=== PATIENT | female | born 1960 | race African-American/Black ===

== ENCOUNTER 2016-10-24 07:57 | Emergency (ER) | payer MEDICARE, MEDICAID ==
--- NOTE | 2016-10-24 10:12 | ER Document Report ---
ED General - General Chief Complaint: Leg Swelling Stated Complaint: LEG PAIN Notes: Patient is complaining of swelling in both feet and both lower legs that began about 1 week ago. She says it has gradually increased and is becoming painful. She's had this previously when she was diagnosed with CHF in June,. On that occasion, she had shortness of breath and difficulty breathing, which she does not have now. She denies any chest pains. No recent illness or fevers. Patient has HCTZ that she takes for fluid, and has been taking it as prescribed and has not missed any dosages. History of appendectomy and and ovary removal. History of hypertension, IDDM, hepatitis C. Smokes TRAVEL OUTSIDE OF THE [place] IN LAST 30 DAYS: No - Related Data Allergies/Adverse Reactions: No Known Allergies Allergy (Verified 10/24/16 08:11) Past Medical History - Social History Smoking Status: Current Every Day Smoker Chew tobacco use (# tins/day): Yes Family History: Reviewed & Not Pertinent, DM Patient has suicidal ideation: No Patient has homicidal ideation: No - Past Medical History Cardiac Medical History: Reports: Hx Congestive Heart Failure, Hx Coronary Artery Disease, Hx Hypercholesterolemia, Hx Hypertension Endocrine Medical History: Reports: Hx Diabetes Mellitus Type 1, Hx Diabetes Mellitus Type 2 GI Medical History: Reports: Hx Hepatitis - Hepatitis C Past Surgical History: Reports: Hx Appendectomy, Hx Section, Hx Gynecologic Surgery, Hx Tubal Ligation, Other - salpingo-oophorectomy. Denies: Hx Hysterectomy - Immunizations Hx Diphtheria, Pertussis, Tetanus Vaccination: Yes Review of Systems - Review of Systems Notes: REVIEW OF SYSTEMS: CONSTITUTIONAL : Denies fever. EENT: Denies eye, ear, nose or mouth or throat pain or other symptoms. CARDIOVASCULAR: Denies chest pain. RESPIRATORY: Denies cough, chest congestion, or shortness of breath. GASTROINTESTINAL: Denies abdominal pain or nausea, vomiting, or diarrhea. GENITOURINARY: Denies difficulty or painful urinating, urinary frequency, blood in urine. MUSCULOSKELETAL: Denies back or neck pain. Denies joint pain or swelling. SKIN: Denies rash or skin lesions. NEUROLOGICAL: Denies LOC or altered mental status. Denies headache. Denies sensory loss or motor deficits. ALL OTHER SYSTEMS REVIEWED AND NEGATIVE. Physical Exam - Vital signs Vitals: Temp Pulse Resp BP Pulse Ox 97.9 F 94 18 149/72 H 99 10/24/16 08:13 10/24/16 08:13 10/24/16 08:13 10/24/16 08:13 10/24/16 08:13 Interpretation: Normal - Notes Notes: PHYSICAL EXAMINATION: GENERAL: Well-appearing, in no acute distress. Vital signs are all essentially normal. HEAD: Atraumatic, normocephalic. EYES: Pupils equal round and reactive to light, extraocular movements intact. ENT: oropharynx clear without exudates. Moist mucous membranes. NECK: Normal range of motion, supple. LUNGS: Breath sounds clear and equal bilaterally. HEART: Regular rate and rhythm without murmurs. Heart rate regular, about 100 by me at bedside. ABDOMEN: Soft, nontender. No guarding or rebound. BACK: No tenderness throughout entire back. EXTREMITIES: Normal range of motion without pain. Bilateral pitting edema, +2 to +3 of both pretibial areas and feet. Good dorsalis pedis pulses bilaterally. No asymmetric swelling. No tenderness like a venous thrombosis of either leg. Negative Isabelle's bilateral. NEUROLOGICAL: Normal speech, normal gait. Normal sensory, motor, and reflex exams. Awake, alert, and oriented x3. Cranial nerves normal. PSYCH: Normal mood, normal affect. SKIN: Warm, dry, no rashes. Course - Re-evaluation Re-evalutation: 10/24/16 12:20 Workup does not show any serious acute problems. I spoke with Dr. Hendrickson, patient's primary care provider, and he recommends stopping the amlodipine and giving the patient a dose of Lasix by mouth and he will see her in the office tomorrow morning to regulate her medications. - Vital Signs Vital signs: Temp Pulse Resp BP Pulse Ox 97.9 F 94 18 149/72 H 99 10/24/16 08:13 10/24/16 08:13 10/24/16 08:13 10/24/16 08:13 10/24/16 08:13 - Laboratory Result Diagrams: 10/24/16 11:10 10/24/16 11:10 Laboratory results interpreted by me: 10/24/16 10/24/16 10/24/16 11:10 11:10 11:10 RBC 3.30 L Hgb 10.9 L Hct 31.3 L Potassium 5.5 H BUN 29 H Est GFR (Non-Af Amer) 59 L Glucose 272 H AST 39 H NT-Pro-B Natriuret Pep 1310 H Discharge - Discharge Clinical Impression: Mild peripheral edema, Dependent edema Condition: Stable Disposition: HOME, SELF-CARE Additional Instructions: Edema, Peripheral You have swelling in your legs. This is called peripheral edema. It can be caused by "leaky capillaries," inflammation, disease of the leg veins, or excess salt and water in your body. Edema may be a sign of heart, kidney, or liver disease. A medical evaluation can determine if there is a serious underlying cause for your edema. Avoid prolonged standing. If you must sit for a long time, occasionally get up and walk around or elevate your legs. Support stockings can be helpful in limiting swelling. Often diuretic or water pills are used to remove excess salt and water from your body. Call the doctor or return if you develop increased swelling, pain, or redness, shortness of breath, chest pain, or any other significant change. This condition may be related to one of the medicines you're taking (amlodipine) . I spoke with Dr. Darnell and he recommended that you stop taking the amlodipine and see him in the office tomorrow morning for him to adjust her medications. Referrals: NOMAN HENDRICKSON MD [Primary Care Provider] - Follow up tomorrow
[2016-10-24 11:29] LABS: ABSOLUTE BASOPHILS # (AUTO) 0.1 10^3/uL (0.0-0.2); ABSOLUTE EOSINOPHILS # (AUTO) 0.3 10^3/uL (0.0-0.6); ABSOLUTE LYMPHOCYTES (AUTO) 2.7 10^3/uL (0.5-4.7); ABSOLUTE MONOCYTES (AUTO) 0.5 10^3/uL (0.1-1.4); ABSOLUTE NEUT (AUTO) 5.6 10^3/uL (1.7-8.2); BASOPHILS % (AUTO) 1.2 % (0-2); HEMATOCRIT 31.3 % (36.0-47.0); HEMOGLOBIN 10.9 g/dL (12.0-15.5); HGB HCT DIFFERENCE 1.4; LYMPHOCYTES % (AUTO) 29.5 % (13-45); MEAN CORPUSCULAR HEMOGLOBIN 33.1 pg (27.0-33.4); MEAN CORPUSCULAR HGB CONC 34.9 g/dL (32.0-36.0); MEAN CORPUSCULAR VOLUME 95 fl (80-97); MONOCYTES % (AUTO) 5.5 % (3-13); RED CELL DISTRIBUTION WIDTH 12.5 % (11.5-14.0); SEGMENTED NEUTROPHILS % (AUTO) 60.8 % (42-78); WHITE BLOOD COUNT 9.1 10^3/uL (4.0-10.5)
[2016-10-24 11:50] LABS: ALANINE AMINOTRANSFERASE 41 U/L (9-52); ALBUMIN 3.7 g/dL (3.5-5.0); ALKALINE PHOSPHATASE 59 U/L (38-126); ANION GAP 11 (5-19); ASPARTATE AMINO TRANSFERASE 39 U/L (14-36); BILIRUBIN,DIRECT 0.3 mg/dL (0.0-0.4); BILIRUBIN,TOTAL 0.6 mg/dL (0.2-1.3); BLOOD UREA NITROGEN 29 mg/dL (7-20); CALCIUM 9.8 mg/dL (8.4-10.2); CARBON DIOXIDE 25 mmol/L (22-30); CHLORIDE 106 mmol/L (98-107); CREATININE RESULT 0.98 mg/dL (0.52-1.25); GLUCOSE 272 mg/dL (75-110); POTASSIUM 5.5 mmol/L (3.6-5.0); TOTAL PROTEIN 7.5 g/dL (6.3-8.2)
[2016-10-24 12:02] LABS: CREATINE KINASE MB 1.01 ng/mL (<4.55)
[2016-10-24 12:03] LABS: TROPONIN I < 0.012 ng/mL
[2016-10-24] MEDS ORDERED: FUROSEMIDE 40 MG TABLET PO ONE (12:37)
[2016-10-24 12:55] VITALS: BP 145/70
--- NOTE | 2016-10-24 16:06 | EKG REPORT ---
SEVERITY:- ABNORMAL ECG - SINUS RHYTHM NONSPECIFIC T ABNORMALITIES, INFERIOR LEADS : Confirmed by: Kt Pride 24-Oct-2016 16:05:35
== END 2016-10-24 12:55 | disposition home or self-care (01) ==
LOC: ER 07:57
DX: I11.0 Hypertensive heart disease with heart failure (principal); I50.9 Heart failure, unspecified; I25.10 Atherosclerotic heart disease of native coronary artery without angina pectoris; R60.0 Localized edema; E11.9 Type 2 diabetes mellitus without complications; F17.200 Nicotine dependence, unspecified, uncomplicated; Z79.899 Other long term (current) drug therapy
CPT/HCPCS: 93005; 99284; 36415; 82553; 85025; 80053; 84484; 83880; 71020; 93010; A9270

== ENCOUNTER 2016-12-01 21:32 | Emergency (ER) | payer MEDICARE, MEDICAID ==
[2016-12-01] MEDS ORDERED: IPRATROPIUM/ALBUTEROL 0.5-2.5 MG/3 ML AMPUL NEB ONE (21:43)
[2016-12-01] MEDS ORDERED: PREDNISONE 20 MG TABLET PO ONE (21:43)
[2016-12-01] MEDS ORDERED: ALBUTEROL SULFATE 0.083% NEB 2.5 MG/3 ML AMPUL NEB SCH (21:59)
[2016-12-01] MEDS ORDERED: ALBUTEROL SULFATE 0.083% NEB 2.5 MG/3 ML AMPUL NEB ONE (22:01)
--- NOTE | 2016-12-01 22:04 | ER Document Report ---
ED Respiratory Problem - General Mode of Arrival: Ambulatory Information source: Patient TRAVEL OUTSIDE OF THE [place] IN LAST 30 DAYS: No - HPI Onset: Other - see HPI note Associated symptoms: Cough, Short of breath, Wheezing Similar symptoms previously: Yes Recently seen / treated by doctor: No <VIVIEN NUNO - Last Filed: 12/01/16 23:03> <MADHAVILINDSAYKENYON - Last Filed: 12/02/16 01:27> - General Chief Complaint: Breathing Difficulty Stated Complaint: DIFFICULTY BREATHING Notes: Patient is a 56 year old female presenting to the emergency department for dyspnea. Patient has had a productive cough and wheezing for the past 2 days. Patient states that her breathing is the worst it has ever been. Patient denies any chest pain. Patient is a smoker of 40+ years and states that she has inhalers at home. Patient also has a history of diabetes mellitus, hypertension , GERD, CHF, CAD and hypercholesterolemia. Patient denies any fever or previous history of intubation. Patient has no known allergies. (VIVIEN NUNO) - Related Data Allergies/Adverse Reactions: No Known Allergies Allergy (Verified 10/24/16 08:11) Past Medical History - General Information source: Patient - Social History Smoking Status: Current Every Day Smoker Chew tobacco use (# tins/day): No Frequency of alcohol use: None Drug Abuse: None Family History: DM - Past Medical History Cardiac Medical History: Reports: Hx Congestive Heart Failure, Hx Coronary Artery Disease, Hx Hypercholesterolemia, Hx Hypertension Endocrine Medical History: Reports: Hx Diabetes Mellitus Type 2 GI Medical History: Reports: Hx Hepatitis - Hepatitis C Infectious Medical History: Reports: Hx Hepatitis - Hepatitis C Past Surgical History: Reports: Hx Appendectomy, Hx Section, Hx Gynecologic Surgery, Hx Tubal Ligation, Other - salpingo-oophorectomy - Immunizations Hx Diphtheria, Pertussis, Tetanus Vaccination: Yes <VIVIEN NUNO - Last Filed: 12/01/16 23:03> Review of Systems - Review of Systems Constitutional: No symptoms reported EENT: No symptoms reported Cardiovascular: No symptoms reported. denies: Chest pain Respiratory: See HPI, Cough, Short of breath, Sputum, Wheezing Gastrointestinal: No symptoms reported Genitourinary: No symptoms reported Female Genitourinary: No symptoms reported Musculoskeletal: No symptoms reported Skin: No symptoms reported Hematologic/Lymphatic: No symptoms reported Neurological/Psychological: No symptoms reported -: Yes All other systems reviewed and negative <IVVIEN NUNO - Last Filed: 12/01/16 23:03> Physical Exam <VIVIEN NUNO - Last Filed: 12/01/16 23:03> <KENYON GALLEGOS - Last Filed: 12/02/16 01:27> - Vital signs Vitals: Temp Pulse Resp BP Pulse Ox 98.4 F 112 H 22 H 117/90 H 99 12/01/16 21:48 12/01/16 21:48 12/01/16 21:48 12/01/16 21:48 12/01/16 21:48 - Notes Notes: GENERAL: Alert, interacts well. No acute distress. HEAD: Normocephalic, atraumatic. EYES: Pupils equal, round, and reactive to light. Extraocular movements intact. ENT: Oral mucosa moist, tongue midline. NECK: Full range of motion. Supple. Trachea midline. LUNGS: Expiratory wheeze, coarse rhonchi to the left lower lobe, prolonged expiration, productive cough, tachypnea. HEART: Regular rate and rhythm. No murmurs, gallops, or rubs. ABDOMEN: Soft, non-tender. Non-distended. Bowel sounds present in all 4 quadrants. EXTREMITIES: Moves all 4 extremities spontaneously. Trace pitting edema to the lower extremities bilaterally, radial and dorsalis pedis pulses 2/4 bilaterally. No cyanosis. NEUROLOGICAL: Alert and oriented x3. Normal speech. PSYCH: Normal affect, normal mood. SKIN: Warm, dry, normal turgor. No rashes or lesions noted. (VIVIEN NUNO) Course - Laboratory Result Diagrams: 12/01/16 22:12 12/01/16 22:12 <VIVIEN NUNO - Last Filed: 12/01/16 23:03> - Laboratory Result Diagrams: 12/01/16 22:12 12/02/16 00:21 <KENYON GALLEGOS - Last Filed: 12/02/16 01:27> - Re-evaluation Re-evalutation: 12/02/16 01:23 Patient came in quite short of breath and breathing rather rapidly, after breathing treatments and steroids her lung sounds cleared and she was feeling much better. Patient did have an episode of hypoxia while sleeping prior to receiving the breathing treatments, after receiving the breathing treatments while sleeping she was at 91% oxygen saturation, when awake she came up to 96% oxygen saturation. CBC shows slight leukocytosis of 11.5 and minimal anemia with hemoglobin 11.7. Chemistries show hyperkalemia at 5.6 no QRS widening on the EKG, T waves are not peaked, she does have low CO2 at 19, acute renal failure with BUN of 45 and creatinine 1.61 consistent with dehydration, glucose elevated 270 consistent with diabetes, troponin is negative, proBNP does not indicate congestive heart failure, chest x-ray unremarkable, urinalysis shows small leukocyte esterase but is contaminated with 12 squamous epithelial cells. At this time it appears to be an acute exacerbation of COPD, no evidence for bacterial infection, patient will be treated with steroids and inhalers and discharged home. She will follow up with her primary care physician as an outpatient for recheck of her renal function within the next week. (KENYON GALLEGOS ) - Vital Signs Vital signs: Temp Pulse Resp BP Pulse Ox 98.4 F 112 H 20 152/86 H 100 12/01/16 21:48 12/01/16 21:48 12/01/16 23:31 12/01/16 23:31 12/01/16 23:31 - Laboratory Laboratory results interpreted by me: 12/01/16 12/01/16 12/02/16 22:12 23:28 00:21 WBC 11.5 H RBC 3.53 L Hgb 11.7 L Hct 33.0 L Potassium 5.6 H Carbon Dioxide 19 L BUN 45 H Creatinine 1.61 H Est GFR ( Amer) 40 L Est GFR (Non-Af Amer) 33 L Glucose 270 H Direct Bilirubin 0.5 H AST 41 H Creatine Kinase 140 H Urine Protein 100 H Urine Urobilinogen 2.0 H Ur Leukocyte Esterase SMALL H - EKG Interpretation by Me Additional EKG results interpreted by me: 12/02/16 01:24 EKG shows sinus rhythm at a rate of 92, left axis deviation, normal intervals, no ST segment elevations or depressions, there are T wave inversions noted in lead 3, aVF, V5 and V6, none of these are new compared to prior EKG on 2016. (KENYON GALLEGOS) Discharge <VIVIEN NUNO - Last Filed: 12/01/16 23:03> <KENYON GALLEGOS - Last Filed: 12/02/16 01:27> - Discharge Clinical Impression: Acute exacerbation of chronic obstructive pulmonary disease, Dehydration Acute renal failure Qualifiers: Acute renal failure type: unspecified Qualified Code(s): N17.9 - Acute kidney failure, unspecified High blood pressure Qualifiers: Hypertension type: essential hypertension Qualified Code(s): I10 - Essential ( primary) hypertension Condition: Stable Disposition: HOME, SELF-CARE Additional Instructions: Please drink plenty of water. Please take prednisone as directed until it is gone. Please use your albuterol inhaler 2 puffs every 4 hours as needed for shortness of breath. Please return to the emergency department should she need to use it more than every 4 hours. Today you had some damage to your kidney from dehydration, please drink plenty of water and follow up with Dr. Hendrickson to have your kidney function rechecked within the next week. Prescriptions: Prednisone [Deltasone 20 mg Tablet] 3 tab PO DAILY 5 Days Referrals: VIRIDIANA COLEMAN PA [Primary Care Provider] - Follow up in 1 week NOMAN HENDRICKSON MD [ACTIVE STAFF] - Follow up in 1 week Scribe Attestation: 12/02/16 01:26 I personally performed the services described in the documentation, reviewed and edited the documentation which was dictated to the scribe in my presence, and it accurately records my words and actions. (KENYON GALLEGOS) Scribe Documentation - Scribe Written by Scribe:: Vivien Nuno 12/01/16 22:14 acting as scribe for :: Tommy <VIVIEN NUNO - Last Filed: 12/01/16 23:03>
[2016-12-01 22:58] LABS: ABSOLUTE BASOPHILS # (AUTO) 0.1 10^3/uL (0.0-0.2); ABSOLUTE EOSINOPHILS # (AUTO) 0.3 10^3/uL (0.0-0.6); ABSOLUTE LYMPHOCYTES (AUTO) 4.3 10^3/uL (0.5-4.7); ABSOLUTE MONOCYTES (AUTO) 0.6 10^3/uL (0.1-1.4); ABSOLUTE NEUT (AUTO) 6.2 10^3/uL (1.7-8.2); BASOPHILS % (AUTO) 0.7 % (0-2); EOSINOPHILS % (AUTO) 2.9 % (0-6); HEMOGLOBIN 11.7 g/dL (12.0-15.5); HGB HCT DIFFERENCE 2.1; LYMPHOCYTES % (AUTO) 37.2 % (13-45); MEAN CORPUSCULAR HEMOGLOBIN 33.2 pg (27.0-33.4); MEAN CORPUSCULAR HGB CONC 35.6 g/dL (32.0-36.0); MEAN CORPUSCULAR VOLUME 93 fl (80-97); MONOCYTES % (AUTO) 5.6 % (3-13); RED BLOOD COUNT 3.53 10^6/uL (3.72-5.28); SEGMENTED NEUTROPHILS % (AUTO) 53.6 % (42-78); WHITE BLOOD COUNT 11.5 10^3/uL (4.0-10.5)
[2016-12-01 23:43] LABS: APPEARANCE,URINE CLOUDY; BILIRUBIN,URINE NEGATIVE (NEGATIVE); GLUCOSE, URINE NEGATIVE (NEGATIVE); KETONES,URINE NEGATIVE (NEGATIVE); LEUKOCYTE ESTERASE,URINE SMALL (NEGATIVE); NITRITE,URINE NEGATIVE (NEGATIVE); PROTEIN,URINE 100 mg/dL (NEGATIVE); URINE SPECIFIC GRAVITY 1.017
[2016-12-02 00:48] LABS: ALANINE AMINOTRANSFERASE 39 U/L (9-52); ALBUMIN 3.6 g/dL (3.5-5.0); ALKALINE PHOSPHATASE 69 U/L (38-126); ANION GAP 14 (5-19); ASPARTATE AMINO TRANSFERASE 41 U/L (14-36); BILIRUBIN,DIRECT 0.5 mg/dL (0.0-0.4); BILIRUBIN,TOTAL 0.6 mg/dL (0.2-1.3); BLOOD UREA NITROGEN 45 mg/dL (7-20); CALCIUM 8.8 mg/dL (8.4-10.2); CARBON DIOXIDE 19 mmol/L (22-30); CHLORIDE 106 mmol/L (98-107); CREATINE KINASE 140 U/L (30-135); CREATININE RESULT 1.61 mg/dL (0.52-1.25); GLUCOSE 270 mg/dL (75-110); POTASSIUM 5.6 mmol/L (3.6-5.0); SODIUM 138.8 mmol/L (137-145); TOTAL PROTEIN 7.5 g/dL (6.3-8.2)
[2016-12-02 01:00] LABS: CREATINE KINASE MB 1.65 ng/mL (<4.55); TROPONIN I 0.022 ng/mL
[2016-12-02] MEDS ORDERED: ALBUTEROL SULFATE HFA (90 MCG/PUFF) 8 GM MDI (1 MDI/ER DISP) IH ONE (01:24)
[2016-12-02 01:39] VITALS: BP 127/68
--- NOTE | 2016-12-02 08:21 | EKG REPORT ---
SEVERITY:- DEFECTIVE ECG - SINUS OR ECTOPIC ATRIAL RHYTHM PROBABLE LEFT ATRIAL ABNORMALITY ABNORMAL T, CONSIDER ISCHEMIA, INFERIOR LEADS : Confirmed by: Bob Garcia MD 02-Dec-2016 08:20:40
== END 2016-12-02 01:41 | disposition home or self-care (01) ==
LOC: ER 21:32
DX: J44.1 Chronic obstructive pulmonary disease with (acute) exacerbation (principal); E86.0 Dehydration; N17.9 Acute kidney failure, unspecified; F17.210 Nicotine dependence, cigarettes, uncomplicated; I11.0 Hypertensive heart disease with heart failure; E11.9 Type 2 diabetes mellitus without complications; I50.9 Heart failure, unspecified; I25.10 Atherosclerotic heart disease of native coronary artery without angina pectoris; E78.00 Pure hypercholesterolemia, unspecified; Z86.19 Personal history of other infectious and parasitic diseases; Z98.51 Tubal ligation status
CPT/HCPCS: 93005; 94640 ×2; 99285; 36415; 82553; 82550; 85025; 80053; 81001; 84484; 83880; 71010; 93010; A9270 ×2; J3490; J7512

== ENCOUNTER → 2017-03-01 | Outpatient (CLI) | payer MEDICARE, MEDICAID ==
--- NOTE | 2017-03-02 10:59 | XCELERA REPORT ---
[address] [address] Lower Extremity Arterial Evaluation Name: MAGNO QUEEN Age: 56 yrs Gender: Female : 1960 Patient Status: Outpatient Patient Location: Study Date: 03/01/2017 09:40 AM Procedure: A color flow and duplex scan of the lower extremity arteries was performed bilaterally with velocity and waveform anaylsis. Ankle brachial indicies performed. 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 0 % stenosis noted. Ankle Brachial index is 1.05. PPG's are normal. Left Side Arterial Evaluation Normal velocity and triphasic waveforms noted from the Common Femoral artery to the Anterior Tibial artey . Biphsic inthe Posterior tibialartey. 0-19 % stenosis noted. In the Posterior Tibial artery. Ankle Brachial index is 1.2. PPG's are normal. Interpretation Summary No hemodynamically significant lesions in the right lower extremity only, on duplex imaging, at rest. Mild hemodynamically significant lesions in the left lower extremity only, on duplex imaging, at rest. : FRANCISCO LA > Moose Queen
== END ==
LOC: SP 09:21
PROVIDERS: ATTEND Preventive Medicine Undersea and Hyperbaric Medicine
DX: I70.25 Atherosclerosis of native arteries of other extremities with ulceration (principal)
CPT/HCPCS: 93925

== ENCOUNTER 2017-04-23 14:09 | Emergency (ER) | payer MEDICARE, MEDICAID ==
--- NOTE | 2017-04-23 14:30 | ER Document Report ---
ED General - General Chief Complaint: Constipation Stated Complaint: DIFFICULTY BREATHING Time Seen by Provider: 04/23/17 14:09 Mode of Arrival: Ambulatory Information source: Patient TRAVEL OUTSIDE OF THE [place] IN LAST 30 DAYS: No - HPI Patient complains to provider of: Chest and abdomen pain. Notes: Patient is a 57-year-old female history of noncompliance, CHF,Reflux, pancreatitis , hypertension, cocaine abuse and renal insufficiency presents emergency department with report of chronic constipation where she has not had a bowel movement for 1-2 weeks. Patient states she can go up to a week without a bowel movement. The patient reports she was straining hard to have a bowel movement and after the straining episode she developed some chest pain. She denies any difficulty breathing or fever. She reports abdominal pain is crampy and diffuse left greater than right sided. Patient denies any fever chills or nausea or vomiting. Patient has chronic back pain and is out of her usual BID Percocet that she usually takes twice a day. Medications clonidine, benazepril, omeprazole, Lantus, NovoLog, Percocet. - Related Data Allergies/Adverse Reactions: No Known Allergies Allergy (Verified 10/24/16 08:11) Past Medical History - General Information source: Patient - Social History Smoking Status: Current Every Day Smoker Frequency of alcohol use: Occasional Family History: Reviewed & Not Pertinent, DM - Past Medical History Cardiac Medical History: Reports: Hx Congestive Heart Failure, Hx Coronary Artery Disease, Hx Hypercholesterolemia, Hx Hypertension Endocrine Medical History: Reports: Hx Diabetes Mellitus Type 1, Hx Diabetes Mellitus Type 2 Renal/ Medical History: Denies: Hx Peritoneal Dialysis GI Medical History: Reports: Hx Hepatitis - Hepatitis C Infectious Medical History: Reports: Hx Hepatitis - Hepatitis C Past Surgical History: Reports: Hx Appendectomy, Hx Section, Hx Gynecologic Surgery, Hx Tubal Ligation, Other - salpingo-oophorectomy. Denies: Hx Hysterectomy - Immunizations Hx Diphtheria, Pertussis, Tetanus Vaccination: Yes Review of Systems - Review of Systems Notes: REVIEW OF SYSTEMS: CONSTITUTIONAL : Denies fever, chills, or sweats. Denies recent illness. EENT: Denies eye, ear, throat, or mouth pain or symptoms. Denies nasal or sinus congestion or discharge. Denies throat, tongue, or mouth swelling or difficulty swallowing. CARDIOVASCULAR: Denies palpitations or racing or irregular heart beat. Denies any change in her chronic ankle edema. RESPIRATORY: Denies cough, cold, or chest congestion. Denies shortness of breath, difficulty breathing, or wheezing. GASTROINTESTINAL: Denies nausea, vomiting, or diarrhea. Denies blood in vomitus, stools, or per rectum. Denies black, tarry stools. is GENITOURINARY: Denies difficulty urinating, painful urination, burning, frequency, blood in urine, or discharge. FEMALE GENITOURINARY: Denies vaginal bleeding, heavy or abnormal periods, irregular periods. Denies vaginal discharge or odor. MUSCULOSKELETAL: Denies back or neck pain or stiffness. Denies joint pain or swelling. SKIN: Denies rash, lesions or sores. HEMATOLOGIC : Denies easy bruising or bleeding. LYMPHATIC: Denies swollen, enlarged glands. NEUROLOGICAL: Denies confusion or altered mental status. Denies passing out or loss of consciousness. Denies dizziness or lightheadedness. Denies headache. Denies weakness or paralysis or loss of use of either side. Denies problems with gait or speech. Denies sensory loss, numbness, or tingling. Denies seizures. PSYCHIATRIC: Denies anxiety or stress. Denies depression, suicidal ideation, or homicidal ideation. ALL OTHER SYSTEMS REVIEWED AND NEGATIVE. Dictation was performed using [employer] voice recognition software is Physical Exam - Vital signs Vitals: Temp Pulse Resp BP Pulse Ox 98.4 F 98 18 170/86 H 98 04/23/17 14:29 04/23/17 14:29 04/23/17 14:29 04/23/17 14:29 04/23/17 14:29 - Notes Notes: PHYSICAL EXAMINATION: GENERAL: Well-appearing, well-nourished and in no acute distress. HEAD: Atraumatic, normocephalic. EYES: Pupils equal round and reactive to light, extraocular movements intact, conjunctiva are normal. ENT: Nares patent, oropharynx clear without exudates. Moist mucous membranes. NECK: Normal range of motion, supple without lymphadenopathy LUNGS: Breath sounds clear to auscultation bilaterally and equal. No wheezes rales or rhonchi. HEART: Regular rate and rhythm without murmurs. ABDOMEN: Soft, nondistended abdomen. No guarding, no rebound. No masses appreciated. Diffusely tender through the lower greater than upper abdomen left greater than right. Female : deferred Rectal exam: Copious hard stool in the vault which was manually disimpacted and without any obvious evidence for bleeding. Patient tolerated this with mild degree of discomfort. Musculoskeletal: Normal range of motion. No cyanosis. 1+ bilateral lower extremity edema, patient states this is chronic. NEUROLOGICAL: Cranial nerves grossly intact. Normal speech, normal gait. Normal sensory, motor exams PSYCH: Normal mood, normal affect. SKIN: Warm, Dry, normal turgor, no rashes or lesions noted. Course - Re-evaluation Re-evalutation: 04/23/17 15:33 After manual disimpaction, the patient reports having a large bowel movement and and she states her pain in her chest and abdomen completely resolved. Repeat exam of the abdomen showed no tenderness. Patient had not yet taken her dose of Benazepril and hydrochlorothiazide and clonidine today, so these were provided. Patient was also given milk of magnesia by mouth. 04/23/17 16:02 Patient's BNP elevated at 2800, as compared to 4700 in the past. Patient again was encouraged to take her blood pressure medications including benazepril and hydrochlorothiazide regularly. Patient was sleeping with a respiratory rate of 16 and O2 sats of 96-97 percent on room air. There is no clinical suggestion for CHF and no gross CHF noted on chest x-ray. Creatinine improved to 1.2 from previous value of 1.6. No evidence for obvious dehydration. No evidence for small bowel obstruction. Given the pain resolution, no evidence for diverticulitis or abdominal aortic aneurysm. We will start the patient on MiraLAX. 04/23/17 20:35 Repeat abdominal exam patient's nontender. 04/23/17 20:37 - Vital Signs Vital signs: Temp Pulse Resp BP Pulse Ox 98.4 F 98 13 155/92 H 94 04/23/17 14:29 04/23/17 14:29 04/23/17 18:01 04/23/17 18:01 04/23/17 18:01 - Laboratory Result Diagrams: 04/23/17 15:00 04/23/17 15:00 Laboratory results interpreted by me: 04/23/17 04/23/17 04/23/17 15:00 15:00 15:00 RDW 14.2 H BUN 22 H Est GFR (Non-Af Amer) 51 L Glucose 300 H Direct Bilirubin 0.6 H AST 42 H NT-Pro-B Natriuret Pep 2810 H Total Protein 9.2 H Urine Protein Urine Glucose (UA) Urine Blood 04/23/17 16:00 RDW BUN Est GFR (Non-Af Amer) Glucose Direct Bilirubin AST NT-Pro-B Natriuret Pep Total Protein Urine Protein >=500 H Urine Glucose (UA) >=500 H Urine Blood SMALL H - EKG Interpretation by Me EKG shows normal: Sinus rhythm Additional EKG results interpreted by me: 04/23/17 14:54 EKG as interpreted by me showed normal sinus rhythm heart rate of 99 [address] LVH and nonspecific ST segment abnormalities. There was no significant change from previous EKG reviewed from 12/01/16. No obvious evidence for acute NC or ischemia noted. Discharge - Discharge Clinical Impression: Cocaine abuse, Hyperglycemia, Medically noncompliant Constipation Qualifiers: Constipation type: unspecified constipation type Qualified Code(s): K59.00 - Constipation, unspecified Abdominal pain Qualifiers: Abdominal location: generalized Qualified Code(s): R10.84 - Generalized abdominal pain Chest pain Qualifiers: Chest pain type: unspecified Qualified Code(s): R07.9 - Chest pain, unspecified Condition: Stable Disposition: HOME, SELF-CARE Instructions: Constipation ([facility]), Cocaine Abuse ([facility]), Chest Pain of Unclear Cause ([facility]) Additional Instructions: Take your medications for high blood pressure regularly. Return to the emergency department in case of fever, severe abdominal pain or recurrence of chest pain. We will start you on MiraLAX daily to control constipation. Prescriptions: Polyethylene Glycol 3350 [Miralax] 1 cap PO DAILY #527 powder Referrals: NOMAN HENDRICKSON MD [Primary Care Provider] - Follow up as needed
[2017-04-23 15:25] LABS: ABSOLUTE BASOPHILS # (AUTO) 0.1 10^3/uL (0.0-0.2); ABSOLUTE EOSINOPHILS # (AUTO) 0.2 10^3/uL (0.0-0.6); ABSOLUTE LYMPHOCYTES (AUTO) 1.6 10^3/uL (0.5-4.7); ABSOLUTE MONOCYTES (AUTO) 0.5 10^3/uL (0.1-1.4); ABSOLUTE NEUT (AUTO) 6.6 10^3/uL (1.7-8.2); BASOPHILS % (AUTO) 1.3 % (0-2); EOSINOPHILS % (AUTO) 2.2 % (0-6); HEMOGLOBIN 14.3 g/dL (12.0-15.5); HGB HCT DIFFERENCE 0.9; LYMPHOCYTES % (AUTO) 17.7 % (13-45); MEAN CORPUSCULAR HEMOGLOBIN 31.9 pg (27.0-33.4); MEAN CORPUSCULAR HGB CONC 34.1 g/dL (32.0-36.0); MEAN CORPUSCULAR VOLUME 94 fl (80-97); MONOCYTES % (AUTO) 5.2 % (3-13); RED BLOOD COUNT 4.49 10^6/uL (3.72-5.28); RED CELL DISTRIBUTION WIDTH 14.2 % (11.5-14.0); SEGMENTED NEUTROPHILS % (AUTO) 73.6 % (42-78)
[2017-04-23] MEDS ORDERED: BENAZEPRIL HCL 20 MG TABLET PO ONE (15:32)
[2017-04-23] MEDS ORDERED: HYDROCHLOROTHIAZIDE 25 MG TABLET PO ONE (15:32)
[2017-04-23] MEDS ORDERED: MAGNESIUM HYDROXIDE SUSP 30 ML UDCUP PO ONE (15:32)
[2017-04-23] MEDS ORDERED: CLONIDINE HCL 0.1 MG TABLET PO ONE (15:33)
[2017-04-23 15:43] LABS: ALANINE AMINOTRANSFERASE 32 U/L (9-52); ALBUMIN 4.1 g/dL (3.5-5.0); ALKALINE PHOSPHATASE 102 U/L (38-126); ANION GAP 13 (5-19); ASPARTATE AMINO TRANSFERASE 42 U/L (14-36); BILIRUBIN,DIRECT 0.6 mg/dL (0.0-0.4); BILIRUBIN,TOTAL 0.8 mg/dL (0.2-1.3); BLOOD UREA NITROGEN 22 mg/dL (7-20); CALCIUM 10.1 mg/dL (8.4-10.2); CARBON DIOXIDE 27 mmol/L (22-30); CHLORIDE 100 mmol/L (98-107); CREATININE RESULT 1.12 mg/dL (0.52-1.25); GLUCOSE 300 mg/dL (75-110); LIPASE 76.5 U/L (23-300); POTASSIUM 4.4 mmol/L (3.6-5.0); SODIUM 140.2 mmol/L (137-145); TOTAL PROTEIN 9.2 g/dL (6.3-8.2)
--- NOTE | 2017-04-23 15:43 | RADIOLOGY REPORT (SQ) ---
EXAM DESCRIPTION: ACUTE ABDOMEN SERIES COMPLETED DATE/TIME: 04/23/2017 3:19 pm REASON FOR STUDY: abd and chest pain, constipation COMPARISON: None. NUMBER OF VIEWS: Three views. TECHNIQUE: Frontal chest, supine abdomen and upright/decubitus abdomen radiographic images acquired. LIMITATIONS: None. FINDINGS: CHEST: Lungs clear of infiltrates. Cardiac silhouette is enlarged. FREE AIR: None. No abnormal gas collections. BOWEL GAS PATTERN: Nonobstructive pattern. No dilated loops or air fluid levels. CALCIFICATIONS: No suspicious calcifications. HARDWARE: None in the abdomen. SOFT TISSUES: No gross mass or suggestion of organomegaly. BONES: No acute fracture. No worrisome bone lesions. OTHER: No other significant finding. IMPRESSION: NO RADIOGRAPHIC EVIDENCE FOR ACUTE ABDOMINAL DISEASE. TECHNICAL DOCUMENTATION: JOB ID: [id number] [email or web address]- All Rights Reserved
[2017-04-23 15:47] LABS: ALCOHOL < 10 mg/dL (NONE DETECTED)
--- NOTE | 2017-04-23 16:26 | EKG REPORT ---
SEVERITY:- BORDERLINE ECG - SINUS RHYTHM BORDERLINE T ABNORMALITIES, LATERAL LEADS : Confirmed by: Bob Garcia MD 23-Apr-2017 16:26:09
[2017-04-23 16:56] LABS: APPEARANCE,URINE CLEAR; BILIRUBIN,URINE NEGATIVE (NEGATIVE); GLUCOSE, URINE >=500 mg/dL (NEGATIVE); KETONES,URINE NEGATIVE (NEGATIVE); LEUKOCYTE ESTERASE,URINE NEGATIVE (NEGATIVE); NITRITE,URINE NEGATIVE (NEGATIVE); PROTEIN,URINE >=500 mg/dL (NEGATIVE); URINE SPECIFIC GRAVITY 1.002; UROBILINOGEN,URINE NEGATIVE mg/dL (<2.0)
[2017-04-23 17:18] LABS: URINE BARBITURATES SCREEN NEGATIVE; URINE METHADONE SCREEN NEGATIVE; URINE OPIATES LOW UNCONFIRMED POSITIVE; URINE PHENCYCLIDINE SCREEN NEGATIVE
[2017-04-23 22:05] VITALS: BP 154/80
== END 2017-04-23 21:01 | disposition home or self-care (01) ==
LOC: ER 14:09
DX: K59.00 Constipation, unspecified (principal); R73.9 Hyperglycemia, unspecified; R07.9 Chest pain, unspecified; R10.84 Generalized abdominal pain; Z91.14 Patient's other noncompliance with medication regimen; I50.9 Heart failure, unspecified; F14.10 Cocaine abuse, uncomplicated; E78.00 Pure hypercholesterolemia, unspecified; I25.10 Atherosclerotic heart disease of native coronary artery without angina pectoris; I11.0 Hypertensive heart disease with heart failure; Z98.51 Tubal ligation status
CPT/HCPCS: 93005; 99284; 36415; 80307 ×2; 83690; 85025; 80053; 81001; 84484; 83605; 83880; 74022; 93010; A9270 ×2; J3490

== ENCOUNTER 2017-05-08 21:11 | Emergency (ER) | payer MEDICARE, MEDICAID ==
--- NOTE | 2017-05-08 22:01 | ER Document Report ---
ED General - General Chief Complaint: Overdose Stated Complaint: POSSIBLE OVERDOSE Time Seen by Provider: 05/08/17 21:22 Mode of Arrival: Ambulatory Information source: Patient Notes: This is a 57-year-old female with a history of depression and substance abuse that presents to the emergency room after an overdose with heroin, clonidine and Ambien. Patient states she took a few clonidine and for Ambien. She states she was trying to get high. She denies any suicidal ideations. TRAVEL OUTSIDE OF THE [place] IN LAST 30 DAYS: No - HPI Onset: Just prior to arrival Onset/Duration: Gradual Quality of pain: No pain Severity: None Pain Level: Denies Associated symptoms: denies: Chest pain, Fever, Shortness of breath Exacerbated by: Denies Relieved by: Denies Similar symptoms previously: No Recently seen / treated by doctor: No - Related Data Allergies/Adverse Reactions: No Known Allergies Allergy (Verified 10/24/16 08:11) Past Medical History - General Information source: Patient - Social History Smoking Status: Current Every Day Smoker Cigarette use (# per day): Yes - 1 pack per day Chew tobacco use (# tins/day): No Frequency of alcohol use: Social Drug Abuse: Heroin, Marijuana, Prescription drugs Lives with: Family Family History: Reviewed & Not Pertinent, DM Patient has suicidal ideation: No Patient has homicidal ideation: No - Past Medical History Cardiac Medical History: Reports: Hx Congestive Heart Failure, Hx Coronary Artery Disease, Hx Hypercholesterolemia, Hx Hypertension Endocrine Medical History: Reports: Hx Diabetes Mellitus Type 1, Hx Diabetes Mellitus Type 2 Renal/ Medical History: Denies: Hx Peritoneal Dialysis GI Medical History: Reports: Hx Hepatitis - Hepatitis C Infectious Medical History: Reports: Hx Hepatitis - Hepatitis C Past Surgical History: Reports: Hx Appendectomy, Hx Section, Hx Gynecologic Surgery, Hx Tubal Ligation, Other - salpingo-oophorectomy. Denies: Hx Hysterectomy - Immunizations Hx Diphtheria, Pertussis, Tetanus Vaccination: Yes Review of Systems - Review of Systems Constitutional: denies: Chills, Fever EENT: No symptoms reported Cardiovascular: No symptoms reported Respiratory: No symptoms reported Gastrointestinal: No symptoms reported Genitourinary: No symptoms reported Female Genitourinary: No symptoms reported Musculoskeletal: No symptoms reported Skin: No symptoms reported Hematologic/Lymphatic: No symptoms reported Neurological/Psychological: See HPI Physical Exam - Vital signs Vitals: Pulse Ox 94 05/08/17 21:31 Notes: Physical exam: GENERAL: 57-year-old female that is lethargic but easily arousable. No acute distress. HEAD: Atraumatic, normocephalic. EYES: Pupils equal round and reactive to light, extraocular movements intact, sclera anicteric, conjunctiva are normal. ENT: TMs normal, nares patent, oropharynx clear without exudates. Moist mucous membranes. NECK: Normal range of motion, supple without obvious mass or JVD. LUNGS: Breath sounds clear to auscultation bilaterally and equal. No wheezes rales or rhonchi. HEART: Regular rate and rhythm without murmurs, rubs or gallops. ABDOMEN: Soft, normoactive bowel sounds. No tenderness to palpation. No guarding, no rebound. No masses appreciated. EXTREMITIES: Normal range of motion, no pitting or edema. No clubbing or cyanosis. NEUROLOGICAL: Cranial nerves II through XII grossly intact. Normal speech, moving all extremities. PSYCH: Lethargic. Denies suicidal ideation SKIN: Warm, Dry, normal turgor, no rashes or lesions noted. This is a 57-year- old female that is lethargic but easily arousable Course - Vital Signs Vital signs: Temp Pulse Resp BP Pulse Ox 97.9 F 19 141/91 H 94 05/08/17 21:33 05/09/17 01:01 05/09/17 01:01 05/09/17 01:01 - Laboratory Result Diagrams: 05/08/17 21:20 05/08/17 21:20 Laboratory results interpreted by me: 05/08/17 21:20 BUN 29 H Creatinine 1.48 H Est GFR ( Amer) 44 L Est GFR (Non-Af Amer) 37 L Glucose 349 H Direct Bilirubin 0.5 H Albumin 3.3 L Salicylates < 1.0 L Acetaminophen < 10 L - Diagnostic Test Radiology reviewed: Image reviewed, Reports reviewed - Note: The chest x-ray shows cardiomegaly. There is a reading of vascular congestion, but the patient actually appears dehydrated. The x-ray is an AP and I think it is underpenetrated. Clinically I do not think she has fluid overload. - EKG Interpretation by Me Rate: Normal Rhythm: NSR - EKG shows normal sinus rhythm with a ventricular rate of 93, nonspecific T changes. LVH with repolarization changes. Discharge - Discharge Clinical Impression: Dehydration Overdose Qualifiers: Encounter type: initial encounter Injury intent: undetermined intent Qualified Code(s): T50.904A - Poisoning by unspecified drugs, medicaments and biological substances, undetermined, initial encounter Condition: Stable Disposition: PSYCH HOSP/UNIT
[2017-05-08 22:09] LABS: ABSOLUTE BASOPHILS # (AUTO) 0.1 10^3/uL (0.0-0.2); ABSOLUTE EOSINOPHILS # (AUTO) 0.2 10^3/uL (0.0-0.6); ABSOLUTE LYMPHOCYTES (AUTO) 2.3 10^3/uL (0.5-4.7); ABSOLUTE MONOCYTES (AUTO) 0.6 10^3/uL (0.1-1.4); ABSOLUTE NEUT (AUTO) 5.3 10^3/uL (1.7-8.2); EOSINOPHILS % (AUTO) 1.9 % (0-6); HEMATOCRIT 38.2 % (36.0-47.0); HGB HCT DIFFERENCE 0.8; LYMPHOCYTES % (AUTO) 27.3 % (13-45); MEAN CORPUSCULAR HEMOGLOBIN 31.9 pg (27.0-33.4); MEAN CORPUSCULAR HGB CONC 34.1 g/dL (32.0-36.0); MEAN CORPUSCULAR VOLUME 94 fl (80-97); MONOCYTES % (AUTO) 6.6 % (3-13); RED BLOOD COUNT 4.08 10^6/uL (3.72-5.28); RED CELL DISTRIBUTION WIDTH 13.6 % (11.5-14.0); SEGMENTED NEUTROPHILS % (AUTO) 63.2 % (42-78); WHITE BLOOD COUNT 8.4 10^3/uL (4.0-10.5)
--- NOTE | 2017-05-08 22:18 | RADIOLOGY REPORT (SQ) ---
EXAM DESCRIPTION: CHEST SINGLE VIEW COMPLETED DATE/TIME: 05/08/2017 10:10 pm REASON FOR STUDY: overdose COMPARISON: 12/01/2016 NUMBER OF VIEWS: One view. TECHNIQUE: Single frontal radiographic view of the chest acquired. LIMITATIONS: None. FINDINGS: LUNGS AND PLEURA: No opacities, masses or pneumothorax. No pleural effusion. MEDIASTINUM AND HILAR STRUCTURES: No masses or contour abnormality. HEART AND VASCULATURE: Cardiac enlargement. Vascular congestion. BONES: No acute findings. HARDWARE: None in the chest. OTHER: No other significant finding. IMPRESSION: CARDIAC ENLARGEMENT. VASCULAR CONGESTION. TECHNICAL DOCUMENTATION: JOB ID: [id number] [employer]- All Rights Reserved
[2017-05-08 22:30] LABS: ALANINE AMINOTRANSFERASE 26 U/L (9-52); ALBUMIN 3.3 g/dL (3.5-5.0); ALKALINE PHOSPHATASE 67 U/L (38-126); ANION GAP 7 (5-19); ASPARTATE AMINO TRANSFERASE 34 U/L (14-36); BILIRUBIN,DIRECT 0.5 mg/dL (0.0-0.4); BILIRUBIN,TOTAL 0.5 mg/dL (0.2-1.3); BLOOD UREA NITROGEN 29 mg/dL (7-20); CARBON DIOXIDE 30 mmol/L (22-30); CHLORIDE 102 mmol/L (98-107); CREATINE KINASE 97 U/L (30-135); CREATININE RESULT 1.48 mg/dL (0.52-1.25); GLUCOSE 349 mg/dL (75-110); POTASSIUM 4.2 mmol/L (3.6-5.0); SODIUM 139.3 mmol/L (137-145); TOTAL PROTEIN 7.4 g/dL (6.3-8.2)
[2017-05-08 22:36] LABS: ALCOHOL < 10 mg/dL (NONE DETECTED)
[2017-05-08 22:41] LABS: CREATINE KINASE MB 2.06 ng/mL (<4.55)
[2017-05-08 22:52] LABS: TROPONIN I 0.062 ng/mL
[2017-05-09 06:35] LABS: APPEARANCE,URINE SLIGHTLY-CLOUDY; BILIRUBIN,URINE NEGATIVE (NEGATIVE); GLUCOSE, URINE >=500 mg/dL (NEGATIVE); KETONES,URINE NEGATIVE (NEGATIVE); LEUKOCYTE ESTERASE,URINE SMALL (NEGATIVE); NITRITE,URINE NEGATIVE (NEGATIVE); PROTEIN,URINE >=500 mg/dL (NEGATIVE); URINE SPECIFIC GRAVITY 1.025; UROBILINOGEN,URINE NEGATIVE mg/dL (<2.0)
[2017-05-09 06:45] LABS: URINE BARBITURATES SCREEN NEGATIVE; URINE METHADONE SCREEN NEGATIVE; URINE OPIATES LOW UNCONFIRMED POSITIVE; URINE PHENCYCLIDINE SCREEN NEGATIVE
--- NOTE | 2017-05-09 08:15 | EKG REPORT ---
SEVERITY:- ABNORMAL ECG - SINUS RHYTHM LVH WITH SECONDARY REPOLARIZATION ABNORMALITY : Confirmed by: Bob Garcia MD 09-May-2017 08:15:03
--- NOTE | 2017-05-09 09:49 | ER Document Report ---
Doctor's Note Notes: 05/09/17 09:49 Patient has been seen and evaluated resting comfortably no acute distress. Laboratory values previous provider note and vital signs have been evaluated. Patient otherwise looks to be stable for disposition/transfer.
[2017-05-09 11:49] VITALS: BP 136/80
== END 2017-05-09 11:49 | disposition home or self-care (01) ==
LOC: ER 21:11
DX: T42.6X4A Poisoning by other antiepileptic and sedative-hypnotic drugs, undetermined, initial encounter (principal); T46.5X4A Poisoning by other antihypertensive drugs, undetermined, initial encounter; T40.1X4A Poisoning by heroin, undetermined, initial encounter; F14.10 Cocaine abuse, uncomplicated; E86.0 Dehydration; F17.210 Nicotine dependence, cigarettes, uncomplicated; E11.9 Type 2 diabetes mellitus without complications; I25.10 Atherosclerotic heart disease of native coronary artery without angina pectoris; I10 Essential (primary) hypertension; I51.7 Cardiomegaly
CPT/HCPCS: 36415; 71010; 80053; 80307; 81001; 82550; 82553; 84484; 85025; 93005; 93010; 99284

== ENCOUNTER 2017-06-09 09:48 | Inpatient (IN) | payer MEDICARE, MEDICAID ==
[2017-06-09] MEDS ORDERED: NORMAL SALINE 1000 ML 1,000 ML IV PRN (10:08)
--- NOTE | 2017-06-09 10:09 | ER Document Report ---
ED General - General Stated Complaint: VOMITING Time Seen by Provider: 06/09/17 09:57 Notes: This is a 57-year-old female brought in for evaluation of altered mental status , diarrhea, abdominal pain. Patient unable to communicate with me during exam other than moaning. Patient appears ill. Covered in feces. Moaning when I touch her abdomen. Most of the history is obtained from medical records. Patient appears to have a chronic pancreatitis, substance abuse, renal insufficiency, hypertension, diabetes. TRAVEL OUTSIDE OF THE [place] IN LAST 30 DAYS: No - HPI Onset: Other - Unknown Quality of pain: Other - Unable to describe - Related Data Allergies/Adverse Reactions: No Known Allergies Allergy (Verified 10/24/16 08:11) Home Medications: Current Home Medications Aspirin [Ecotrin 81 mg EC Tablet] 81 mg PO DAILY 06/09/17 [History] Carvedilol [Coreg 12.5 mg Tablet] 12.5 mg PO Q12 06/09/17 [History] Clonidine HCl [Catapres 0.1 mg Tablet] 0.1 mg PO Q12 06/09/17 [History] Gabapentin [Neurontin] 600 mg PO Q12 06/09/17 [History] Insulin Glargine,Hum.rec.anlog [Lantus Solostar] 55 unit SQ BID 06/09/17 [ History] Omeprazole 40 mg PO QHS 06/09/17 [History] Oxycodone HCl/Acetaminophen [Percocet 5-325 mg Tablet] 1 tab PO Q12HP PRN [History] Past Medical History - General Information source: [facility] Records Cannot obtain history due to: Uncooperative, Altered mental status - Social History Smoking Status: Unknown if Ever Smoked Frequency of alcohol use: Unknown Drug Abuse: Other - According to records cocaine Lives with: Other - unKnown Family History: Reviewed & Not Pertinent, DM - Past Medical History Cardiac Medical History: Reports: Hx Congestive Heart Failure, Hx Coronary Artery Disease, Hx Hypercholesterolemia, Hx Hypertension Endocrine Medical History: Reports: Hx Diabetes Mellitus Type 1, Hx Diabetes Mellitus Type 2 Renal/ Medical History: Denies: Hx Peritoneal Dialysis GI Medical History: Reports: Hx Hepatitis - Hepatitis C Infectious Medical History: Reports: Hx Hepatitis - Hepatitis C Past Surgical History: Reports: Hx Appendectomy, Hx Section, Hx Gynecologic Surgery, Hx Tubal Ligation, Other - salpingo-oophorectomy. Denies: Hx Hysterectomy - Immunizations Hx Diphtheria, Pertussis, Tetanus Vaccination: Yes Review of Systems - Review of Systems -: Yes ROS unobtainable due to patient's medical condition Physical Exam - Vital signs Vitals: BP 194/111 H 06/09/17 10:05 Interpretation: Normal - General General appearance: Appears well, Alert - HEENT Head: Normocephalic, Atraumatic Eyes: Normal Pupils: PERRL Mucous membranes: Dry - Extreme dryness of the mucous membranes - Respiratory Respiratory status: No respiratory distress Chest status: Nontender Breath sounds: Normal Chest palpation: Normal - Cardiovascular Rhythm: Tachycardia Heart sounds: Normal auscultation Murmur: No - Abdominal Inspection: Normal Distension: No distension Bowel sounds: Normal Tenderness: Tender, Other - Diffuse tenderness worse in the epigastric region Organomegaly: No organomegaly - Back Back: Normal, Nontender - Extremities General upper extremity: Normal inspection, Nontender, Normal color, Normal ROM , Normal temperature General lower extremity: Normal inspection, Nontender, Normal color, Normal ROM , Normal temperature, Normal weight bearing. No: Isabelle's sign - Neurological Neuro grossly intact: Yes Cognition: Normal Orientation: AAOx4 Kadeem Coma Scale Eye Opening: Spontaneous Kadeem Coma Scale Verbal: Oriented Kadeem Coma Scale Motor: Obeys Commands Kadeem Coma Scale Total: 15 Speech: Normal Motor strength normal: LUE, RUE, LLE, RLE Sensory: Normal - Psychological Associated symptoms: Normal affect, Normal mood - Skin Skin Temperature: Warm Skin Moisture: Dry Skin Color: Normal Notes: Possible small little lesions on shoulders and skin Course - Re-evaluation Re-evalutation: 06/09/17 15:19 With dehydration, altered mental status, polysubstance abuse. Elevated glucose. Will give IV fluids, get CT of the abdomen and pelvis and head CT. Likely need to be admitted. Laboratory 06/09/17 06/09/17 06/09/17 10:36 10:36 11:02 WBC RBC Hgb Hct MCV MCH MCHC RDW Plt Count Seg Neutrophils % Lymphocytes % Monocytes % Eosinophils % Basophils % Absolute Neutrophils Absolute Lymphocytes Absolute Monocytes Absolute Eosinophils Absolute Basophils Sodium Potassium Chloride Carbon Dioxide Anion Gap BUN Creatinine Est GFR ( Amer) Est GFR (Non-Af Amer) Glucose POC Glucose 391 H Calcium Total Bilirubin Direct Bilirubin Indirect Bilirubin Neonat Total Bilirubin AST ALT Alkaline Phosphatase Total Protein Albumin Lipase Urine Color YELLOW Urine Appearance SLIGHTLY-CLOUDY Urine pH 5.0 Ur Specific [place] 1.030 Urine Protein >=500 H Urine Glucose (UA) >=500 H Urine Ketones TRACE H Urine Blood SMALL H Urine Nitrite NEGATIVE Urine Bilirubin NEGATIVE Urine Urobilinogen NEGATIVE Ur Leukocyte Esterase NEGATIVE Urine WBC (Auto) 2 Urine RBC (Auto) 6 U Hyaline Cast (Auto) 4 Urine Bacteria (Auto) TRACE Squamous Epi Cells Auto <1 Amorphous Sediment Auto TRACE Urine Mucus (Auto) RARE Urine Ascorbic Acid NEGATIVE Urine Opiates Screen UNCONFIRMED POSITIVE Urine Methadone Screen NEGATIVE Acetaminophen Ur Barbiturates Screen NEGATIVE Ur Phencyclidine Scrn NEGATIVE Ur Amphetamines Screen NEGATIVE U Benzodiazepines Scrn NEGATIVE Urine Cocaine Screen UNCONFIRMED POSITIVE U Marijuana (THC) Screen NEGATIVE Serum Alcohol 06/09/17 06/09/17 11:20 11:20 WBC 19.5 H RBC 5.14 Hgb 16.4 H Hct 47.5 H MCV 93 MCH 31.9 MCHC 34.5 RDW 14.0 Plt Count 397 Seg Neutrophils % 84.0 H Lymphocytes % 9.6 L Monocytes % 5.4 Eosinophils % 0.0 Basophils % 1.0 Absolute Neutrophils 16.4 H Absolute Lymphocytes 1.9 Absolute Monocytes 1.0 Absolute Eosinophils 0.0 Absolute Basophils 0.2 Sodium 144.7 Potassium 3.3 L Chloride 101 Carbon Dioxide 30 Anion Gap 14 BUN 38 H Creatinine 1.28 H Est GFR ( Amer) 52 L Est GFR (Non-Af Amer) 43 L Glucose 427 H* POC Glucose Calcium 8.6 Total Bilirubin 0.6 Direct Bilirubin 0.5 H Indirect Bilirubin Not Reportable Neonat Total Bilirubin Not Reportable AST 24 ALT 22 Alkaline Phosphatase 89 Total Protein 7.8 Albumin 3.3 L Lipase 108.6 Urine Color Urine Appearance Urine pH Ur Specific [place] Urine Protein Urine Glucose (UA) Urine Ketones Urine Blood Urine Nitrite Urine Bilirubin Urine Urobilinogen Ur Leukocyte Esterase Urine WBC (Auto) Urine RBC (Auto) U Hyaline Cast (Auto) Urine Bacteria (Auto) Squamous Epi Cells Auto Amorphous Sediment Auto Urine Mucus (Auto) Urine Ascorbic Acid Urine Opiates Screen Urine Methadone Screen Acetaminophen < 10 L Ur Barbiturates Screen Ur Phencyclidine Scrn Ur Amphetamines Screen U Benzodiazepines Scrn Urine Cocaine Screen U Marijuana (THC) Screen Serum Alcohol < 10 Abdomen/Pelvis CT 06/09/17 10:10 IMPRESSION: 1. Nonspecific left adrenal nodule. 2. Atherosclerosis as described. 3. Lumbar degenerative disc changes. 4. There is no findings that explain the patient's pain. 06/09/17 18:30 Patient with hypertension, altered mental status. Consulted hospitalist agreed to admit. Pending admit at this time. - Vital Signs Vital signs: Temp Pulse Resp BP Pulse Ox 98.3 F 126 H 21 H 195/111 H 93 06/09/17 16:30 06/09/17 10:08 06/09/17 13:02 06/09/17 16:01 06/09/17 16:01 - Laboratory Result Diagrams: 06/09/17 11:20 06/09/17 11:20 Laboratory results interpreted by me: 06/09/17 06/09/17 06/09/17 10:36 11:02 11:20 WBC 19.5 H Hgb 16.4 H Hct 47.5 H Seg Neutrophils % 84.0 H Lymphocytes % 9.6 L Absolute Neutrophils 16.4 H Potassium BUN Creatinine Est GFR ( Amer) Est GFR (Non-Af Amer) Glucose POC Glucose 391 H Direct Bilirubin Albumin Urine Protein >=500 H Urine Glucose (UA) >=500 H Urine Ketones TRACE H Urine Blood SMALL H Acetaminophen 06/09/17 06/09/17 06/09/17 11:20 15:07 16:33 WBC Hgb Hct Seg Neutrophils % Lymphocytes % Absolute Neutrophils Potassium 3.3 L BUN 38 H Creatinine 1.28 H Est GFR ( Amer) 52 L Est GFR (Non-Af Amer) 43 L Glucose 427 H* POC Glucose 167 H 184 H Direct Bilirubin 0.5 H Albumin 3.3 L Urine Protein Urine Glucose (UA) Urine Ketones Urine Blood Acetaminophen < 10 L Discharge - Discharge Clinical Impression: Dehydration Hyperglycemia due to type 2 diabetes mellitus Qualifiers: Diabetes mellitus fdc insulin use: unspecified fdc insulin use status Qualified Code(s): E11.65 - Type 2 diabetes mellitus with hyperglycemia Altered mental status, unspecified Qualifiers: Altered mental status type: delirium Qualified Code(s): R41.0 - Disorientation , unspecified Hypertension Qualifiers: Hypertension type: unspecified Qualified Code(s): I10 - Essential (primary) hypertension Disposition: ADMITTED INPATIENT Admitting Provider: [facility] Admitted: Telemetry
[2017-06-09 10:53] LABS: AMORPHOUS SEDIMENT,URINE TRACE /HPF; APPEARANCE,URINE SLIGHTLY-CLOUDY; BILIRUBIN,URINE NEGATIVE (NEGATIVE); COLOR,URINE YELLOW; GLUCOSE, URINE >=500 mg/dL (NEGATIVE); KETONES,URINE TRACE mg/dL (NEGATIVE); LEUKOCYTE ESTERASE,URINE NEGATIVE (NEGATIVE); NITRITE,URINE NEGATIVE (NEGATIVE); PROTEIN,URINE >=500 mg/dL (NEGATIVE); UROBILINOGEN,URINE NEGATIVE mg/dL (<2.0)
[2017-06-09 11:10] LABS: URINE AMPHETAMINES SCREEN NEGATIVE; URINE BARBITURATES SCREEN NEGATIVE; URINE BENZODIAZEPINES SCREEN NEGATIVE; URINE COCAINE SCREEN UNCONFIRMED POSITIVE; URINE MARIJUANA (THC) SCREEN NEGATIVE; URINE METHADONE SCREEN NEGATIVE; URINE PHENCYCLIDINE SCREEN NEGATIVE
--- NOTE | 2017-06-09 11:23 | RADIOLOGY REPORT (SQ) ---
EXAM DESCRIPTION: CT ABD/PELVIS NO ORAL OR IV COMPLETED DATE/TIME: 06/09/2017 10:49 am REASON FOR STUDY: abd pain COMPARISON: Radiographs 04/23/2017 TECHNIQUE: CT scan of the abdomen and pelvis performed without intravenous or oral contrast. Images reviewed with lung, soft tissue, and bone windows. Reconstructed coronal and sagittal MPR images revi ewed. All images stored on PACS. All CT scanners at this facility use dose modulation, iterative reconstruction, and/or weight based d osing when appropriate to reduce radiation dose to as low as reasonably achievable (ALARA). [facility]: Dose Right [facility]: CareDose [facility]: Dose Right [facility]: Teradose 4D [facility]: Smart [employer] RADIATION DOSE: Up-to-date CT equipment and radiation dose reduction techniques were employed. CTDIv ol: 8.7 mGy. DLP: 436 mGy-cm.mGy. LIMITATIONS: None. FINDINGS: LOWER CHEST: No significant findings. No nodules or infiltrates. NON-CONTRASTED LIVER, SPLEEN, ADRENALS: The liver and spleen are unremarkable. There is a 19 mm left adrenal nodule. Seen best on image 22 series 3. PANCREAS: No masses. No peripancreatic inflammatory changes. GALLBLADDER: No identified stones by CT criteria. No inflammatory changes to suggest cholecystitis. RIGHT KIDNEY AND URETER: No suspicious masses. Assessment limited by lack of IV contrast. No signif icant calcifications. No hydronephrosis or hydroureter. LEFT KIDNEY AND URETER: No suspicious masses. Assessment limited by lack of IV contrast. No signifi cant calcifications. No hydronephrosis or hydroureter. AORTA AND RETROPERITONEUM: No aneurysm. Moderate atherosclerosis. Atherosclerosis in the splenic ar jose carlos and superior mesenteric artery. Atherosclerosis at the origins of the renal arteries. BOWEL AND PERITONEAL CAVITY: No obvious masses or inflammatory changes. No free fluid. APPENDIX: Surgically absent. PELVIS, BLADDER, AND ABDOMINAL WALL:Urinary bladder is normal. Uterus is unremarkable. There is no adnexal mass or fluid collection. BONES: L5-S1 degenerative disc changes. No osseous lesions. OTHER: No other significant finding. IMPRESSION: 1. Nonspecific left adrenal nodule. 2. Atherosclerosis as described. 3. Lumbar degenerative disc changes. 4. There is no findings that explain the patient's pain. COMMENT: Quality ID # [id number]: Final reports with documentation of one or more dose reduction techniques (e.g., Automated exposure control, adjustment of the mA and/or kV according to patient size, use of iterative reconstruction technique) TECHNICAL DOCUMENTATION: JOB ID: [id number] [employer]- All Rights Reserved
[2017-06-09 11:38] LABS: ABSOLUTE BASOPHILS # (AUTO) 0.2 10^3/uL (0.0-0.2); ABSOLUTE LYMPHOCYTES (AUTO) 1.9 10^3/uL (0.5-4.7); ABSOLUTE NEUT (AUTO) 16.4 10^3/uL (1.7-8.2); HEMATOCRIT 47.5 % (36.0-47.0); HEMOGLOBIN 16.4 g/dL (12.0-15.5); LYMPHOCYTES % (AUTO) 9.6 % (13-45); MEAN CORPUSCULAR HEMOGLOBIN 31.9 pg (27.0-33.4); MEAN CORPUSCULAR HGB CONC 34.5 g/dL (32.0-36.0); MEAN CORPUSCULAR VOLUME 93 fl (80-97); MONOCYTES % (AUTO) 5.4 % (3-13); PLATELET COUNT 397 10^3/uL (150-450); RED BLOOD COUNT 5.14 10^6/uL (3.72-5.28); TOTAL CELLS COUNTED % (AUTO) 100 %; WHITE BLOOD COUNT 19.5 10^3/uL (4.0-10.5)
[2017-06-09 12:07] LABS: ALANINE AMINOTRANSFERASE 22 U/L (9-52); ALBUMIN 3.3 g/dL (3.5-5.0); ALKALINE PHOSPHATASE 89 U/L (38-126); ANION GAP 14 (5-19); ASPARTATE AMINO TRANSFERASE 24 U/L (14-36); BILIRUBIN,DIRECT 0.5 mg/dL (0.0-0.4); BILIRUBIN,TOTAL 0.6 mg/dL (0.2-1.3); BLOOD UREA NITROGEN 38 mg/dL (7-20); CALCIUM 8.6 mg/dL (8.4-10.2); CARBON DIOXIDE 30 mmol/L (22-30); CHLORIDE 101 mmol/L (98-107); LIPASE 108.6 U/L (23-300); POTASSIUM 3.3 mmol/L (3.6-5.0); SODIUM 144.7 mmol/L (137-145); TOTAL PROTEIN 7.8 g/dL (6.3-8.2)
[2017-06-09 12:14] LABS: ACETAMINOPHEN < 10 ug/mL (10-30); ALCOHOL < 10 mg/dL (NONE DETECTED)
[2017-06-09 12:17] LABS: GLUCOSE 427 mg/dL (75-110)
[2017-06-09] MEDS ORDERED: INSULIN REG, HUMAN 100 UNIT/ML 3 ML VIAL (PYX) SUBCUT ONE (13:05)
[2017-06-09] MEDS ORDERED: NORMAL SALINE 1000 ML 1,000 ML IV ONE (15:09)
--- NOTE | 2017-06-09 15:56 | RADIOLOGY REPORT (SQ) ---
EXAM DESCRIPTION: CT HEAD WITHOUT COMPLETED DATE/TIME: 06/09/2017 3:41 pm REASON FOR STUDY: Altered mental status, hypertension COMPARISON: None. TECHNIQUE: Axial images acquired through the brain without intravenous contrast. Images reviewed wi th bone, brain and subdural windows. Images stored on PACS. All CT scanners at this facility use dose modulation, iterative reconstruction, and/or weight based d osing when appropriate to reduce radiation dose to as low as reasonably achievable (ALARA). [facility]: Dose Right [facility]: CareDose [facility]: Dose Right [facility]: Teradose 4D [facility]: Smart [employer] RADIATION DOSE: Up-to-date CT equipment and radiation dose reduction techniques were employed. CTDIv ol: 67.0 mGy. DLP: 1182 mGy-cm. mGy. LIMITATIONS: None. FINDINGS: VENTRICLES: Normal size and contour. CEREBRUM: No masses. No hemorrhage. No midline shift. No evidence for acute infarction. Normal gra y/white matter differentiation. No areas of low density in the white matter. CEREBELLUM: No masses. No hemorrhage. No alteration of density. No evidence for acute infarction. EXTRAAXIAL SPACES: No fluid collections. No masses. ORBITS AND GLOBE: No intra- or extraconal masses. Normal contour of globe without masses. CALVARIUM: No fracture. PARANASAL SINUSES: No fluid or mucosal thickening. SOFT TISSUES: No mass or hematoma. OTHER: No other significant finding. IMPRESSION: NORMAL BRAIN CT WITHOUT CONTRAST. EVIDENCE OF ACUTE STROKE: NO. COMMENT: Quality ID # [id number]: Final reports with documentation of one or more dose reduction techniques (e.g., Automated exposure control, adjustment of the mA and/or kV according to patient size, use of iterative reconstruction technique) TECHNICAL DOCUMENTATION: JOB ID: [id number] [employer]- All Rights Reserved
[2017-06-09] MEDS ORDERED: ACETAMINOPHEN 325 MG TABLET PO PRN (16:05)
[2017-06-09] MEDS ORDERED: ONDANSETRON HCL INJ/PF 4 MG/2 ML SDV IV PRN (16:05)
[2017-06-09] MEDS ORDERED: LEVALBUTEROL HCL NEB 1.25 MG/3 ML AMPUL NEB PRN (16:11)
[2017-06-09] MEDS ORDERED: DEXTROSE 40% GEL 15 GM TUBE PO PRN ×2 (16:13)
[2017-06-09] MEDS ORDERED: GLUCAGON,HUMAN RECOMB 1 MG INJ IM PRN (16:13)
[2017-06-09] MEDS ORDERED: DEXTROSE 50%-WATER 25 GM/50 ML DISP.SYRIN IV PRN ×2 (16:13)
--- NOTE | 2017-06-09 16:28 | PDOC H&P ---
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 At the time of admission the patient is moaning. She cannot answer any questions. According to the patient's niece who is present in the room she was found on the floor. They do believe she has been using drugs. They do not think that she has been drinking alcohol. They really do not know much about what she is doing. A review of systems could not be obtained. History and this H&P was obtained from prior hospitalization records. Past Medical History Cardiac Medical History: Reports: Congestive Heart Failure, Coronary Artery Disease, Hyperlipidema, Hypertension Pulmonary Medical History: Reports: None EENT Medical History: Reports: None Endocrine Medical History: Reports: Diabetes Mellitus Type 1, Diabetes Mellitus Type 2 Renal/ Medical History: Reports: None Malignancy Medical History: Reports: None GI Medical History: Reports: Hepatitis - Hepatitis C Musculoskeltal Medical History: Reports: None Skin Medical History: Reports: None Psychiatric Medical History: Reports: Alcohol Dependency, Substance Abuse Traumatic Medical History: Reports: None Hematology: Reports: Anemia Infectious Medical History: Reports: None Past Surgical History Past Surgical History: Reports: Appendectomy, Section, Tubal Ligation, Other - salpingo-oophorectomy Denies: Hysterectomy Social History Information Source: Relative Lives with: Family - According to the patient's niece she lives with her sister. Smoking Status: Unknown if Ever Smoked Frequency of Alcohol Use: None Hx Recreational Drug Use: Yes Drugs: Cocaine, Marijuana Hx Prescription Drug Abuse: No Family History Family History: Reviewed & Not Pertinent, DM Parental Family History Reviewed: Yes Children Family History Reviewed: Unknown Sibling(s) Family History Reviewed.: Unknown Medication/Allergy Home Medications: Aspirin [Ecotrin 81 mg EC Tablet] 81 mg PO DAILY #30 tabec 07/20/16 Omeprazole Magnesium [Prilosec Otc] 20 mg PO DAILY 07/24/16 Amlodipine Besylate [Norvasc 10 mg Tablet] 10 mg PO DAILY #30 tablet 07/27/16 Benazepril/Hydrochlorothiazide [Benazepril-Hctz 20-25 mg Tab] 1 tab PO DAILY # 30 tablet 07/27/16 Clonidine [Catapres-Tts 1 (0.1 mg/24 Hr) Transderm Patch] 1 each TD Tu@10 #4 patch.tdwk 07/27/16 Insulin Aspart [Novolog Flexpen] 0 unit SUBCUT .SLD SCALE #1 pen 07/27/16 Insulin Glargine,Hum.rec.anlog [Lantus] 40 units SQ BID #1 unit 07/27/16 Levalbuterol HCl [Xopenex Neb 1.25 mg/3 ml Ampul] 1.25 mg NEB [id number] PRN #60 vial.neb 07/27/16 Magnesium Oxide [Mag-Ox 400 mg Tablet] 400 mg PO BID #60 tablet 07/27/16 Simvastatin [Zocor 40 mg Tablet] 40 mg PO QHS #30 tablet 07/27/16 Gabapentin [Gabapentin] 600 mg PO BID 05/09/17 Allergies/Adverse Reactions: No Known Allergies Allergy (Verified 10/24/16 08:11) Review of Systems ROS unobtainable: Due to mental status Physical Exam Vital Signs: Temp Pulse Resp BP Pulse Ox 97.5 F 126 H 20 173/111 H 96 06/09/17 10:08 06/09/17 10:08 06/09/17 11:02 06/09/17 11:01 06/09/17 10:30 Intake & Output 06/08/17 06/09/17 06/10/17 06:59 06:59 06:59 Weight 77.111 kg General appearance: PRESENT: disheveled, other - Patient is unresponsive. She is moaning but will not answer questions. Head exam: PRESENT: atraumatic, normocephalic Eye exam: PRESENT: conjunctiva pink. ABSENT: scleral icterus Ear exam: PRESENT: normal external ear exam Mouth exam: PRESENT: dry mucosa Respiratory exam: PRESENT: clear to auscultation apolinar, other - Poor effort. She will not really cooperate for an exam. ABSENT: rales, rhonchi, wheezes Cardiovascular exam: PRESENT: RRR. ABSENT: diastolic murmur, rubs, systolic murmur Pulses: PRESENT: normal dorsalis pedis pul GI/Abdominal exam: PRESENT: normal bowel sounds, soft, tenderness - She moans when palpating her abdomen.. ABSENT: distended, guarding, mass, organolmegaly, rebound Rectal exam: PRESENT: deferred Extremities exam: ABSENT: calf tenderness, clubbing, pedal edema Neurological exam: PRESENT: altered. ABSENT: alert, oriented to person, oriented to place, oriented to time, oriented to situation Skin exam: PRESENT: dry, intact, warm, other - Excoriations noted on the patient 's back.. ABSENT: cyanosis, rash Results Laboratory Results: 06/09/17 11:20 06/09/17 11:20 06/09/17 06/09/17 06/09/17 10:36 11:20 11:20 WBC 19.5 H RBC 5.14 Hgb 16.4 H Hct 47.5 H MCV 93 MCH 31.9 MCHC 34.5 RDW 14.0 Plt Count 397 Seg Neutrophils % 84.0 H Lymphocytes % 9.6 L Monocytes % 5.4 Eosinophils % 0.0 Basophils % 1.0 Absolute Neutrophils 16.4 H Absolute Lymphocytes 1.9 Absolute Monocytes 1.0 Absolute Eosinophils 0.0 Absolute Basophils 0.2 Sodium 144.7 Potassium 3.3 L Chloride 101 Carbon Dioxide 30 Anion Gap 14 BUN 38 H Creatinine 1.28 H Est GFR ( Amer) 52 L Est GFR (Non-Af Amer) 43 L Glucose 427 H* Calcium 8.6 Total Bilirubin 0.6 AST 24 ALT 22 Alkaline Phosphatase 89 Total Protein 7.8 Albumin 3.3 L Lipase 108.6 Urine Color YELLOW Urine Appearance SLIGHTLY-CLOUDY Urine pH 5.0 Ur Specific [place] 1.030 Urine Protein >=500 H Urine Glucose (UA) >=500 H Urine Ketones TRACE H Urine Blood SMALL H Urine Nitrite NEGATIVE Ur Leukocyte Esterase NEGATIVE Urine WBC (Auto) 2 Urine RBC (Auto) 6 Impressions: Abdomen/Pelvis CT 06/09/17 10:10 IMPRESSION: 1. Nonspecific left adrenal nodule. 2. Atherosclerosis as described. 3. Lumbar degenerative disc changes. 4. There is no findings that explain the patient's pain. Head CT 06/09/17 15:18 IMPRESSION: NORMAL BRAIN CT WITHOUT CONTRAST. EVIDENCE OF ACUTE STROKE: NO. Assessment & Plan - Diagnosis (1) Encephalopathy acute Plan: Likely due to polysubstance abuse. CT scan of the patient's brain is pending. I cannot rule out there is not an underlying infection but so far her urine looks negative. Chest x-ray is pending. (2) SIRS (systemic inflammatory response syndrome) Plan: The patient has leukocytosis, tachycardia and tachypnea. At this point there is no evidence of infection. Her lungs sound fairly clear although this was not a good exam. A chest x-ray is pending. Urine is concentrated but does not look acutely infected. Blood cultures are pending. (3) Acute kidney injury Plan: Secondary to dehydration. According to records her baseline creatinine is 0.9. She will continue normal saline with 20 of K at 125 cc an hour. She is received several fluid boluses in the emergency room. We will recheck a chemistry panel in the morning. (4) Dehydration Plan: Apparently the patient has not been eating or drinking. Continue hydration as above. (5) Uncontrolled hypertension Plan: I am unsure what she has been taking at home. I am going to place her back on clonidine as well as amlodipine that was prescribed at the time she was last discharged from the hospital. She will continue to have IV hydralazine available as needed. (6) Uncontrolled diabetes mellitus Qualifiers: Diabetes mellitus type: type 1 Plan: The patient is insulin-dependent per her previous hospital records. She was discharged from the hospital on Lantus 40 units twice daily. For now I am going to start her on Lantus 30 units twice daily and try to obtain records from her pharmacy. She will have low-dose sliding scale available as well. We will add a hemoglobin A1c onto tomorrow's blood work. (7) Hypokalemia Plan: This will be repleted today. She will continue with IV potassium in her IV fluids. She will have a chemistry panel drawn in the morning. (8) History of alcohol abuse Plan: According to the patient's family she has not been drinking. She does have a history of pancreatitis in the past. CT imaging does not reveal any evidence of pancreatitis. She has a normal lipase. I will have IV Ativan available as needed in the event that she starts having issues with withdrawal. (9) Polysubstance abuse Plan: The patient tested positive for opiates as well as cocaine. - Time Time Spent: 50 to 70 Minutes - Inpatient Certification Medical Necessity: Need For IV Fluids - The patient will be admitted to the hospital as an inpatient. The patient has multiple issues requiring parenteral therapies. I suspect she has an underlying infection that will likely require parenteral antibiotics. I expect her to spend greater than 2 midnights in the hospital.
[2017-06-09] MEDS: MAGNESIUM OXIDE 400 MG TABLET PO SCH (16:46)
[2017-06-09] MEDS: POTASSI CL 20 MEQ/NS 1L 1,000 ML IV PRN ×2 (16:47→20:04)
[2017-06-09] MEDS ORDERED: AMLODIPINE BESYLATE 10 MG TABLET PO ONE (17:00)
--- NOTE | 2017-06-09 17:03 | RADIOLOGY REPORT (SQ) ---
EXAM DESCRIPTION: CHEST SINGLE VIEW COMPLETED DATE/TIME: 06/09/2017 4:44 pm REASON FOR STUDY: suspect aspiration COMPARISON: 05/08/2017 EXAM PARAMETERS: NUMBER OF VIEWS: One view. TECHNIQUE: Single frontal radiographic view of the chest acquired. RADIATION DOSE: NA LIMITATIONS: None. FINDINGS: LUNGS AND PLEURA: No significant vascular congestion. No infiltrate or effusion MEDIASTINUM AND HILAR STRUCTURES: No masses. Contour normal. HEART AND VASCULAR STRUCTURES: Decreased cardiac enlargement. BONES: No acute findings. HARDWARE: None in the chest. OTHER: No other significant finding. IMPRESSION: NO ACUTE RADIOGRAPHIC FINDING IN THE CHEST. TECHNICAL DOCUMENTATION: JOB ID: [id number] [employer]- All Rights Reserved
[2017-06-09] MEDS: HYDRALAZINE HCL INJ/PF 20 MG/1 ML SDV IV PRN (18:40)
[2017-06-09] MEDS: INSULIN REG, HUMAN 100 UNIT/ML 3 ML VIAL (PYX) SUBCUT PRN (22:07)
[2017-06-09] MEDS: INSULIN GLARGINE,HUM.REC.ANLOG 300 UNIT/3 ML INSULN.PEN SUBCUT SCH (22:07)
[2017-06-10] MEDS ORDERED: INFLUENZA ADLT QUAD (36MOS+) 2017-18 VAC 0.5 ML SYR IM PRN (02:18)
[2017-06-10 06:16] LABS: ABSOLUTE BASOPHILS # (AUTO) 0.2 10^3/uL (0.0-0.2); ABSOLUTE LYMPHOCYTES (AUTO) 2.7 10^3/uL (0.5-4.7); ABSOLUTE NEUT (AUTO) 14.4 10^3/uL (1.7-8.2); BASOPHILS % (AUTO) 1.2 % (0-2); EOSINOPHILS % (AUTO) 0.2 % (0-6); HEMATOCRIT 45.5 % (36.0-47.0); HEMOGLOBIN 15.4 g/dL (12.0-15.5); LYMPHOCYTES % (AUTO) 14.5 % (13-45); MEAN CORPUSCULAR HEMOGLOBIN 31.5 pg (27.0-33.4); MEAN CORPUSCULAR HGB CONC 33.9 g/dL (32.0-36.0); MEAN CORPUSCULAR VOLUME 93 fl (80-97); MONOCYTES % (AUTO) 5.5 % (3-13); PLATELET COUNT 348 10^3/uL (150-450); RED CELL DISTRIBUTION WIDTH 13.8 % (11.5-14.0); SEGMENTED NEUTROPHILS % (AUTO) 78.6 % (42-78); TOTAL CELLS COUNTED % (AUTO) 100 %; WHITE BLOOD COUNT 18.3 10^3/uL (4.0-10.5)
[2017-06-10 06:31] LABS: ALANINE AMINOTRANSFERASE 28 U/L (9-52); ALBUMIN 3.2 g/dL (3.5-5.0); ALKALINE PHOSPHATASE 77 U/L (38-126); ANION GAP 8 (5-19); ASPARTATE AMINO TRANSFERASE 27 U/L (14-36); BILIRUBIN,DIRECT 0.5 mg/dL (0.0-0.4); BILIRUBIN,TOTAL 0.6 mg/dL (0.2-1.3); BLOOD UREA NITROGEN 30 mg/dL (7-20); CALCIUM 8.3 mg/dL (8.4-10.2); CARBON DIOXIDE 29 mmol/L (22-30); CHLORIDE 110 mmol/L (98-107); GLUCOSE 175 mg/dL (75-110); LIPASE 134.6 U/L (23-300); MAGNESIUM 1.3 mg/dL (1.6-2.3); PHOSPHORUS 2.9 mg/dL (2.5-4.5); POTASSIUM 3.2 mmol/L (3.6-5.0); SODIUM 147.4 mmol/L (137-145); TOTAL PROTEIN 7.2 g/dL (6.3-8.2)
[2017-06-10] MEDS: POTASSI CL 20 MEQ/NS 1L 1,000 ML IV PRN ×3 (06:34→23:16)
[2017-06-10] MEDS: INSULIN REG, HUMAN 100 UNIT/ML 3 ML VIAL (PYX) SUBCUT PRN (06:34)
[2017-06-10] MEDS: LANSOPRAZOLE 30 MG TAB.RAP.DR PO SCH (06:35)
[2017-06-10] MEDS: HYDRALAZINE HCL INJ/PF 20 MG/1 ML SDV IV PRN (06:57)
[2017-06-10] MEDS ORDERED: POTASSIUM CHLORIDE 10 MEQ TABLET.SA PO ONE (07:43)
[2017-06-10] MEDS: ONDANSETRON HCL INJ/PF 4 MG/2 ML SDV IV PRN ×2 (07:59→22:09)
[2017-06-10] MEDS ORDERED: HYDRALAZINE HCL INJ/PF 20 MG/1 ML SDV IV PRN (10:11)
--- NOTE | 2017-06-10 10:16 | PDOC PROGRESS REPORT ---
Subjective Progress Note for:: 06/10/17 Subjective:: The nursing staff called me this morning and stated that the patient was having intractable nausea and vomiting. She was given IV Zofran with resolution. She has not required any Ativan as of yet. Today when I saw her she is sleeping. She will arouse briefly but goes right back to sleep. She will not answer questions. There are no family members at the bedside. A review of systems could not be obtained. Physical Exam Vital Signs: Temp Pulse Resp BP Pulse Ox 97.6 F 111 H 20 169/78 H 100 06/10/17 07:57 06/10/17 07:57 06/10/17 07:57 06/10/17 07:57 06/10/17 07:57 Intake & Output 06/09/17 06/10/17 06/11/17 06:59 06:59 06:59 Intake Total 940 Balance 940 Weight 77.3 kg General appearance: PRESENT: disheveled, well-developed. ABSENT: cooperative Head exam: PRESENT: atraumatic, normocephalic Eye exam: PRESENT: other - Could not examine Mouth exam: PRESENT: other - Could not examine Respiratory exam: PRESENT: clear to auscultation apolinar, other - Somewhat limited as the patient is lying on her stomach and will not cooperate for an exam.. ABSENT: rales, rhonchi, wheezes Cardiovascular exam: PRESENT: RRR - Somewhat limited again as the patient is lying on her stomach and will not rollover, other GI/Abdominal exam: PRESENT: normal bowel sounds, soft, other - Appears to be quite limited as she is laying on her stomach. She does not seem to be as tender as she was yesterday.. ABSENT: distended, guarding, mass, organolmegaly , rebound, tenderness Rectal exam: PRESENT: deferred Extremities exam: PRESENT: full ROM. ABSENT: calf tenderness, clubbing, pedal edema Neurological exam: PRESENT: other - She will arouse briefly then go right back to sleep.. ABSENT: alert, altered, awake Psychiatric exam: PRESENT: other - Unable to assess Skin exam: PRESENT: dry, intact, warm. ABSENT: cyanosis, rash Results Laboratory Results: 06/10/17 05:29 06/10/17 05:29 11/11/17 11/11/17 11/11/17 05:29 05:29 05:38 WBC 18.3 H RBC 4.90 Hgb 15.4 Hct 45.5 MCV 93 MCH 31.5 MCHC 33.9 RDW 13.8 Plt Count 348 Seg Neutrophils % 78.6 H Lymphocytes % 14.5 Monocytes % 5.5 Eosinophils % 0.2 Basophils % 1.2 Absolute Neutrophils 14.4 H Absolute Lymphocytes 2.7 Absolute Monocytes 1.0 Absolute Eosinophils 0.0 Absolute Basophils 0.2 Sodium 147.4 H Potassium 3.2 L Chloride 110 H Carbon Dioxide 29 Anion Gap 8 BUN 30 H Creatinine 1.01 Est GFR ( Amer) > 60 Est GFR (Non-Af Amer) 57 L Glucose 175 H Calcium 8.3 L Phosphorus 2.9 Magnesium 1.3 L Total Bilirubin 0.6 AST 27 ALT 28 Alkaline Phosphatase 77 Ammonia < 8.7 L Total Protein 7.2 Albumin 3.2 L Lipase 134.6 Impressions: Chest X-Ray 06/09/17 00:00 IMPRESSION: NO ACUTE RADIOGRAPHIC FINDING IN THE CHEST. Abdomen/Pelvis CT 06/09/17 10:10 IMPRESSION: 1. Nonspecific left adrenal nodule. 2. Atherosclerosis as described. 3. Lumbar degenerative disc changes. 4. There is no findings that explain the patient's pain. Head CT 06/09/17 15:18 IMPRESSION: NORMAL BRAIN CT WITHOUT CONTRAST. EVIDENCE OF ACUTE STROKE: NO. Assessment & Plan - Diagnosis (1) Encephalopathy acute Plan: Likely due to polysubstance abuse. CT scan of the patient's brain is unremarkable. At this point chest x-ray is negative. There is no sign of underlying infection. We will just simply continue to monitor for now. (2) SIRS (systemic inflammatory response syndrome) Plan: The patient has persistent tachycardia and leukocytosis. She is no longer tachypneic. Urine culture and blood cultures are negative to date. Chest x- ray was unremarkable. I am not seeing any signs of infection at this point. This all may be due to her polysubstance abuse. (3) Acute kidney injury Plan: Secondary to dehydration. According to records her baseline creatinine is 0.9. Her creatinine is improved this morning down to 1.02. She will continue normal saline with 20 of K at 125 cc an hour. She did receive several fluid boluses in the emergency room. We will recheck a chemistry panel in the morning. (4) Dehydration Plan: Apparently the patient has not been eating or drinking. Continue hydration as above. (5) Uncontrolled hypertension Plan: I am unsure what she has been taking at home. I am going to place her back on clonidine as well as amlodipine that was prescribed at the time she was last discharged from the hospital. She will continue to have IV hydralazine available as needed. Blood pressures remain quite elevated. Continue current plan. We can make further adjustments when she wakes up. (6) Uncontrolled diabetes mellitus Qualifiers: Diabetes mellitus type: type 1 Plan: The patient is insulin-dependent per her previous hospital records. She was discharged from the hospital during her last admission on Lantus 40 units twice daily. For now I am going to continue Lantus 30 units twice daily and try to obtain records from her pharmacy. She will have low-dose sliding scale available as well. Hemoglobin A1c is 6.9. Blood sugars are stable on current regimen. (7) Hypokalemia Plan: Continue IV fluids with potassium. I will also give her some potassium chloride today as well. She will have a chemistry panel checked in the morning. (8) History of alcohol abuse Plan: According to the patient's family she has not been drinking. She does have a history of pancreatitis in the past. CT imaging does not reveal any evidence of pancreatitis. She has a normal lipase. I will have IV Ativan available as needed in the event that she starts having issues with withdrawal. (9) Polysubstance abuse Plan: The patient tested positive for opiates as well as cocaine. She could be at risk for opiate withdrawal going forward. - Time Time Spent with patient: 15-24 minutes - Inpatient Certification Medical Necessity: Need For IV Fluids - At this point the patient is not eating or drinking. She is still dehydrated requiring parenteral fluids. At this point she has not woken up. I am concerned she may go through withdrawal, either alcohol or opiate withdrawal. She needs close monitoring in the hospital. Ultimately it would be nice if she could be set up with some sort of rehabilitation at discharge., Other
[2017-06-10] MEDS: ENOXAPARIN SODIUM INJ 40 MG/0.4 ML DISP.SYRIN SUBCUT SCH (11:08)
[2017-06-10] MEDS: INSULIN GLARGINE,HUM.REC.ANLOG 300 UNIT/3 ML INSULN.PEN SUBCUT SCH ×2 (11:09→22:24)
[2017-06-10] MEDS: AMLODIPINE BESYLATE 10 MG TABLET PO SCH (11:09)
[2017-06-10] MEDS: MAGNESIUM OXIDE 400 MG TABLET PO SCH ×2 (11:09→18:05)
[2017-06-11] MEDS: ONDANSETRON HCL INJ/PF 4 MG/2 ML SDV IV PRN ×2 (03:16→09:12)
[2017-06-11] MEDS: LANSOPRAZOLE 30 MG TAB.RAP.DR PO SCH (05:04)
[2017-06-11 05:56] LABS: ABSOLUTE BASOPHILS # (AUTO) 0.1 10^3/uL (0.0-0.2); ABSOLUTE EOSINOPHILS # (AUTO) 0.1 10^3/uL (0.0-0.6); ABSOLUTE LYMPHOCYTES (AUTO) 3.3 10^3/uL (0.5-4.7); ABSOLUTE MONOCYTES (AUTO) 0.9 10^3/uL (0.1-1.4); ABSOLUTE NEUT (AUTO) 10.5 10^3/uL (1.7-8.2); BASOPHILS % (AUTO) 0.9 % (0-2); EOSINOPHILS % (AUTO) 0.7 % (0-6); HEMATOCRIT 39.7 % (36.0-47.0); MEAN CORPUSCULAR HEMOGLOBIN 31.2 pg (27.0-33.4); MEAN CORPUSCULAR HGB CONC 33.5 g/dL (32.0-36.0); MEAN CORPUSCULAR VOLUME 93 fl (80-97); MONOCYTES % (AUTO) 5.7 % (3-13); PLATELET COUNT 279 10^3/uL (150-450); RED BLOOD COUNT 4.26 10^6/uL (3.72-5.28); RED CELL DISTRIBUTION WIDTH 13.3 % (11.5-14.0); SEGMENTED NEUTROPHILS % (AUTO) 70.7 % (42-78); TOTAL CELLS COUNTED % (AUTO) 100 %; WHITE BLOOD COUNT 14.8 10^3/uL (4.0-10.5)
[2017-06-11 05:57] LABS: HEMOGLOBIN 13.3 g/dL (12.0-15.5)
[2017-06-11 06:22] LABS: ANION GAP 9 (5-19); BLOOD UREA NITROGEN 17 mg/dL (7-20); CALCIUM 8.1 mg/dL (8.4-10.2); CARBON DIOXIDE 23 mmol/L (22-30); CHLORIDE 107 mmol/L (98-107); GLUCOSE 61 mg/dL (75-110); PHOSPHORUS 2.7 mg/dL (2.5-4.5); POTASSIUM 3.7 mmol/L (3.6-5.0); SODIUM 138.7 mmol/L (137-145)
[2017-06-11 06:45] LABS: MAGNESIUM 1.2 mg/dL (1.6-2.3)
[2017-06-11] MEDS: POTASSI CL 20 MEQ/NS 1L 1,000 ML IV PRN (07:48)
[2017-06-11] MEDS: MAGNESIUM SULFATE/D5W 1 GM/100 ML RTUPB IV SCH ×3 (09:54→13:10)
[2017-06-11] MEDS: INSULIN GLARGINE,HUM.REC.ANLOG 300 UNIT/3 ML INSULN.PEN SUBCUT SCH ×2 (09:54→23:09)
[2017-06-11] MEDS: ENOXAPARIN SODIUM INJ 40 MG/0.4 ML DISP.SYRIN SUBCUT SCH (09:54)
[2017-06-11] MEDS: AMLODIPINE BESYLATE 10 MG TABLET PO SCH (09:55)
[2017-06-11] MEDS: MAGNESIUM OXIDE 400 MG TABLET PO SCH ×2 (09:55→17:37)
[2017-06-11] MEDS: LORAZEPAM INJ 2 MG/1 ML VIAL IV PRN ×3 (10:09→19:13)
[2017-06-11] MEDS ORDERED: PROMETHAZINE HCL 25 MG SUPP.RECT PR PRN (12:45)
--- NOTE | 2017-06-11 12:45 | PDOC PROGRESS REPORT ---
Subjective Progress Note for:: 06/11/17 Subjective:: MAGNO WILSON is a 57 year old female who was brought to the emergency room after being found unresponsive on the floor at home covered in feces. She has a history of polysubstance abuse. She has insulin-dependent diabetes mellitus and hypertension reported in her outpatient records. At the time of admission the patient was obtunded. She would rouse briefly but could not answer any questions. Yesterday the patient would not arouse as well. Today when I saw the patient she actually is awake and alert. She knows that she is in the hospital. She knows what year it is and who the button inspector is. She admits to using oral heroin. She adamantly denies IV drug use. She states she also has been using cocaine. This morning she states that she has been having chest pain. She states that it is substernal chest pain that really is not radiating. She has had nausea and vomiting this morning. She states she gets diaphoretic at times. She states she has had some heart palpitations and feels as if she is going through opiate withdrawal which she has been through in the past. She really is not having any abdominal pain. She denies dysuria, frequency or hematuria. We did discuss her drug abuse. She has been through several short-term rehab programs in the past and none have helped. She currently is not receiving any sort of rehab. We did discuss the [facility] program in [facility]. This is a 2 year program which is totally free to the patient. It is quite intense. She is aware of this program and she is going to think about whether she would like to go there. She is going to try to talk to her family today. Physical Exam Vital Signs: Temp Pulse Resp BP Pulse Ox 97.8 F 102 H 20 147/79 H 97 06/11/17 07:26 06/11/17 07:26 06/11/17 07:26 06/11/17 07:26 06/11/17 07:26 Intake & Output 06/10/17 06/11/17 06/12/17 06:59 06:59 06:59 Intake Total 940 4582 Output Total 802 Balance 940 3780 Weight 77.3 kg 69.4 kg General appearance: PRESENT: disheveled, mild distress, well-developed, well- nourished Head exam: PRESENT: atraumatic, normocephalic Ear exam: PRESENT: normal external ear exam Mouth exam: PRESENT: moist, tongue midline Respiratory exam: PRESENT: clear to auscultation apolinar. ABSENT: rales, rhonchi, wheezes Cardiovascular exam: PRESENT: tachycardia. ABSENT: diastolic murmur, gallop, rubs, systolic murmur Pulses: PRESENT: normal dorsalis pedis pul GI/Abdominal exam: PRESENT: normal bowel sounds, soft. ABSENT: distended, guarding, mass, organolmegaly, rebound, tenderness Rectal exam: PRESENT: deferred Extremities exam: PRESENT: full ROM. ABSENT: calf tenderness, clubbing, pedal edema Neurological exam: PRESENT: alert, awake, oriented to person, oriented to place , oriented to time, oriented to situation, CN II-XII grossly intact. ABSENT: motor sensory deficit Psychiatric exam: PRESENT: depressed, flat affect Skin exam: PRESENT: dry, intact, warm. ABSENT: cyanosis, rash Results Laboratory Results: 06/11/17 05:03 06/11/17 05:03 06/11/17 06/11/17 05:03 05:03 WBC 14.8 H RBC 4.26 Hgb 13.3 D Hct 39.7 MCV 93 MCH 31.2 MCHC 33.5 RDW 13.3 Plt Count 279 Seg Neutrophils % 70.7 Lymphocytes % 22.0 Monocytes % 5.7 Eosinophils % 0.7 Basophils % 0.9 Absolute Neutrophils 10.5 H Absolute Lymphocytes 3.3 Absolute Monocytes 0.9 Absolute Eosinophils 0.1 Absolute Basophils 0.1 Sodium 138.7 Potassium 3.7 Chloride 107 Carbon Dioxide 23 Anion Gap 9 BUN 17 Creatinine 0.86 Est GFR ( Amer) > 60 Est GFR (Non-Af Amer) > 60 Glucose 61 L Calcium 8.1 L Phosphorus 2.7 Magnesium 1.2 L* Impressions: Chest X-Ray 06/09/17 00:00 IMPRESSION: NO ACUTE RADIOGRAPHIC FINDING IN THE CHEST. Abdomen/Pelvis CT 06/09/17 10:10 IMPRESSION: 1. Nonspecific left adrenal nodule. 2. Atherosclerosis as described. 3. Lumbar degenerative disc changes. 4. There is no findings that explain the patient's pain. Head CT 06/09/17 15:18 IMPRESSION: NORMAL BRAIN CT WITHOUT CONTRAST. EVIDENCE OF ACUTE STROKE: NO. Assessment & Plan - Diagnosis (1) Encephalopathy acute Is this a current diagnosis for this admission?: Yes Plan: Likely due to polysubstance abuse. CT scan of the patient's brain is unremarkable. At this point chest x-ray is negative. There is no sign of underlying infection. We will just simply continue to monitor for now. Her encephalopathy is improving. (2) SIRS (systemic inflammatory response syndrome) Is this a current diagnosis for this admission?: Yes Plan: The patient has persistent tachycardia and leukocytosis which is trending downwards. She is no longer tachypneic. Urine culture and blood cultures are negative to date. Chest x-ray was unremarkable. I am not seeing any signs of infection at this point. This all may be due to her polysubstance abuse. (3) Acute kidney injury Is this a current diagnosis for this admission?: Yes Plan: Secondary to dehydration. According to records her baseline creatinine is 0.9. Her creatinine this morning is 0.86. Her acute kidney injury has resolved. I am going to cut back her IV fluids as she is now awake to 75 cc an hour. (4) Chest pain Is this a current diagnosis for this admission?: Yes Plan: The patient is having chest pain this morning. I suspect this is all due to her overall picture and opiate withdrawal. I am going to obtain an EKG. Since the patient does admit to heavy cocaine use I will get a 2D echocardiogram. (5) Dehydration Plan: Apparently the patient has not been eating or drinking at home. I am going to decrease her IV fluids today and we will encourage good p.o. intake. (6) Uncontrolled hypertension Plan: I am unsure what she has been taking at home. She has been placed back on clonidine as well as amlodipine that was prescribed at the time she was last discharged from the hospital. She will continue to have IV hydralazine available as needed. Blood pressures are improving. Certainly we may need to titrate this as we go along. (7) Uncontrolled diabetes mellitus Qualifiers: Diabetes mellitus type: type 1 Plan: The patient is insulin-dependent per her previous hospital records. She was discharged from the hospital during her last admission on Lantus 40 units twice daily. She was initially started on Lantus 30 units twice daily. Her blood sugars have improved. She really has not been eating. They have actually been on the low side. We are going to start her back on a diet today. I am going to cut her Lantus back to 25 units twice daily. (8) Opiate withdrawal Plan: The patient has IV Ativan available. We will continue with IV Zofran. She will have p.o. or per rectal Phenergan available as well. The patient states that she has been detoxed in the past and is well aware of the symptoms. (9) Hypokalemia Plan: Continue IV fluids with potassium. I am going to cut back the right. Her hypokalemia has resolved. (10) History of alcohol abuse Plan: The patient admits to using oral heroin and cocaine. She states she has not drank in quite some time due to her history of pancreatitis. There are no evidence of DTs. (11) Polysubstance abuse Plan: The patient tested positive for opiates as well as cocaine. Currently going through opiate withdrawal. We have discussed rehabilitation programs. The patient is going to think about whether she would be interested in the [facility] program in [facility]. This is a rather intense program that lasts for 2 years. She states that short-term rehabilitation stays have not been of any benefit to her. (12) Opiate dependence Plan: The patient clearly has opiate dependence due to her oral heroin use. She states she has been using every day for quite some time. We will continue to support her as she goes through withdrawal. Clearly no further opiates. - Time Time Spent with patient: 25-34 minutes - Inpatient Certification Medical Necessity: Need For IV Fluids, Other - Inpatient hospitalization remains necessary. The patient requiring parenteral fluids. She is currently going through opiate withdrawal. This is the first day that she has woken up. We need to successfully advance her diet and get physical therapy to see the patient. Ultimately she would benefit from rehabilitation. Discussions need to be ongoing.
[2017-06-11] MEDS ORDERED: PROMETHAZINE HCL 25 MG TABLET PO PRN (12:46)
[2017-06-12] MEDS: POTASSI CL 20 MEQ/NS 1L 1,000 ML IV PRN ×2 (00:49→13:58)
[2017-06-12] MEDS: LORAZEPAM INJ 2 MG/1 ML VIAL IV PRN ×2 (02:50→08:58)
[2017-06-12] MEDS: LANSOPRAZOLE 30 MG TAB.RAP.DR PO SCH (06:27)
[2017-06-12 08:52] LABS: HEMATOCRIT 38.6 % (36.0-47.0); HEMOGLOBIN 13.2 g/dL (12.0-15.5); MEAN CORPUSCULAR HEMOGLOBIN 31.8 pg (27.0-33.4); MEAN CORPUSCULAR HGB CONC 34.3 g/dL (32.0-36.0); MEAN CORPUSCULAR VOLUME 93 fl (80-97); PLATELET COUNT 273 10^3/uL (150-450); RED BLOOD COUNT 4.16 10^6/uL (3.72-5.28); RED CELL DISTRIBUTION WIDTH 13.3 % (11.5-14.0); WHITE BLOOD COUNT 10.3 10^3/uL (4.0-10.5)
[2017-06-12] MEDS: INSULIN GLARGINE,HUM.REC.ANLOG 300 UNIT/3 ML INSULN.PEN SUBCUT SCH (08:58)
[2017-06-12] MEDS: AMLODIPINE BESYLATE 10 MG TABLET PO SCH (08:59)
[2017-06-12] MEDS: MAGNESIUM OXIDE 400 MG TABLET PO SCH ×2 (09:00→16:53)
[2017-06-12] MEDS: ENOXAPARIN SODIUM INJ 40 MG/0.4 ML DISP.SYRIN SUBCUT SCH (09:00)
[2017-06-12 09:13] LABS: ANION GAP 7 (5-19); BLOOD UREA NITROGEN 10 mg/dL (7-20); CALCIUM 7.8 mg/dL (8.4-10.2); CARBON DIOXIDE 25 mmol/L (22-30); CHLORIDE 105 mmol/L (98-107); GLUCOSE 98 mg/dL (75-110); MAGNESIUM 1.9 mg/dL (1.6-2.3); SODIUM 137.1 mmol/L (137-145)
[2017-06-12] MEDS ORDERED: HYDRALAZINE HCL INJ/PF 20 MG/1 ML SDV IV PRN (13:00)
[2017-06-12] MEDS ORDERED: LEVALBUTEROL HCL NEB 1.25 MG/3 ML AMPUL NEB PRN (13:30)
[2017-06-12] MEDS ORDERED: ONDANSETRON HCL INJ/PF 4 MG/2 ML SDV IV PRN (13:30)
[2017-06-12] MEDS ORDERED: LORAZEPAM INJ 2 MG/1 ML VIAL IV PRN (16:57)
[2017-06-12 17:19] VITALS: BP 138/77
--- NOTE | 2017-06-12 17:19 | PDOC PROGRESS REPORT ---
Subjective Progress Note for:: 06/12/17 Subjective:: Patient is seen resting in bed comfortably on morning rounds. She rouses slightly to name and gentle shake but does not wake fully. When asked if anything is bothering her today, she does shake her head "no." She does not answer respond to any other questions. Per nursing she had recently received as needed IV Ativan for withdrawal symptoms. They report that she wakes long enough to ask for the Ativan and then promptly returns to sleep and otherwise is not interactive with staff members. She appears to be resting comfortably and is not in any acute distress. Physical Exam Vital Signs: Temp Pulse Resp BP Pulse Ox 97.7 F 102 H 19 151/94 H 94 06/12/17 11:23 06/12/17 14:00 06/12/17 11:23 06/12/17 11:23 06/12/17 11:23 Intake & Output 06/11/17 06/12/17 06/13/17 06:59 06:59 06:59 Intake Total 4582 3640 Output Total 802 1300 Balance 3780 2340 Weight 69.4 kg 69.4 kg General appearance: PRESENT: no acute distress, disheveled, well-developed, well -nourished Head exam: PRESENT: atraumatic, normocephalic Eye exam: PRESENT: conjunctiva pink, EOMI, PERRLA. ABSENT: scleral icterus Ear exam: PRESENT: normal external ear exam Mouth exam: PRESENT: moist, tongue midline Neck exam: ABSENT: carotid bruit, JVD, lymphadenopathy, thyromegaly Respiratory exam: PRESENT: clear to auscultation apolinar, decreased breath sounds - poor participation, symmetrical, unlabored. ABSENT: rales, rhonchi, wheezes Cardiovascular exam: PRESENT: RRR, +S1, +S2. ABSENT: diastolic murmur, rubs, systolic murmur, tachycardia Pulses: PRESENT: normal dorsalis pedis pul Vascular exam: PRESENT: normal capillary refill GI/Abdominal exam: PRESENT: normal bowel sounds, soft. ABSENT: distended, guarding, mass, organolmegaly, rebound, tenderness Rectal exam: PRESENT: deferred Extremities exam: PRESENT: full ROM. ABSENT: calf tenderness, clubbing, pedal edema Neurological exam: PRESENT: other - Sleeping soundly; does not participate in exam. ABSENT: motor sensory deficit Psychiatric exam: ABSENT: homicidal ideation, suicidal ideation Skin exam: PRESENT: dry, intact, warm. ABSENT: cyanosis, rash Results Laboratory Results: 06/12/17 08:15 06/12/17 08:15 06/12/17 06/12/17 08:15 08:15 WBC 10.3 RBC 4.16 Hgb 13.2 Hct 38.6 MCV 93 MCH 31.8 MCHC 34.3 RDW 13.3 Plt Count 273 Sodium 137.1 Potassium 4.0 Chloride 105 Carbon Dioxide 25 Anion Gap 7 BUN 10 Creatinine 0.88 Est GFR ( Amer) > 60 Est GFR (Non-Af Amer) > 60 Glucose 98 Calcium 7.8 L Magnesium 1.9 Impressions: Chest X-Ray 06/09/17 00:00 IMPRESSION: NO ACUTE RADIOGRAPHIC FINDING IN THE CHEST. Abdomen/Pelvis CT 06/09/17 10:10 IMPRESSION: 1. Nonspecific left adrenal nodule. 2. Atherosclerosis as described. 3. Lumbar degenerative disc changes. 4. There is no findings that explain the patient's pain. Head CT 06/09/17 15:18 IMPRESSION: NORMAL BRAIN CT WITHOUT CONTRAST. EVIDENCE OF ACUTE STROKE: NO. Assessment & Plan - Diagnosis (1) Encephalopathy acute Is this a current diagnosis for this admission?: Yes Plan: Likely 2/[address] scan of the patient's brain is unremarkable. Chest x-ray is negative. Liver enzymes are acceptable. There are no indications of an underlying infection. She does have slight improvement in her encephalopathy as compared to admission. We will plan to reduce Ativan dosing today and monitor closely for worsening signs of withdrawal ; anticipate that mental alertness will improve with decreased benzodiazepines on board. Continue to monitor. (2) Acute kidney injury Is this a current diagnosis for this admission?: Yes Plan: Resolved. Secondary to dehydration; baseline creatinine is 0.9. Creatinine is now stable at 0.88. She will be continued on IVF at 75 ml/hr as pt is not fully awake and alert and so will not likely maintain with p.o. intake alone. (3) Dehydration Is this a current diagnosis for this admission?: Yes Plan: Reportedly, the patient was not eating or drinking at home. She remains somnolent and nursing documentation shows minimal p.o. intake today; will reduce ativan dose in anticipation that her mental alertness will improve w/ decreased benzodiazepines onboard. 1- Continue IVF at 75 ml/hr 2- Encourage p.o. inta (4) Chest pain Is this a current diagnosis for this admission?: Yes Plan: Likely r/t overall withdrawal; however, pt does have multiple risk factors including uncontrolled DM, HTN, obesity, and cocaine abuse. 1- Continuous cardiac tele monitoring 2- Echocardiogram pending (5) Opiate withdrawal Is this a current diagnosis for this admission?: Yes Plan: 1- IV Ativan as needed 2- IV Zofran as needed 3- promethazine p.o. or per rectal as needed 4- Clonidine transdermal patch 5- Seizure, fall, and aspiration precautions (6) SIRS (systemic inflammatory response syndrome) Is this a current diagnosis for this admission?: Yes Plan: Patient with persistent tachycardia, though improved from previously, and she is no longer to get. Leukocytosis has resolved. Blood and urine cultures with no growth to date. Chest x-ray is unremarkable. Therefore there are no indications of an active infection at this point. Seizures is likely related to her polysubstance abuse and concurrent withdrawal process. (7) Uncontrolled diabetes mellitus Qualifiers: Diabetes mellitus type: type 1 Is this a current diagnosis for this admission?: Yes Plan: Patient continues to have poor p.o. intake. We will further reduce her Lantus to 20 units twice daily. Accu-Cheks every 6 hours with Humalog for sliding scale coverage. (8) Uncontrolled hypertension Is this a current diagnosis for this admission?: Yes Plan: Pressures continue to improve. 1- continue amlodipine 10 mg p.o. daily 2- continue Coreg 12.5 mg p.o. every 12 hours 3- clonidine transdermal patch 4- As needed IV hydralazine. (9) Hypokalemia Is this a current diagnosis for this admission?: Yes Plan: Resolved. Will monitor. 1- Continue IVF with potassium (10) History of alcohol abuse Is this a current diagnosis for this admission?: Yes Plan: Patient reported that she has not had alcohol intake in quite some time related to a history of pancreatitis. No evidence of DTs at this time. We will continue to monitor. (11) Opiate dependence Is this a current diagnosis for this admission?: Yes Plan: Pt with opiate dependance with daily heroin use. Supportive therapy as she goes through withdrawals. Avoid all opiates. (12) Polysubstance abuse Is this a current diagnosis for this admission?: Yes Plan: The patient tested positive for opiates as well as cocaine. She is currently going through opiate withdrawal. She did previously discuss rehabilitation programs but stated that short-term rehab is not beneficial to her. - Time Time Spent with patient: 35 or more minutes Medications reviewed and adjusted accordingly: Yes - Inpatient Certification Medical Necessity: Significant Comorbidiites Make Outpatient Treatment Too Risky , Need Close Monitoring Due to Risk of Patient Decompensation, Need For Continuous Telemetry Monitoring
--- NOTE | 2017-06-12 21:28 | XCELERA REPORT ---
[address] [address] Transthoracic Echocardiogram Report Name: MAGNO WILSON Age: 57 yrs Gender: Female : 1960 Patient Status: Inpatient Patient Location: [address] [place] [address] Study Date: 06/12/2017 02:48 PM Height: 64 in Weight: 153 lb BSA: 1.7 m2 Procedure: A complete two-dimensional transthoracic echocardiogram was performed (2D, M-mode, spectral and color flow Doppler). The study was technically adequate with some images being suboptimal in quality. Reason For Study: chest pain, coccain use Ordering Physician: GAYATRI LI, MARCO-C Performed By: Fern Lee Interpretation Summary Left ventricular systolic function is severely reduced. The Ejection Fraction estimate is 30-35% There is borderline concentric left ventricular hypertrophy. The left ventricle is mildly dilated. Doppler measurements suggest pseudonormalized left ventricular relaxation, which is associated with grade II/IV or mild to moderate diastolic dysfunction There is inferior wall hypokinesis The right ventricular systolic function is normal. The right ventricle is mildly dilated. The right atrium is normal in size There is a moderate amount of mitral regurgitation There is no mitral valve stenosis. No aortic regurgitation is present. There is no aortic valve stenosis There is a mild amount of tricuspid regurgitation Right ventricular systolic pressure is estimated to be elevated at 30- 40mmHg. There is mild pulmonary hypertension by echo The aortic root is not well visualized but is probably normal size. The inferior vena cava appeared small and collapsed with respiration (RAP 0-5 mmHg) There is no pericardial effusion. MMode/2D Measurements & Calculations RVDd: 2.6 cm LVIDd: 5.1 cm FS: 8.4 % Ao root diam: IVSd: 0.97 cm LVIDs: 4.7 cm EDV(Teich): 2.9 cm LVPWd: 0.71 cm 126.2 ml Ao root area: ESV(Teich): 102.8 ml 6.4 cm2 EF(Teich): LA dimension: 18.5 % 4.3 cm LVLd ap4: 6.4 cm SV(MOD-sp4): 31.0 ml LA A2Cs: LA A4Cs: 24.7 cm2 EDV(MOD-sp4): 27.0 cm2 78.0 ml LVLs ap4: 5.7 cm ESV(MOD-sp4): 47.0 ml EF(MOD-sp4): 39.7 % LA length: LA Vol Index (BP): LA Volume: 5.9 cm 55.1 ml/m2 96.2 ml Doppler Measurements & Calculations MV E max iglesia: MV P1/2t max iglesia: Ao V2 max: LV V1 max P.5 cm/sec 112.0 cm/sec 87.8 cm/sec 2.9 mmHg MV A max iglesia: MV P1/2t: 35.5 msec Ao max PG: LV V1 max: 51.8 cm/sec 3.1 mmHg 84.9 cm/sec MV E/A: 2.2 MVA(P1/2t): 6.2 cm2 MV dec slope: 923.6 cm/sec2 MV dec time: 0.11 sec PA V2 max: PI end-d iglesia: TR max iglesia: 73.5 cm/sec 217.2 cm/sec 282.3 cm/sec PA max P.2 mmHg TR max P.9 mmHg Left Ventricle The left ventricle is mildly dilated. There is borderline concentric left ventricular hypertrophy. Left ventricular systolic function is severely reduced. The Ejection Fraction estimate is 30-35%. Doppler measurements suggest pseudonormalized left ventricular relaxation, which is associated with grade II/IV or mild to moderate diastolic dysfunction. There is inferior wall hypokinesis. Right Ventricle The right ventricle is mildly dilated. There is normal right ventricular wall thickness. The right ventricular systolic function is normal. Atria The right atrium is normal in size. The left atrium is mildly dilated. Interarterial septum not well visualized and not well dopplered. Cannot comment on ASD/PFO presence. Mitral Valve The mitral valve leaflets are sclerotic and show some degree of functional abnormality. There is no mitral valve stenosis. There is a moderate amount of mitral regurgitation. Aortic Valve The aortic valve is grossly normal. There is no aortic valve stenosis. No aortic regurgitation is present. Tricuspid Valve The tricuspid valve is not well visualized secondary to technical limitations. There is no tricuspid stenosis. There is a mild amount of tricuspid regurgitation. There is mild pulmonary hypertension by echo. Right ventricular systolic pressure is estimated to be elevated at 30- 40mmHg. Pulmonic Valve The pulmonic valve is not well visualized. Great Vessels The aortic root is not well visualized but is probably normal size. The inferior vena cava appeared small and collapsed with respiration (RAP 0-5 mmHg). Effusions There is no pericardial effusion. : LOVELY MCCLAIN > [employer]
[2017-06-12] MEDS ORDERED: CARVEDILOL 12.5 MG TABLET PO SCH (22:00)
[2017-06-12] MEDS ORDERED: INSULIN GLARGINE,HUM.REC.ANLOG 300 UNIT/3 ML INSULN.PEN SUBCUT SCH (22:00)
[2017-06-13] MEDS ORDERED: LANSOPRAZOLE 30 MG TAB.RAP.DR PO SCH (06:00)
[2017-06-13] MEDS ORDERED: CLONIDINE 0.1 MG/24 HR PATCH.TDWK TD SCH (10:00)
[2017-06-13] MEDS ORDERED: ASPIRIN 81 MG TABLET, ENT COATED PO SCH (10:00)
--- NOTE | 2017-08-03 16:57 | PDOC DISCHARGE SUMMARY ---
General - Admit/Disc Date/PCP Admission Date/Primary Care Provider: 06/09/17 16:50 Discharge Date: 06/12/17 - Discharge Diagnosis (1) Encephalopathy acute Is this a current diagnosis for this admission?: Yes (2) Acute kidney injury Is this a current diagnosis for this admission?: Yes (3) Dehydration Is this a current diagnosis for this admission?: Yes (4) Chest pain Is this a current diagnosis for this admission?: Yes (5) Opiate withdrawal Is this a current diagnosis for this admission?: Yes (6) SIRS (systemic inflammatory response syndrome) Is this a current diagnosis for this admission?: Yes (7) Uncontrolled diabetes mellitus Is this a current diagnosis for this admission?: Yes (8) Uncontrolled hypertension Is this a current diagnosis for this admission?: Yes (9) Hypokalemia Is this a current diagnosis for this admission?: Yes (10) History of alcohol abuse Is this a current diagnosis for this admission?: Yes (11) Opiate dependence Is this a current diagnosis for this admission?: Yes (12) Polysubstance abuse Is this a current diagnosis for this admission?: Yes - Additional Information Home Medications: Aspirin [Ecotrin 81 mg EC Tablet] 81 mg PO DAILY 06/09/17 Carvedilol [Coreg 12.5 mg Tablet] 12.5 mg PO Q12 06/09/17 Clonidine HCl [Catapres 0.1 mg Tablet] 0.1 mg PO Q12 06/09/17 Gabapentin [Neurontin] 600 mg PO Q12 06/09/17 Insulin Glargine,Hum.rec.anlog [Lantus Solostar] 55 unit SQ BID 06/09/17 Omeprazole 40 mg PO QHS 06/09/17 Oxycodone HCl/Acetaminophen [Percocet 5-325 mg Tablet] 1 tab PO Q12HP PRN Clonidine [Catapres-Tts 1 (0.1 mg/24 Hr) Transderm Patch] 1 each TD ONCE PRN #1 patch.tdwk 06/12/17 Loperamide HCl [Imodium A-D] 2 mg PO Q6H PRN #10 tablet 06/12/17 Ondansetron [Zofran Odt 4 mg Tablet] 1 - 2 tab PO Q4H PRN #15 tab.rapdis History of Present Illness History of Present Illness: Per H&P by JACQUELINE Clemens: MAGNO WILSON is a 57 year old female who was brought to the emergency room after being found unresponsive on the floor at home covered in feces. At the time of the admission the patient is moaning. She cannot answer any questions. According to the patient's niece who is present in the room she was found on the floor. They do believe she has been using drugs. They do not think that she has been drinking alcohol. They really do not know much about what she is doing. Review of systems cannot be obtained. History and this H&P were obtained from prior hospital records. Hospital Course Hospital Course: The patient was admitted with acute encephalopathy likely due to polysubstance abuse and SIRS. A CT of the patient's brain was normal and without evidence of CVA. A CT of the abdomen and pelvis was also obtained and demonstrated a nonspecific left adrenal nodule, atherosclerosis, and lumbar degenerative disc inches. Laboratory workup revealed an leukocytosis, acute kidney injury, dehydration, and hypokalemia. The patient was placed on IV fluids and provided antiemetics. The patient's mental status improved and she became alert and oriented 4. She did admit to continuous oral heroin and cocaine use. She then developed some chest pain, which patient stated was typical for her withdrawal processes. Despite this, we did obtain EKG and an transthoracic echocardiogram; ejection fraction was estimated to be 30-35%. She was found to have moderate diastolic dysfunction left ventricular hypertrophy, moderate mitral valve regurgitation. No vegetations were seen. The patient continued to be somnolent between as needed benzodiazepines for withdrawal symptoms. Otherwise, did not interact with healthcare providers or nursing staff. There was no overt evidence of opiate or alcohol withdrawal. Therefore, we began weaning her benzodiazepines and later that same day the patient left Against Medical Advice. Physical Exam Vital Signs: Temp Pulse Resp BP Pulse Ox 98.1 F 95 16 138/77 H 98 06/12/17 15:45 06/12/17 15:45 06/12/17 15:45 06/12/17 15:45 06/12/17 15:45 Results Laboratory Results: 06/12/17 08:15 06/12/17 08:15 Impressions: Chest X-Ray 06/09/17 00:00 IMPRESSION: NO ACUTE RADIOGRAPHIC FINDING IN THE CHEST. Abdomen/Pelvis CT 06/09/17 10:10 IMPRESSION: 1. Nonspecific left adrenal nodule. 2. Atherosclerosis as described. 3. Lumbar degenerative disc changes. 4. There is no findings that explain the patient's pain. Head CT 06/09/17 15:18 IMPRESSION: NORMAL BRAIN CT WITHOUT CONTRAST. EVIDENCE OF ACUTE STROKE: NO. Qualifiers PATEINT BEING DISCHARGED WITH ANY OF THE FOLLOWING DIAGNOSIS?: No
== END 2017-06-12 17:15 | disposition left against medical advice (07) | DRG 92 ==
LOC: ER 09:48 → EH 16:50 → 4S 18:47
PROVIDERS: ADMIT Internal Medicine; ATTEND Internal Medicine
PROC: 3E0F73Z Introduction of Anti-inflammatory into Respiratory Tract, Via Natural or Artificial Opening (ICD-10-PCS; principal; 2017-06-10)
DX: G92 Toxic encephalopathy (principal); F11.23 Opioid dependence with withdrawal; N17.9 Acute kidney failure, unspecified; R65.10 Systemic inflammatory response syndrome (SIRS) of non-infectious origin without acute organ dysfunction; I25.10 Atherosclerotic heart disease of native coronary artery without angina pectoris; E78.5 Hyperlipidemia, unspecified; F10.20 Alcohol dependence, uncomplicated; Y90.0 Blood alcohol level of less than 20 mg/100 ml; E86.0 Dehydration; I10 Essential (primary) hypertension; E10.65 Type 1 diabetes mellitus with hyperglycemia; E87.6 Hypokalemia; F14.10 Cocaine abuse, uncomplicated; T40.2X5A Adverse effect of other opioids, initial encounter; E66.9 Obesity, unspecified; Z68.26 Body mass index [BMI] 26.0-26.9, adult; Z90.722 Acquired absence of ovaries, bilateral; Z90.79 Acquired absence of other genital organ(s); Z79.82 Long term (current) use of aspirin; Z79.4 Long term (current) use of insulin; Z79.899 Other long term (current) drug therapy; Z83.3 Family history of diabetes mellitus
CPT/HCPCS: 36415; 51701; 70450; 71010; 74176; 80048; 80053; 80076; 80307; 81001; 82140; 82962; 83036; 83690; 83735; 84100; 85025; 85027; 87040; 87086; 93306; 96360; 96361; 99285; G8978-GP; G8979-GP; J0360; J1650; J1815; J2060; J2405; J3475; J3480; J3490; J7030

== ENCOUNTER 2017-06-12 19:31 | Emergency (ER) | payer MEDICARE, MEDICAID ==
[2017-06-12 20:12] VITALS: BP 137/95
--- NOTE | 2017-06-12 20:51 | ER Document Report ---
ED Substance Abuse / Acc. OD - General Chief Complaint: Drug Abuse Stated Complaint: BLOOD SUGAR ISSUE Time Seen by Provider: 06/12/17 20:35 Notes: The patient is a 57-year-old female, past medical history chronic heroin abuse, cocaine abuse, presents with her sister requesting heroin detox. She left AMA earlier today after she was experiencing cocaine and opioid withdrawal. She left and went to go find heroin and used it. She is requesting methadone or Suboxone tonight. Patient denies any recent alcohol use and denies chronic benzo abuse. She was in rehab in [place], [place] for 7 days, but she left because her medications were cut down and she was having worsening withdrawal symptoms. She denies hallucinations, suicidal or homicidal ideation, chest pain , shortness of breath, current nausea or vomiting or diarrhea. TRAVEL OUTSIDE OF THE [place] IN LAST 30 DAYS: No - Related Data Allergies/Adverse Reactions: No Known Allergies Allergy (Verified 10/24/16 08:11) Past Medical History - General Information source: Patient - Social History Smoking Status: Unknown if Ever Smoked Drug Abuse: Cocaine, Heroin, Prescription drugs Family History: Reviewed & Not Pertinent, DM Patient has suicidal ideation: No Patient has homicidal ideation: No - Past Medical History Cardiac Medical History: Reports: Hx Congestive Heart Failure, Hx Coronary Artery Disease, Hx Hypercholesterolemia, Hx Hypertension Endocrine Medical History: Reports: Hx Diabetes Mellitus Type 1, Hx Diabetes Mellitus Type 2 Renal/ Medical History: Denies: Hx Peritoneal Dialysis GI Medical History: Reports: Hx Hepatitis - Hepatitis C Psychiatric Medical History: Denies: Hx Depression Infectious Medical History: Reports: Hx Hepatitis - Hepatitis C Past Surgical History: Reports: Hx Appendectomy, Hx Section, Hx Gynecologic Surgery, Hx Tubal Ligation, Other - salpingo-oophorectomy. Denies: Hx Hysterectomy - Immunizations Hx Diphtheria, Pertussis, Tetanus Vaccination: Yes Review of Systems - Review of Systems Notes: REVIEW OF SYSTEMS: CONSTITUTIONAL: -fevers, -chills EENT: -eye pain, -difficulty swallowing, -nasal congestion CARDIOVASCULAR:-chest pain, -syncope. RESPIRATORY: -cough, -SOB GASTROINTESTINAL: -abdominal pain, - nausea, -vomiting, -diarrhea GENITOURINARY: -dysuria, -hematuria MUSCULOSKELETAL: -back pain, -neck pain SKIN: -rash or skin lesions. HEMATOLOGIC: -easy bruising or bleeding. LYMPHATIC: -swollen, enlarged glands. NEUROLOGICAL: -altered mental status or loss of consciousness, -headache, - neurologic symptoms PSYCHIATRIC: -anxiety, -depression. ALL OTHER SYSTEMS REVIEWED AND NEGATIVE. Physical Exam - Vital signs Vitals: Temp Pulse Resp BP Pulse Ox 97.9 F 103 H 20 137/95 H 97 06/12/17 20:07 06/12/17 20:07 06/12/17 20:07 06/12/17 20:07 06/12/17 20:07 - Notes Notes: PHYSICAL EXAMINATION: GENERAL: Well-appearing, well-nourished and in no acute distress. HEAD: Atraumatic, normocephalic. EYES: Pupils equal round and reactive to light, extraocular movements intact, sclera anicteric, conjunctiva are normal. ENT: nares patent, oropharynx clear without exudates. Moist mucous membranes. NECK: Normal range of motion, supple without lymphadenopathy LUNGS: Breath sounds clear to auscultation bilaterally and equal. No wheezes rales or rhonchi. HEART: Regular rate and rhythm without murmurs ABDOMEN: Soft, nontender, normoactive bowel sounds. No guarding, no rebound. No masses appreciated. EXTREMITIES: Normal range of motion, no pitting or edema. No cyanosis. NEUROLOGICAL: Cranial nerves grossly intact. Normal speech, normal gait. Normal sensory and motor exams. PSYCH: Normal mood, normal affect. SKIN: Warm, Dry, normal turgor, no rashes or lesions noted. Course - Re-evaluation Re-evalutation: Patient appears in no acute distress. She does not appear to be in benzo or alcohol withdrawal. She recently used heroin and is concerned that she can go through withdrawal. Opiate withdrawal is not life-threatening and explained this to the patient. Reviewed labs from earlier in the day and there are no concerning abnormalities. Provided patient with symptomatic treatment with clonidine, Zofran, Imodium and referral to [facility]. Patient is upset that she is not being admitted and said that she is going to go to use heroin again. I explained to the patient that it sounds like she does not want to actually go through detox at this time and that when she is ready, she has the resources. Once again, explained that opioid withdrawal is not pleasant, but it is not life-threatening. - Vital Signs Vital signs: Temp Pulse Resp BP Pulse Ox 97.9 F 103 H 20 137/95 H 97 06/12/17 20:07 06/12/17 20:07 06/12/17 20:07 06/12/17 20:07 06/12/17 20:07 Discharge - Discharge Clinical Impression: Opioid abuse, Opioid withdrawal Condition: Stable Disposition: HOME, SELF-CARE Additional Instructions: There is no inpatient detox facilities at [facility]. You must call [facility] tomorrow. COCAINE ABUSE: Cocaine causes many dangerous medical problems. Problems can occur even with "usual" amounts. Cocaine affects judgement, creating a sense of invulnerability. Cocaine users often make bad decisions that seem "great" at the time. Most cocaine users eventually will be hurt by bad job performance, damaged personal relations, crime, and unsafe sexual practices. Toxic effects of cocaine can include seizures, hallucinations, delusions, high blood pressure, heart damage, or sudden . There's always the risk of a "bad batch." But heart attacks, brain hemorrhages, or cardiac arrest can occur unpredictably even with "normal" use. Injection of cocaine is risky for abscesses, endocarditis (heart infection) , pneumonia, and AIDS. Withdrawal from cocaine often causes anxiety and drug cravings. Some users become paranoid and psychotic. Many treatment programs are available, but you must make the decision to quit. Medication can be prescribed to control the symptoms of cocaine toxicity (beta blockers or benzodiazepines). Withdrawal symptoms may require tranquilizers. NARCOTIC / OPIOD ABUSE: Narcotics and opiods are pain-relieving drugs that are often abused. They are addicting. Narcotics cause euphoria, but it often takes increasing amounts to "feel good" and avoid withdrawal symptoms. Overdose of narcotics causes small pupils, coma, and decreased breathing. It's a common cause of . Purity of street narcotics is unpredictable. Injection of narcotics is risky for abscesses, endocarditis (heart infection), pneumonia, and AIDS. Withdrawal from narcotics causes goose bumps, watery mouth, sweating, nasal congestion, muscle aches, abdominal cramps, vomiting, and diarrhea. There 's often restlessness and confusion. Treatment programs are available, but you must make the decision to quit. Medication (such as clonidine) can be prescribed to control the symptoms of withdrawal. FOLLOW-UP CARE: If you have been referred to a physician for follow-up care, call the physician s office for an appointment as you were instructed or within the next two days. If you experience worsening or a significant change in your symptoms, notify the physician immediately or return to the Emergency Department at any time for re-evaluation. Prescriptions: Clonidine [Catapres-Tts 1 (0.1 mg/24 Hr) Transderm Patch] 1 each TD ONCE PRN #1 patch.tdwk PRN Reason: Loperamide HCl [Imodium A-D] 2 mg PO Q6H PRN #10 tablet PRN Reason: Ondansetron [Zofran Odt 4 mg Tablet] 1 - 2 tab PO Q4H PRN #15 tab.rapdis PRN Reason: For Nausea/Vomiting Referrals: [facility] [Outside] - Follow up as needed
== END 2017-06-12 21:05 | disposition home or self-care (01) ==
LOC: ER 19:31
DX: F11.23 Opioid dependence with withdrawal (principal); F14.10 Cocaine abuse, uncomplicated; I25.10 Atherosclerotic heart disease of native coronary artery without angina pectoris; I10 Essential (primary) hypertension; E11.9 Type 2 diabetes mellitus without complications
CPT/HCPCS: 82962; 99283

== ENCOUNTER 2017-10-24 11:11 | Emergency (ER) | payer MEDICARE, MEDICAID ==
--- NOTE | 2017-10-24 12:00 | ER Document Report ---
ED Resuscitation - General Mode of Arrival: Medic Information source: Patient, Emergency Med Personnel TRAVEL OUTSIDE OF THE [place] IN LAST 30 DAYS: No <LEXI HERNANDEZ - Last Filed: 10/24/17 12:49> <GUSTAVO FREEDMAN - Last Filed: 10/24/17 14:46> <MELONY DURAN - Last Filed: 10/26/17 09:31> - General Stated Complaint: POSSIBLE OVERDOSE Time Seen by Provider: 10/24/17 11:59 Notes: Patient is a 57-year-old female who presents to the emergency department today according to the patient for "I guess I done OD'd". Patient states that she snorted heroin prior to arrival which she does very frequently. Patient states her sister heard her fall and called 911. EMS reports the fire department was first on scene and found the patient to have 3 respirations per minute; pattient was bagged and given intranasal Narcan. Patient responded to Narcan and is at baseline now. Patient states she has been wanting to "get some help". Patient states this was not a suicide attempt. (LEXI HERNANDEZ) - Related Data Allergies/Adverse Reactions: No Known Allergies Allergy (Verified 10/24/16 08:11) Past Medical History - General Information source: Patient, [facility] Records - Social History Smoking Status: Unknown if Ever Smoked Frequency of alcohol use: None Drug Abuse: None Lives with: Family Family History: Reviewed & Not Pertinent, DM - Past Medical History Cardiac Medical History: Reports: Hx Congestive Heart Failure, Hx Coronary Artery Disease, Hx Hypercholesterolemia, Hx Hypertension Endocrine Medical History: Reports: Hx Diabetes Mellitus Type 1, Hx Diabetes Mellitus Type 2 GI Medical History: Reports: Hx Hepatitis - Hepatitis C Infectious Medical History: Reports: Hx Hepatitis - Hepatitis C Past Surgical History: Reports: Hx Appendectomy, Hx Section, Hx Gynecologic Surgery, Hx Tubal Ligation, Other - salpingo-oophorectomy - Immunizations Hx Diphtheria, Pertussis, Tetanus Vaccination: Yes <LEXI HERNANDEZ - Last Filed: 10/24/17 12:49> Review of Systems - Review of Systems Constitutional: See HPI, Other - "guess i done OD'd" EENT: See HPI, Other - pain over left eye Cardiovascular: No symptoms reported Respiratory: No symptoms reported Gastrointestinal: No symptoms reported Genitourinary: No symptoms reported Female Genitourinary: No symptoms reported Musculoskeletal: No symptoms reported Skin: No symptoms reported Hematologic/Lymphatic: No symptoms reported Neurological/Psychological: No symptoms reported -: Yes All other systems reviewed and negative <LEXI HERNANDEZ - Last Filed: 10/24/17 12:49> Physical Exam <LEXI HERNANDEZ - Last Filed: 10/24/17 12:49> <GUSTAVO FREEDMAN - Last Filed: 10/24/17 14:46> <MELONY DURAN - Last Filed: 10/26/17 09:31> - Vital signs Vitals: Resp BP Pulse Ox 17 178/166 H 99 10/24/17 11:57 10/24/17 11:57 10/24/17 11:57 - Notes Notes: Physical Exam: General: Alert, appears at baseline according to records. HEENT: Normocephalic. Hematoma over left eye, no crepitus, superficial abrasion over lateral aspect of eyebrow. PERRL. Extraocular movements intact. Oropharynx clear. Neck: Supple. Non-tender. Respiratory: No respiratory distress. Clear and equal breath sounds bilaterally. Cardiovascular: Regular rate and rhythm. Abdominal: Normal Inspection. Non-tender. No distension. Normal Bowel Sounds. Back: Non-tender. No deformity or step off. Extremities: Moves all four extremities. Upper extremities: Normal inspection. Normal ROM. Lower extremities: Trace pitting edema bilaterally. Normal ROM. Neurological: Normal cognition. AAOx4. Normal speech. Psychological: Normal affect. Normal Mood. Skin: Warm. Dry. Normal color. (LEXI HERNANDEZ) Course - Laboratory Result Diagrams: 10/24/17 12:09 10/24/17 12:09 <MARYLEXI - Last Filed: 10/24/17 12:49> - Laboratory Result Diagrams: 10/24/17 12:09 10/24/17 12:09 <GUSTAVO FREEDMAN - Last Filed: 10/24/17 14:46> - Laboratory Result Diagrams: 10/24/17 12:09 10/24/17 12:09 <MELONY DURAN - Last Filed: 10/26/17 09:31> - Re-evaluation Re-evalutation: 10/24/17 14:43 Patient well-appearing labs within normal limits are no acute abnormalities other than mildly elevated glucose. Discussed with patient that her glucose control. Also consulted poison control center who stated to our observation was sufficient. During observation patient did not become obtunded it is same region is well-appearing. Psychiatry was referred to patient and patient was provided literature for outpatient treatment and help of her substance abuse. 10/24/17 15:48 Patient remained alert and oriented times decompensated in the emergency department. Will be discharged. Psychiatric group consulted and provided outpatient follow-up for substance abuse. Patient understands and agrees with plan. (MELONY DURAN) - Vital Signs Vital signs: Temp Pulse Resp BP Pulse Ox 14 124/65 98 10/24/17 16:03 10/24/17 16:03 10/24/17 15:01 - Laboratory Laboratory results interpreted by me: 10/24/17 10/24/17 10/24/17 12:09 12:09 12:52 RBC 3.32 L Hgb 10.6 L Hct 31.5 L BUN 24 H Creatinine 1.35 H Est GFR ( Amer) 49 L Est GFR (Non-Af Amer) 41 L Glucose 272 H Albumin 3.3 L Urine Protein >=500 H Urine Glucose (UA) >=500 H Salicylates < 1.0 L Acetaminophen < 10 L Discharge <LEXI HERNANDEZ - Last Filed: 10/24/17 12:49> <GUSTAVO FREEDMAN - Last Filed: 10/24/17 14:46> <MELONY DURAN - Last Filed: 10/26/17 09:31> - Discharge Clinical Impression: 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 Most people at some time in their lives experience personal problems with which they need help. Pride and feeling that one can't be helped keep a lot of people from the benefits of counseling. Follow up care: Recommendation for patient to follow up with [facility] for linkage to substance use treatment. [facility] mobile crisis management number is available 20/02, please contact them to arrange a time to meet for an assessment. Additional substance use resources were provided, consisting of alternative providers to choose from. Referrals: [facility] [Outside] - Follow up as needed [facility] [Outside] - 10/24/17 Scribe Attestation: 10/26/17 09:31 I personally performed the services described in the documentation, reviewed and edited the documentation which was dictated to the scribe in my presence, and it accurately records my words and actions. (MELONY DURAN) Scribe Documentation - Scribe Written by Scribe:: Dhaval Jacobs, 10/24/2017 1255 acting as scribe for :: Stanley <LEXI HERNANDEZ - Last Filed: 10/24/17 12:49>
[2017-10-24 12:33] LABS: ABSOLUTE BASOPHILS # (AUTO) 0.1 10^3/uL (0.0-0.2); ABSOLUTE EOSINOPHILS # (AUTO) 0.2 10^3/uL (0.0-0.6); ABSOLUTE LYMPHOCYTES (AUTO) 1.1 10^3/uL (0.5-4.7); ABSOLUTE MONOCYTES (AUTO) 0.4 10^3/uL (0.1-1.4); BASOPHILS % (AUTO) 0.8 % (0-2); EOSINOPHILS % (AUTO) 2.3 % (0-6); HEMATOCRIT 31.5 % (36.0-47.0); HEMOGLOBIN 10.6 g/dL (12.0-15.5); LYMPHOCYTES % (AUTO) 13.9 % (13-45); MEAN CORPUSCULAR HGB CONC 33.6 g/dL (32.0-36.0); MEAN CORPUSCULAR VOLUME 95 fl (80-97); PLATELET COUNT 261 10^3/uL (150-450); RED BLOOD COUNT 3.32 10^6/uL (3.72-5.28); TOTAL CELLS COUNTED % (AUTO) 100 %; WHITE BLOOD COUNT 7.7 10^3/uL (4.0-10.5)
[2017-10-24 12:45] LABS: ALANINE AMINOTRANSFERASE 32 U/L (9-52); ALBUMIN 3.3 g/dL (3.5-5.0); ALKALINE PHOSPHATASE 91 U/L (38-126); ANION GAP 7 (5-19); ASPARTATE AMINO TRANSFERASE 27 U/L (14-36); BILIRUBIN,DIRECT 0.3 mg/dL (0.0-0.4); BILIRUBIN,TOTAL 0.3 mg/dL (0.2-1.3); BLOOD UREA NITROGEN 24 mg/dL (7-20); CALCIUM 9.2 mg/dL (8.4-10.2); CARBON DIOXIDE 29 mmol/L (22-30); CHLORIDE 101 mmol/L (98-107); GLUCOSE 272 mg/dL (75-110); SODIUM 137.3 mmol/L (137-145); TOTAL PROTEIN 7.1 g/dL (6.3-8.2)
[2017-10-24 12:50] LABS: ACETAMINOPHEN < 10 ug/mL (10-30); ALCOHOL < 10 mg/dL (NONE DETECTED); SALICYLATE < 1.0 mg/dL (2.0-20.0)
[2017-10-24 13:08] LABS: APPEARANCE,URINE CLOUDY; BILIRUBIN,URINE NEGATIVE (NEGATIVE); COLOR,URINE YELLOW; GLUCOSE, URINE >=500 mg/dL (NEGATIVE); KETONES,URINE NEGATIVE (NEGATIVE); LEUKOCYTE ESTERASE,URINE NEGATIVE (NEGATIVE); NITRITE,URINE NEGATIVE (NEGATIVE); PROTEIN,URINE >=500 mg/dL (NEGATIVE); URINE SPECIFIC GRAVITY 1.024; UROBILINOGEN,URINE NEGATIVE mg/dL (<2.0)
[2017-10-24 13:19] LABS: URINE AMPHETAMINES SCREEN NEGATIVE; URINE BARBITURATES SCREEN NEGATIVE; URINE BENZODIAZEPINES SCREEN NEGATIVE; URINE COCAINE SCREEN UNCONFIRMED POSITIVE; URINE MARIJUANA (THC) SCREEN NEGATIVE; URINE METHADONE SCREEN NEGATIVE; URINE PHENCYCLIDINE SCREEN NEGATIVE
[2017-10-24] MEDS ORDERED: NORMAL SALINE 1000 ML 1,000 ML IV ONE (13:24)
--- NOTE | 2017-10-24 13:28 | EKG REPORT ---
SEVERITY:- ABNORMAL ECG - SINUS RHYTHM NONSPECIFIC T ABNORMALITIES, LATERAL LEADS : Confirmed by: Bob Garcia MD 24-Oct-2017 13:27:12
--- NOTE | 2017-10-24 14:46 | PSYCHOLOGICAL NOTE ---
Psych Note - Psych Note Psych Note: Reason for consult: Alleged heroin overdose (accidental) Eval: 2:00 Final Dispo 2:30 Patient is a 57-year-old female. Patient reports she "accidentally overdosed". Patient reports that she was "just getting high". Patient reports She has been using heroin for 20 years. Patient reports that she was not expecting to overdose. Patient reports she is just feeling sleepy. Patient reports that she has never been to a psychiatric hospital. Patient reports that she has received treatment in the past both inpatient and outpatient for substance use. Patient reports that she was diagnosed with depression and anxiety. Patient reports that she lives in the home with her sister, who has kids that also lives there. Patient reports that her sister also has anxiety and depression. Patient reports she is afraid of withdrawing from heroin and wants to get treatment. Patient reports she is interested in receiving resources for substance abuse treatment. Patient reports that she has never had any suicidal attempts in the past. Patient reports that behavioral health has consent to speak with Al who is present in the room. Patient reports that she used to go to [facility]. Patient reports in the past she was prescribed Celexa 20 mg daily. Patient reports that her parents do not have any mental health issues. Clinician made a department of social work therapist report due to patient disclosing heroin use in the home, where children live, clinician unable to get additional information regarding the whereabouts/ages of the children in the home due to patient falling asleep during assessment. Clinician observed patient is currently still intoxicated as evidenced by slurred speech, responding to internal stimuli, dilated pupils, and incoherence. Diagnosis: 292.89 ( F11.222) opioid intoxication with perceptual disturbances,with use disorder; severe Impression/plan: Patient is psychiatrically cleared for discharge. Recommendation for patient to follow up with [facility] for leakage to substance use treatment. Resources provided to patient behavioral health team notified [facility] that patient will be contacting them for an assessment to get substance use treatment. Patient agreed and gave consent to behavioral health to speak with my office for continuity of care. Consulted with Dr. Hernandez regarding the management and care of patient.
[2017-10-24 16:05] VITALS: BP 124/65
== END 2017-10-24 16:25 | disposition home or self-care (01) ==
LOC: ER 11:11
DX: F11.122 Opioid abuse with intoxication with perceptual disturbance (principal); S00.12XA Contusion of left eyelid and periocular area, initial encounter; W19.XXXA Unspecified fall, initial encounter; Y93.89 Activity, other specified; R60.0 Localized edema; E11.9 Type 2 diabetes mellitus without complications; I25.10 Atherosclerotic heart disease of native coronary artery without angina pectoris; I10 Essential (primary) hypertension
CPT/HCPCS: 36415; 80053; 80307; 81001; 85025; 93005; 93010; 99285

== ENCOUNTER 2017-11-14 01:09 | Inpatient (IN) | payer MEDICARE, MEDICAID ==
[2017-11-14] MEDS ORDERED: ALBUTEROL SULFATE 0.083% NEB 2.5 MG/3 ML AMPUL NEB ONE ×2 (01:22→05:14)
[2017-11-14] MEDS ORDERED: METHYLPREDNISOLONE INJ 125 MG/2 ML SDV IV ONE (01:22)
[2017-11-14] MEDS ORDERED: BENAZEPRIL HCL 20 MG TABLET PO ONE (01:22)
[2017-11-14] MEDS ORDERED: FUROSEMIDE INJ/PF 20 MG/2 ML SDV IV ONE (01:23)
[2017-11-14] MEDS ORDERED: HYDROCHLOROTHIAZIDE 25 MG TABLET PO ONE (01:23)
--- NOTE | 2017-11-14 01:33 | ER Document Report ---
ED General <MEMO COPELAND - Last Filed: 11/14/17 07:16> - General TRAVEL OUTSIDE OF THE [place] IN LAST 30 DAYS: No <HALLE PEDRAZA - Last Filed: 11/14/17 07:28> - General Stated Complaint: DIFFICULTY BREATHING Time Seen by Provider: 11/14/17 01:12 Notes: Patient is a 57-year-old female presents with complaint of difficulty breathing. Patient says she has a history of COPD. She also has history of CHF. She is to be on Lasix but says she seems having stopped and was told that she may need to go back on it but never followed back up with her doctor. She also has a history of a leaky heart valve. She admits to some mild intermittent chest pain. She says she has been coughing a lot. No fevers. She does admit to drug use. She says she does her when and snorts it. Last heroin use was Monday. She does admit to increased edema in her lower extremities. She denies history of PE or DVT. She has no other complaints at this time. Primary care doctor is Dr. Farooq. (HALLE PEDRAZA) - Related Data Allergies/Adverse Reactions: No Known Allergies Allergy (Verified 10/24/16 08:11) Past Medical History - Social History Smoking Status: Current Some Day Smoker Frequency of alcohol use: None Drug Abuse: Cocaine, Heroin Family History: Reviewed & Not Pertinent, DM - Past Medical History Cardiac Medical History: Reports: Hx Congestive Heart Failure, Hx Coronary Artery Disease, Hx Hypercholesterolemia, Hx Hypertension Endocrine Medical History: Reports: Hx Diabetes Mellitus Type 1, Hx Diabetes Mellitus Type 2 Renal/ Medical History: Denies: Hx Peritoneal Dialysis GI Medical History: Reports: Hx Hepatitis - Hepatitis C Psychiatric Medical History: Denies: Hx Depression Infectious Medical History: Reports: Hx Hepatitis - Hepatitis C Past Surgical History: Reports: Hx Appendectomy, Hx Section, Hx Gynecologic Surgery, Hx Tubal Ligation, Other - salpingo-oophorectomy. Denies: Hx Hysterectomy - Immunizations Hx Diphtheria, Pertussis, Tetanus Vaccination: Yes <HALLE PEDRAZA - Last Filed: 11/14/17 07:28> Review of Systems <MEMO COPELAND - Last Filed: 11/14/17 07:16> <HALLE PEDRAZA - Last Filed: 11/14/17 07:28> - Review of Systems Notes: ROS: General: No fevers ENT. No nasal congestion Cardio: mild intermittent chest pain Pulmonary: diffictuly breathing with wheezing Abd: no abdominal pain. No vomiting. No diarrhea Urinary: No dysuria or difficulty making urine MS: No extremity pain Lymphatic: lower extremity edema Neuro: no headache, No focal weakness or numbness, No syncope skin: No new rash (HALLE PEDRAZA) Physical Exam <MEMO COPELAND - Last Filed: 11/14/17 07:16> <HALLE PEDRAZA - Last Filed: 11/14/17 07:28> - Vital signs Vitals: Pulse Ox 100 11/14/17 01:13 - Notes Notes: General Appearance: Patient is awake, alert, and cooperative. Moderate respiratory distress. No obvious discomfort. Vitals: reviewed, See vital signs table. Head: no swelling or tenderness to the head Eyes: PERRL, EOMI, Conjuctiva clear Mouth: No decreasd moisture Throat: No tonsillar inflammation, No airway obstruction, No lymphadenopathy Neck: Supple, no neck tenderness chest wall: Lungs: diffuse wheezing, No rales, No rhonci, mild accessory muscle use, fair air exchange bilaterally. Heart: Tachycardic rate, Regular rythm, No murmur, no rub Abdomen: Normal BS, soft, No rigidity, No abdominal tenderness, No guarding, no rebound, no abdominal masses, no organomegaly. No bruising to abdomen. Extremities: strength 5/5 in all extremities, good pulses in all extremities, 3 + bilateral lower extremity edema. Skin: warm, dry, appropriate color, no rash Neuro: speech is little garbled due to alcohol intoxication. Patient is able to stand and walk but is staggering due to alcohol intoxication. Cranial nerves II through XII are intact. She does move all extremities on her own. I do not appreciate any focal neurologic deficits. (HALLE PEDRAZA) Course - Laboratory Result Diagrams: 11/14/17 01:40 11/14/17 01:40 <MEMO COPELAND - Last Filed: 11/14/17 07:16> - Laboratory Result Diagrams: 11/14/17 01:40 11/14/17 01:40 <HALLE PEDRAZA - Last Filed: 11/14/17 07:28> - Re-evaluation Re-evalutation: 11/14/17 07:13 Dr Farooq paged he will admit to [facility] (MEMO COPELAND) 11/14/17 04:11 Patient's oxygen is 86% with oxygen removed so I placed her back on 2L nasal cannula. She is 93% on nasal cannula. 11/14/17 05:15 D-dimer was positive and therefore CT was obtained. Whenever the patient is taken off supplemental oxygen her saturations dropped into the 80s. I therefore feel that she does require admission. She still has some recurrent wheezing therefore I will give her more breathing treatments. I have asked operated page Dr. Farooq and am awaiting for him to call back. (HALLE PEDRAZA) - Vital Signs Vital signs: Temp Pulse Resp BP Pulse Ox 98.5 F 13 142/75 H 97 11/14/17 07:00 11/14/17 07:00 11/14/17 07:00 11/14/17 07:00 - Laboratory Laboratory results interpreted by me: 11/14/17 11/14/17 11/14/17 01:40 01:40 01:50 RBC 3.50 L Hgb 10.8 L Hct 32.9 L RDW 14.3 H D-Dimer 1.34 H BUN 21 H Est GFR (Non-Af Amer) 54 L Glucose 196 H Direct Bilirubin 0.6 H NT-Pro-B Natriuret Pep Albumin 3.0 L 11/14/17 01:50 RBC Hgb Hct RDW D-Dimer BUN Est GFR (Non-Af Amer) Glucose Direct Bilirubin NT-Pro-B Natriuret Pep 8380 H Albumin - EKG Interpretation by Me Additional EKG results interpreted by me: 11/14/17 01:32 EKG is reviewed and interpreted by me. EKG shows sinus tachycardia with a rate of [address] segment elevation or depression. No ischemic T-wave inversions. GA interval, QRS duration, QTc intervals are within normal range. Old EKG for comparison is from October 24, 2017. (HALLE PEDRAZA) Discharge - Discharge Admitting Provider: [facility] Admitted: [facility] <MEMO COPELAND - Last Filed: 11/14/17 07:16> - Discharge Admitting Provider: [facility] Admitted: [facility] <HALLE PEDRAZA - Last Filed: 11/14/17 07:28> - Discharge Clinical Impression: Hypoxemia CHF exacerbation Qualifiers: Heart failure type: systolic Qualified Code(s): I50.23 - Acute on chronic systolic (congestive) heart failure COPD (chronic obstructive pulmonary disease) Qualifiers: COPD type: unspecified COPD Qualified Code(s): J44.9 - Chronic obstructive pulmonary disease, unspecified Condition: Stable Disposition: ADMITTED INPATIENT
[2017-11-14] MEDS: MAGNESIUM SULFATE/D5W 1 GM/100 ML RTUPB IV SCH ×2 (01:54→02:43)
[2017-11-14] MEDS ORDERED: LISINOPRIL 10 MG TABLET PO ONE (01:55)
[2017-11-14 01:56] LABS: ABSOLUTE BASOPHILS # (AUTO) 0.1 10^3/uL (0.0-0.2); ABSOLUTE EOSINOPHILS # (AUTO) 0.5 10^3/uL (0.0-0.6); ABSOLUTE LYMPHOCYTES (AUTO) 2.5 10^3/uL (0.5-4.7); ABSOLUTE MONOCYTES (AUTO) 0.4 10^3/uL (0.1-1.4); ABSOLUTE NEUT (AUTO) 5.4 10^3/uL (1.7-8.2); BASOPHILS % (AUTO) 0.9 % (0-2); EOSINOPHILS % (AUTO) 5.3 % (0-6); HEMATOCRIT 32.9 % (36.0-47.0); HEMOGLOBIN 10.8 g/dL (12.0-15.5); LYMPHOCYTES % (AUTO) 28.3 % (13-45); MEAN CORPUSCULAR HGB CONC 32.9 g/dL (32.0-36.0); MEAN CORPUSCULAR VOLUME 94 fl (80-97); MONOCYTES % (AUTO) 4.9 % (3-13); PLATELET COUNT 258 10^3/uL (150-450); RED CELL DISTRIBUTION WIDTH 14.3 % (11.5-14.0); SEGMENTED NEUTROPHILS % (AUTO) 60.6 % (42-78); TOTAL CELLS COUNTED % (AUTO) 100 %; WHITE BLOOD COUNT 8.9 10^3/uL (4.0-10.5)
[2017-11-14 02:03] LABS: VENOUS BLOOD BASE EXCESS 3.9 mmol/L; VENOUS BLOOD HCO3 30.8 mmol/L (20-32); VENOUS BLOOD PCO2 57.5 mmHg (35-63); VENOUS BLOOD PH 7.35 (7.30-7.42)
--- NOTE | 2017-11-14 02:23 | RADIOLOGY REPORT (SQ) ---
EXAM DESCRIPTION: CHEST SINGLE VIEW CLINICAL HISTORY: dyspnea COMPARISON: 06/09/2017 FINDINGS: Single frontal view of the chest. Atherosclerotic calcification of the aortic arch. Cardiomegaly. Pulmonary vascular congestion with possible interstitial edema and small bilateral pleural effusions. No pneumothorax. No acute osseous abnormality identified. Upper abdominal soft tissues are unremarkable. IMPRESSION: 1. Cardiomegaly with possible interstitial edema and small bilateral pleural effusions.
[2017-11-14 02:27] LABS: ALANINE AMINOTRANSFERASE 22 U/L (9-52); ALKALINE PHOSPHATASE 95 U/L (38-126); ANION GAP 8 (5-19); ASPARTATE AMINO TRANSFERASE 28 U/L (14-36); BILIRUBIN,DIRECT 0.6 mg/dL (0.0-0.4); BILIRUBIN,TOTAL 0.6 mg/dL (0.2-1.3); BLOOD UREA NITROGEN 21 mg/dL (7-20); CALCIUM 9.1 mg/dL (8.4-10.2); CARBON DIOXIDE 28 mmol/L (22-30); CHLORIDE 106 mmol/L (98-107); GLUCOSE 196 mg/dL (75-110); POTASSIUM 4.2 mmol/L (3.6-5.0); TOTAL PROTEIN 7.5 g/dL (6.3-8.2)
[2017-11-14] MEDS ORDERED: NITROGLYCERIN 2% OINTMENT 1 GM PACKET TP ONE (03:21)
[2017-11-14 04:46] LABS: URINE AMPHETAMINES SCREEN NEGATIVE; URINE BARBITURATES SCREEN NEGATIVE; URINE BENZODIAZEPINES SCREEN NEGATIVE; URINE COCAINE SCREEN UNCONFIRMED POSITIVE; URINE MARIJUANA (THC) SCREEN NEGATIVE; URINE METHADONE SCREEN NEGATIVE; URINE PHENCYCLIDINE SCREEN NEGATIVE
--- NOTE | 2017-11-14 05:09 | RADIOLOGY REPORT (SQ) ---
EXAM DESCRIPTION: CTA of the chest per PE protocol with contrast. CLINICAL HISTORY: dyspnea, elevated d dimer COMPARISON: None Available. TECHNIQUE: CTA of the chest obtained following the uncomplicated intravenous administration of 98.1 mL [id number]. 3-D/MIP reformatted images of the chest available for evaluation. DLP: 500.46 mGycm FINDINGS: Chest: Pulmonary arteries: Contrast bolus is adequate.No filling defects identified in the pulmonary arteries to suggest pulmonary embolus. Thyroid:No abnormalities of the visualized thyroid. Great Vessels:Great vessels have normal anatomic configuration. Thoracic Aorta: Atherosclerotic calcification of the thoracic aorta. Heart: Cardiomegaly. Coronary artery atherosclerosis. Lymph Nodes:No enlarged mediastinal lymph nodes identified. Esophagus:No abnormalities of the esophagus identified. Other:No additional findings. Lungs: Mild bibasilar interstitial and groundglass opacities. Minimal bibasilar atelectasis. Pleura: Small bilateral pleural effusions. Trachea/Airways:No abnormalities of the visualized trachea or airways. Bones:No destructive osseous lesions. Upper Abdomen:Limited images of the upper abdomen demonstrate no definite abnormalities of visualized portions of the liver and spleen. IMPRESSION: 1. No pulmonary embolus. 2. Cardiomegaly with small bilateral pleural effusions and likely mild interstitial edema. This exam was performed according to our departmental dose-optimization program, which includes automated exposure control, adjustment of the mA and/or kV according to patient size and/or use of iterative reconstruction technique.
[2017-11-14] MEDS ORDERED: ACETAMINOPHEN 325 MG TABLET PO PRN (08:59)
[2017-11-14] MEDS ORDERED: IPRATROPIUM/ALBUTEROL 0.5-2.5 MG/3 ML AMPUL NEB PRN (08:59)
[2017-11-14] MEDS ORDERED: OXYCODONE-ACETAMINOPHEN 5-325 MG TABLET PO PRN (09:11)
[2017-11-14] MEDS ORDERED: DOCUSATE SODIUM 100 MG CAPSULE PO PRN (09:18)
--- NOTE | 2017-11-14 09:25 | EKG REPORT ---
SEVERITY:- BORDERLINE ECG - SINUS TACHYCARDIA PROBABLE LEFT ATRIAL ABNORMALITY BORDERLINE T WAVE ABNORMALITIES : Confirmed by: Kt Pride 14-Nov-2017 09:24:47
[2017-11-14] MEDS ORDERED: ASPIRIN 81 MG TABLET, ENT COATED PO SCH (10:00)
[2017-11-14 11:00] LABS: CREATINE KINASE MB 1.14 ng/mL (<4.55); TROPONIN I 0.042 ng/mL
[2017-11-14] MEDS: GABAPENTIN 300 MG CAPSULE PO SCH ×2 (11:10→21:52)
[2017-11-14] MEDS: INSULIN GLARGINE,HUM.REC.ANLOG 300 UNIT/3 ML INSULN.PEN SUBCUT SCH ×2 (11:11→21:52)
[2017-11-14] MEDS: ENOXAPARIN SODIUM INJ 40 MG/0.4 ML DISP.SYRIN SUBCUT SCH (11:11)
[2017-11-14] MEDS: CLONIDINE HCL 0.1 MG TABLET PO SCH ×2 (11:12→21:52)
[2017-11-14] MEDS: BENAZEPRIL HCL 20 MG TABLET PO SCH (11:13)
[2017-11-14] MEDS: CARVEDILOL 12.5 MG TABLET PO SCH ×2 (11:13→21:52)
[2017-11-14] MEDS: FUROSEMIDE INJ/PF 20 MG/2 ML SDV IV SCH (11:13)
[2017-11-14] MEDS: HYDROCHLOROTHIAZIDE 25 MG TABLET PO SCH (11:13)
--- NOTE | 2017-11-14 11:41 | PDOC CONSULTATION ---
Consultation Consult Date: 11/14/17 Attending physician:: NOMAN HENDRICKSON Consult reason:: Shortness of breath and pedal edema History of Present Illness Admission Date/PCP: 11/14/17 08:04 Patient complains of: Shortness of breath and pedal edema History of Present Illness: MAGNO WILSON is a 57 year old female presents with complaint of difficulty breathing. Patient says she has a history of COPD. She also has history of CHF. She is to be on Lasix but says she seems having stopped and was told that she may need to go back on it but never followed back up with her doctor. She also has a history of a leaky heart valve. She admits to some mild intermittent chest pain. She says she has been coughing a lot. No fevers. She does admit to drug use. She says she does her when and snorts it. Last heroin use was Monday. She does admit to increased edema in her lower extremities. She denies history of PE or DVT. She has no other complaints at this time. Primary care doctor is Dr. Hendrickson. This history obtained by the ER physician was reviewed. Patient describes history of coronary artery disease having had 3 stents placed in the past. This was done at the hospital in [place], the name of which she could not remember. Patient has moved down to [place] in the last 2 years and has been followed by Dr. Hendrickson. Patient denying any chest pain. Patient did not want to identify a surrogate decision maker. Past Medical History Cardiac Medical History: Reports: Congestive Heart Failure, Coronary Artery Disease, Hyperlipidema, Hypertension Endocrine Medical History: Reports: Diabetes Mellitus Type 2 GI Medical History: Reports: Hepatitis - Hepatitis C Psychiatric Medical History: Denies: Depression Hematology: Reports: Anemia Past Surgical History Past Surgical History: Reports: Appendectomy, Section, Coronary Stent, Tubal Ligation, Other - salpingo-oophorectomy Denies: Hysterectomy Social History Information Source: Patient Smoking Status: Current Some Day Smoker Frequency of Alcohol Use: None Hx Recreational Drug Use: Yes Drugs: Cocaine, Heroin, Marijuana, Other Hx Prescription Drug Abuse: Yes - Advance Directive Resuscitation Status: Full Code Surrogate healthcare decision maker:: Did not want to identify is surrogate decision-maker Family History Family History: DM, Hypertension Parental Family History Reviewed: Yes Children Family History Reviewed: Yes Sibling(s) Family History Reviewed.: Yes Medication/Allergy Home Medications: Aspirin [Ecotrin 81 mg EC Tablet] 81 mg PO DAILY 06/09/17 Carvedilol [Coreg 12.5 mg Tablet] 12.5 mg PO Q12 06/09/17 Clonidine HCl [Catapres 0.1 mg Tablet] 0.1 mg PO Q12 06/09/17 Gabapentin [Neurontin] 600 mg PO Q12 06/09/17 Insulin Glargine,Hum.rec.anlog [Lantus Solostar] 55 unit SQ BID 06/09/17 Omeprazole 40 mg PO QHS 06/09/17 Oxycodone HCl/Acetaminophen [Percocet 5-325 mg Tablet] 1 tab PO Q12HP PRN Clonidine [Catapres-Tts 1 (0.1 mg/24 Hr) Transderm Patch] 1 each TD ONCE PRN #1 patch.tdwk 06/12/17 Loperamide HCl [Imodium A-D] 2 mg PO Q6H PRN #10 tablet 06/12/17 Ondansetron [Zofran Odt 4 mg Tablet] 1 - 2 tab PO Q4H PRN #15 tab.rapdis Allergies/Adverse Reactions: No Known Allergies Allergy (Verified 10/24/16 08:11) Review of Systems Review of Systems: Please see history of present illness and past medical history as wall. Constitutional: No fever or chills reported. Head : No recent chronic headaches, recent head injury. Eyes: No recent eye pain, diplopia, redness, discharge, acute visual changes. Ears: No recent chronic ear pain, acute hearing loss, ear discharge. Oral cavity: No recent ulcerations, bleeding, oral cavity discomfort. Neck: No recent acute neck pain reported. Hematologic: No recent easy bruising or bleeding or hematologic malignancy reported. Lymphatic: No recent lymphatic malignancy, chronic lymphadenopathy reported yet Cardiovascular system review: See history of present illness. Respiratory system review: No recent chronic cough, hemoptysis, blood clots in the lungs reported. Shortness of breath on exertion. Patient has noted increasing pedal edema Gastrointestinal system review: Negative for any recent acute or chronic abdominal pain, hematemesis, melena, recent change in bowel habits. Genitourinary system review: No recent acute or chronic hematuria, flank pain, UTI etc. reported. Skin system review: Negative for any recent abnormal bruising, no rash, no pruritus reported. Neurologic: No prior history of strokes, mini strokes, seizure disorder. Psychologic: No history of major psychosis or major depression reported. Musculoskeletal: Minor aches and pains reported. No acute joint swelling reported. Endocrine: No recent polyuria, polydipsia, recent heat or cold intolerance. Physical Exam Vital Signs: Temp Pulse Resp BP Pulse Ox 97.6 F 113 H 20 164/83 H 96 11/14/17 09:08 11/14/17 09:08 11/14/17 09:08 11/14/17 09:08 11/14/17 09:08 Intake & Output 11/13/17 11/14/17 11/15/17 06:59 06:59 06:59 Weight 79.6 kg Exam: GENERAL: well-nourished and in no acute distress. Alert and oriented x3 HEAD: Atraumatic, normocephalic. EYES: Pupils equal round and reactive to light, extraocular movements intact, sclera anicteric, conjunctiva are normal. ENT: TMs normal, nares patent, oropharynx clear without exudates. Moist mucous membranes. No oral ulcerations or bleeding gums noted NECK: supple without lymphadenopathy. Trachea is central. No cervical or axillary lymphadenopathy noted. Carotids are 2+, JVD 12 cm LUNGS: Respiration seems nonlabored, no significant accessory muscle action noted. Bibasilar fine crackles noted at bases. No wheezes rales or rhonchi noted. No significant dullness noted on percussion. CHEST: Palpation of the chest wall shows no significant chest wall tenderness. No other significant abnormalities noted. HEART: [place] [employer] TECH, No PSH, 1/6 ISH aortic area, 1/6 vilchis systolic murmur mitral area, no rubs, no gallops. ABDOMEN: Soft, no significant tenderness appreciated, normoactive bowel sounds. No guarding, no rebound. No rigidity noted . No masses appreciated. EXTREMITIES: Pedal pulses are 1-2+, no calf tenderness noted. No clubbing or cyanosis. 1-2+ pedal edema noted NEUROLOGICAL: Focused neurological exam showed no significant neurologic deficit. Normal speech, no focal weakness appreciated. PSYCH: Normal mood, normal affect. Judgment and insight within normal limits. SKIN: No significant ecchymosis, skin is noted to be warm. MUSCULOSKELETAL EXAM: No significant acute joint swelling noted. Results Laboratory Results: 11/14/17 11/14/17 09:54 09:54 Creatine Kinase 46 CK-MB (CK-2) 1.14 Troponin I 0.042 EKG Comments: Twelve-lead EKG shows sinus tachycardia, left atrial enlargement and minor nonspecific T-wave changes Impressions: Chest X-Ray 11/14/17 01:18 IMPRESSION: 1. Cardiomegaly with possible interstitial edema and small bilateral pleural effusions. Chest/Abdomen CTA 11/14/17 03:21 IMPRESSION: 1. No pulmonary embolus. 2. Cardiomegaly with small bilateral pleural effusions and likely mild interstitial edema. This exam was performed according to our departmental dose-optimization program, which includes automated exposure control, adjustment of the mA and/or kV according to patient size and/or use of iterative reconstruction technique. 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 transplanted heart: [place] heart Associated angina: angina presence unspecified Qualified Code(s): I25.10 - Atherosclerotic heart disease of [place] coronary artery without angina pectoris Is this a current diagnosis for this admission?: Yes (6) COPD (chronic obstructive pulmonary disease) Qualifiers: COPD type: unspecified COPD Qualified Code(s): J44.9 - Chronic obstructive pulmonary disease, unspecified Is this a current diagnosis for this admission?: Yes (7) Cocaine abuse Is this a current diagnosis for this admission?: Yes (8) Tobacco abuse Is this a current diagnosis for this admission?: Yes - Notes Notes: Congestive heart failure: Most likely acute on chronic precipitated by severe hypertension and possibly noncompliance as well as substance abuse. Exact etiology of heart failure not clear but agree with obtaining a 2D echo which will be reviewed. At this point recommend IV diuretics. Further adjustment will be made based on echo results. Patient will benefit from salt and fluid restriction, avoidance of substance abuse. Coronary artery disease: Patient gives history of coronary stent. Currently without chest pain. It may be worthwhile to consider a nuclear stress test prior to discharge. In the meantime recommend dual antiplatelet therapy, statin , beta-linh, MIKAELA inhibitor/ARB/entresto therapy. Dyslipidemia: Recommend high potency statin therapy. LDL goal less than 70. Hypertension: Presented with severe hypertension but now reasonably well controlled. Blood pressure goal in this patient is 135/85 or less. This was discussed with the patient. Currently blood pressure under reasonable control. Better medication for this patient are MIKAELA inhibitor/ARB/beta linh etc. discussed side effects of uncontrolled hypertension and also severe hypotension. COPD: Patient has been advised to quit smoking. 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 Cocaine abuse: Patient has been advised to avoid cocaine abuse. Tobacco abuse: Patient has been advised to avoid tobacco abuse. - Time Time Spent: 50 to 70 Minutes - CODE STATUS was discussed, patient remains full code. Multiple medical problems were addressed. More than 50% of the time spent coordinating care, discussing management plans with involved caregivers. Management plans discussed with involved personnels. Medical decision making was of moderate to high complexity, patient's has multiple comorbidities. Medications reviewed and adjusted accordingly: Yes
--- NOTE | 2017-11-14 13:23 | PDOC H&P ---
History of Present Illness Admission Date/PCP: 11/14/17 08:04 Patient complains of: Dyspnea, cough, armand. leg sweling- worsening for the past couple of days. History of Present Illness: MAGNO WILSON is a 57 year old female wiht hx of DM2/HTN/Hyperlipidemia/CAD s.p stentsx3/CHF- possibly diastolic dysfunction/COPD/GERD/Constipation/Vitamin D def/CKD stage 3/Anemia of chronic disease/Hepatitis C/Back pain/Obesity/ Chronic smoker and Cocaine abuse.She has been non- compliant with her diuretics , then she started having worsening dyspnea, leg swelling and cough productive of whitish sputum. Denied fever, chest pain, palpitations, nausea/vomiting. She was brought to ER this morning by EMS. Her BNP was 8380; Cocaine positive in urine; chest xray showed cardiomegaly, pul. vascular congestion. She is being admitted to IM for CHF decompensation/COPD exacerbation and Cocaine abuse. Past Medical History Cardiac Medical History: Reports: Congestive Heart Failure, Coronary Artery Disease, Hyperlipidema, Hypertension Endocrine Medical History: Reports: Diabetes Mellitus Type 1, Diabetes Mellitus Type 2 GI Medical History: Reports: Hepatitis - Hepatitis C Psychiatric Medical History: Denies: Depression Hematology: Reports: Anemia Past Surgical History Past Surgical History: Reports: Appendectomy, Section, Coronary Stent, Tubal Ligation, Other - salpingo-oophorectomy Denies: Hysterectomy Social History Smoking Status: Current Some Day Smoker Frequency of Alcohol Use: None Hx Recreational Drug Use: Yes Drugs: Cocaine, Heroin, Marijuana, Other Hx Prescription Drug Abuse: Yes - Advance Directive Resuscitation Status: Full Code Family History Family History: DM, Hypertension Parental Family History Reviewed: Yes Children Family History Reviewed: Yes Sibling(s) Family History Reviewed.: Yes Medication/Allergy Home Medications: Aspirin [Ecotrin 81 mg EC Tablet] 81 mg PO DAILY 06/09/17 Carvedilol [Coreg 12.5 mg Tablet] 12.5 mg PO Q12 06/09/17 Clonidine HCl [Catapres 0.1 mg Tablet] 0.1 mg PO Q12 06/09/17 Gabapentin [Neurontin] 600 mg PO Q12 06/09/17 Insulin Glargine,Hum.rec.anlog [Lantus Solostar] 55 unit SQ BID 06/09/17 Omeprazole 40 mg PO QHS 06/09/17 Oxycodone HCl/Acetaminophen [Percocet 5-325 mg Tablet] 1 tab PO Q12HP PRN Clonidine [Catapres-Tts 1 (0.1 mg/24 Hr) Transderm Patch] 1 each TD ONCE PRN #1 patch.tdwk 06/12/17 Loperamide HCl [Imodium A-D] 2 mg PO Q6H PRN #10 tablet 06/12/17 Ondansetron [Zofran Odt 4 mg Tablet] 1 - 2 tab PO Q4H PRN #15 tab.rapdis Allergies/Adverse Reactions: No Known Allergies Allergy (Verified 10/24/16 08:11) Review of Systems All systems: as per PMH Constitutional: PRESENT: fatigue, weight gain Eyes: PRESENT: as per HPI Ears: PRESENT: as per HPI Nose, Mouth, and Throat: PRESENT: as per HPI Breasts: PRESENT: as per HPI Cardiovascular: PRESENT: dyspnea on exertion, edema, orthropnea Respiratory: PRESENT: cough, dyspnea, sputum Gastrointestinal: PRESENT: as per HPI Genitourinary: PRESENT: as per HPI Musculoskeletal: PRESENT: back pain Integumentary: PRESENT: as per HPI Neurological: PRESENT: as per HPI Psychiatric: PRESENT: as per HPI Endocrine: PRESENT: as per HPI Hematologic/Lymphatic: PRESENT: as per HPI Physical Exam Vital Signs: Temp Pulse Resp BP Pulse Ox 97.6 F 113 H 20 164/83 H 96 11/14/17 09:08 11/14/17 09:08 11/14/17 09:08 11/14/17 09:08 11/14/17 09:08 Intake & Output 11/13/17 11/14/17 11/15/17 06:59 06:59 06:59 Weight 79.6 kg General appearance: PRESENT: cooperative, mild distress, obese, well-developed, well-nourished Head exam: PRESENT: atraumatic, normocephalic Eye exam: PRESENT: EOMI, PERRLA Ear exam: PRESENT: normal external ear exam, TM's normal bilaterally Mouth exam: PRESENT: neck supple, tongue midline Neck exam: PRESENT: full ROM Respiratory exam: PRESENT: crackles, decreased breath sounds, symmetrical Cardiovascular exam: PRESENT: +S1, +S2 Pulses: PRESENT: +1 pedal pulses bilateral GI/Abdominal exam: PRESENT: normal bowel sounds, soft Rectal exam: PRESENT: deferred Extremities exam: PRESENT: full ROM Additional comments: Armand. +2 pitting leg edema. Musculoskeletal exam: PRESENT: full ROM Neurological exam: PRESENT: alert, awake, oriented to person, oriented to place , oriented to time Psychiatric exam: PRESENT: normal mood Results Laboratory Results: 11/14/17 11/14/17 09:54 09:54 Creatine Kinase 46 CK-MB (CK-2) 1.14 Troponin I 0.042 Impressions: Chest X-Ray 11/14/17 01:18 IMPRESSION: 1. Cardiomegaly with possible interstitial edema and small bilateral pleural effusions. Chest/Abdomen CTA 11/14/17 03:21 IMPRESSION: 1. No pulmonary embolus. 2. Cardiomegaly with small bilateral pleural effusions and likely mild interstitial edema. This exam was performed according to our departmental dose-optimization program, which includes automated exposure control, adjustment of the mA and/or kV according to patient size and/or use of iterative reconstruction technique. 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 (2) COPD (chronic obstructive pulmonary disease) Qualifiers: COPD type: unspecified COPD Qualified Code(s): J44.9 - Chronic obstructive pulmonary disease, unspecified Is this a current diagnosis for this admission?: Yes Plan: Ct with Duonebs q4h pr; Xopenex nebs 1.25 mg q6h; Levaquin 500 mg qd IV; Solumedrol 60 mg q8h IV; Oxygen by N/C 2 L/Min to keep oygen saturation >92%. (3) Diabetes mellitus type 2 in obese Is this a current diagnosis for this admission?: Yes Plan: Ct with Lantus insulin 55iu BID subcut; Humalog insulin 10 iu qac subcut; slidding scale with humalog insulin as per [facility] protocol. 1800 calorie ADA diet. (4) Hypertension Qualifiers: Hypertension type: essential hypertension Qualified Code(s): I10 - Essential (primary) hypertension Is this a current diagnosis for this admission?: Yes Plan: Ct with Benazepril 20 mg qd po; Coreg 12.5 mg BID po; Clonidine 0.1 mg BID PO; 2 g sodium diet. (5) Dyslipidemia Is this a current diagnosis for this admission?: Yes Plan: Ct with Simvastatin 40 mg qhs PO; 200 mg cholesterol diet. (6) Coronary artery disease Qualifiers: Coronary Disease-Associated Artery/Lesion type: [place] artery [place] vs. transplanted heart: [place] heart Associated angina: angina presence unspecified Qualified Code(s): I25.10 - Atherosclerotic heart disease of [place] coronary artery without angina pectoris Is this a current diagnosis for this admission?: Yes Plan: Ct with Aspirin 81 mg qd po; Plavix 75 mg qd po; 2 g sodium, low cholesterol diet. (7) Diabetic neuropathy Qualifiers: Diabetes mellitus type: type 2 Diabetes mellitus complication detail: diabetic polyneuropathy Qualified Code(s): E11.42 - Type 2 diabetes mellitus with diabetic polyneuropathy Is this a current diagnosis for this admission?: Yes Plan: CT with Gabapentin 600 mg BID po. (8) Reflux esophagitis Is this a current diagnosis for this admission?: Yes Plan: Ct with Prevacid 30 mg qd po since we do not have Omeprazole in our formulary. (9) Constipation Qualifiers: Constipation type: unspecified constipation type Qualified Code(s): K59.00 - Constipation, unspecified Is this a current diagnosis for this admission?: Yes Plan: Ct with Colace 100 mg BID prn PO. (10) Lumbago Is this a current diagnosis for this admission?: Yes Plan: Ct with Percocet 5/325 1 BID BID prn po. (11) Cocaine abuse Is this a current diagnosis for this admission?: Yes Plan: Counseling on use of illicit drugs. (12) Tobacco abuse Is this a current diagnosis for this admission?: Yes Plan: Ct with Nicotine patch 21 mg qd. Smoking cessation counseling. (13) DVT prophylaxis Is this a current diagnosis for this admission?: Yes Plan: Ct with Lovenox 40 mg qd subcut; SCD. - Time Time Spent: 30 to 50 Minutes Smoking Cessation Education: 3 to 10 minutes Medications reviewed and adjusted accordingly: Yes Anticipated discharge: Home Within: within 72 hours - Inpatient Certification Medical Necessity: Failure to Improve With Outpatient Therapy, Significant Comorbidiites Make Outpatient Treatment Too Risky, Need Close Monitoring Due to Risk of Patient Decompensation, Need For Continuous Telemetry Monitoring, Need for Nebulizer Therapy and Monitoring of Response, Need for IV Antibiotics, Risk of Complication if Not Cared For in Hospital, Risk of Diagnosis Which Will Require Inpatient Eval/Care/Monitoring
[2017-11-14] MEDS ORDERED: DEXTROSE 40% GEL 15 GM TUBE X 2 PO PRN (13:38)
[2017-11-14] MEDS ORDERED: DEXTROSE 40% GEL 15 GM TUBE PO PRN (13:38)
[2017-11-14] MEDS ORDERED: GLUCAGON,HUMAN RECOMB 1 MG INJ IM PRN (13:38)
[2017-11-14] MEDS ORDERED: DEXTROSE 50%-WATER SYRINGE 12.5 GM/25 ML DOSE IV PRN (13:38)
[2017-11-14] MEDS ORDERED: DEXTROSE 50%-WATER SYRINGE 25 GM/50 ML DOSE IV PRN (13:38)
[2017-11-14] MEDS: LEVALBUTEROL HCL NEB 1.25 MG/3 ML AMPUL NEB SCH ×2 (13:39→20:30)
[2017-11-14] MEDS: CLOPIDOGREL BISULFATE 75 MG TABLET PO SCH (13:54)
[2017-11-14] MEDS ORDERED: NICOTINE 21 MG/24 HR PATCH.TD24 TD ONE (14:00)
[2017-11-14] MEDS ORDERED: INSULIN LISPRO 100 UNIT/ML 3 ML VIAL SUBCUT SCH (16:00)
[2017-11-14] MEDS: LEVOFLOXACIN 500 MG/D5W RTU 500 MG/100 ML RTUPB IV SCH (16:19)
[2017-11-14 17:06] LABS: CREATINE KINASE MB 1.8 ng/mL (<4.55); TROPONIN I 0.042 ng/mL
[2017-11-14] MEDS: INSULIN LISPRO 100 UNIT/ML 3 ML VIAL SUBCUT SCH (17:48)
--- NOTE | 2017-11-14 21:44 | EKG REPORT ---
SEVERITY:- BORDERLINE ECG - SINUS RHYTHM BORDERLINE T WAVE ABNORMALITIES : Confirmed by: Kt Pride 14-Nov-2017 21:44:02
--- NOTE | 2017-11-14 21:46 | EKG REPORT ---
SEVERITY:- ABNORMAL ECG - SINUS RHYTHM NONSPECIFIC T ABNORMALITIES, DIFFUSE LEADS : Confirmed by: Kt Pride 14-Nov-2017 21:44:15
[2017-11-14] MEDS: SIMVASTATIN 40 MG TABLET PO SCH (21:52)
[2017-11-14] MEDS: METHYLPREDNISOLONE INJ 40 MG/1 ML SDV IV SCH (21:52)
[2017-11-14] MEDS ORDERED: ZOLPIDEM TARTRATE 5 MG TABLET PO PRN (22:00)
[2017-11-15] MEDS: LEVALBUTEROL HCL NEB 1.25 MG/3 ML AMPUL NEB SCH ×3 (01:35→14:01)
[2017-11-15] MEDS: LANSOPRAZOLE 30 MG TAB.RAP.DR PO SCH (05:21)
[2017-11-15] MEDS: METHYLPREDNISOLONE INJ 40 MG/1 ML SDV IV SCH ×3 (05:21→21:27)
[2017-11-15 05:44] LABS: ABSOLUTE LYMPHOCYTES (AUTO) 0.8 10^3/uL (0.5-4.7); ABSOLUTE MONOCYTES (AUTO) 0.2 10^3/uL (0.1-1.4); ABSOLUTE NEUT (AUTO) 6.5 10^3/uL (1.7-8.2); BASOPHILS % (AUTO) 0.3 % (0-2); HEMATOCRIT 31.7 % (36.0-47.0); HEMOGLOBIN 10.2 g/dL (12.0-15.5); LYMPHOCYTES % (AUTO) 10.9 % (13-45); MEAN CORPUSCULAR HEMOGLOBIN 30.4 pg (27.0-33.4); MEAN CORPUSCULAR HGB CONC 32.4 g/dL (32.0-36.0); MEAN CORPUSCULAR VOLUME 94 fl (80-97); MONOCYTES % (AUTO) 2.4 % (3-13); PLATELET COUNT 216 10^3/uL (150-450); RED BLOOD COUNT 3.37 10^6/uL (3.72-5.28); RED CELL DISTRIBUTION WIDTH 13.9 % (11.5-14.0); SEGMENTED NEUTROPHILS % (AUTO) 86.4 % (42-78); TOTAL CELLS COUNTED % (AUTO) 100 %; WHITE BLOOD COUNT 7.5 10^3/uL (4.0-10.5)
[2017-11-15 06:03] LABS: ALANINE AMINOTRANSFERASE 17 U/L (9-52); ALBUMIN 2.9 g/dL (3.5-5.0); ALKALINE PHOSPHATASE 73 U/L (38-126); ANION GAP 9 (5-19); ASPARTATE AMINO TRANSFERASE 19 U/L (14-36); BILIRUBIN,DIRECT 0.3 mg/dL (0.0-0.4); BILIRUBIN,TOTAL 0.3 mg/dL (0.2-1.3); BLOOD UREA NITROGEN 33 mg/dL (7-20); CARBON DIOXIDE 29 mmol/L (22-30); CHLORIDE 103 mmol/L (98-107); CHOLESTEROL 216.43 mg/dL (0-200); GLUCOSE 82 mg/dL (75-110); POTASSIUM 5.3 mmol/L (3.6-5.0); SODIUM 141.2 mmol/L (137-145); TOTAL PROTEIN 6.6 g/dL (6.3-8.2); TRIGLYCERIDES 117 mg/dL (<150)
[2017-11-15 06:15] LABS: DIRECT LDL 108 mg/dL (<100)
[2017-11-15] MEDS: INSULIN LISPRO 100 UNIT/ML 3 ML VIAL SUBCUT SCH ×3 (08:08→18:29)
--- NOTE | 2017-11-15 09:46 | EKG REPORT ---
SEVERITY:- BORDERLINE ECG - SINUS RHYTHM BORDERLINE T ABNORMALITIES, DIFFUSE LEADS : Confirmed by: Kt Pride 15-Nov-2017 09:45:08
[2017-11-15] MEDS: GABAPENTIN 300 MG CAPSULE PO SCH ×2 (09:48→21:27)
[2017-11-15] MEDS: CARVEDILOL 12.5 MG TABLET PO SCH ×2 (09:48→21:27)
[2017-11-15] MEDS: LEVOFLOXACIN 500 MG/D5W RTU 500 MG/100 ML RTUPB IV SCH (09:49)
[2017-11-15] MEDS: HYDROCHLOROTHIAZIDE 25 MG TABLET PO SCH (09:49)
[2017-11-15] MEDS: CLONIDINE HCL 0.1 MG TABLET PO SCH ×2 (09:49→21:27)
[2017-11-15] MEDS: ENOXAPARIN SODIUM INJ 40 MG/0.4 ML DISP.SYRIN SUBCUT SCH (09:49)
[2017-11-15] MEDS: FUROSEMIDE INJ/PF 20 MG/2 ML SDV IV SCH (09:49)
[2017-11-15] MEDS: BENAZEPRIL HCL 20 MG TABLET PO SCH (09:49)
[2017-11-15] MEDS: NICOTINE 21 MG/24 HR PATCH.TD24 TD SCH (09:50)
[2017-11-15] MEDS: INSULIN GLARGINE,HUM.REC.ANLOG 300 UNIT/3 ML INSULN.PEN SUBCUT SCH ×2 (10:01→22:18)
[2017-11-15] MEDS: CLOPIDOGREL BISULFATE 75 MG TABLET PO SCH (12:50)
--- NOTE | 2017-11-15 13:28 | PDOC PROGRESS REPORT ---
Subjective Progress Note for:: 11/15/17 Subjective:: Patient has noted some chest pain. This was transient. Cardiac enzymes has been relatively unremarkable. The evidence technician told me that echo has been performed and it did show depressed LVEF. Patient wishes to pursue a nuclear stress test. This is not unreasonable in view of complaining of chest pain. Reason For Visit: ACUTE ON CHRONIC CHF DECOMPENSATION-DIASTOLIC Physical Exam Vital Signs: Temp Pulse Resp BP Pulse Ox 97.8 F 72 18 124/84 100 11/15/17 12:03 11/15/17 12:03 11/15/17 12:03 11/15/17 12:03 11/15/17 12:03 Intake & Output 11/14/17 11/15/17 11/16/17 06:59 06:59 06:59 Intake Total 922 355 Output Total 1000 200 Balance -78 155 Weight 81.9 kg Exam: GENERAL: well-nourished and in no acute distress. Alert and oriented x3 HEAD: Atraumatic, normocephalic. EYES: Pupils equal round and reactive to light, extraocular movements intact, sclera anicteric, conjunctiva are normal. ENT: TMs normal, nares patent, oropharynx clear without exudates. Moist mucous membranes. No oral ulcerations or bleeding gums noted NECK: supple without lymphadenopathy. Trachea is central. No cervical or axillary lymphadenopathy noted. Carotids are 2+, JVD WNL LUNGS: Respiration seems nonlabored, no significant accessory muscle action noted. Breath sounds clear to auscultation bilaterally and equal noted. No wheezes rales or rhonchi noted. No significant dullness noted on percussion. CHEST: Palpation of the chest wall shows no significant chest wall tenderness. No other significant abnormalities noted. 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 ABDOMEN: Soft, no significant tenderness appreciated, normoactive bowel sounds. No guarding, no rebound. No rigidity noted . No masses appreciated. EXTREMITIES: Pedal pulses are 1-2+, no calf tenderness noted. No clubbing or cyanosis. negative pedal edema noted NEUROLOGICAL: Focused neurological exam showed no significant neurologic deficit. Normal speech, no focal weakness appreciated. PSYCH: Normal mood, normal affect. Judgment and insight within normal limits. SKIN: No significant ecchymosis, skin is noted to be warm. MUSCULOSKELETAL EXAM: No significant acute joint swelling noted. Results Laboratory Results: 11/15/17 05:08 11/15/17 05:08 11/15/17 11/15/17 11/15/17 05:08 05:08 05:08 WBC 7.5 RBC 3.37 L Hgb 10.2 L Hct 31.7 L MCV 94 MCH 30.4 MCHC 32.4 RDW 13.9 Plt Count 216 Seg Neutrophils % 86.4 H Lymphocytes % 10.9 L Monocytes % 2.4 L Eosinophils % 0.0 Basophils % 0.3 Absolute Neutrophils 6.5 Absolute Lymphocytes 0.8 Absolute Monocytes 0.2 Absolute Eosinophils 0.0 Absolute Basophils 0.0 Sodium 141.2 Potassium 5.3 H Chloride 103 Carbon Dioxide 29 Anion Gap 9 BUN 33 H Creatinine 1.70 H Est GFR ( Amer) 38 L Est GFR (Non-Af Amer) 31 L Glucose 82 Calcium 9.0 Total Bilirubin 0.3 AST 19 ALT 17 Alkaline Phosphatase 73 Total Protein 6.6 Albumin 2.9 L Triglycerides 117 Cholesterol 216.43 H LDL Cholesterol Direct 108 H VLDL Cholesterol 23.0 HDL Cholesterol 66 TSH 0.95 11/14/17 11/14/17 11/14/17 09:54 09:54 16:20 Creatine Kinase 46 47 CK-MB (CK-2) 1.14 Troponin I 0.042 11/14/17 16:20 Creatine Kinase CK-MB (CK-2) 1.80 Troponin I 0.042 EKG Comments: Shows sinus rhythm with minor nonspecific T-wave changes Impressions: Chest X-Ray 11/14/17 01:18 IMPRESSION: 1. Cardiomegaly with possible interstitial edema and small bilateral pleural effusions. Chest/Abdomen CTA 11/14/17 03:21 IMPRESSION: 1. No pulmonary embolus. 2. Cardiomegaly with small bilateral pleural effusions and likely mild interstitial edema. This exam was performed according to our departmental dose-optimization program, which includes automated exposure control, adjustment of the mA and/or kV according to patient size and/or use of iterative reconstruction technique. 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 transplanted heart: [place] heart Associated angina: angina presence unspecified Qualified Code(s): I25.10 - Atherosclerotic heart disease of [place] coronary artery without angina pectoris Is this a current diagnosis for this admission?: Yes (6) COPD (chronic obstructive pulmonary disease) Qualifiers: COPD type: unspecified COPD Qualified Code(s): J44.9 - Chronic obstructive pulmonary disease, unspecified Is this a current diagnosis for this admission?: Yes (7) Cocaine abuse Is this a current diagnosis for this admission?: Yes (8) Tobacco abuse Is this a current diagnosis for this admission?: Yes - Notes Notes: Will schedule patient for a nuclear stress test. 2D echo results were reviewed. Chest pain: Patient complained of chest pain. Somewhat atypical but in view of known CAD will schedule patient for a nuclear stress test. Risk benefits were discussed. Congestive heart failure: Most likely acute on chronic precipitated by severe hypertension and possibly noncompliance as well as substance abuse. [place] to be acute on chronic combined systolic and diastolic dysfunction. At this point recommend IV diuretics. Patient will benefit from salt and fluid restriction, avoidance of substance abuse. Will review patient medical regimen and optimize this. Coronary artery disease: Patient gives history of coronary stent. Currently without chest pain. But had chest pain earlier. It may be worthwhile to consider a nuclear stress test prior to discharge. In the meantime recommend dual antiplatelet therapy, statin, beta-linh, MIKAELA inhibitor/ARB/entresto therapy. Dyslipidemia: Recommend high potency statin therapy. LDL goal less than 70. Hypertension: Presented with severe hypertension but now reasonably well controlled. Blood pressure goal in this patient is 135/85 or less. This was discussed with the patient. Currently blood pressure under reasonable control. Better medication for this patient are MIKAELA inhibitor/ARB/beta linh etc. discussed side effects of uncontrolled hypertension and also severe hypotension. COPD: Patient has been advised to quit smoking. Diabetes: Currently well managed by manganese heater. Cocaine abuse: Patient has been advised to avoid cocaine abuse. Tobacco abuse: Patient has been advised to avoid tobacco abuse. - Time Time with patient: Greater than 35 minutes - CODE STATUS was discussed, patient remains full code. Multiple medical problems were addressed. More than 50% of the time spent coordinating care, discussing management plans with involved caregivers. Management plans discussed with involved personnels. Medical decision making was of moderate to high complexity, patient's has multiple comorbidities. Medications reviewed and adjusted accordingly: Yes
--- NOTE | 2017-11-15 13:34 | PDOC PROGRESS REPORT ---
Subjective Progress Note for:: 11/15/17 Subjective:: Pt is less dyspneic today and was able to get up and move around the room, though she has been sleeping more. She has had an ECHO today and the ECHO of 2016 showed EF of 30-35%. Her BUN/Cr increased to 33/1.7 , though pt has a history of CKD stage 3.She is making adequate urine. Her potassium was 5.3, but pt is on Lasix, but not on potassium replacement. We will monitor her chemistries and urine out put closely.We will decrease Solumedrol to 40 mg q8h IV. Reason For Visit: ACUTE ON CHRONIC CHF DECOMPENSATION-DIASTOLIC Physical Exam Vital Signs: Temp Pulse Resp BP Pulse Ox 97.8 F 72 18 124/84 100 11/15/17 12:03 11/15/17 12:03 11/15/17 12:03 11/15/17 12:03 11/15/17 12:03 Intake & Output 11/14/17 11/15/17 11/16/17 06:59 06:59 06:59 Intake Total 922 355 Output Total 1000 200 Balance -78 155 Weight 81.9 kg General appearance: PRESENT: no acute distress, cooperative, obese, well- developed, well-nourished Head exam: PRESENT: atraumatic, normocephalic Eye exam: PRESENT: EOMI, PERRLA Ear exam: PRESENT: normal external ear exam, TM's normal bilaterally Mouth exam: PRESENT: neck supple, tongue midline Respiratory exam: PRESENT: decreased breath sounds, symmetrical Cardiovascular exam: PRESENT: +S1, +S2 Pulses: PRESENT: +1 pedal pulses bilateral GI/Abdominal exam: PRESENT: normal bowel sounds, soft Rectal exam: PRESENT: deferred Musculoskeletal exam: PRESENT: full ROM Neurological exam: PRESENT: alert, awake, oriented to person, oriented to place , oriented to time Psychiatric exam: PRESENT: normal mood Results Laboratory Results: 11/15/17 05:08 11/15/17 05:08 11/15/17 11/15/17 11/15/17 05:08 05:08 05:08 WBC 7.5 RBC 3.37 L Hgb 10.2 L Hct 31.7 L MCV 94 MCH 30.4 MCHC 32.4 RDW 13.9 Plt Count 216 Seg Neutrophils % 86.4 H Lymphocytes % 10.9 L Monocytes % 2.4 L Eosinophils % 0.0 Basophils % 0.3 Absolute Neutrophils 6.5 Absolute Lymphocytes 0.8 Absolute Monocytes 0.2 Absolute Eosinophils 0.0 Absolute Basophils 0.0 Sodium 141.2 Potassium 5.3 H Chloride 103 Carbon Dioxide 29 Anion Gap 9 BUN 33 H Creatinine 1.70 H Est GFR ( Amer) 38 L Est GFR (Non-Af Amer) 31 L Glucose 82 Calcium 9.0 Total Bilirubin 0.3 AST 19 ALT 17 Alkaline Phosphatase 73 Total Protein 6.6 Albumin 2.9 L Triglycerides 117 Cholesterol 216.43 H LDL Cholesterol Direct 108 H VLDL Cholesterol 23.0 HDL Cholesterol 66 TSH 0.95 11/14/17 11/14/17 11/14/17 09:54 09:54 16:20 Creatine Kinase 46 47 CK-MB (CK-2) 1.14 Troponin I 0.042 11/14/17 16:20 Creatine Kinase CK-MB (CK-2) 1.80 Troponin I 0.042 Impressions: Chest X-Ray 11/14/17 01:18 IMPRESSION: 1. Cardiomegaly with possible interstitial edema and small bilateral pleural effusions. Chest/Abdomen CTA 11/14/17 03:21 IMPRESSION: 1. No pulmonary embolus. 2. Cardiomegaly with small bilateral pleural effusions and likely mild interstitial edema. This exam was performed according to our departmental dose-optimization program, which includes automated exposure control, adjustment of the mA and/or kV according to patient size and/or use of iterative reconstruction technique. 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 (2) COPD (chronic obstructive pulmonary disease) Qualifiers: COPD type: unspecified COPD Qualified Code(s): J44.9 - Chronic obstructive pulmonary disease, unspecified Is this a current diagnosis for this admission?: Yes Plan: Ct with Duonebs q4h pr; Xopenex nebs 1.25 mg q6h; Levaquin 500 mg qd IV; Solumedrol 40 mg q8h IV; Oxygen by N/C 2 L/Min to keep oxygen saturation >92%. (3) Acute on chronic kidney failure Qualifiers: Acute renal failure type: unspecified Chronic kidney disease stage: stage 3 (moderate) Qualified Code(s): N17.9 - Acute kidney failure, unspecified; N18.3 - Chronic kidney disease, stage 3 (moderate); N18.3 - Chronic kidney disease, stage 3 (moderate) Is this a current diagnosis for this admission?: Yes Plan: Avoid nephrotoxics; strict input/output chart; Monitor chemistries daily. (4) Diabetes mellitus type 2 in obese Is this a current diagnosis for this admission?: Yes Plan: Ct with Lantus insulin 55iu BID subcut; Humalog insulin 10 iu qac subcut; slidding scale with humalog insulin as per [facility] protocol. 1800 calorie ADA diet. (5) Hypertension Qualifiers: Hypertension type: essential hypertension Qualified Code(s): I10 - Essential (primary) hypertension Is this a current diagnosis for this admission?: Yes Plan: Ct with Benazepril 20 mg qd po; Coreg 12.5 mg BID po; Clonidine 0.1 mg BID PO; 2 g sodium diet. (6) Dyslipidemia Is this a current diagnosis for this admission?: Yes Plan: Ct with Simvastatin 40 mg qhs PO; 200 mg cholesterol diet. (7) Coronary artery disease Qualifiers: Coronary Disease-Associated Artery/Lesion type: [place] artery [place] vs. transplanted heart: [place] heart Associated angina: angina presence unspecified Qualified Code(s): I25.10 - Atherosclerotic heart disease of [place] coronary artery without angina pectoris Is this a current diagnosis for this admission?: Yes Plan: Ct with Aspirin 81 mg qd po; Plavix 75 mg qd po; 2 g sodium, low cholesterol diet. (8) Diabetic neuropathy Qualifiers: Diabetes mellitus type: type 2 Diabetes mellitus complication detail: diabetic polyneuropathy Qualified Code(s): E11.42 - Type 2 diabetes mellitus with diabetic polyneuropathy Is this a current diagnosis for this admission?: Yes Plan: CT with Gabapentin 600 mg BID po. (9) Reflux esophagitis Is this a current diagnosis for this admission?: Yes Plan: Ct with Prevacid 30 mg qd po since we do not have Omeprazole in our formulary. (10) Constipation Qualifiers: Constipation type: unspecified constipation type Qualified Code(s): K59.00 - Constipation, unspecified Is this a current diagnosis for this admission?: Yes Plan: Ct with Colace 100 mg BID prn PO. (11) Lumbago Is this a current diagnosis for this admission?: Yes Plan: Ct with Percocet 5/325 1 BID BID prn po. (12) Cocaine abuse Is this a current diagnosis for this admission?: Yes Plan: Counseling on use of illicit drugs. (13) Tobacco abuse Is this a current diagnosis for this admission?: Yes Plan: Ct with Nicotine patch 21 mg qd. Smoking cessation counseling. (14) DVT prophylaxis Is this a current diagnosis for this admission?: Yes Plan: Ct with Lovenox 40 mg qd subcut; SCD. - Time Time Spent with patient: 25-34 minutes Smoking Cessation Education: 3 to 10 minutes Medications reviewed and adjusted accordingly: Yes Within: within 72 hours
[2017-11-15] MEDS: INSULIN LISPRO 100 UNIT/ML 3 ML VIAL SUBCUT PRN ×2 (18:31→22:18)
[2017-11-15] MEDS ORDERED: LEVALBUTEROL HCL NEB 1.25 MG/3 ML AMPUL NEB PRN (19:00)
--- NOTE | 2017-11-15 19:37 | XCELERA REPORT ---
[address] [address] Transthoracic Echocardiogram Report Name: MAGNO WILSON Age: 57 yrs Gender: Female : 1960 Patient Status: Inpatient Patient Location: [address] [place], [place] [address] Study Date: 11/15/2017 10:06 AM Height: 62 in Weight: 175 lb BSA: 1.8 m2 Procedure: A complete two-dimensional transthoracic echocardiogram was performed (2D, M-mode, spectral and color flow Doppler). The study was technically adequate with some images being suboptimal in quality. Reason For Study: CHF decompensation Ordering Physician: NOMAN HENDRICKSON Performed By: Fern Lee Interpretation Summary LV EF is 35% Left ventricular systolic function is moderately reduced. There is mild concentric left ventricular hypertrophy. The left ventricle is borderline dilated. Doppler measurements suggest pseudonormalized left ventricular relaxation, which is associated with grade II/IV or mild to moderate diastolic dysfunction There is moderate global hypokinesis of the left ventricle. The right ventricle is mildly dilated. There is normal right ventricular wall thickness. The right ventricular systolic function is mildly reduced. The left atrium is mildly dilated. The right atrium is mildly dilated. There is a mild amount of mitral regurgitation There is no mitral valve stenosis. There is a trace amount of aortic regurgitation There is no aortic valve stenosis There is a trace to mild amount of tricuspid regurgitation There is mild to moderate pulmonary hypertension by echo Right ventricular systolic pressure is estimated to be elevated at 40- 50mmHg. The aortic root is not well visualized but is probably normal size. The inferior vena cava appeared normal and decreased < 50% with respiration (RAP 10-15 mmHg) Minimal pericardial effusion. MMode/2D Measurements & Calculations RVDd: 3.6 cm LVIDd: 5.2 cm FS: 11.6 % EPSS: 1.3 cm IVSd: 1.0 cm LVIDs: 4.6 cm EDV(Teich): 128.8 ml MV Diam: 2.9 cm LVPWd: 0.69 cm ESV(Teich): 96.5 ml EF(Teich): 25.0 % Ao root diam: LVLd ap4: 7.7 cm SV(MOD-sp4): 51.0 ml LA A2Cs: 2.7 cm EDV(MOD-sp4): 28.6 cm2 Ao root area: 118.0 ml 5.6 cm2 LVLs ap4: 6.3 cm LA dimension: ESV(MOD-sp4): 3.9 cm 67.0 ml EF(MOD-sp4): 43.2 % LA A4Cs: 26.4 cm2 LA length: 5.2 cm LA Vol Index (BP): LA Volume: 68.3 ml/m2 123.4 ml Doppler Measurements & Calculations MV E max iglesia: MV V2 max: MV P1/2t max iglesia: Ao V2 max: 112.6 cm/sec 132.0 cm/sec 113.0 cm/sec 108.6 cm/sec MV A max iglesia: MV max PG: MV P1/2t: 43.6 msec Ao max P.3 cm/sec 7.0 mmHg 4.7 mmHg MV E/A: 2.0 MV V2 mean: MVA(P1/2t): 5.0 cm2 83.9 cm/sec MV dec slope: MV mean P.3 cm/sec2 3.2 mmHg MV V2 VTI: 31.0 cm MV area (1 diam): 6.4 cm2 MV Flow area (1diam): 6.4 cm2 LV V1 max PG: MR max iglesia: MR(RF 1 diam): SV(MV 1 diam): 4.8 mmHg 511.3 cm/sec 18.3 % 199.6 ml LV V1 max: MR max PG: SI(MV 1 diam): 110.0 cm/sec 104.6 mmHg 110.5 ml/m2 PA V2 max: PI end-d iglesia: TR max iglesia: 111.6 cm/sec 160.2 cm/sec 271.5 cm/sec PA max PG: TR max P.5 mmHg 5.1 mmHg Left Ventricle The left ventricle is borderline dilated. There is mild concentric left ventricular hypertrophy. Left ventricular systolic function is moderately reduced. LV EF is 35%. Doppler measurements suggest pseudonormalized left ventricular relaxation, which is associated with grade II/IV or mild to moderate diastolic dysfunction. There is moderate global hypokinesis of the left ventricle. Right Ventricle The right ventricle is mildly dilated. There is normal right ventricular wall thickness. The right ventricular systolic function is mildly reduced. Atria The right atrium is mildly dilated. The left atrium is mildly dilated. Interarterial septum not well visualized and not well dopplered. Cannot comment on ASD/PFO presence. Mitral Valve There is mild mitral leaflet calcification. There is mild mitral annular calcification. There is no mitral valve stenosis. There is a mild amount of mitral regurgitation. Aortic Valve The aortic valve is grossly normal. There is no aortic valve stenosis. There is a trace amount of aortic regurgitation. Tricuspid Valve The tricuspid valve is not well visualized, but is grossly normal. There is no tricuspid stenosis. There is a trace to mild amount of tricuspid regurgitation. There is mild to moderate pulmonary hypertension by echo. Right ventricular systolic pressure is estimated to be elevated at 40- 50mmHg. Pulmonic Valve The pulmonic valve is not well visualized. Great Vessels The aortic root is not well visualized but is probably normal size. The inferior vena cava appeared normal and decreased < 50% with respiration (RAP 10-15 mmHg). Effusions Minimal pericardial effusion. : NOMAN HENDRICKSON > Kt Pride
[2017-11-15] MEDS: SIMVASTATIN 40 MG TABLET PO SCH (21:27)
--- NOTE | 2017-11-16 03:10 | Physician Advisory Note ---
Physician Advisor ProgressNote .: [facility] medical record for this patient. Physician Advisor Statement: Please consider documenting, if you agree: 1. "Acute Hypoxemic Respiratory failure, evidenced by resp distress, accessory muscle use, & O2 sats in the 80s in the ED" (per ED dr) 2. "COPD Exacerbation" 3. "Acute bronchitis" - or what dx is being tx'd with abx, since COPD exac.s don't always need abx unless there is possible associated infxn. Thanks! CK
[2017-11-16 05:08] LABS: ABSOLUTE LYMPHOCYTES (AUTO) 0.6 10^3/uL (0.5-4.7); ABSOLUTE MONOCYTES (AUTO) 0.3 10^3/uL (0.1-1.4); ABSOLUTE NEUT (AUTO) 6.8 10^3/uL (1.7-8.2); BASOPHILS % (AUTO) 0.4 % (0-2); HEMATOCRIT 31.1 % (36.0-47.0); HEMOGLOBIN 10.3 g/dL (12.0-15.5); LYMPHOCYTES % (AUTO) 7.6 % (13-45); MEAN CORPUSCULAR HGB CONC 33.1 g/dL (32.0-36.0); MEAN CORPUSCULAR VOLUME 94 fl (80-97); MONOCYTES % (AUTO) 3.4 % (3-13); PLATELET COUNT 234 10^3/uL (150-450); RED BLOOD COUNT 3.32 10^6/uL (3.72-5.28); RED CELL DISTRIBUTION WIDTH 14.1 % (11.5-14.0); SEGMENTED NEUTROPHILS % (AUTO) 88.6 % (42-78); TOTAL CELLS COUNTED % (AUTO) 100 %; WHITE BLOOD COUNT 7.6 10^3/uL (4.0-10.5)
[2017-11-16] MEDS: LANSOPRAZOLE 30 MG TAB.RAP.DR PO SCH (05:12)
[2017-11-16] MEDS: METHYLPREDNISOLONE INJ 40 MG/1 ML SDV IV SCH ×2 (05:15→21:08)
[2017-11-16 05:33] LABS: ALANINE AMINOTRANSFERASE 21 U/L (9-52); ALBUMIN 2.9 g/dL (3.5-5.0); ALKALINE PHOSPHATASE 82 U/L (38-126); ANION GAP 10 (5-19); ASPARTATE AMINO TRANSFERASE 16 U/L (14-36); BILIRUBIN,DIRECT 0.3 mg/dL (0.0-0.4); BILIRUBIN,TOTAL 0.3 mg/dL (0.2-1.3); BLOOD UREA NITROGEN 49 mg/dL (7-20); CALCIUM 8.6 mg/dL (8.4-10.2); CARBON DIOXIDE 26 mmol/L (22-30); CHLORIDE 101 mmol/L (98-107); GLUCOSE 324 mg/dL (75-110); POTASSIUM 5.3 mmol/L (3.6-5.0); SODIUM 137.4 mmol/L (137-145); TOTAL PROTEIN 6.6 g/dL (6.3-8.2)
[2017-11-16] MEDS: INSULIN LISPRO 100 UNIT/ML 3 ML VIAL SUBCUT PRN ×4 (08:33→21:07)
[2017-11-16] MEDS: INSULIN LISPRO 100 UNIT/ML 3 ML VIAL SUBCUT SCH ×3 (08:33→18:17)
[2017-11-16] MEDS: NICOTINE 21 MG/24 HR PATCH.TD24 TD SCH (09:54)
[2017-11-16] MEDS ORDERED: METHYLPREDNISOLONE INJ 40 MG/1 ML SDV IV SCH (10:00)
[2017-11-16] MEDS: BENAZEPRIL HCL 20 MG TABLET PO SCH (10:25)
[2017-11-16] MEDS: ENOXAPARIN SODIUM INJ 40 MG/0.4 ML DISP.SYRIN SUBCUT SCH (10:25)
[2017-11-16] MEDS: GABAPENTIN 300 MG CAPSULE PO SCH ×2 (10:25→21:08)
[2017-11-16] MEDS: HYDROCHLOROTHIAZIDE 25 MG TABLET PO SCH (10:25)
[2017-11-16] MEDS: INSULIN GLARGINE,HUM.REC.ANLOG 300 UNIT/3 ML INSULN.PEN SUBCUT SCH ×2 (10:25→21:08)
[2017-11-16] MEDS: CARVEDILOL 12.5 MG TABLET PO SCH ×2 (10:25→21:08)
[2017-11-16] MEDS: LEVOFLOXACIN 500 MG/D5W RTU 500 MG/100 ML RTUPB IV SCH (10:26)
[2017-11-16] MEDS: CLONIDINE HCL 0.1 MG TABLET PO SCH ×2 (10:26→21:08)
[2017-11-16] MEDS: FUROSEMIDE INJ/PF 20 MG/2 ML SDV IV SCH (10:26)
[2017-11-16] MEDS: CLOPIDOGREL BISULFATE 75 MG TABLET PO SCH (12:34)
--- NOTE | 2017-11-16 12:35 | PDOC PROGRESS REPORT ---
Subjective Progress Note for:: 11/16/17 Subjective:: She is feeling better and walking around. She had cardiolyte stress test today. Her BUN/Cr increased to 49/1.9, but she is making adequate urine. We decreased Lasix to 20 mg qd IV and Solumedrol to 20 mg q12h IV. She is for possible discharge home tomorrow. Reason For Visit: ACUTE ON CHRONIC CHF DECOMPENSATION-DIASTOLIC Physical Exam Vital Signs: Temp Pulse Resp BP Pulse Ox 98.0 F 87 16 144/91 H 97 11/16/17 07:24 11/16/17 08:26 11/16/17 08:26 11/16/17 07:24 11/16/17 08:26 Intake & Output 11/15/17 11/16/17 11/17/17 06:59 06:59 06:59 Intake Total 922 1236 Output Total 1000 900 Balance -78 336 Weight 81.9 kg 80 kg General appearance: PRESENT: no acute distress, cooperative, obese, well- developed, well-nourished Head exam: PRESENT: atraumatic, normocephalic Eye exam: PRESENT: EOMI, PERRLA Mouth exam: PRESENT: moist, neck supple Neck exam: PRESENT: full ROM Respiratory exam: PRESENT: decreased breath sounds, symmetrical Cardiovascular exam: PRESENT: +S1, +S2 Pulses: PRESENT: +2 pedal pulses bilateral GI/Abdominal exam: PRESENT: normal bowel sounds, soft Rectal exam: PRESENT: deferred Extremities exam: PRESENT: full ROM Musculoskeletal exam: PRESENT: ambulatory Neurological exam: PRESENT: alert, awake, oriented to person, oriented to place , oriented to time Psychiatric exam: PRESENT: normal mood Results Laboratory Results: 11/16/17 04:30 11/16/17 04:30 11/16/17 11/16/17 04:30 04:30 WBC 7.6 RBC 3.32 L Hgb 10.3 L Hct 31.1 L MCV 94 MCH 31.0 MCHC 33.1 RDW 14.1 H Plt Count 234 Seg Neutrophils % 88.6 H Lymphocytes % 7.6 L Monocytes % 3.4 Eosinophils % 0.0 Basophils % 0.4 Absolute Neutrophils 6.8 Absolute Lymphocytes 0.6 Absolute Monocytes 0.3 Absolute Eosinophils 0.0 Absolute Basophils 0.0 Sodium 137.4 Potassium 5.3 H Chloride 101 Carbon Dioxide 26 Anion Gap 10 BUN 49 H Creatinine 1.96 H Est GFR ( Amer) 32 L Est GFR (Non-Af Amer) 26 L Glucose 324 H Calcium 8.6 Total Bilirubin 0.3 AST 16 ALT 21 Alkaline Phosphatase 82 Total Protein 6.6 Albumin 2.9 L 11/14/17 11/14/17 11/14/17 09:54 09:54 16:20 Creatine Kinase 46 47 CK-MB (CK-2) 1.14 Troponin I 0.042 11/14/17 16:20 Creatine Kinase CK-MB (CK-2) 1.80 Troponin I 0.042 Impressions: Chest X-Ray 11/14/17 01:18 IMPRESSION: 1. Cardiomegaly with possible interstitial edema and small bilateral pleural effusions. Chest/Abdomen CTA 11/14/17 03:21 IMPRESSION: 1. No pulmonary embolus. 2. Cardiomegaly with small bilateral pleural effusions and likely mild interstitial edema. This exam was performed according to our departmental dose-optimization program, which includes automated exposure control, adjustment of the mA and/or kV according to patient size and/or use of iterative reconstruction technique. Assessment & Plan - Diagnosis (1) Acute hypoxemic respiratory failure Is this a current diagnosis for this admission?: Yes Plan: Ct with Oxygen by N/C 2 L/Min to keep saturation>92%; Xopenex nebs 1.25 mg q6h prn; Duonebs q4h prn; Decrease Solumedrol to 20 mg q12H IV; Levaquin 500 mg qd IV. (2) Acute on chronic combined systolic and diastolic CHF (congestive heart failure) Is this a current diagnosis for this admission?: Yes Plan: Ct with Lasix 20 mg qd IV; Benazepril 20 mg qd po; Coreg 12.5 mg BID PO; Low salt diet; F/u recent ECHO report; F/u Cardiolyte stress test report; F/u erp implementation consultant, Dr Pride. (3) COPD (chronic obstructive pulmonary disease) Qualifiers: COPD type: unspecified COPD Qualified Code(s): J44.9 - Chronic obstructive pulmonary disease, unspecified Is this a current diagnosis for this admission?: Yes Plan: Due to Acute bronchitis. Ct with Duonebs q4h pr; Xopenex nebs 1.25 mg q6h prn; Levaquin 500 mg qd IV; Solumedrol 20 mg q12h IV; Oxygen by N/C 2 L/Min to keep oxygen saturation >92%. (4) Acute bronchitis Qualifiers: Bronchitis organism: unspecified organism Qualified Code(s): J20.9 - Acute bronchitis, unspecified Is this a current diagnosis for this admission?: Yes Plan: Ct with Levaquin 500 mg qd IV. (5) Acute on chronic kidney failure Qualifiers: Acute renal failure type: unspecified Chronic kidney disease stage: stage 3 (moderate) Qualified Code(s): N17.9 - Acute kidney failure, unspecified; N18.3 - Chronic kidney disease, stage 3 (moderate); N18.3 - Chronic kidney disease, stage 3 (moderate) Is this a current diagnosis for this admission?: Yes Plan: Avoid nephrotoxics; strict input/output chart; Monitor chemistries daily. (6) Diabetes mellitus type 2 in obese Is this a current diagnosis for this admission?: Yes Plan: Ct with Lantus insulin 55iu BID subcut; Humalog insulin 10 iu qac subcut; slidding scale with humalog insulin as per [facility] protocol. 1800 calorie ADA diet. (7) Hypertension Qualifiers: Hypertension type: essential hypertension Qualified Code(s): I10 - Essential (primary) hypertension Is this a current diagnosis for this admission?: Yes Plan: Ct with Benazepril 20 mg qd po; Coreg 12.5 mg BID po; Clonidine 0.1 mg BID PO; 2 g sodium diet. (8) Dyslipidemia Is this a current diagnosis for this admission?: Yes Plan: Ct with Simvastatin 40 mg qhs PO; 200 mg cholesterol diet. (9) Coronary artery disease Qualifiers: Coronary Disease-Associated Artery/Lesion type: [place] artery [place] vs. transplanted heart: [place] heart Associated angina: angina presence unspecified Qualified Code(s): I25.10 - Atherosclerotic heart disease of [place] coronary artery without angina pectoris Is this a current diagnosis for this admission?: Yes Plan: Ct with Aspirin 81 mg qd po; Plavix 75 mg qd po; 2 g sodium, low cholesterol diet. F/u Cardiolyte stress test report. (10) Diabetic neuropathy Qualifiers: Diabetes mellitus type: type 2 Diabetes mellitus complication detail: diabetic polyneuropathy Qualified Code(s): E11.42 - Type 2 diabetes mellitus with diabetic polyneuropathy Is this a current diagnosis for this admission?: Yes Plan: CT with Gabapentin 600 mg BID po. (11) Reflux esophagitis Is this a current diagnosis for this admission?: Yes Plan: Ct with Prevacid 30 mg qd po since we do not have Omeprazole in our formulary. (12) Constipation Qualifiers: Constipation type: unspecified constipation type Qualified Code(s): K59.00 - Constipation, unspecified Is this a current diagnosis for this admission?: Yes Plan: Ct with Colace 100 mg BID prn PO. (13) Lumbago Is this a current diagnosis for this admission?: Yes Plan: Ct with Percocet 5/325 1 BID BID prn po. (14) Cocaine abuse Is this a current diagnosis for this admission?: Yes Plan: Counseling on use of illicit drugs. (15) Tobacco abuse Is this a current diagnosis for this admission?: Yes Plan: Ct with Nicotine patch 21 mg qd. Smoking cessation counseling. (16) DVT prophylaxis Is this a current diagnosis for this admission?: Yes Plan: Ct with Lovenox 40 mg qd subcut; SCD.
--- NOTE | 2017-11-16 12:43 | DRAGON STRESS TEST REPORT ---
INTRAVENOUS LEXISCAN CARDIOLITE STRESS TEST USING SINGLE PHOTON EMMISION COMPUTERIZED TOMOGRAPHIC. DATE OF PROCEDURE: November 16, 2017, INDICATION : Chest pain CARDIAC RISK FACTORS: Diabetes, hypertension, dyslipidemia, tobacco abuse, cocaine abuse, known CAD with CABG RESTING EKG: Sinus rhythm, nonspecific ST-T wave changes noted. STRESS EKG: No significant ST segment changes noted with LexiScan bolus REASON FOR TERMINATION: Protocol. PROCEDURE REPORT: Baseline heart rate 87 beats per minute with blood pressure of 144/78. Patient had no significant complaints. Patient was bolused with Lexiscan 0.4 mg intravenously followed by saline bolus. Heart rate at 2 minutes post bolus 90 with a blood pressure of 144/76. 3 minutes post bolus heart rate 89 with blood pressure of 144/78. No significant EKG changes were noted. Patient had no significant complaints during the procedure or postprocedure. Patient injected with Aminophyllin 75 mg at 3 minutes or later after Lexiscan bolus. CONCLUSIONS: Normal EKG and hemodynamic response to IV LexiScan. NUCLEAR DATA: At rest the patient was given 12.72 millicuries of technetium 99 sestamibi injected intravenously. As per protocol rest gated SPECT images were obtained. On day of stress test, the patient was given intravenous LexiScan at a dose of 0.4 mg in 5 mL intravenously, followed by flush with normal saline. Subsequently the stress dose of 37.7 millicuries of technetium 99 sestamibi was injected intravenously. As per protocol stress gated images were obtained. NUCLEAR INTERPRETATION: Both raw and processed data were used for interpretation. Visual, qualitative, computer-generated quantitative data was used. There was good myocardial uptake of technetium compound. Motion artifact and soft tissue attenuations were noted. Increased visceral uptake was noted. No definitive areas of transient perfusion defect noted, fixed defect noted involving the basal and mid inferolateral wall of the left ventricle. EKG gated imaging showed LV EF at 26 %, rest and stress gated EF similar visually, diffuse hypokinesia with basal and mid inferolateral akinesia noted. T. I D. ratio was 1.25. Lung heart ratio noted to be within normal limits 0.50. No significant extracardiac and abnormal radiotracer activities were noted. RV free wall uptake was noted to be increased. LV wall thickness seems increased. IMPRESSION: Also refer to comments under nuclear interpretation. Also test results needs to be interpreted in the context of pretest probability. 1. No definitive areas of transient perfusion defect noted. 2. Severe fixed defect noted involving the basal and mid inferolateral wall of the left ventricle indicative of prior myocardial infarction. 3. EKG gated imaging shows left ventricular ejection fraction of approx. 26 % with diffuse hypokinesia and basal and mid inferolateral akinesia. 4. Lung heart ratio noted to be increased possibly related to chronic smoking and possible CHF. RV free wall uptake noted to be increased indicative of her RV hypertrophy. LV free wall thickness noted to be increased, consistent with LVH. Clinical correlation requested as occasionally single vessel disease or balanced ischemia could be missed. In approximately 10% of the cases Lexiscan may not cause adequate vasodilatory stress. RECOMMENDATIONS: Aggressive risk factor modification and medical management. Further evaluation may be needed if continued symptoms or other high risk indicators are noted on clinical evaluation. Low threshold for heart catheterization. Close cardiology follow-up is also recommended. Clinical correlation with echocardiogram derived ejection fraction. Inability to exercise by itself can lead to increased cardiovascular event risks. Consider cardiology consultation and or follow-up if clinically indicated. I am available for cardiology evaluation and consultation if requested by the pot pusher, unless patient already has a review scheduling coordinator. FABIAN
[2017-11-16] MEDS ORDERED: AMINOPHYLLINE INJ/PF 250 MG/10 ML SDV IV ONE (13:04)
[2017-11-16] MEDS ORDERED: REGADENOSON INJ 0.4 MG/5 ML DISP.SYRIN IV ONE (13:04)
--- NOTE | 2017-11-16 20:35 | Progress Note ---
Provider Note Provider Note: Patient had nuclear stress test performed today. It showed severe fixed defect involving the inferolateral wall. LVEF was noted to be low. Patient has been advised aggressive risk factor modification and medical management. Patient has been advised to avoid cocaine and tobacco abuse. With the patient is compliant is not known. Patient towards benefit from optimization of cardiomyopathy therapy. Patient has been advised to report any syncope or near syncope.
[2017-11-16] MEDS: SIMVASTATIN 40 MG TABLET PO SCH (21:08)
[2017-11-17 05:17] LABS: ABSOLUTE LYMPHOCYTES (AUTO) 1.1 10^3/uL (0.5-4.7); ABSOLUTE MONOCYTES (AUTO) 0.6 10^3/uL (0.1-1.4); ABSOLUTE NEUT (AUTO) 9.2 10^3/uL (1.7-8.2); BASOPHILS % (AUTO) 0.4 % (0-2); HEMATOCRIT 32.2 % (36.0-47.0); HEMOGLOBIN 10.8 g/dL (12.0-15.5); LYMPHOCYTES % (AUTO) 9.9 % (13-45); MEAN CORPUSCULAR HEMOGLOBIN 31.1 pg (27.0-33.4); MEAN CORPUSCULAR HGB CONC 33.4 g/dL (32.0-36.0); MEAN CORPUSCULAR VOLUME 93 fl (80-97); MONOCYTES % (AUTO) 5.1 % (3-13); PLATELET COUNT 251 10^3/uL (150-450); RED BLOOD COUNT 3.46 10^6/uL (3.72-5.28); RED CELL DISTRIBUTION WIDTH 13.7 % (11.5-14.0); SEGMENTED NEUTROPHILS % (AUTO) 84.6 % (42-78); TOTAL CELLS COUNTED % (AUTO) 100 %; WHITE BLOOD COUNT 10.8 10^3/uL (4.0-10.5)
[2017-11-17 05:37] LABS: ALANINE AMINOTRANSFERASE 21 U/L (9-52); ALBUMIN 2.8 g/dL (3.5-5.0); ALKALINE PHOSPHATASE 63 U/L (38-126); ANION GAP 10 (5-19); ASPARTATE AMINO TRANSFERASE 14 U/L (14-36); BILIRUBIN,DIRECT 0.3 mg/dL (0.0-0.4); BILIRUBIN,TOTAL 0.3 mg/dL (0.2-1.3); BLOOD UREA NITROGEN 61 mg/dL (7-20); CALCIUM 8.9 mg/dL (8.4-10.2); CARBON DIOXIDE 26 mmol/L (22-30); CHLORIDE 102 mmol/L (98-107); GLUCOSE 132 mg/dL (75-110); POTASSIUM 4.7 mmol/L (3.6-5.0); SODIUM 137.6 mmol/L (137-145); TOTAL PROTEIN 6.5 g/dL (6.3-8.2)
[2017-11-17] MEDS ORDERED: LANSOPRAZOLE 30 MG TAB.RAP.DR PO SCH (06:00)
[2017-11-17] MEDS: INSULIN LISPRO 100 UNIT/ML 3 ML VIAL SUBCUT PRN (08:01)
[2017-11-17] MEDS: INSULIN LISPRO 100 UNIT/ML 3 ML VIAL SUBCUT SCH ×2 (08:02→12:49)
[2017-11-17] MEDS ORDERED: LEVOFLOXACIN 500 MG TABLET PO SCH (10:00)
[2017-11-17] MEDS: ENOXAPARIN SODIUM INJ 40 MG/0.4 ML DISP.SYRIN SUBCUT SCH (11:02)
[2017-11-17] MEDS: FUROSEMIDE INJ/PF 20 MG/2 ML SDV IV SCH (11:03)
[2017-11-17] MEDS: GABAPENTIN 300 MG CAPSULE PO SCH (11:03)
[2017-11-17] MEDS: HYDROCHLOROTHIAZIDE 25 MG TABLET PO SCH (11:04)
[2017-11-17] MEDS: CARVEDILOL 12.5 MG TABLET PO SCH (11:04)
[2017-11-17] MEDS: CLONIDINE HCL 0.1 MG TABLET PO SCH (11:05)
[2017-11-17] MEDS: METHYLPREDNISOLONE INJ 40 MG/1 ML SDV IV SCH (11:10)
[2017-11-17] MEDS: NICOTINE 21 MG/24 HR PATCH.TD24 TD SCH (11:10)
[2017-11-17] MEDS: BENAZEPRIL HCL 20 MG TABLET PO SCH (11:10)
--- NOTE | 2017-11-17 11:40 | PDOC DISCHARGE SUMMARY ---
General - Admit/Disc Date/PCP Admission Date/Primary Care Provider: 11/14/17 08:04 Discharge Date: 11/17/17 - Discharge Diagnosis (1) Acute hypoxemic respiratory failure Is this a current diagnosis for this admission?: Yes (2) Acute on chronic combined systolic and diastolic CHF (congestive heart failure) Is this a current diagnosis for this admission?: Yes (3) COPD (chronic obstructive pulmonary disease) Is this a current diagnosis for this admission?: Yes (4) Acute bronchitis Is this a current diagnosis for this admission?: Yes (5) Acute on chronic kidney failure Is this a current diagnosis for this admission?: Yes (6) Diabetes mellitus type 2 in obese Is this a current diagnosis for this admission?: Yes (7) Hypertension Is this a current diagnosis for this admission?: Yes (8) Dyslipidemia Is this a current diagnosis for this admission?: Yes (9) Coronary artery disease Is this a current diagnosis for this admission?: Yes (10) Diabetic neuropathy Is this a current diagnosis for this admission?: Yes (11) Reflux esophagitis Is this a current diagnosis for this admission?: Yes (12) Constipation Is this a current diagnosis for this admission?: Yes (13) Lumbago Is this a current diagnosis for this admission?: Yes (14) Cocaine abuse Is this a current diagnosis for this admission?: Yes (15) Tobacco abuse Is this a current diagnosis for this admission?: Yes (16) DVT prophylaxis Is this a current diagnosis for this admission?: Yes - Additional Information Resuscitation Status: Full Code Discharge Diet: Cardiac, Diabetic Discharge Activity: Activity As Tolerated, Balance Activity w/Rest, Weigh Daily Prescriptions: Benazepril/Hydrochlorothiazide [Benazepril-Hctz 20-25 mg Tab] 1 each PO DAILY # 30 tablet Clopidogrel Bisulfate [Plavix 75 mg Tablet] 75 mg PO DAILY@1200 #30 tablet Furosemide [Lasix 20 mg Tablet] 20 mg PO Q48H #15 tablet Levofloxacin [Levaquin 500 mg Tablet] 500 mg PO DAILY #5 tablet Home Medications: Aspirin [Ecotrin 81 mg EC Tablet] 81 mg PO DAILY 06/09/17 Carvedilol [Coreg 12.5 mg Tablet] 12.5 mg PO Q12 06/09/17 Clonidine HCl [Catapres 0.1 mg Tablet] 0.1 mg PO Q12 06/09/17 Gabapentin [Neurontin] 600 mg PO Q12 06/09/17 Insulin Glargine,Hum.rec.anlog [Lantus Solostar] 55 unit SQ BID 06/09/17 Omeprazole 40 mg PO QHS 06/09/17 Oxycodone HCl/Acetaminophen [Percocet 5-325 mg Tablet] 1 tab PO Q12HP PRN Clonidine [Catapres-Tts 1 (0.1 mg/24 Hr) Transderm Patch] 1 each TD ONCE PRN #1 patch.tdwk 06/12/17 Ondansetron [Zofran Odt 4 mg Tablet] 1 - 2 tab PO Q4H PRN #15 tab.rapdis Benazepril/Hydrochlorothiazide [Benazepril-Hctz 20-25 mg Tab] 1 each PO DAILY # 30 tablet 11/17/17 Clopidogrel Bisulfate [Plavix 75 mg Tablet] 75 mg PO DAILY@1200 #30 tablet 11/17 Furosemide [Lasix 20 mg Tablet] 20 mg PO Q48H #15 tablet 11/17/17 Levofloxacin [Levaquin 500 mg Tablet] 500 mg PO DAILY #5 tablet 11/17/17 Simvastatin [Zocor 40 mg Tablet] 40 mg PO QHS tablet 11/17/17 History of Present Illness History of Present Illness: MAGNO WILSON is a 57 year old female wiht hx of DM2/HTN/Hyperlipidemia/CAD s.p stentsx3/CHF- possibly diastolic dysfunction/COPD/GERD/Constipation/Vitamin D def/CKD stage 3/Anemia of chronic disease/Hepatitis C/Back pain/Obesity/ Chronic smoker and Cocaine abuse.She has been non- compliant with her diuretics , then she started having worsening dyspnea, leg swelling and cough productive of whitish sputum. Denied fever, chest pain, palpitations, nausea/vomiting. She was brought to ER this morning by EMS. Her BNP was 8380; Cocaine positive in urine; chest xray showed cardiomegaly, pul. vascular congestion. She is being admitted to [facility] for CHF decompensation/COPD exacerbation and Cocaine abuse. Hospital Course Hospital Course: She was admitted at [facility] for acute hypoxemic respiratory failure/Acute on chronic combined CHF decompensation/COPD exacerbation/Acute bronchitis/Acute on chronic renal failure/Cocaine abuse. She was put on IV Lasix, Oxygen, Nebulizers ,steroids and antibiotics. Her kidney function worsened due to diuresis and we decreased dose of Lasix and even on discharge, we decreased it further to 20 mg every other day. She had ECHO that showed EF of 35%. She also had nuclear stress test that showed severe fixed defect on inferio-lateral wall. Extensive counseling was done done for cocaine abuse and smoking cessation. We appreciate the input of rubbing bed operator, Dr Pride in the mgt of this pt. She is stable and back to her baseline. She will be discharged home today to follow up with her PCP, Dr Farooq and rubbing bed operator, Dr Pride within 1 week. Patient is in agreement with this plan of care. Physical Exam Vital Signs: Temp Pulse Resp BP Pulse Ox 97.9 F 78 20 146/78 H 100 11/17/17 07:45 11/17/17 09:21 11/17/17 09:21 11/17/17 07:45 11/17/17 09:21 Intake & Output 11/16/17 11/17/17 11/18/17 06:59 06:59 06:59 Intake Total 1236 1854 Output Total 900 900 Balance 336 954 Weight 80 kg 85.9 kg General appearance: PRESENT: no acute distress, cooperative, obese, well- developed, well-nourished Head exam: PRESENT: atraumatic, normocephalic Eye exam: PRESENT: EOMI, PERRLA Ear exam: PRESENT: normal external ear exam, TM's normal bilaterally Mouth exam: PRESENT: neck supple, tongue midline Respiratory exam: PRESENT: chest wall tenderness, clear to auscultation apolinar, symmetrical. ABSENT: accessory muscle use, crackles, decreased breath sounds, prolonged expiratory phas, rales, retraction, rhonchi, stridor, tachypnea, unlabored, wheezes, other Cardiovascular exam: PRESENT: +S1, +S2 Pulses: PRESENT: +2 pedal pulses bilateral Vascular exam: PRESENT: normal capillary refill GI/Abdominal exam: PRESENT: normal bowel sounds Rectal exam: PRESENT: deferred Extremities exam: PRESENT: full ROM Musculoskeletal exam: PRESENT: ambulatory Neurological exam: PRESENT: alert, awake, oriented to place, oriented to time Psychiatric exam: PRESENT: normal mood Results Laboratory Results: 11/17/17 04:57 11/17/17 04:57 11/17/17 11/17/17 04:57 04:57 WBC 10.8 H RBC 3.46 L Hgb 10.8 L Hct 32.2 L MCV 93 MCH 31.1 MCHC 33.4 RDW 13.7 Plt Count 251 Seg Neutrophils % 84.6 H Lymphocytes % 9.9 L Monocytes % 5.1 Eosinophils % 0.0 Basophils % 0.4 Absolute Neutrophils 9.2 H Absolute Lymphocytes 1.1 Absolute Monocytes 0.6 Absolute Eosinophils 0.0 Absolute Basophils 0.0 Sodium 137.6 Potassium 4.7 Chloride 102 Carbon Dioxide 26 Anion Gap 10 BUN 61 H Creatinine 1.88 H Est GFR ( Amer) 34 L Est GFR (Non-Af Amer) 28 L Glucose 132 H Calcium 8.9 Total Bilirubin 0.3 AST 14 ALT 21 Alkaline Phosphatase 63 Total Protein 6.5 Albumin 2.8 L 11/14/17 11/14/17 11/14/17 09:54 09:54 16:20 Creatine Kinase 46 47 CK-MB (CK-2) 1.14 Troponin I 0.042 11/14/17 16:20 Creatine Kinase CK-MB (CK-2) 1.80 Troponin I 0.042 Impressions: Chest X-Ray 11/14/17 01:18 IMPRESSION: 1. Cardiomegaly with possible interstitial edema and small bilateral pleural effusions. Chest/Abdomen CTA 11/14/17 03:21 IMPRESSION: 1. No pulmonary embolus. 2. Cardiomegaly with small bilateral pleural effusions and likely mild interstitial edema. This exam was performed according to our departmental dose-optimization program, which includes automated exposure control, adjustment of the mA and/or kV according to patient size and/or use of iterative reconstruction technique. Qualifiers - * PATEINT BEING DISCHARGED WITH ANY OF THE FOLLOWING DIAGNOSIS?: Heart Failure VTE patient discharged on overlapping Therapy?: No Reason(s) for not prescribing Overlap Therapy:: Tx not tolerated Stroke Pt being discharged on Anti-thrombolytic therapy?: No Reason(s) for not prescribing Anti-thrombolytic therapy:: Tx not tolerated Stroke Pt being discharged on Anti-coagulation therapy?: No Reason(s) for not prescribing Anti-coagulation therapy:: Tx not tolerated Stroke Pt being discharged on Statins?: No Reason(s) for not prescribing Statins therapy:: Tx not tolerated OK Pt being discharged on Aspirin therapy?: Yes OK Pt being discharged on Statins?: Yes OK Pt discharged ACEI/ARBS?: Yes HF Pt being discharged on ACEI for LVEF less than 40%?: Yes HF Pt being discharged on ARBS for LVEF less than 40%?: Yes HF Pt with Afib discharged with Warfarin?: No Reason(s) for not prescribing Warfarin:: Tx not tolerated HF Pt discharged on evidence-based Beta Andrea:: Yes
[2017-11-17 12:08] VITALS: BP 132/69
[2017-11-17] MEDS: INSULIN GLARGINE,HUM.REC.ANLOG 300 UNIT/3 ML INSULN.PEN SUBCUT SCH (12:35)
[2017-11-17] MEDS: CLOPIDOGREL BISULFATE 75 MG TABLET PO SCH (12:36)
--- NOTE | 2017-11-18 17:13 | PDOC PROGRESS REPORT ---
Subjective Progress Note for:: 11/17/17 Subjective:: Patient seems to be doing better. Patient was seen on the morning of of this month. Patient claims she is ready for discharge. Pt is denying any chest arm or neck discomfort. Patient denying any PND, orthopnea. Patient denied any sustained palpitations, dizziness, syncope, near syncope. Patient denying any fever chills. Patient denying any other significant discomfort. Patient is maintaining sinus rhythm. No significant cardiac dysrhythmia were noted. Review of systems: Rest review of systems negative. Medications: Medications have been reviewed. Reason For Visit: ACUTE ON CHRONIC CHF DECOMPENSATION-DIASTOLIC Physical Exam Vital Signs: Temp Pulse Resp BP Pulse Ox 98.3 F 83 18 132/69 H 100 11/17/17 14:57 11/17/17 14:57 11/17/17 14:57 11/17/17 11:26 11/17/17 14:57 Intake & Output 11/17/17 11/18/17 11/19/17 06:59 06:59 06:59 Intake Total 1854 459 Output Total 900 Balance 954 459 Weight 85.9 kg Exam: GENERAL: well-nourished and in no acute distress. Alert and oriented x3 HEAD: Atraumatic, normocephalic. EYES: Pupils equal round and reactive to light, extraocular movements intact, sclera anicteric, conjunctiva are normal. ENT: TMs normal, nares patent, oropharynx clear without exudates. Moist mucous membranes. No oral ulcerations or bleeding gums noted NECK: supple without lymphadenopathy. Trachea is central. No cervical or axillary lymphadenopathy noted. Carotids are 2+, JVD WNL LUNGS: Respiration seems nonlabored, no significant accessory muscle action noted. Breath sounds clear to auscultation bilaterally and equal noted. No wheezes rales or rhonchi noted. No significant dullness noted on percussion. CHEST: Palpation of the chest wall shows no significant chest wall tenderness. 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 ABDOMEN: Soft, no significant tenderness appreciated, normoactive bowel sounds. No guarding, no rebound. No rigidity noted . No masses appreciated. EXTREMITIES: Pedal pulses are 1-2+, no calf tenderness noted. No clubbing or cyanosis. negative pedal edema noted NEUROLOGICAL: Focused neurological exam showed no significant neurologic deficit. Normal speech, no focal weakness appreciated. PSYCH: Normal mood, normal affect. Judgment and insight within normal limits. SKIN: No significant ecchymosis, skin is noted to be warm. MUSCULOSKELETAL EXAM: No significant acute joint swelling noted. Results Laboratory Results: 11/17/17 04:57 11/17/17 04:57 11/14/17 11/14/17 11/14/17 09:54 09:54 16:20 Creatine Kinase 46 47 CK-MB (CK-2) 1.14 Troponin I 0.042 11/14/17 16:20 Creatine Kinase CK-MB (CK-2) 1.80 Troponin I 0.042 EKG Comments: Telemetry strip showed sinus rhythm without any sustained tachycardia or bradycardia. Impressions: Chest X-Ray 11/14/17 01:18 IMPRESSION: 1. Cardiomegaly with possible interstitial edema and small bilateral pleural effusions. Chest/Abdomen CTA 11/14/17 03:21 IMPRESSION: 1. No pulmonary embolus. 2. Cardiomegaly with small bilateral pleural effusions and likely mild interstitial edema. This exam was performed according to our departmental dose-optimization program, which includes automated exposure control, adjustment of the mA and/or kV according to patient size and/or use of iterative reconstruction technique. Assessment & Plan - Diagnosis (1) Congestive heart failure Qualifiers: Heart failure type: unspecified Heart failure chronicity: acute on chronic Qualified Code(s): I50.9 - Heart failure, unspecified Is this a current diagnosis for this admission?: Yes (2) Diabetes Qualifiers: Diabetes mellitus type: type 2 Diabetes mellitus terminal operator insulin use: unspecified terminal operator insulin use status Diabetes mellitus complication status : with unspecified complications Qualified Code(s): E11.8 - Type 2 diabetes mellitus with unspecified complications Is this a current diagnosis for this admission?: Yes (3) Dyslipidemia Is this a current diagnosis for this admission?: Yes (4) Hypertension Qualifiers: Hypertension type: essential hypertension Qualified Code(s): I10 - Essential (primary) hypertension Is this a current diagnosis for this admission?: Yes (5) Coronary artery disease Qualifiers: Coronary Disease-Associated Artery/Lesion type: [place] artery [place] vs. transplanted heart: [place] heart Associated angina: angina presence unspecified Qualified Code(s): I25.10 - Atherosclerotic heart disease of [place] coronary artery without angina pectoris Is this a current diagnosis for this admission?: Yes (6) COPD (chronic obstructive pulmonary disease) Qualifiers: COPD type: unspecified COPD Qualified Code(s): J44.9 - Chronic obstructive pulmonary disease, unspecified Is this a current diagnosis for this admission?: Yes (7) Cocaine abuse Is this a current diagnosis for this admission?: Yes (8) Tobacco abuse Is this a current diagnosis for this admission?: Yes - Notes Notes: Chest pain: Resolved. This was noted to be atypical by evaluation however a nuclear stress test was performed. Nuclear stress test was negative for any ischemia but did show fixed defect. Gated images show depressed LVEF. Results were discussed with the patient in detail. Patient advised aggressive risk factor modification and medical management. Congestive heart failure: Seems compensated today. Medical regimen has been optimized. She seems to be on a adequate regimen for discharge today. This was reported to the nurse and that further adjustment could be performed as an outpatient.. Coronary artery disease: Patient gives history of coronary stent. Stress test was negative for pharmacologic stress-induced ischemia. Dyslipidemia: Recommend high potency statin therapy. LDL goal less than 70. Hypertension: Blood pressure goal in this patient is 135/85 or less. This was discussed with the patient. Currently blood pressure under reasonable control. COPD: Patient has been advised to quit smoking. 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 Cocaine abuse: Patient has been advised to avoid cocaine abuse. Tobacco abuse: Patient has been advised to avoid tobacco abuse. - Time Time with patient: Greater than 35 minutes - CODE STATUS was discussed, patient remains full code. Surrogate decision-maker unchanged. Multiple medical problems were addressed. More than 50% of the time spent coordinating care, discussing management plans with involved caregivers. Management plans discussed with involved personnels. Medical decision making was of moderate to high complexity, patient's has multiple comorbidities. Medications reviewed and adjusted accordingly: Yes
--- NOTE | 2017-11-18 17:18 | PDOC PROGRESS REPORT ---
Subjective Progress Note for:: 11/16/17 Subjective:: Patient has noted some chest pain yesterday but there has been no recurrence. This was transient and is mostly felt atypical. Cardiac enzymes has been relatively unremarkable. Echocardiogram showed significantly depressed LVEF. A stress test was scheduled. This is not unreasonable in view of complaining of chest pain and patient's history of known CAD as well as a depressed LVEF. Nuclear stress test procedure, risk benefits were previously discussed and again discussed. 2D echo results were discussed. Patient questions were answered. Reason For Visit: ACUTE ON CHRONIC CHF DECOMPENSATION-DIASTOLIC Physical Exam Vital Signs: Temp Pulse Resp BP Pulse Ox 98.1 F 85 16 149/89 H 96 11/16/17 15:30 11/16/17 19:00 11/16/17 15:30 11/16/17 15:30 11/16/17 17:20 Intake & Output 11/15/17 11/16/17 11/17/17 06:59 06:59 06:59 Intake Total 922 1236 1250 Output Total 1000 900 Balance -78 336 1250 Weight 81.9 kg 80 kg Exam: GENERAL: well-nourished and in no acute distress. Alert and oriented x3 HEAD: Atraumatic, normocephalic. EYES: Pupils equal round and reactive to light, extraocular movements intact, sclera anicteric, conjunctiva are normal. ENT: TMs normal, nares patent, oropharynx clear without exudates. Moist mucous membranes. No oral ulcerations or bleeding gums noted NECK: supple without lymphadenopathy. Trachea is central. No cervical or axillary lymphadenopathy noted. Carotids are 2+, JVD WNL LUNGS: Respiration seems nonlabored, no significant accessory muscle action noted. Few bibasilar fine crackles are noted. No wheezes rales or rhonchi noted. No significant dullness noted on percussion. CHEST: Palpation of the chest wall shows no significant chest wall tenderness. 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 ABDOMEN: Soft, no significant tenderness appreciated, normoactive bowel sounds. No guarding, no rebound. No rigidity noted . No masses appreciated. EXTREMITIES: Pedal pulses are 1-2+, no calf tenderness noted. No clubbing or cyanosis. Trace pedal edema noted NEUROLOGICAL: Focused neurological exam showed no significant neurologic deficit. Normal speech, no focal weakness appreciated. PSYCH: Normal mood, normal affect. Judgment and insight within normal limits. SKIN: No significant ecchymosis, skin is noted to be warm. MUSCULOSKELETAL EXAM: No significant acute joint swelling noted. Results Laboratory Results: 11/16/17 04:30 11/16/17 04:30 11/16/17 11/16/17 04:30 04:30 WBC 7.6 RBC 3.32 L Hgb 10.3 L Hct 31.1 L MCV 94 MCH 31.0 MCHC 33.1 RDW 14.1 H Plt Count 234 Seg Neutrophils % 88.6 H Lymphocytes % 7.6 L Monocytes % 3.4 Eosinophils % 0.0 Basophils % 0.4 Absolute Neutrophils 6.8 Absolute Lymphocytes 0.6 Absolute Monocytes 0.3 Absolute Eosinophils 0.0 Absolute Basophils 0.0 Sodium 137.4 Potassium 5.3 H Chloride 101 Carbon Dioxide 26 Anion Gap 10 BUN 49 H Creatinine 1.96 H Est GFR ( Amer) 32 L Est GFR (Non-Af Amer) 26 L Glucose 324 H Calcium 8.6 Total Bilirubin 0.3 AST 16 ALT 21 Alkaline Phosphatase 82 Total Protein 6.6 Albumin 2.9 L 11/14/17 11/14/17 11/14/17 09:54 09:54 16:20 Creatine Kinase 46 47 CK-MB (CK-2) 1.14 Troponin I 0.042 11/14/17 16:20 Creatine Kinase CK-MB (CK-2) 1.80 Troponin I 0.042 Impressions: Chest X-Ray 11/14/17 01:18 IMPRESSION: 1. Cardiomegaly with possible interstitial edema and small bilateral pleural effusions. Chest/Abdomen CTA 11/14/17 03:21 IMPRESSION: 1. No pulmonary embolus. 2. Cardiomegaly with small bilateral pleural effusions and likely mild interstitial edema. This exam was performed according to our departmental dose-optimization program, which includes automated exposure control, adjustment of the mA and/or kV according to patient size and/or use of iterative reconstruction technique. 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 insulin use: unspecified predatory animal exterminator insulin use status Diabetes mellitus complication status : with unspecified complications Qualified Code(s): E11.8 - Type 2 diabetes mellitus with unspecified complications Is this a current diagnosis for this admission?: Yes (3) Dyslipidemia Is this a current diagnosis for this admission?: Yes (4) Hypertension Qualifiers: Hypertension type: essential hypertension Qualified Code(s): I10 - Essential (primary) hypertension Is this a current diagnosis for this admission?: Yes (5) Coronary artery disease Qualifiers: Coronary Disease-Associated Artery/Lesion type: [place] artery [place] vs. transplanted heart: [place] heart Associated angina: angina presence unspecified Qualified Code(s): I25.10 - Atherosclerotic heart disease of [place] coronary artery without angina pectoris Is this a current diagnosis for this admission?: Yes (6) COPD (chronic obstructive pulmonary disease) Qualifiers: COPD type: unspecified COPD Qualified Code(s): J44.9 - Chronic obstructive pulmonary disease, unspecified Is this a current diagnosis for this admission?: Yes (7) Cocaine abuse Is this a current diagnosis for this admission?: Yes (8) Tobacco abuse Is this a current diagnosis for this admission?: Yes (9) Chest pain Qualifiers: Chest pain type: unspecified Qualified Code(s): R07.9 - Chest pain, unspecified Is this a current diagnosis for this admission?: Yes - Notes Notes: Chest pain: Patient complained of chest pain. Somewhat atypical but in view of known CAD, nuclear stress test was performed. It showed no definitive evidence of pharmacologic stress-induced ischemia but did show a fixed defect in the basal and mid inferolateral wall. Congestive heart failure: Most likely acute on chronic precipitated by severe hypertension and possibly noncompliance as well as substance abuse. [place] to be acute on chronic combined systolic and diastolic dysfunction. At this point recommend IV diuretics. Patient will benefit from salt and fluid restriction, avoidance of substance abuse. Will review patient medical regimen and optimize this. Coronary artery disease: Patient gives history of coronary stent. Currently without chest pain. But had chest pain earlier. Nuclear stress test was negative for ischemia but did show depressed LVEF. In the meantime recommend dual antiplatelet therapy, statin, beta-linh, MIKAELA inhibitor/ARB/entresto therapy. Dyslipidemia: Recommend high potency statin therapy. LDL goal less than 70. Hypertension: Presented with severe hypertension but now reasonably well controlled. Blood pressure goal in this patient is 135/85 or less. This was discussed with the patient. Currently blood pressure under reasonable control. Better medication for this patient are MIKAELA inhibitor/ARB/beta linh etc. discussed side effects of uncontrolled hypertension and also severe hypotension. COPD: Patient has been advised to quit smoking. 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 Cocaine abuse: Patient has been advised to avoid cocaine abuse. Tobacco abuse: Patient has been advised to avoid tobacco abuse. - Time Time with patient: Greater than 35 minutes - Patient was seen multiple times. Total time exceeds 40 minutes. In the morning nuclear stress test procedure, risks benefits, alternatives were discussed. Patient seen during the stress test. Patient also seen after stress test when results were discussed with the patient in detail. Patient's questions were answered. Nuclear stress test results were discussed with the patient. Patient was informed that no definitive evidence of pharmacologic stress-induced ischemia noted. No definite fixed defects were noted. Patient informed that occasionally significant single vessel disease or balanced ischemia could be missed. However based on the current study results, would recommend aggressive risk factor modification and medical therapy. It may also be worthwhile to consider evaluation or empiric management of other causes of chest pain. Should no other cause be found and if persistent in having chest pain, then cardiac catheterization should be considered. Right now, recommendations are for aggressive risk factor modification and medical management. More than 50% of the time spent coordinating care, discussing management plans with involved caregivers. Management plans discussed with involved personnels. Medical decision making was of moderate to high complexity, patient's has multiple comorbidities. Medications reviewed and adjusted accordingly: Yes
== END 2017-11-17 15:59 | disposition home or self-care (01) | DRG 291 ==
LOC: ER 01:09 → EH 08:04 → 3W 09:14
PROVIDERS: ADMIT Internal Medicine; ATTEND Internal Medicine
PROC: 3E0F73Z Introduction of Anti-inflammatory into Respiratory Tract, Via Natural or Artificial Opening (ICD-10-PCS; principal; 2017-11-14)
DX: I13.0 Hypertensive heart and chronic kidney disease with heart failure and stage 1 through stage 4 chronic kidney disease, or unspecified chronic kidney disease (principal); J96.01 Acute respiratory failure with hypoxia; I50.43 Acute on chronic combined systolic (congestive) and diastolic (congestive) heart failure; J44.1 Chronic obstructive pulmonary disease with (acute) exacerbation; N17.9 Acute kidney failure, unspecified; J44.0 Chronic obstructive pulmonary disease with (acute) lower respiratory infection; E11.22 Type 2 diabetes mellitus with diabetic chronic kidney disease; N18.3 Chronic kidney disease, stage 3 (moderate); E11.42 Type 2 diabetes mellitus with diabetic polyneuropathy; J20.9 Acute bronchitis, unspecified; D63.1 Anemia in chronic kidney disease; K21.9 Gastro-esophageal reflux disease without esophagitis; K59.00 Constipation, unspecified; E55.9 Vitamin D deficiency, unspecified; E66.9 Obesity, unspecified; F14.10 Cocaine abuse, uncomplicated; E78.5 Hyperlipidemia, unspecified; I25.10 Atherosclerotic heart disease of native coronary artery without angina pectoris; M54.5 Low back pain; B19.20 Unspecified viral hepatitis C without hepatic coma; I51.7 Cardiomegaly; F17.200 Nicotine dependence, unspecified, uncomplicated; Z83.3 Family history of diabetes mellitus; Z82.49 Family history of ischemic heart disease and other diseases of the circulatory system; Z79.4 Long term (current) use of insulin; Z98.51 Tubal ligation status; Z79.899 Other long term (current) drug therapy; Z79.82 Long term (current) use of aspirin; Z90.49 Acquired absence of other specified parts of digestive tract; Z95.5 Presence of coronary angioplasty implant and graft
CPT/HCPCS: 36415; 71045; 71275; 78452; 80053; 80061; 80307; 82550; 82553; 82803; 82962; 83036; 83880; 84443; 84484; 85025; 85379; 87040; 93005; 93010; 93017; 93306; 94640; 96365; 96366; 96375; 99285; A9500; G8978-GP; G8979-GP; G8980-GP; G8987-GO; G8988-GO; G8989-GO; J0280; J1650; J1815; J1940; J1956; J2785; J2920; J2930; J3475; J3490; Q9969

== ENCOUNTER 2017-12-03 13:21 | Inpatient (IN) | payer OTHER, MEDICARE, MEDICAID ==
--- NOTE | 2017-12-03 13:52 | ER Document Report ---
ED Medical Screen (RME) - General Chief Complaint: Blood Pressure Problem Stated Complaint: BLOOD PRESSURE PROBLEM Time Seen by Provider: 12/03/17 13:43 Notes: This 57-year-old female patient is brought in from the care home for elevated blood pressure, and face swelling. She has a history of snorting heroin and cocaine. She was admitted here on through 11/17/2017 for congestive heart failure. She has been in care home since Monday 2 days ago. There are no pillows, she has to lay flat on a firm mattress. She has edema to her forehead and eyelids which is not red, warm, or tender. It does pit some. She also has edema to her lower extremities. I suspect the edema to her face is due to laying flat while in care home. She does report that she normally has pillows to prop herself up at home. I have greeted and performed a rapid initial assessment of this patient. A comprehensive ED assessment and evaluation of the patient, analysis of test results and completion of the medical decision making process will be conducted by additional ED providers. TRAVEL OUTSIDE OF THE [place] IN LAST 30 DAYS: No - Related Data Allergies/Adverse Reactions: No Known Allergies Allergy (Verified 12/03/17 13:25) Home Medications: states haven't been taking any meds since [place] in October. Past Medical History - Social History Frequency of alcohol use: None Drug Abuse: Heroin - Past Medical History Cardiac Medical History: Reports: Hx Congestive Heart Failure, Hx Coronary Artery Disease, Hx Hypercholesterolemia, Hx Hypertension Endocrine Medical History: Reports: Hx Diabetes Mellitus Type 1, Hx Diabetes Mellitus Type 2 Renal/ Medical History: Denies: Hx Peritoneal Dialysis GI Medical History: Reports: Hx Hepatitis - Hepatitis C Psychiatric Medical History: Denies: Hx Depression Infectious Medical History: Reports: Hx Hepatitis - Hepatitis C Past Surgical History: Reports: Hx Appendectomy, Hx Section, Hx Coronary Stent, Hx Gynecologic Surgery, Hx Tubal Ligation, Other - salpingo- oophorectomy. Denies: Hx Hysterectomy - Immunizations Hx Diphtheria, Pertussis, Tetanus Vaccination: Yes History of Influenza Vaccine for 04/2017 - 09/2017 Season: No Physical Exam - Vital signs Vitals: Temp Pulse Resp BP Pulse Ox 97.5 F 108 H 20 174/107 H 95 12/03/17 13:31 12/03/17 13:31 12/03/17 13:31 12/03/17 13:31 12/03/17 13:31 Course - Vital Signs Vital signs: Temp Pulse Resp BP Pulse Ox 97.5 F 108 H 20 174/107 H 95 12/03/17 13:31 12/03/17 13:31 12/03/17 13:31 12/03/17 13:31 12/03/17 13:31
[2017-12-03] MEDS ORDERED: DIPHENHYDRAMINE HCL 50 MG/ML VIAL IV ONE (15:04)
[2017-12-03] MEDS ORDERED: METOCLOPRAMIDE HCL INJ/PF 10 MG/2 ML SDV IV ONE (15:04)
[2017-12-03] MEDS ORDERED: FUROSEMIDE INJ/PF 40 MG/4 ML SDV IV ONE ×2 (15:10→16:49)
[2017-12-03] MEDS ORDERED: NITROGLYCERIN 0.4 MG/TAB 25 TAB/BOTTLE SL ONE (15:10)
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
--- NOTE | 2017-12-03 15:12 | RADIOLOGY REPORT (SQ) ---
EXAM DESCRIPTION: CHEST 2 VIEWS COMPLETED DATE/TIME: 12/03/2017 3:04 pm REASON FOR STUDY: Facial edema, lower extremity edema, PMH CHF COMPARISON: 10/24/2016 EXAM PARAMETERS: NUMBER OF VIEWS: two views TECHNIQUE: Digital Frontal and Lateral radiographic views of the chest acquired. RADIATION DOSE: NA LIMITATIONS: none FINDINGS: LUNGS AND PLEURA: Martha a and B-lines. Small effusions. Hilar haziness. Minimal basila r opacities. MEDIASTINUM AND HILAR STRUCTURES: No masses or contour abnormalities. HEART AND VASCULAR STRUCTURES: Heart is enlarged. BONES: No acute findings. HARDWARE: None in the chest. OTHER: No other significant finding. IMPRESSION: Congestive failure with interstitial pulmonary edema. TECHNICAL DOCUMENTATION: JOB ID: [id number] [employer]- All Rights Reserved Reading location - IP/workstation name: [email or web address]
[2017-12-03 15:43] LABS: ABSOLUTE EOSINOPHILS # (AUTO) 0.1 10^3/uL (0.0-0.6); ABSOLUTE LYMPHOCYTES (AUTO) 1.4 10^3/uL (0.5-4.7); ABSOLUTE MONOCYTES (AUTO) 0.3 10^3/uL (0.1-1.4); ABSOLUTE NEUT (AUTO) 4.3 10^3/uL (1.7-8.2); BASOPHILS % (AUTO) 0.7 % (0-2); EOSINOPHILS % (AUTO) 1.9 % (0-6); HEMATOCRIT 37.6 % (36.0-47.0); HEMOGLOBIN 12.4 g/dL (12.0-15.5); LYMPHOCYTES % (AUTO) 23.4 % (13-45); MEAN CORPUSCULAR HEMOGLOBIN 30.8 pg (27.0-33.4); MEAN CORPUSCULAR HGB CONC 33.1 g/dL (32.0-36.0); MEAN CORPUSCULAR VOLUME 93 fl (80-97); MONOCYTES % (AUTO) 4.6 % (3-13); PLATELET COUNT 349 10^3/uL (150-450); RED BLOOD COUNT 4.04 10^6/uL (3.72-5.28); RED CELL DISTRIBUTION WIDTH 15.3 % (11.5-14.0); SEGMENTED NEUTROPHILS % (AUTO) 69.4 % (42-78); TOTAL CELLS COUNTED % (AUTO) 100 %; WHITE BLOOD COUNT 6.1 10^3/uL (4.0-10.5)
[2017-12-03 15:59] LABS: ALANINE AMINOTRANSFERASE 21 U/L (9-52); ALBUMIN 3.3 g/dL (3.5-5.0); ALKALINE PHOSPHATASE 105 U/L (38-126); ANION GAP 9 (5-19); ASPARTATE AMINO TRANSFERASE 24 U/L (14-36); BILIRUBIN,DIRECT 0.5 mg/dL (0.0-0.4); BILIRUBIN,TOTAL 0.9 mg/dL (0.2-1.3); BLOOD UREA NITROGEN 14 mg/dL (7-20); CALCIUM 9.5 mg/dL (8.4-10.2); CARBON DIOXIDE 29 mmol/L (22-30); CHLORIDE 105 mmol/L (98-107); CREATINE KINASE 47 U/L (30-135); GLUCOSE 80 mg/dL (75-110); SODIUM 142.8 mmol/L (137-145); TOTAL PROTEIN 7.2 g/dL (6.3-8.2)
[2017-12-03 16:11] LABS: TROPONIN I 0.062 ng/mL
[2017-12-03 16:14] LABS: APPEARANCE,URINE CLEAR; BILIRUBIN,URINE NEGATIVE (NEGATIVE); COLOR,URINE YELLOW; GLUCOSE, URINE 50 mg/dL (NEGATIVE); KETONES,URINE TRACE mg/dL (NEGATIVE); LEUKOCYTE ESTERASE,URINE NEGATIVE (NEGATIVE); NITRITE,URINE NEGATIVE (NEGATIVE); PROTEIN,URINE >=500 mg/dL (NEGATIVE); URINE SPECIFIC GRAVITY 1.011; UROBILINOGEN,URINE NEGATIVE mg/dL (<2.0)
[2017-12-03] MEDS ORDERED: NITROGLYCERIN 2% OINTMENT 1 GM PACKET TP ONE (16:33)
[2017-12-03] MEDS ORDERED: ZOLPIDEM TARTRATE 5 MG TABLET PO PRN (16:49)
[2017-12-03] MEDS ORDERED: ONDANSETRON HCL INJ/PF 4 MG/2 ML SDV IV PRN (16:49)
[2017-12-03] MEDS ORDERED: ACETAMINOPHEN 325 MG TABLET PO PRN (16:49)
[2017-12-03] MEDS ORDERED: ALBUTEROL SULFATE 0.083% NEB 2.5 MG/3 ML AMPUL NEB PRN (16:49)
[2017-12-03] MEDS ORDERED: DEXTROSE 50%-WATER 25 GM/50 ML DISP.SYRIN IV PRN ×2 (17:20)
[2017-12-03] MEDS ORDERED: GLUCAGON,HUMAN RECOMB 1 MG INJ IM PRN (17:20)
[2017-12-03] MEDS ORDERED: DEXTROSE 40% GEL 15 GM TUBE PO PRN ×2 (17:20)
[2017-12-03] MEDS ORDERED: INSULIN LISPRO 100 UNIT/ML 3 ML VIAL SUBCUT PRN (17:20)
[2017-12-03] MEDS ORDERED: HYDRALAZINE HCL INJ/PF 20 MG/1 ML SDV IV PRN (17:27)
[2017-12-03] MEDS ORDERED: LORAZEPAM 1 MG TABLET PO PRN (17:28)
[2017-12-03] MEDS ORDERED: NICOTINE 14 MG/24 HR PATCH.TD24 TD ONE (17:30)
[2017-12-03] MEDS ORDERED: HYDRALAZINE HCL 50 MG TABLET PO ONE (17:30)
[2017-12-03] MEDS ORDERED: CLONIDINE HCL 0.2 MG TABLET PO ONE (17:30)
[2017-12-03] MEDS ORDERED: GABAPENTIN 300 MG CAPSULE PO ONE (17:30)
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
[2017-12-03] MEDS ORDERED: AMLODIPINE BESYLATE 10 MG TABLET PO ONE (18:00)
--- NOTE | 2017-12-03 19:10 | EKG REPORT ---
SEVERITY:- BORDERLINE ECG - SINUS TACHYCARDIA BORDERLINE T ABNORMALITIES, LATERAL LEADS : Confirmed by: Kt Pride 03-Dec-2017 19:09:21
[2017-12-03] MEDS: IPRATROPIUM/ALBUTEROL 0.5-2.5 MG/3 ML AMPUL NEB SCH (20:14)
[2017-12-03] MEDS: GABAPENTIN 300 MG CAPSULE PO SCH (20:49)
[2017-12-03] MEDS: CLONIDINE HCL 0.2 MG TABLET PO SCH (20:49)
[2017-12-03] MEDS: HYDRALAZINE HCL 50 MG TABLET PO SCH (20:50)
[2017-12-03] MEDS: HEPARIN SOD (PORCINE) 5,000 UNIT/ML 1 ML SYRINGE SUBCUT SCH (20:50)
[2017-12-03] MEDS: ATORVASTATIN CALCIUM 40 MG TABLET PO SCH (20:50)
[2017-12-04] MEDS: INSULIN GLARGINE,HUM.REC.ANLOG 300 UNIT/3 ML INSULN.PEN SUBCUT SCH ×3 (02:18→21:31)
[2017-12-04 03:57] LABS: ABSOLUTE BASOPHILS # (AUTO) 0.1 10^3/uL (0.0-0.2); ABSOLUTE EOSINOPHILS # (AUTO) 0.2 10^3/uL (0.0-0.6); ABSOLUTE LYMPHOCYTES (AUTO) 1.7 10^3/uL (0.5-4.7); ABSOLUTE MONOCYTES (AUTO) 0.4 10^3/uL (0.1-1.4); ABSOLUTE NEUT (AUTO) 3.7 10^3/uL (1.7-8.2); BASOPHILS % (AUTO) 1.2 % (0-2); EOSINOPHILS % (AUTO) 3.1 % (0-6); HEMATOCRIT 32.3 % (36.0-47.0); HEMOGLOBIN 10.6 g/dL (12.0-15.5); LYMPHOCYTES % (AUTO) 27.8 % (13-45); MEAN CORPUSCULAR HEMOGLOBIN 30.4 pg (27.0-33.4); MEAN CORPUSCULAR HGB CONC 32.8 g/dL (32.0-36.0); MEAN CORPUSCULAR VOLUME 93 fl (80-97); PLATELET COUNT 226 10^3/uL (150-450); RED BLOOD COUNT 3.48 10^6/uL (3.72-5.28); RED CELL DISTRIBUTION WIDTH 15.4 % (11.5-14.0); SEGMENTED NEUTROPHILS % (AUTO) 61.9 % (42-78); TOTAL CELLS COUNTED % (AUTO) 100 %
[2017-12-04 04:05] LABS: ANION GAP 9 (5-19); BLOOD UREA NITROGEN 16 mg/dL (7-20); CALCIUM 8.4 mg/dL (8.4-10.2); CARBON DIOXIDE 27 mmol/L (22-30); CHLORIDE 106 mmol/L (98-107); GLUCOSE 116 mg/dL (75-110); POTASSIUM 3.6 mmol/L (3.6-5.0)
[2017-12-04] MEDS: CLONIDINE HCL 0.2 MG TABLET PO SCH ×3 (05:54→21:09)
[2017-12-04] MEDS: GABAPENTIN 300 MG CAPSULE PO SCH ×3 (05:54→21:10)
[2017-12-04] MEDS: HEPARIN SOD (PORCINE) 5,000 UNIT/ML 1 ML SYRINGE SUBCUT SCH ×3 (05:55→21:09)
[2017-12-04] MEDS: HYDRALAZINE HCL 50 MG TABLET PO SCH ×3 (05:55→21:09)
[2017-12-04] MEDS: IPRATROPIUM/ALBUTEROL 0.5-2.5 MG/3 ML AMPUL NEB SCH ×3 (08:07→20:32)
[2017-12-04] MEDS: NICOTINE 14 MG/24 HR PATCH.TD24 TD SCH (10:14)
[2017-12-04] MEDS: THIAMINE HCL 100 MG TABLET PO SCH (10:15)
[2017-12-04] MEDS: MULTIVITAMIN TABLET PO SCH (10:16)
[2017-12-04] MEDS: AMLODIPINE BESYLATE 10 MG TABLET PO SCH (10:16)
[2017-12-04] MEDS: ASPIRIN 81 MG TABLET, ENT COATED PO SCH (10:16)
--- NOTE | 2017-12-04 20:09 | PDOC PROGRESS REPORT ---
Subjective Progress Note for:: 12/04/17 Subjective:: Pt was said to be admitted yesterday by hospitalist. She was seen at bedside. She is feeling better, though she still has apolinar. leg swelling. She has been released from [facility] as per the nurses. Pt requste for discharge home tomorrow. I discussed with pt extensively about polysubstance abuse and their effects on her health. Reason For Visit: ACUTE ON CHRONIC SYSTOLIC/DIASTOLIC CHF PULMONARY Physical Exam Vital Signs: Temp Pulse Resp BP Pulse Ox 98.2 F 93 18 132/76 H 98 12/04/17 16:03 12/04/17 19:00 12/04/17 16:03 12/04/17 16:03 12/04/17 16:03 Intake & Output 12/03/17 12/04/17 12/05/17 06:59 06:59 06:59 Intake Total 20 1235 Balance 20 1235 Weight 78.1 kg General appearance: PRESENT: no acute distress, cooperative, well-developed, well-nourished Head exam: PRESENT: atraumatic, normocephalic Eye exam: PRESENT: EOMI, PERRLA Ear exam: PRESENT: normal external ear exam, TM's normal bilaterally Mouth exam: PRESENT: moist, neck supple, tongue midline Respiratory exam: PRESENT: decreased breath sounds, symmetrical Cardiovascular exam: PRESENT: +S1, +S2 Pulses: PRESENT: +2 pedal pulses bilateral GI/Abdominal exam: PRESENT: normal bowel sounds, soft Rectal exam: PRESENT: deferred Extremities exam: PRESENT: full ROM Musculoskeletal exam: PRESENT: full ROM Neurological exam: PRESENT: alert, awake, oriented to person, oriented to place , oriented to time Psychiatric exam: PRESENT: normal mood Results Laboratory Results: 12/04/17 03:19 12/04/17 03:19 12/04/17 12/04/17 03:19 03:19 WBC 6.0 RBC 3.48 L Hgb 10.6 L Hct 32.3 L MCV 93 MCH 30.4 MCHC 32.8 RDW 15.4 H Plt Count 226 Seg Neutrophils % 61.9 Lymphocytes % 27.8 Monocytes % 6.0 Eosinophils % 3.1 Basophils % 1.2 Absolute Neutrophils 3.7 Absolute Lymphocytes 1.7 Absolute Monocytes 0.4 Absolute Eosinophils 0.2 Absolute Basophils 0.1 Sodium 142.0 Potassium 3.6 Chloride 106 Carbon Dioxide 27 Anion Gap 9 BUN 16 Creatinine 0.92 Est GFR ( Amer) > 60 Est GFR (Non-Af Amer) > 60 Glucose 116 H Calcium 8.4 Magnesium 1.5 L 12/03/17 12/04/17 21:15 03:19 Troponin I 0.066 0.060 Impressions: Chest X-Ray 12/03/17 13:49 IMPRESSION: Congestive failure with interstitial pulmonary edema. Assessment & Plan - Diagnosis (1) Acute on chronic combined systolic and diastolic CHF (congestive heart failure) Is this a current diagnosis for this admission?: Yes Plan: Ct with Lasix 20 mg BID IV; strict input/output chart daily weight. KCL 20 MEQ qd po. Monitor chemistries daily. (2) Hypertensive urgency Is this a current diagnosis for this admission?: Yes Plan: Ct with Amlodipin 10 mg qd po; Clonidine 0.2mg q8h po; Hydralazine 100mg q8 po ; Hydralazine 10 mg q4h IV prn. 2 g sodium diet. (3) Diabetes mellitus type 2 in obese Is this a current diagnosis for this admission?: Yes Plan: Ct with lantus 25 iu q12h subcut; Sliding scale with humalog insulin OM protocol; 1800 calorie ADA diet. (4) Diabetic neuropathy Qualifiers: Diabetes mellitus type: type 2 Diabetes mellitus complication detail: diabetic polyneuropathy Qualified Code(s): E11.42 - Type 2 diabetes mellitus with diabetic polyneuropathy Is this a current diagnosis for this admission?: Yes Plan: Ct with Gabapentin 300mg TID PO. (5) Dyslipidemia Is this a current diagnosis for this admission?: Yes Plan: Ct with Atorvastatin 40 mg qhs po; 200 mg cholesterol diet. (6) COPD (chronic obstructive pulmonary disease) Qualifiers: COPD type: unspecified COPD Qualified Code(s): J44.9 - Chronic obstructive pulmonary disease, unspecified Is this a current diagnosis for this admission?: Yes Plan: Ct with duonebs q4h prn; Oxygen byN/C 2 l/min. (7) Coronary artery disease Qualifiers: Coronary Disease-Associated Artery/Lesion type: [place] artery [place] vs. transplanted heart: [place] heart Associated angina: angina presence unspecified Qualified Code(s): I25.10 - Atherosclerotic heart disease of [place] coronary artery without angina pectoris Is this a current diagnosis for this admission?: Yes Plan: Ct with Aspirin 81 mg qd po; cardiac dit. (8) Lumbago Qualifiers: Back pain laterality: unspecified Is this a current diagnosis for this admission?: Yes Plan: Ct with tylenol 650 mg q6h prn po. (9) Polysubstance abuse Is this a current diagnosis for this admission?: Yes Plan: Counseling on substance abuse and effects on her health. (10) Tobacco abuse Is this a current diagnosis for this admission?: Yes Plan: Counseling on smoking cessation; Nicotine patch 14mg qd. (11) DVT prophylaxis Is this a current diagnosis for this admission?: Yes Plan: Heparin 5000iu q8h subcut; SCD. - Time Time Spent with patient: 35 or more minutes Smoking Cessation Education: 3 to 10 minutes Medications reviewed and adjusted accordingly: Yes Anticipated discharge: Home Within: within 24 hours - Inpatient Certification Medical Necessity: Failure to Improve With Outpatient Therapy, Significant Comorbidiites Make Outpatient Treatment Too Risky, Need Close Monitoring Due to Risk of Patient Decompensation, Need For Continuous Telemetry Monitoring, Need for Nebulizer Therapy and Monitoring of Response, Risk of Complication if Not Cared For in Hospital, Risk of Diagnosis Which Will Require Inpatient Eval/Care/ Monitoring
[2017-12-04] MEDS ORDERED: POTASSIUM CHLORIDE 20 MEQ/15 ML UDCUP PO ONE (20:30)
[2017-12-04] MEDS: FUROSEMIDE INJ/PF 20 MG/2 ML SDV IV SCH (21:09)
[2017-12-04] MEDS: ATORVASTATIN CALCIUM 40 MG TABLET PO SCH (21:09)
[2017-12-05 05:12] LABS: ABSOLUTE EOSINOPHILS # (AUTO) 0.3 10^3/uL (0.0-0.6); ABSOLUTE LYMPHOCYTES (AUTO) 1.8 10^3/uL (0.5-4.7); ABSOLUTE MONOCYTES (AUTO) 0.4 10^3/uL (0.1-1.4); ABSOLUTE NEUT (AUTO) 2.9 10^3/uL (1.7-8.2); BASOPHILS % (AUTO) 0.9 % (0-2); EOSINOPHILS % (AUTO) 5.2 % (0-6); HEMATOCRIT 31.1 % (36.0-47.0); HEMOGLOBIN 10.2 g/dL (12.0-15.5); MEAN CORPUSCULAR HEMOGLOBIN 30.6 pg (27.0-33.4); MEAN CORPUSCULAR HGB CONC 32.9 g/dL (32.0-36.0); MEAN CORPUSCULAR VOLUME 93 fl (80-97); MONOCYTES % (AUTO) 6.8 % (3-13); PLATELET COUNT 253 10^3/uL (150-450); RED BLOOD COUNT 3.34 10^6/uL (3.72-5.28); RED CELL DISTRIBUTION WIDTH 15.5 % (11.5-14.0); SEGMENTED NEUTROPHILS % (AUTO) 53.1 % (42-78); TOTAL CELLS COUNTED % (AUTO) 100 %; WHITE BLOOD COUNT 5.4 10^3/uL (4.0-10.5)
[2017-12-05 05:27] LABS: ANION GAP 10 (5-19); BLOOD UREA NITROGEN 22 mg/dL (7-20); CALCIUM 8.4 mg/dL (8.4-10.2); CARBON DIOXIDE 28 mmol/L (22-30); CHLORIDE 105 mmol/L (98-107); GLUCOSE 190 mg/dL (75-110); POTASSIUM 4.4 mmol/L (3.6-5.0); SODIUM 142.8 mmol/L (137-145)
[2017-12-05] MEDS: GABAPENTIN 300 MG CAPSULE PO SCH (05:36)
[2017-12-05] MEDS: HYDRALAZINE HCL 50 MG TABLET PO SCH (05:36)
[2017-12-05] MEDS: CLONIDINE HCL 0.2 MG TABLET PO SCH (05:36)
[2017-12-05] MEDS: HEPARIN SOD (PORCINE) 5,000 UNIT/ML 1 ML SYRINGE SUBCUT SCH (05:36)
[2017-12-05] MEDS: IPRATROPIUM/ALBUTEROL 0.5-2.5 MG/3 ML AMPUL NEB SCH (08:12)
--- NOTE | 2017-12-05 09:27 | PDOC DISCHARGE SUMMARY ---
General - Admit/Disc Date/PCP Admission Date/Primary Care Provider: 12/03/17 17:11 NOMAN HENDRICKSON Discharge Date: 12/05/17 - Discharge Diagnosis (1) Acute on chronic combined systolic and diastolic CHF (congestive heart failure) Is this a current diagnosis for this admission?: Yes (2) Hypertensive urgency Is this a current diagnosis for this admission?: Yes (3) Diabetes mellitus type 2 in obese Is this a current diagnosis for this admission?: Yes (4) Diabetic neuropathy Is this a current diagnosis for this admission?: Yes (5) Dyslipidemia Is this a current diagnosis for this admission?: Yes (6) COPD (chronic obstructive pulmonary disease) Is this a current diagnosis for this admission?: Yes (7) Coronary artery disease Is this a current diagnosis for this admission?: Yes (8) Lumbago Is this a current diagnosis for this admission?: Yes (9) Polysubstance abuse Is this a current diagnosis for this admission?: Yes (10) Tobacco abuse Is this a current diagnosis for this admission?: Yes (11) DVT prophylaxis Is this a current diagnosis for this admission?: Yes - Additional Information Resuscitation Status: Full Code Discharge Diet: Cardiac, Diabetic Discharge Activity: Activity As Tolerated, Balance Activity w/Rest, Weigh Daily Home Medications: Albuterol Sulfate [Ventolin HFA MDI 18 GM] 2 puff IH Q6HP PRN 12/04/17 Clopidogrel Bisulfate [Plavix 75 mg Tablet] 75 mg PO DAILY 12/04/17 Ergocalciferol (Vitamin D2) [Drisdol 50,000 unit (1.25MG) Capsule] 50,000 unit PO WAGNER@1000 12/04/17 Fenofibrate Nanocrystallized [Fenofibrate] 145 mg PO DAILY 12/04/17 Furosemide [Lasix 20 mg Tablet] 20 mg PO DAILY 12/04/17 Gabapentin [Neurontin] 600 mg PO Q12 12/04/17 Omeprazole 40 mg PO DAILY 12/04/17 Simvastatin [Zocor 40 mg Tablet] 40 mg PO QPM 12/04/17 History of Present Illness History of Present Illness: MAGNO WILSON is a 57 year old female Hospital Course Hospital Course: 57 year old woman who was admitted for acute on chronic combined CHF decompensation/HTN urgency and Polysubstance abuse. She was in [facility] half-way for heroin abuse and was brought in for apolinar. leg swellin, facial swelling and dyspnea. She was admitted at [facility] and had serial EKG and cardiac enzymes to rule out MA. She was put on IV Lasix, Potassium supplements, oxygen by N/C and antihypertensives. Extensive counseling for polysubstance abuse was done and its effects on her health. We found out that patient has not filled her medications since her last discharge in 10/2017 and is still actively using cocaine and heroin. She was informed that if she continues with this attitude of non- compliance with medications and office visit and polysubstance abuse, she will be discharged from my practice. She is table and will be discharged home today to follow up in office within 1 week for transition of care. Physical Exam Vital Signs: Temp Pulse Resp BP Pulse Ox 98.9 F 76 14 125/80 96 12/05/17 07:59 12/05/17 08:00 12/05/17 08:00 12/05/17 07:59 12/05/17 08:00 Intake & Output 12/04/17 12/05/17 12/06/17 06:59 06:59 06:59 Intake Total 20 1857 Balance 20 1857 Weight 78.1 kg 80.3 kg General appearance: PRESENT: no acute distress, cooperative, obese, well- developed, well-nourished Head exam: PRESENT: atraumatic, normocephalic Eye exam: PRESENT: EOMI, PERRLA Ear exam: PRESENT: normal external ear exam, TM's normal bilaterally Mouth exam: PRESENT: neck supple, tongue midline Neck exam: PRESENT: full ROM Respiratory exam: PRESENT: clear to auscultation apolinar, decreased breath sounds, symmetrical Cardiovascular exam: PRESENT: +S1, +S2 Pulses: PRESENT: +1 pedal pulses bilateral GI/Abdominal exam: PRESENT: normal bowel sounds, soft Rectal exam: PRESENT: deferred Extremities exam: PRESENT: full ROM Musculoskeletal exam: PRESENT: full ROM Neurological exam: PRESENT: alert, awake, oriented to person, oriented to place , oriented to time Psychiatric exam: PRESENT: normal mood Results Laboratory Results: 12/05/17 04:17 12/05/17 04:17 12/05/17 12/05/17 04:17 04:17 WBC 5.4 RBC 3.34 L Hgb 10.2 L Hct 31.1 L MCV 93 MCH 30.6 MCHC 32.9 RDW 15.5 H Plt Count 253 Seg Neutrophils % 53.1 Lymphocytes % 34.0 Monocytes % 6.8 Eosinophils % 5.2 Basophils % 0.9 Absolute Neutrophils 2.9 Absolute Lymphocytes 1.8 Absolute Monocytes 0.4 Absolute Eosinophils 0.3 Absolute Basophils 0.0 Sodium 142.8 Potassium 4.4 Chloride 105 Carbon Dioxide 28 Anion Gap 10 BUN 22 H Creatinine 1.24 Est GFR ( Amer) 54 L Est GFR (Non-Af Amer) 45 L Glucose 190 H Calcium 8.4 Magnesium 1.5 L 12/03/17 12/04/17 21:15 03:19 Troponin I 0.066 0.060 Impressions: Chest X-Ray 12/03/17 13:49 IMPRESSION: Congestive failure with interstitial pulmonary edema. Qualifiers - * PATIENT BEING DISCHARGED WITH ANY OF THE FOLLOWING DIAGNOSIS: Heart Failure VTE patient discharged on overlapping Therapy?: Yes Stroke Pt being discharged on Anti-thrombolytic therapy?: No Reason(s) for not prescribing Anti-thrombolytic therapy:: Not indicated Stroke Pt being discharged on Anti-coagulation therapy?: Yes Stroke Pt being discharged on Statins?: Yes MA Pt being discharged on Aspirin therapy?: Yes MA Pt being discharged on Statins?: Yes MA Pt discharged ACEI/ARBS?: Yes HF Pt being discharged on ACEI for LVEF less than 40%?: Yes HF Pt being discharged on ARBS for LVEF less than 40%?: Yes HF Pt with Afib discharged with Warfarin?: No Reason(s) for not prescribing Warfarin:: Not indicated - She has no A-fib HF Pt discharged on evidence-based Beta Andrea:: Yes
[2017-12-05] MEDS ORDERED: POTASSIUM CHLORIDE 20 MEQ/15 ML UDCUP PO SCH (10:00)
[2017-12-05] MEDS: NICOTINE 14 MG/24 HR PATCH.TD24 TD SCH (10:41)
[2017-12-05] MEDS: AMLODIPINE BESYLATE 10 MG TABLET PO SCH (10:42)
[2017-12-05] MEDS: THIAMINE HCL 100 MG TABLET PO SCH (10:42)
[2017-12-05] MEDS: MULTIVITAMIN TABLET PO SCH (10:42)
[2017-12-05] MEDS: ASPIRIN 81 MG TABLET, ENT COATED PO SCH (10:42)
[2017-12-05] MEDS: FUROSEMIDE INJ/PF 20 MG/2 ML SDV IV SCH (10:43)
[2017-12-05] MEDS: INSULIN GLARGINE,HUM.REC.ANLOG 300 UNIT/3 ML INSULN.PEN SUBCUT SCH (10:43)
[2017-12-05 11:14] VITALS: BP 152/66
== END 2017-12-05 12:43 | disposition home or self-care (01) | DRG 293 ==
LOC: ER 13:21 → EH 17:11 → 3W 18:18
PROVIDERS: ADMIT Family Medicine; ATTEND Family Medicine
DX: I11.0 Hypertensive heart disease with heart failure (principal); I50.43 Acute on chronic combined systolic (congestive) and diastolic (congestive) heart failure; I16.0 Hypertensive urgency; E11.40 Type 2 diabetes mellitus with diabetic neuropathy, unspecified; E78.5 Hyperlipidemia, unspecified; J44.9 Chronic obstructive pulmonary disease, unspecified; I25.10 Atherosclerotic heart disease of native coronary artery without angina pectoris; F11.10 Opioid abuse, uncomplicated; F17.210 Nicotine dependence, cigarettes, uncomplicated; T38.3X6A Underdosing of insulin and oral hypoglycemic [antidiabetic] drugs, initial encounter; F14.10 Cocaine abuse, uncomplicated; B19.20 Unspecified viral hepatitis C without hepatic coma; F10.10 Alcohol abuse, uncomplicated; E11.42 Type 2 diabetes mellitus with diabetic polyneuropathy; M54.5 Low back pain; D64.9 Anemia, unspecified; Z90.49 Acquired absence of other specified parts of digestive tract; Z95.5 Presence of coronary angioplasty implant and graft; Z91.138 Patient's unintentional underdosing of medication regimen for other reason; Z98.51 Tubal ligation status
CPT/HCPCS: 36415; 71046; 80048; 80053; 81001; 82550; 82962; 83735; 83880; 84484; 85025; 93005; 93010; 96374; 96375; 99285; J1200; J1644; J1815; J1940; J2765; J7620

== ENCOUNTER 2017-12-23 17:09 | Emergency (ER) | payer MEDICARE, MEDICAID ==
--- NOTE | 2017-12-23 18:08 | ER Document Report ---
ED General - General Chief Complaint: Facial Swelling Stated Complaint: FACIAL SWELLING Time Seen by Provider: 12/23/17 18:01 Notes: The patient is a 57-year-old female, past medical history CHF, cocaine and heroin abuse, COPD, presents in police custody with mild diffuse body swelling and facial swelling. She says she is taking her Lasix as prescribed. Patient also feeling slightly short of breath with wheezing. She denies chest pain, back pain, hemoptysis, fevers, nausea, vomiting, abdominal pain or increased calf or leg swelling. TRAVEL OUTSIDE OF THE [place] IN LAST 30 DAYS: No - Related Data Allergies/Adverse Reactions: No Known Allergies Allergy (Verified 12/03/17 13:25) Past Medical History - General Information source: Patient - Social History Smoking Status: Current Every Day Smoker Chew tobacco use (# tins/day): No Frequency of alcohol use: None Drug Abuse: Cocaine, Heroin Family History: DM, Hypertension Patient has suicidal ideation: No Patient has homicidal ideation: No - Past Medical History Cardiac Medical History: Reports: Hx Congestive Heart Failure, Hx Coronary Artery Disease, Hx Hypercholesterolemia, Hx Hypertension Endocrine Medical History: Reports: Hx Diabetes Mellitus Type 1, Hx Diabetes Mellitus Type 2 Renal/ Medical History: Denies: Hx Peritoneal Dialysis GI Medical History: Reports: Hx Hepatitis - Hepatitis C Psychiatric Medical History: Denies: Hx Depression Infectious Medical History: Reports: Hx Hepatitis - Hepatitis C Past Surgical History: Reports: Hx Appendectomy, Hx Section, Hx Coronary Stent, Hx Gynecologic Surgery, Hx Tubal Ligation, Other - salpingo- oophorectomy. Denies: Hx Hysterectomy - Immunizations Hx Diphtheria, Pertussis, Tetanus Vaccination: Yes Review of Systems - Review of Systems Notes: REVIEW OF SYSTEMS: CONSTITUTIONAL: -fevers, -chills EENT: -eye pain, -difficulty swallowing, -nasal congestion CARDIOVASCULAR: -chest pain, -syncope. RESPIRATORY: -cough, +SOB GASTROINTESTINAL: -abdominal pain, -nausea, -vomiting, -diarrhea GENITOURINARY: -dysuria, -hematuria MUSCULOSKELETAL: -back pain, -neck pain SKIN: -rash or skin lesions. HEMATOLOGIC: -easy bruising or bleeding. LYMPHATIC: -swollen, enlarged glands. NEUROLOGICAL: -altered mental status or loss of consciousness, -headache, - neurologic symptoms PSYCHIATRIC: -anxiety, -depression. ALL OTHER SYSTEMS REVIEWED AND NEGATIVE. Physical Exam - Vital signs Vitals: Temp Pulse Resp BP Pulse Ox 98.3 F 116 H 18 148/81 H 92 12/23/17 17:55 12/23/17 17:55 12/23/17 17:55 12/23/17 17:55 12/23/17 17:55 - Notes Notes: PHYSICAL EXAMINATION: GENERAL: Well-appearing, well-nourished and in no acute distress. HEAD: Atraumatic, normocephalic. EYES: Pupils equal round and reactive to light, extraocular movements intact, sclera anicteric, conjunctiva are normal. ENT: mild facial swelling, nares patent, oropharynx clear without exudates. Moist mucous membranes. NECK: Normal range of motion, supple without lymphadenopathy LUNGS: Mild end-expiratory wheezes, mild tachypnea HEART: Tachycardia, regular rhythm ABDOMEN: Soft, nontender, normoactive bowel sounds. No guarding, no rebound. No masses appreciated. EXTREMITIES: Normal range of motion, 1+ pitting edema around ankles. No cyanosis. NEUROLOGICAL: Cranial nerves grossly intact. Normal speech, normal gait. Normal sensory and motor exams. PSYCH: Normal mood, normal affect. SKIN: Warm, Dry, normal turgor, no rashes or lesions noted. Course - Re-evaluation Re-evalutation: Pt does not appear in any acute respiratory distress. She is satting 98% on room air and her mild tachypnea and wheezing resolved after DuoNebs and steroids. Blood work is unremarkable. Due to her mild persistent tachycardia, d-dimer was ordered to assess for PE, which was positive. However, her CTA did not show evidence of PE. It did show stable pleural effusions. She also has mild anasarca and she was given IV Lasix. She takes 20 mg oral Lasix daily while in [facility]. With a negative PE study, suspect her tachycardia is most likely from albuterol use and cocaine use. Will send her home with 4 more days of prednisone and instructions to use her albuterol as needed. Instructed her follow-up with her primary care physician for further evaluation and treatment. - Vital Signs Vital signs: Temp Pulse Resp BP Pulse Ox 98.3 F 116 H 25 H 172/105 H 94 12/23/17 17:55 12/23/17 17:55 12/23/17 22:03 12/23/17 22:03 12/23/17 22:03 - Laboratory Result Diagrams: 12/23/17 18:20 12/23/17 20:59 Laboratory results interpreted by me: 12/23/17 12/23/17 12/23/17 18:20 18:20 19:14 RDW 15.2 H D-Dimer 1.28 H Glucose Direct Bilirubin NT-Pro-B Natriuret Pep 69150 H Albumin 12/23/17 20:59 RDW D-Dimer Glucose 121 H Direct Bilirubin 0.6 H NT-Pro-B Natriuret Pep Albumin 2.8 L - Diagnostic Test Radiology reviewed: Image reviewed, Reports reviewed Radiology results interpreted by me: CXR: NAD CTA Chest: 1. Normal CTA of the chest. No pulmonary emboli. 2. Stable pulmonary exam demonstrating bibasilar atelectasis and small bilateral pleural effusions. 3. Stable cardiomegaly with a small pericardial effusion. Discharge - Discharge Clinical Impression: Generalized edema, Shortness of breath Condition: Stable Disposition: HOME, SELF-CARE Additional Instructions: BRONCHITIS WITH BRONCHOSPASM (WHEEZING): You have bronchitis with bronchospasm (wheezing). Sometimes people develop wheezing with a chest cold. This occurs either because of an underlying tendency toward asthma or because the virus itself irritates the bronchial tubes. This irritation causes cough, shortness of breath, and wheezing. Emergency treatment of bronchospasm may include adrenaline shots or bronchodilator aerosol. You may feel lightheaded and have a rapid pulse for an hour or two. Rest and get plenty of fluids. At home, we'll treat you with a bronchodilator inhaler. Corticosteroids may be required for some patients. Until you recover, avoid chemical fumes, dusts, pollens, and exercising in very cold or dry air. If you smoke, stop now! Most cases of bronchitis get better without antibiotics. We prescribe antibiotics when we believe bacteria are damaging your airways, or if there's high risk the bronchitis will worsen into pneumonia. Increase your fluid intake. A cool mist humidifier may make your lungs more comfortable. An expectorant (cough medicine that loosens phlegm) can help. Repeated episodes of bronchitis and bronchospasm may result in lung damage -- for example, chronic bronchitis, recurrent pneumonias, or emphysema. If you develop a fever, increased wheezing, chest pain, or severe shortness of breath, you should contact the doctor immediately. INHALED BRONCHODILATORS: You have received a treatment of and/or prescription for an inhaled bronchodilator -- a medication which stimulates the airways in the lung to dilate. This improves the flow of air in asthma, bronchitis, and emphysema. These medicines have some similarity to adrenaline, and can cause similar side effects: shakiness, racing heart, and a sense of nervousness. These side effects decrease with time. Contact your doctor if these side effects are severe. Do not over-use the medicine. Too-frequent use of the inhaler may make it ineffective. Call your doctor if the inhaler is not controlling your symptoms at the prescribed doses. STEROID MEDICATION: You have been given an injection of or oral medicine of the cortisone/ steroid class. This medication is used to control inflammation or allergy. Frankie t is usually only given for a short period of time, until the acute process subsides. There are usually no side effects from short-term use of cortisone-like medications. Some persons feel an increased sense of well-being and are not sleepy at bedtime. Long-term use of cortisone medications is best avoided, unless required for a severe condition. If your condition does not remit, or relapses after the course of corticosteroid medication, you should consult your physician. USE OF ACETAMINOPHEN (Tylenol): Acetaminophen may be taken for pain relief or fever control. It's much safer than aspirin, offering a wider range of "safe" dosages. It is safe during . Some brand names are Tylenol, Panadol, Datril, Anacin 3, Tempra, and Liquiprin. Acetaminophen can be repeated every four hours. The following are maximum recommended dosages: >89 pounds or adults 650 mg to 900 mg Acetaminophen can be repeated every four hours. Maximum dose not to exceed 4000 mg a day. SMOKING: If you smoke, you should stop smoking. The tar and chemicals in cigarette smoke are harmful. Smoking has been shown to cause: emphysema chronic bronchitis lung cancer mouth and throat cancer stomach and pancreas cancer premature aging defects In addition, smoking increases ear and lung infections in children of smokers. FOLLOW-UP CARE: If you have been referred to a physician for follow-up care, call the physician s office for an appointment as you were instructed or within the next two days. If you experience worsening or a significant change in your symptoms, notify the physician immediately or return to the Emergency Department at any time for re-evaluation. Prescriptions: Albuterol Sulfate [Proair HFA Inhalation Aerosol 8.5 gm MDI] 2 puff IH Q4H PRN # 1 mdi PRN Reason: Prednisone [Deltasone 20 mg Tablet] 3 tab PO DAILY 4 Days tablet Forms: Elevated Blood Pressure Referrals: NOMAN HENDRICKSON MD [Primary Care Provider] - Follow up as needed
[2017-12-23 18:42] LABS: ABSOLUTE BASOPHILS # (AUTO) 0.1 10^3/uL (0.0-0.2); ABSOLUTE EOSINOPHILS # (AUTO) 0.2 10^3/uL (0.0-0.6); ABSOLUTE LYMPHOCYTES (AUTO) 1.5 10^3/uL (0.5-4.7); ABSOLUTE MONOCYTES (AUTO) 0.3 10^3/uL (0.1-1.4); BASOPHILS % (AUTO) 1.5 % (0-2); EOSINOPHILS % (AUTO) 2.5 % (0-6); HEMATOCRIT 37.8 % (36.0-47.0); HEMOGLOBIN 12.3 g/dL (12.0-15.5); LYMPHOCYTES % (AUTO) 21.6 % (13-45); MEAN CORPUSCULAR HEMOGLOBIN 30.1 pg (27.0-33.4); MEAN CORPUSCULAR HGB CONC 32.5 g/dL (32.0-36.0); MEAN CORPUSCULAR VOLUME 93 fl (80-97); PLATELET COUNT 370 10^3/uL (150-450); RED BLOOD COUNT 4.08 10^6/uL (3.72-5.28); RED CELL DISTRIBUTION WIDTH 15.2 % (11.5-14.0); SEGMENTED NEUTROPHILS % (AUTO) 70.4 % (42-78); TOTAL CELLS COUNTED % (AUTO) 100 %; WHITE BLOOD COUNT 7.1 10^3/uL (4.0-10.5)
[2017-12-23] MEDS ORDERED: IPRATROPIUM/ALBUTEROL 0.5-2.5 MG/3 ML AMPUL NEB ONE ×2 (19:27→19:42)
[2017-12-23] MEDS ORDERED: METHYLPREDNISOLONE INJ 125 MG/2 ML SDV IV ONE (19:50)
--- NOTE | 2017-12-23 19:52 | RADIOLOGY REPORT (SQ) ---
EXAM DESCRIPTION: CHEST SINGLE VIEW COMPLETED DATE/TIME: 12/23/2017 7:35 pm REASON FOR STUDY: SOB COMPARISON: 12/03/2017, 11/14/2017. EXAM PARAMETERS: NUMBER OF VIEWS: One view. TECHNIQUE: Single frontal radiographic view of the chest acquired. RADIATION DOSE: NA LIMITATIONS: None. FINDINGS: LUNGS AND PLEURA: No new focal opacities, masses or pneumothorax. No pleural effusion. MEDIASTINUM AND HILAR STRUCTURES: Stable. HEART AND VASCULAR STRUCTURES: Stable cardiomegaly. No central vascular congestion. BONES: No acute findings. HARDWARE: None in the chest. OTHER: No other significant finding. IMPRESSION: Stable radiographic appearance of the chest demonstrating cardiomegaly. TECHNICAL DOCUMENTATION: JOB ID: [id number] [employer] All Rights Reserved Reading location - IP/workstation name: [email or web address]
--- NOTE | 2017-12-23 21:21 | RADIOLOGY REPORT (SQ) ---
EXAM DESCRIPTION: CTA CHEST COMPLETED DATE/TIME: 12/23/2017 9:07 pm REASON FOR STUDY: tachycardia, SOB, elevated d-dimer COMPARISON: 12/23/2017 and 11/14/2017 TECHNIQUE: CT scan of the chest performed using helical scanning technique with dynamic intravenous contrast injection. Images reviewed with lung, soft tissue and bone windows. Reconstructed coronal and sagittal MPR images reviewed. Additional 3 dimensional post-processing performed to develop Maximal Intensity Projection images (AK P). All images stored on PACS. All CT scanners at this facility use dose modulation, iterative reconstruction, and/or weight based d osing when appropriate to reduce radiation dose to as low as reasonably achievable (ALARA). [facility]: Dose Right [facility]: CareDose [facility]: Dose Right [facility]: Teradose 4D [facility]: [place] CONTRAST TYPE AND DOSE: contrast/concentration: Isovue 370.00 mg/ml; Total Contrast Delivered: 79.0 ml; Total Saline Delivered: 180.0 ml Contrast bolus optimized for the pulmonary arteries. Not diagnostic for the aorta. RENAL FUNCTION: BUN 22; creatinine 1.24 ; D-dimer 1.28 RADIATION DOSE: CT Rad equipment meets quality standard of care and radiation dose reduction techniq ues were employed. CTDIvol: 13.2 - 22.2 mGy. DLP: 891 mGy-cm. . LIMITATIONS: None. FINDINGS: LUNGS AND PLEURA: Re- demonstration of bibasilar atelectasis and small bilateral pleural e ffusions. AORTA AND GREAT VESSELS: No aneurysm. Contrast bolus not optimized for the aorta. HEART: Stable small pericardial effusion. Re- demonstration of cardiomegaly with coronary artery dise ase. PULMONARY ARTERIES: No emboli visualized in the main pulmonary arteries or the segmental branches. HILAR AND MEDIASTINAL STRUCTURES: No identified masses or abnormal nodes. HARDWARE: None in the chest. UPPER ABDOMEN: No significant findings. Limited exam. THYROID AND OTHER SOFT TISSUES: Diffuse subcutaneous fat stranding is present. BONES: No acute or significant finding. 3D MIPS: Confirm above findings. OTHER: No other significant finding. IMPRESSION: 1. Normal CTA of the chest. No pulmonary emboli. 2. Stable pulmonary exam demonstrating bibasilar atelectasis and small bilateral pleural effusions. 3. Stable cardiomegaly with a small pericardial effusion. COMMENT: Quality ID # [id number]: Final reports with documentation of one or more dose reduction techniques (e.g., Automated exposure control, adjustment of the mA and/or kV according to patient size, use of iterative reconstruction technique) TECHNICAL DOCUMENTATION: JOB ID: [id number] [employer]- All Rights Reserved Reading location - IP/workstation name: [email or web address]
[2017-12-23 21:22] LABS: ALANINE AMINOTRANSFERASE 19 U/L (9-52); ALBUMIN 2.8 g/dL (3.5-5.0); ALKALINE PHOSPHATASE 77 U/L (38-126); ANION GAP 8 (5-19); ASPARTATE AMINO TRANSFERASE 23 U/L (14-36); BILIRUBIN,DIRECT 0.6 mg/dL (0.0-0.4); BILIRUBIN,TOTAL 0.7 mg/dL (0.2-1.3); BLOOD UREA NITROGEN 15 mg/dL (7-20); CALCIUM 9.1 mg/dL (8.4-10.2); CARBON DIOXIDE 30 mmol/L (22-30); CHLORIDE 107 mmol/L (98-107); GLUCOSE 121 mg/dL (75-110); POTASSIUM 3.6 mmol/L (3.6-5.0); SODIUM 144.9 mmol/L (137-145); TOTAL PROTEIN 6.5 g/dL (6.3-8.2)
[2017-12-23 22:44] VITALS: BP 172/105
== END 2017-12-23 22:53 | disposition home or self-care (01) ==
LOC: ER 17:09
DX: I11.0 Hypertensive heart disease with heart failure (principal); I50.9 Heart failure, unspecified; Z79.899 Other long term (current) drug therapy; J44.9 Chronic obstructive pulmonary disease, unspecified; J98.11 Atelectasis; I31.3 Pericardial effusion (noninflammatory); J90 Pleural effusion, not elsewhere classified; R60.1 Generalized edema; F14.10 Cocaine abuse, uncomplicated; F11.10 Opioid abuse, uncomplicated; I25.10 Atherosclerotic heart disease of native coronary artery without angina pectoris; E11.9 Type 2 diabetes mellitus without complications; F17.200 Nicotine dependence, unspecified, uncomplicated; R00.0 Tachycardia, unspecified; Z95.5 Presence of coronary angioplasty implant and graft
CPT/HCPCS: 94640 ×2; 99285; 96374; 36415; 85025; 80053; 85379; 83880; 71045; 71275; J2930; A9270; J7620

== ENCOUNTER 2018-01-21 16:27 | Inpatient (IN) | payer MEDICARE, MEDICAID ==
--- NOTE | 2018-01-21 17:05 | ER Document Report ---
ED Medical Screen (RME) - General Chief Complaint: Shortness Of Breath Stated Complaint: SHORTNESS OF BREATH Time Seen by Provider: 01/21/18 17:01 Mode of Arrival: Wheelchair Information source: Patient Notes: 57-year-old female history of congestive heart failure presents with complaints of peripheral edema shortness of breath patient noted to be tachycardic on arrival she was recently seen for cocaine abuse Patient also noted to have a large soft drink states she has not been told anything about fluid restrictions Patient is on Lasix and frusemide I have greeted and performed a rapid initial assessment of this patient. A comprehensive ED assessment and evaluation of the patient, analysis of test results and completion of the medical decision making process will be conducted by additional ED providers. PHYSICAL EXAMINATION: GENERAL: Well-appearing, well-nourished and in no acute distress. HEAD: Atraumatic, normocephalic. EYES: Pupils equal round extraocular movements intact, conjunctiva are normal. ENT: Nares patent NECK: Normal range of motion LUNGS: No respiratory distress Musculoskeletal: +3 pitting edema NEUROLOGICAL: Normal speech, normal gait. PSYCH: Normal mood, normal affect. SKIN: Warm, Dry, normal turgor, no rashes or lesions noted. TRAVEL OUTSIDE OF THE [place] IN LAST 30 DAYS: No - Related Data Allergies/Adverse Reactions: No Known Allergies Allergy (Verified 12/03/17 13:25) Past Medical History - Past Medical History Cardiac Medical History: Reports: Hx Congestive Heart Failure, Hx Coronary Artery Disease, Hx Hypercholesterolemia, Hx Hypertension Endocrine Medical History: Reports: Hx Diabetes Mellitus Type 1, Hx Diabetes Mellitus Type 2 Renal/ Medical History: Denies: Hx Peritoneal Dialysis GI Medical History: Reports: Hx Hepatitis - Hepatitis C Psychiatric Medical History: Denies: Hx Depression Infectious Medical History: Reports: Hx Hepatitis - Hepatitis C Past Surgical History: Reports: Hx Appendectomy, Hx Section, Hx Coronary Stent, Hx Gynecologic Surgery, Hx Tubal Ligation, Other - salpingo- oophorectomy. Denies: Hx Hysterectomy - Immunizations Hx Diphtheria, Pertussis, Tetanus Vaccination: Yes History of Influenza Vaccine for 04/2017 - 09/2017 Season: No Physical Exam - Vital signs Vitals: Temp Pulse Resp BP Pulse Ox 99.5 F 126 H 18 150/87 H 95 01/21/18 16:32 01/21/18 16:32 01/21/18 16:32 01/21/18 16:32 01/21/18 16:32 Course - Vital Signs Vital signs: Temp Pulse Resp BP Pulse Ox 99.5 F 126 H 18 150/87 H 95 01/21/18 16:32 01/21/18 16:32 01/21/18 16:57 01/21/18 16:32 01/21/18 16:32 Doctor's Discharge - Discharge Referrals: NOMAN HENDRICKSON MD [Primary Care Provider] - Follow up as needed
[2018-01-21] MEDS ORDERED: ASPIRIN 81 MG TABLET, CHEWABLE PO ONE (17:06)
--- NOTE | 2018-01-21 18:04 | RADIOLOGY REPORT (SQ) ---
EXAM DESCRIPTION: CHEST SINGLE VIEW COMPLETED DATE/TIME: 01/21/2018 5:35 pm REASON FOR STUDY: sob COMPARISON: 12/03/2017. FINDINGS: Single-view chest, PA upright 1748 hours. Cardiomegaly and central vascular congestion. Compared to November, better aeration. Mild areas of subse gmental atelectasis. No large effusion or pneumothorax. IMPRESSION: Cardiomegaly and vascular congestion. TECHNICAL DOCUMENTATION: JOB ID: [id number] Reading location - IP/workstation name: [email or web address]
[2018-01-21 18:31] LABS: ABSOLUTE BASOPHILS # (AUTO) 0.1 10^3/uL (0.0-0.2); ABSOLUTE EOSINOPHILS # (AUTO) 0.4 10^3/uL (0.0-0.6); ABSOLUTE LYMPHOCYTES (AUTO) 1.9 10^3/uL (0.5-4.7); ABSOLUTE MONOCYTES (AUTO) 0.4 10^3/uL (0.1-1.4); ABSOLUTE NEUT (AUTO) 4.7 10^3/uL (1.7-8.2); BASOPHILS % (AUTO) 1.9 % (0-2); EOSINOPHILS % (AUTO) 5.6 % (0-6); HEMATOCRIT 33.8 % (36.0-47.0); HEMOGLOBIN 11.1 g/dL (12.0-15.5); LYMPHOCYTES % (AUTO) 25.5 % (13-45); MEAN CORPUSCULAR HEMOGLOBIN 30.8 pg (27.0-33.4); MEAN CORPUSCULAR HGB CONC 32.8 g/dL (32.0-36.0); MEAN CORPUSCULAR VOLUME 94 fl (80-97); MONOCYTES % (AUTO) 5.7 % (3-13); PLATELET COUNT 311 10^3/uL (150-450); RED CELL DISTRIBUTION WIDTH 17.3 % (11.5-14.0); SEGMENTED NEUTROPHILS % (AUTO) 61.3 % (42-78); TOTAL CELLS COUNTED % (AUTO) 100 %; WHITE BLOOD COUNT 7.6 10^3/uL (4.0-10.5)
[2018-01-21] MEDS ORDERED: FUROSEMIDE INJ/PF 40 MG/4 ML SDV IV ONE (19:23)
[2018-01-21] MEDS ORDERED: NITROGLYCERIN 5 MG (0.2 MG/HR) PATCH.TD24 TD ONE (19:23)
--- NOTE | 2018-01-21 19:31 | ER Document Report ---
ED General - General Chief Complaint: Shortness Of Breath Stated Complaint: SHORTNESS OF BREATH Time Seen by Provider: 01/21/18 17:01 Mode of Arrival: Wheelchair Notes: Patient is a 57 year old female with a past medical history of combined systolic and diastolic CHF last known ejection fraction of 25% on a stress test from 11/15/2017, history of polysubstance abuse, hypertension, hyperlipidemia, COPD, who presents with 1 week of progressively worsening bilateral lower extremity edema as well as 2 days of progressive worsening shortness of breath and orthopnea. The patient states that she has been taking her furosemide 40 mg twice daily but that this has not been improving her symptoms. She is supposed to weigh herself daily but has not been doing so but states clearly that she believes she has gained a significant amount of weight. She has not noted that anything seems to worsen her symptoms other than trying to exert herself or lie flat which seems to worsen her shortness of breath. The pain in her bilateral lower extremities is described as a being a throbbing, dull, aching, constant pain. Nothing improves or worsens this pain. She states that this feels similar to when she has had to be hospitalized in the past for CHF exacerbations. She does admit to ongoing dietary indiscretions. TRAVEL OUTSIDE OF THE [place] IN LAST 30 DAYS: No - Related Data Allergies/Adverse Reactions: No Known Allergies Allergy (Verified 12/03/17 13:25) Past Medical History - General Information source: Patient - Social History Smoking Status: Current Every Day Smoker Chew tobacco use (# tins/day): No Frequency of alcohol use: None Drug Abuse: None Lives with: Family Family History: DM, Hypertension Patient has suicidal ideation: No Patient has homicidal ideation: No - Past Medical History Cardiac Medical History: Reports: Hx Congestive Heart Failure, Hx Coronary Artery Disease, Hx Hypercholesterolemia, Hx Hypertension Endocrine Medical History: Reports: Hx Diabetes Mellitus Type 1, Hx Diabetes Mellitus Type 2 Renal/ Medical History: Denies: Hx Peritoneal Dialysis GI Medical History: Reports: Hx Gastroesophageal Reflux Disease, Hx Hepatitis - Hepatitis C Psychiatric Medical History: Denies: Hx Depression Infectious Medical History: Reports: Hx Hepatitis - Hepatitis C Past Surgical History: Reports: Hx Appendectomy, Hx Section, Hx Coronary Stent, Hx Gynecologic Surgery, Hx Tubal Ligation, Other - salpingo- oophorectomy. Denies: Hx Hysterectomy - Immunizations Hx Diphtheria, Pertussis, Tetanus Vaccination: Yes Review of Systems - Review of Systems Notes: Constitutional: Negative for fever. HENT: Negative for sore throat. Eyes: Negative for visual changes. Cardiovascular: Negative for chest pain. Respiratory: Positive for shortness of breath. Gastrointestinal: Negative for abdominal pain, vomiting or diarrhea. Genitourinary: Negative for dysuria. Musculoskeletal: positive for bilateral lower extremity edema and pain. Skin: Negative for rash. Neurological: Negative for headaches, weakness or numbness. 10 point ROS negative except as marked above and in HPI. Physical Exam - Vital signs Vitals: Temp Pulse Resp BP Pulse Ox 99.5 F 126 H 18 150/87 H 95 01/21/18 16:32 01/21/18 16:32 01/21/18 16:32 01/21/18 16:32 01/21/18 16:32 Interpretation: Tachycardic, Tachypneic Notes: PHYSICAL EXAMINATION: GENERAL: Moderate respiratory distress, appears unwell HEAD: Atraumatic, normocephalic. EYES: Pupils equal round and reactive to light, extraocular movements intact, sclera anicteric, conjunctiva are normal. ENT: nares patent, oropharynx clear without exudates. Moderately dry mucous membranes. NECK: Normal range of motion, supple without lymphadenopathy LUNGS: Moderate to try to stress, breathing approximately 32-34 times per minute at time of my initial evaluation, scattered rales throughout. HEART: Regular tachycardia without murmurs ABDOMEN: Soft, nontender, normoactive bowel sounds. No guarding, no rebound. No masses appreciated. EXTREMITIES: Normal range of motion, 4+ pitting edema that is equal and symmetric in the bilateral lower extremities. NEUROLOGICAL: No focal neurological deficits. Moves all extremities spontaneously and on command. PSYCH: Mildly anxious. SKIN: Warm, Dry, normal turgor, no rashes or lesions noted. Course - Re-evaluation Re-evalutation: 01/21/18 19:27 Patient presents ill in appearance, tachypnea, saturating 90% on room air breathing 32 times per minute at the time of my initial assessment with moderate respiratory distress. She has diffuse rales in all lung easley. 4+ pitting edema in the bilateral lower extremities that is equal and symmetric. Chest x-ray does show pulmonary vascular congestion as well as mild pulmonary edema. Patient is a known history of CHF, admits to extensive dietary indiscretions. She will be immediately placed on BiPAP to assist with her respiratory status. An IV will be established. Will administer 80 mg of furosemide. Will Place Nitropaste this patient's current map is 113. Labs are pending. A d-dimer was sent from triage which I do not believe is appropriate as the patient's clinical presentation is not all consistent with an acute pulmonary embolus and the d-dimer will be elevated in this context particular given the patient's distress. She just had a CTA of her chest less than 1 month ago and her d-dimer was elevated at that time as well. Despite this elevated d-dimer, I do not believe it is appropriate to proceed with a repeat CTA of the chest at this time point. Patient does remain quite ill and will require frequent reassessments for monitoring of possible clinical deterioration. 01/21/18 19:56 Patient's work of breathing is improving on BiPAP. Tachypnea improved although patient does remain tachycardic. Awaiting laboratory results 01/21/18 20:28 Patient's heart rate is gradually improving, currently 115. Her work of breathing remains markedly improved. Improved air movement on lung examination. Will continue to reassess. 01/21/18 21:13 Patient's work of breathing continues to improve, currently breathing 17 times per minute 98% on 35% FiO2. Mario movement on lung examination much improved. Blood pressure does continue to be elevated that is in place currently 174 on 117. Her tachycardia continues to improve current heart rate 110. BNP is noted to be markedly elevated and her troponin is actually slightly better than her most recent check. I discussed with Dr. Morgan Quintana who has accepted the patient for admission at this time point. - Vital Signs Vital signs: Temp Pulse Resp BP Pulse Ox 97.6 F 110 H 14 158/98 H 100 01/21/18 22:30 01/22/18 02:00 01/22/18 00:00 01/21/18 22:31 01/21/18 22:30 - Laboratory Result Diagrams: 01/21/18 18:23 01/21/18 19:25 Laboratory results interpreted by me: 01/21/18 01/21/18 01/21/18 18:23 18:23 19:25 RBC 3.60 L Hgb 11.1 L Hct 33.8 L RDW 17.3 H D-Dimer 1.71 H Chloride 109 H Est GFR (Non-Af Amer) 52 L Glucose 127 H Direct Bilirubin 0.5 H NT-Pro-B Natriuret Pep Albumin 3.1 L 01/21/18 19:25 RBC Hgb Hct RDW D-Dimer Chloride Est GFR (Non-Af Amer) Glucose Direct Bilirubin NT-Pro-B Natriuret Pep 11235 H Albumin - Diagnostic Test Radiology reviewed: Image reviewed, Reports reviewed Radiology results interpreted by me: 01/21/18 19:28 Chest x-ray: Cardiomegaly, pulmonary vascular congestion and mild pulmonary edema - EKG Interpretation by Me Additional EKG results interpreted by me: 01/21/18 20:29 Sinus tachycardia. Rate 121. No ST elevation or depressions. QTC is 426. Critical Care Note - Critical Care Note Total time excluding time spent on procedures (mins): 36 Comments: Critical care time spent obtaining history from patient or surrogate, discussions with consultants, development of treatment plan with patient or surrogate, evaluation of patient's response to treatment, examination of patient , ordering and performing treatments and interventions, ordering and review of laboratory studies, re-evaluation of patient's condition, ordering and review of radiographic studies and review of old charts Discharge - Discharge Clinical Impression: Respiratory distress, Uncontrolled hypertension CHF exacerbation Qualifiers: Heart failure type: combined systolic and diastolic Qualified Code(s): I50.43 - Acute on chronic combined systolic (congestive) and diastolic (congestive) heart failure Condition: Fair Disposition: ADMITTED INPATIENT Admitting Provider: Hospitalist Unit Admitted: Telemetry
[2018-01-21 20:01] LABS: ALANINE AMINOTRANSFERASE 21 U/L (9-52); ALBUMIN 3.1 g/dL (3.5-5.0); ALKALINE PHOSPHATASE 103 U/L (38-126); ANION GAP 9 (5-19); BILIRUBIN,DIRECT 0.5 mg/dL (0.0-0.4); BILIRUBIN,TOTAL 0.6 mg/dL (0.2-1.3); BLOOD UREA NITROGEN 14 mg/dL (7-20); CALCIUM 8.7 mg/dL (8.4-10.2); CARBON DIOXIDE 24 mmol/L (22-30); CHLORIDE 109 mmol/L (98-107); CREATINE KINASE 57 U/L (30-135); GLUCOSE 127 mg/dL (75-110); SODIUM 141.9 mmol/L (137-145); TOTAL PROTEIN 6.8 g/dL (6.3-8.2)
[2018-01-21 20:02] LABS: ASPARTATE AMINO TRANSFERASE 26 U/L (14-36)
[2018-01-21 20:50] LABS: CREATINE KINASE MB 1.17 ng/mL (<4.55)
[2018-01-21] MEDS ORDERED: LACTULOSE SYRUP 20 GM/30 ML UDCUP PO ONE (21:14)
[2018-01-21] MEDS ORDERED: SODIUM POLYSTYRENE SULFONATE 15 GM/60 ML PO ONE (21:15)
[2018-01-21] MEDS ORDERED: HYDRALAZINE HCL INJ/PF 20 MG/1 ML SDV IV PRN (21:16)
[2018-01-21] MEDS ORDERED: MAG HYDROX/AL HYDROX/SIMETH SUSP 30 ML UDCUP PO PRN (21:16)
--- NOTE | 2018-01-21 21:21 | EKG REPORT ---
SEVERITY:- BORDERLINE ECG - SINUS TACHYCARDIA LOW VOLTAGE IN FRONTAL LEADS BORDERLINE T ABNORMALITIES, DIFFUSE LEADS : Confirmed by: Kt Pride 21-Jan-2018 21:20:13
[2018-01-21] MEDS ORDERED: LOSARTAN POTASSIUM 50 MG TABLET PO ONE (22:15)
[2018-01-21] MEDS: HEPARIN SOD (PORCINE) 5,000 UNIT/ML 1 ML SYRINGE SUBCUT SCH (23:13)
[2018-01-21] MEDS: GABAPENTIN 300 MG CAPSULE PO SCH (23:14)
[2018-01-22] MEDS ORDERED: AMLODIPINE BESYLATE 5 MG TABLET PO ONE (01:30)
[2018-01-22 02:17] LABS: CREATINE KINASE MB 0.98 ng/mL (<4.55)
[2018-01-22 02:31] LABS: TROPONIN I 0.048 ng/mL
[2018-01-22] MEDS ORDERED: CLONIDINE HCL 0.2 MG TABLET PO ONE (04:47)
--- NOTE | 2018-01-22 04:57 | PDOC H&P ---
History of Present Illness Admission Date/PCP: 01/21/18 21:21 NOMAN HENDRICKSON Patient complains of: Shortness of breath History of Present Illness: MAGNO WILSON is a 57 year old female with a past medical history of insulin- dependent diabetes, congestive heart failure with ejection fraction 25%, hypertension, dyslipidemia, COPD and polysubstance abuse including cocaine and heroin. She presents with 48 hours of increasing shortness of breath, edema, orthopnea and exertional dyspnea. She denies regular medication use and is unaware of dietary restrictions. In the emergency room she is found to be compensated heart failure. She receives IV Lasix, nitro and placed on BiPAP. She denies chest pain. Past Medical History Cardiac Medical History: Reports: Congestive Heart Failure, Coronary Artery Disease, Hyperlipidema, Hypertension Endocrine Medical History: Reports: Diabetes Mellitus Type 1, Diabetes Mellitus Type 2 GI Medical History: Reports: Gastroesophageal Reflux Disease, Hepatitis - Hepatitis C Psychiatric Medical History: Reports: Substance Abuse, Tobacco Dependency Denies: Depression Hematology: Reports: Anemia Past Surgical History Past Surgical History: Reports: Appendectomy, Section, Coronary Stent, Tubal Ligation, Other - salpingo-oophorectomy Denies: Hysterectomy Social History Information Source: Patient, [facility] Records Lives with: Family Smoking Status: Current Every Day Smoker Number of Years Smokin Last Time Smoked: 01-21-2018 Frequency of Alcohol Use: Social Hx Recreational Drug Use: Yes Drugs: Cocaine, Heroin Hx Prescription Drug Abuse: Yes - Advance Directive Resuscitation Status: Full Code Family History Family History: DM, Hypertension Parental Family History Reviewed: Yes Children Family History Reviewed: Yes Sibling(s) Family History Reviewed.: Yes Medication/Allergy Home Medications: Clopidogrel Bisulfate [Plavix 75 mg Tablet] 75 mg PO DAILY 12/04/17 Furosemide [Lasix 20 mg Tablet] 20 mg PO DAILY 12/04/17 Gabapentin [Neurontin] 600 mg PO Q12 12/04/17 Albuterol Sulfate [Proair HFA Inhalation Aerosol 8.5 gm MDI] 2 puff IH Q4H PRN # 1 mdi 12/23/17 Prednisone [Deltasone 20 mg Tablet] 3 tab PO DAILY 4 Days tablet 12/23/17 Allergies/Adverse Reactions: No Known Allergies Allergy (Verified 12/03/17 13:25) Review of Systems Constitutional: PRESENT: as per HPI, fatigue, weight gain. ABSENT: anorexia, chills Eyes: ABSENT: visual disturbances Ears: ABSENT: hearing changes Cardiovascular: PRESENT: as per HPI, dyspnea on exertion, edema, orthropnea. ABSENT: chest pain, palpitations Respiratory: PRESENT: as per HPI, cough, dyspnea. ABSENT: hemoptysis, sputum Gastrointestinal: ABSENT: abdominal pain, constipation, diarrhea, hematemesis, hematochezia, nausea, vomiting Genitourinary: ABSENT: dysuria, hematuria Musculoskeletal: ABSENT: joint swelling Integumentary: ABSENT: rash, wounds Neurological: ABSENT: abnormal gait, abnormal speech, confusion, dizziness, focal weakness, syncope Psychiatric: ABSENT: anxiety, depression, homidical ideation, suicidal ideation Endocrine: ABSENT: cold intolerance, heat intolerance, polydipsia, polyuria Hematologic/Lymphatic: ABSENT: easy bleeding, easy bruising Physical Exam Vital Signs: Temp Pulse Resp BP Pulse Ox 97.7 F 111 H 13 164/99 H 100 01/22/18 03:06 01/22/18 03:06 01/22/18 03:06 01/22/18 04:06 01/22/18 03:06 Intake & Output 01/20/18 01/21/18 01/22/18 11:59 11:59 11:59 Intake Total 0 Output Total 250 Balance -250 Weight 91.2 kg General appearance: PRESENT: cooperative, obese, severe distress. ABSENT: hard of hearing Head exam: PRESENT: atraumatic, normocephalic Eye exam: PRESENT: conjunctiva pink, EOMI, PERRLA. ABSENT: scleral icterus Ear exam: PRESENT: normal external ear exam Mouth exam: PRESENT: moist, tongue midline Neck exam: PRESENT: JVD. ABSENT: carotid bruit, lymphadenopathy, thyromegaly Respiratory exam: PRESENT: accessory muscle use, clear to auscultation apolinar, crackles, retraction, symmetrical, tachypnea. ABSENT: rales, rhonchi, wheezes Cardiovascular exam: PRESENT: gallop, RRR, +S1, +S2, tachycardia Pulses: PRESENT: normal dorsalis pedis pul Vascular exam: PRESENT: normal capillary refill GI/Abdominal exam: PRESENT: normal bowel sounds, soft. ABSENT: distended, guarding, mass, organolmegaly, rebound, tenderness Rectal exam: PRESENT: deferred Extremities exam: PRESENT: full ROM, +1 edema. ABSENT: calf tenderness, clubbing, pedal edema Neurological exam: PRESENT: alert, awake, oriented to person, oriented to place , oriented to time, oriented to situation, CN II-XII grossly intact. ABSENT: motor sensory deficit Psychiatric exam: PRESENT: appropriate affect, normal mood. ABSENT: homicidal ideation, suicidal ideation Skin exam: PRESENT: dry, intact, warm. ABSENT: cyanosis, rash Results Laboratory Results: 01/22/18 01/22/18 01:36 01:36 Creatine Kinase 50 CK-MB (CK-2) 0.98 Troponin I 0.048 Impressions: Chest X-Ray 01/21/18 17:06 IMPRESSION: Cardiomegaly and vascular congestion. Assessment & Plan - Diagnosis (1) CHF exacerbation Qualifiers: Heart failure type: combined systolic and diastolic Qualified Code(s): I50.43 - Acute on chronic combined systolic (congestive) and diastolic ( congestive) heart failure Is this a current diagnosis for this admission?: Yes Plan: IMCU admission, secondary to noncompliance, CHF care set, diuresis, follow-up cardiac enzymes chemistry education (2) Uncontrolled hypertension Is this a current diagnosis for this admission?: Yes Plan: Secondary to noncompliance and polysubstance abuse, clonidine ordered (3) COPD (chronic obstructive pulmonary disease) Qualifiers: COPD type: unspecified COPD Qualified Code(s): J44.9 - Chronic obstructive pulmonary disease, unspecified Is this a current diagnosis for this admission?: Yes Plan: Albuterol, Atrovent and incentive spirometry (4) Polysubstance abuse Is this a current diagnosis for this admission?: Yes Plan: Polysubstance abuse, consider referral to outpatient rehab - Time Time Spent: 50 to 70 Minutes - Inpatient Certification Medical Necessity: Need Close Monitoring Due to Risk of Patient Decompensation
[2018-01-22] MEDS: HEPARIN SOD (PORCINE) 5,000 UNIT/ML 1 ML SYRINGE SUBCUT SCH ×3 (05:47→23:27)
[2018-01-22 08:20] LABS: ABSOLUTE EOSINOPHILS # (AUTO) 0.4 10^3/uL (0.0-0.6); ABSOLUTE LYMPHOCYTES (AUTO) 1.2 10^3/uL (0.5-4.7); ABSOLUTE MONOCYTES (AUTO) 0.3 10^3/uL (0.1-1.4); ABSOLUTE NEUT (AUTO) 3.7 10^3/uL (1.7-8.2); BASOPHILS % (AUTO) 0.5 % (0-2); EOSINOPHILS % (AUTO) 6.8 % (0-6); HEMATOCRIT 27.8 % (36.0-47.0); HEMOGLOBIN 9.1 g/dL (12.0-15.5); LYMPHOCYTES % (AUTO) 21.8 % (13-45); MEAN CORPUSCULAR HEMOGLOBIN 30.5 pg (27.0-33.4); MEAN CORPUSCULAR HGB CONC 32.8 g/dL (32.0-36.0); MEAN CORPUSCULAR VOLUME 93 fl (80-97); MONOCYTES % (AUTO) 5.5 % (3-13); PLATELET COUNT 244 10^3/uL (150-450); RED BLOOD COUNT 2.99 10^6/uL (3.72-5.28); RED CELL DISTRIBUTION WIDTH 17.5 % (11.5-14.0); SEGMENTED NEUTROPHILS % (AUTO) 65.4 % (42-78); TOTAL CELLS COUNTED % (AUTO) 100 %; WHITE BLOOD COUNT 5.7 10^3/uL (4.0-10.5)
[2018-01-22 08:43] LABS: ANION GAP 5 (5-19); BLOOD UREA NITROGEN 16 mg/dL (7-20); CALCIUM 8.5 mg/dL (8.4-10.2); CARBON DIOXIDE 28 mmol/L (22-30); CHLORIDE 109 mmol/L (98-107); CHOLESTEROL 175.75 mg/dL (0-200); GLUCOSE 126 mg/dL (75-110); POTASSIUM 4.8 mmol/L (3.6-5.0); SODIUM 142.1 mmol/L (137-145); TRIGLYCERIDES 194 mg/dL (<150)
[2018-01-22 08:54] LABS: DIRECT LDL 71 mg/dL (<100)
[2018-01-22 08:55] LABS: CREATINE KINASE MB 0.84 ng/mL (<4.55); TROPONIN I 0.045 ng/mL
[2018-01-22 08:56] LABS: VLDL CHOLESTEROL 38.8 mg/dL (10-31)
[2018-01-22] MEDS: NITROGLYCERIN 5 MG (0.2 MG/HR) PATCH.TD24 TD SCH (10:16)
[2018-01-22] MEDS: GABAPENTIN 300 MG CAPSULE PO SCH ×2 (10:20→23:28)
[2018-01-22] MEDS: LOSARTAN POTASSIUM 50 MG TABLET PO SCH (10:21)
[2018-01-22] MEDS: ASPIRIN 81 MG TABLET, ENT COATED PO SCH (10:21)
[2018-01-22] MEDS: CLOPIDOGREL BISULFATE 75 MG TABLET PO SCH (10:21)
[2018-01-22] MEDS: FUROSEMIDE INJ/PF 40 MG/4 ML SDV IV SCH ×2 (10:22→23:27)
--- NOTE | 2018-01-22 13:42 | PDOC PROGRESS REPORT ---
Subjective Progress Note for:: 01/22/18 Subjective:: I seen patient resting in bed. She reports this her shortness of breath is relatively improved. She denied any nausea vomiting abdominal pain or diarrhea. Since patient is noncompliant with her medication, in addition clonidine is not the drug of choice for blood pressure control so I discontinued it and substituted with Coreg which is also survival benefit for a patient with systolic congestive heart failure. Reason For Visit: POLYSUBSTANCE ABUSE HEART FAILURE Physical Exam Vital Signs: Temp Pulse Resp BP Pulse Ox 97.4 F 99 18 119/73 100 01/22/18 12:13 01/22/18 12:13 01/22/18 12:13 01/22/18 12:13 01/22/18 12:13 Intake & Output 01/21/18 01/22/18 01/23/18 06:59 06:59 06:59 Intake Total 225 240 Output Total 700 1200 Balance -475 -960 Weight 91.2 kg General appearance: PRESENT: mild distress Head exam: PRESENT: atraumatic, normocephalic Eye exam: PRESENT: conjunctiva pink Ear exam: PRESENT: normal external ear exam Mouth exam: PRESENT: moist, tongue midline Neck exam: ABSENT: carotid bruit, JVD, lymphadenopathy, thyromegaly Respiratory exam: PRESENT: decreased breath sounds Cardiovascular exam: PRESENT: RRR. ABSENT: diastolic murmur, rubs, systolic murmur Pulses: PRESENT: normal dorsalis pedis pul Vascular exam: PRESENT: normal capillary refill GI/Abdominal exam: PRESENT: normal bowel sounds, soft. ABSENT: distended, guarding, mass, organolmegaly, rebound, tenderness Rectal exam: PRESENT: deferred Extremities exam: PRESENT: +2 edema Neurological exam: PRESENT: alert, awake, oriented to time, oriented to situation Psychiatric exam: PRESENT: appropriate affect, normal mood. ABSENT: homicidal ideation, suicidal ideation Skin exam: PRESENT: dry, intact, warm. ABSENT: cyanosis, rash Results Laboratory Results: 01/22/18 08:00 01/22/18 08:00 01/22/18 01/22/18 01/22/18 08:00 08:00 08:00 WBC 5.7 RBC 2.99 L Hgb 9.1 L Hct 27.8 L MCV 93 MCH 30.5 MCHC 32.8 RDW 17.5 H Plt Count 244 Seg Neutrophils % 65.4 Lymphocytes % 21.8 Monocytes % 5.5 Eosinophils % 6.8 H Basophils % 0.5 Absolute Neutrophils 3.7 Absolute Lymphocytes 1.2 Absolute Monocytes 0.3 Absolute Eosinophils 0.4 Absolute Basophils 0.0 Sodium 142.1 Potassium 4.8 Chloride 109 H Carbon Dioxide 28 Anion Gap 5 BUN 16 Creatinine 1.14 Est GFR ( Amer) > 60 Est GFR (Non-Af Amer) 49 L Glucose 126 H Calcium 8.5 Triglycerides 194 H Cholesterol 175.75 LDL Cholesterol Direct 71 VLDL Cholesterol 38.8 H HDL Cholesterol 55 TSH 1.82 01/22/18 01/22/18 01/22/18 01:36 01:36 08:00 Creatine Kinase 50 37 CK-MB (CK-2) 0.98 Troponin I 0.048 01/22/18 08:00 Creatine Kinase CK-MB (CK-2) 0.84 Troponin I 0.045 Impressions: Chest X-Ray 01/21/18 17:06 IMPRESSION: Cardiomegaly and vascular congestion. Assessment & Plan - Diagnosis (1) Acute on chronic systolic congestive heart failure, NYHA class 3 Is this a current diagnosis for this admission?: Yes Plan: Patient has been started on Lasix 40 mg IV every 12 hours, losartan 100 mg p.o. daily, Coreg 25 mg twice a day. (2) COPD (chronic obstructive pulmonary disease) Qualifiers: Emphysema type: unspecified Is this a current diagnosis for this admission?: Yes Plan: As needed bruising treatment (3) Uncontrolled hypertension Is this a current diagnosis for this admission?: Yes Plan: Patient is noncompliant with her medications. I discontinue the clonidine because of risk of rebound hypertension. Coreg 25 mg twice a day (4) Polysubstance abuse Is this a current diagnosis for this admission?: Yes Plan: Patient advised and encouraged to quit illicit drug use. - Time Time Spent with patient: 25-34 minutes
[2018-01-22] MEDS ORDERED: CLONIDINE HCL 0.2 MG TABLET PO SCH (14:00)
[2018-01-22] MEDS ORDERED: CARVEDILOL 12.5 MG TABLET PO ONE (14:30)
[2018-01-22 15:29] LABS: CREATINE KINASE MB 0.8 ng/mL (<4.55); TROPONIN I 0.037 ng/mL
[2018-01-22] MEDS: ACETAMINOPHEN 325 MG TABLET PO PRN (16:55)
[2018-01-22] MEDS: CARVEDILOL 12.5 MG TABLET PO SCH (23:27)
[2018-01-23] MEDS: HEPARIN SOD (PORCINE) 5,000 UNIT/ML 1 ML SYRINGE SUBCUT SCH ×3 (05:25→23:04)
[2018-01-23] MEDS ORDERED: DEXTROSE 50%-WATER 25 GM/50 ML DISP.SYRIN IV PRN ×2 (08:42)
[2018-01-23] MEDS ORDERED: DEXTROSE 40% GEL 15 GM TUBE PO PRN ×2 (08:42)
[2018-01-23] MEDS ORDERED: GLUCAGON,HUMAN RECOMB 1 MG INJ IM PRN (08:42)
[2018-01-23] MEDS: CARVEDILOL 12.5 MG TABLET PO SCH ×2 (10:52→23:04)
[2018-01-23] MEDS: GABAPENTIN 300 MG CAPSULE PO SCH ×2 (10:52→23:05)
[2018-01-23] MEDS: ASPIRIN 81 MG TABLET, ENT COATED PO SCH (10:52)
[2018-01-23] MEDS: NITROGLYCERIN 5 MG (0.2 MG/HR) PATCH.TD24 TD SCH (10:52)
[2018-01-23] MEDS: LOSARTAN POTASSIUM 50 MG TABLET PO SCH (10:52)
[2018-01-23] MEDS: CLOPIDOGREL BISULFATE 75 MG TABLET PO SCH (10:52)
[2018-01-23] MEDS: FUROSEMIDE INJ/PF 40 MG/4 ML SDV IV SCH ×2 (10:53→23:08)
[2018-01-23] MEDS ORDERED: METOLAZONE 2.5 MG TABLET PO ONE (14:00)
[2018-01-23] MEDS: ACETAMINOPHEN 325 MG TABLET PO PRN (14:06)
--- NOTE | 2018-01-23 14:09 | PDOC PROGRESS REPORT ---
Subjective Progress Note for:: 01/23/18 Subjective:: I seen and examined the patient while she is resting in bed. She eats well and tolerates well. No nausea vomiting or diarrhea. Shortness of breath is improving. I added Zaroxolyn on top of her Lasix. I counseled and encouraged the patient to quit smoking. She states she was on prescription for nicotine patch at the time of her discharge. Reason For Visit: POLYSUBSTANCE ABUSE HEART FAILURE Physical Exam Vital Signs: Temp Pulse Resp BP Pulse Ox 98.5 F 97 16 139/91 H 93 01/23/18 12:04 01/23/18 12:04 01/23/18 12:04 01/23/18 12:04 01/23/18 12:04 Intake & Output 01/22/18 01/23/18 01/24/18 06:59 06:59 06:59 Intake Total 225 1327 237 Output Total 700 2900 600 Dkziicq -614 -2775 -759 Weight 91.2 kg 92.3 kg Results Laboratory Results: 01/22/18 08:00 01/22/18 08:00 01/22/18 01/22/18 01/22/18 01:36 01:36 08:00 Creatine Kinase 50 37 CK-MB (CK-2) 0.98 Troponin I 0.048 01/22/18 01/22/18 01/22/18 08:00 14:45 14:45 Creatine Kinase 34 CK-MB (CK-2) 0.84 0.80 Troponin I 0.045 0.037 Impressions: Chest X-Ray 01/21/18 17:06 IMPRESSION: Cardiomegaly and vascular congestion. Assessment & Plan - Diagnosis (1) Acute on chronic systolic congestive heart failure, NYHA class 3 Is this a current diagnosis for this admission?: Yes Plan: Patient has been started on Lasix 40 mg IV every 12 hours, losartan 100 mg p.o. daily, Coreg 25 mg twice a day. I added Zaroxolyn to her regimen. (2) COPD (chronic obstructive pulmonary disease) Qualifiers: Emphysema type: unspecified Is this a current diagnosis for this admission?: Yes Plan: As needed bruising treatment (3) Uncontrolled hypertension Is this a current diagnosis for this admission?: Yes Plan: Patient is noncompliant with her medications. I discontinue the clonidine because of risk of rebound hypertension. Coreg 25 mg twice a day (4) Polysubstance abuse Is this a current diagnosis for this admission?: Yes Plan: Patient advised and encouraged to quit illicit drug use. (5) Tobacco dependence Is this a current diagnosis for this admission?: Yes Plan: Patient counseled and encouraged to quit smoking. - Time Time Spent with patient: 25-34 minutes
[2018-01-23] MEDS ORDERED: IBUPROFEN 400 MG TABLET PO ONE (22:30)
[2018-01-24] MEDS: HEPARIN SOD (PORCINE) 5,000 UNIT/ML 1 ML SYRINGE SUBCUT SCH ×3 (04:59→23:16)
[2018-01-24] MEDS: METOLAZONE 2.5 MG TABLET PO SCH (09:11)
[2018-01-24] MEDS: LOSARTAN POTASSIUM 50 MG TABLET PO SCH (09:11)
[2018-01-24] MEDS: GABAPENTIN 300 MG CAPSULE PO SCH ×2 (09:11→23:15)
[2018-01-24] MEDS: CARVEDILOL 12.5 MG TABLET PO SCH ×2 (09:11→23:15)
[2018-01-24] MEDS: CLOPIDOGREL BISULFATE 75 MG TABLET PO SCH (09:11)
[2018-01-24] MEDS: FUROSEMIDE INJ/PF 40 MG/4 ML SDV IV SCH ×2 (09:12→23:16)
[2018-01-24] MEDS: ASPIRIN 81 MG TABLET, ENT COATED PO SCH (09:12)
[2018-01-24] MEDS: NITROGLYCERIN 5 MG (0.2 MG/HR) PATCH.TD24 TD SCH (09:12)
[2018-01-24] MEDS: INSULIN LISPRO 100 UNIT/ML 3 ML VIAL SUBCUT PRN ×3 (09:15→23:19)
[2018-01-24] MEDS: NICOTINE 14 MG/24 HR PATCH.TD24 TD SCH (11:11)
--- NOTE | 2018-01-24 12:53 | PDOC PROGRESS REPORT ---
Subjective Progress Note for:: 01/24/18 Subjective:: I seen patient sitting by the bedside and enjoying her breakfast. She is awake alert and oriented. She eats well and tolerates well. She is potential discharge for tomorrow. Reason For Visit: POLYSUBSTANCE ABUSE HEART FAILURE Physical Exam Vital Signs: Temp Pulse Resp BP Pulse Ox 97.7 F 94 20 131/90 H 96 01/24/18 07:38 01/24/18 07:38 01/24/18 07:38 01/24/18 07:38 01/24/18 07:38 Intake & Output 01/23/18 01/24/18 01/25/18 06:59 06:59 06:59 Intake Total 1327 504 Output Total 2900 1100 Balance -1573 -596 Weight 92.3 kg 90.6 kg General appearance: PRESENT: no acute distress Head exam: PRESENT: atraumatic, normocephalic Respiratory exam: PRESENT: clear to auscultation apolinar. ABSENT: rales, rhonchi, wheezes Cardiovascular exam: PRESENT: RRR. ABSENT: diastolic murmur, rubs, systolic murmur GI/Abdominal exam: PRESENT: normal bowel sounds, soft. ABSENT: distended, guarding, mass, organolmegaly, rebound, tenderness Extremities exam: PRESENT: +2 edema Neurological exam: PRESENT: alert, awake, oriented to time, oriented to situation Psychiatric exam: PRESENT: normal mood Results Laboratory Results: 01/22/18 08:00 01/22/18 08:00 01/24/18 04:32 TSH 1.30 01/22/18 01/22/18 01/22/18 01:36 01:36 08:00 Creatine Kinase 50 37 CK-MB (CK-2) 0.98 Troponin I 0.048 01/22/18 01/22/18 01/22/18 08:00 14:45 14:45 Creatine Kinase 34 CK-MB (CK-2) 0.84 0.80 Troponin I 0.045 0.037 Impressions: Chest X-Ray 01/21/18 17:06 IMPRESSION: Cardiomegaly and vascular congestion. Assessment & Plan - Diagnosis (1) Acute on chronic systolic congestive heart failure, NYHA class 3 Is this a current diagnosis for this admission?: Yes Plan: Continue current regimen (2) COPD (chronic obstructive pulmonary disease) Qualifiers: Emphysema type: unspecified Is this a current diagnosis for this admission?: Yes (3) Uncontrolled hypertension Is this a current diagnosis for this admission?: Yes Plan: Patient is noncompliant with her medications. I discontinue the clonidine because of risk of rebound hypertension. Coreg 25 mg twice a day (4) Polysubstance abuse Is this a current diagnosis for this admission?: Yes Plan: Patient advised and encouraged to quit illicit drug use. (5) Tobacco dependence Is this a current diagnosis for this admission?: Yes Plan: Patient counseled and encouraged to quit smoking.
[2018-01-24] MEDS: ACETAMINOPHEN 325 MG TABLET PO PRN (23:16)
[2018-01-25] MEDS: HEPARIN SOD (PORCINE) 5,000 UNIT/ML 1 ML SYRINGE SUBCUT SCH (05:38)
[2018-01-25 07:59] VITALS: BP 132/84
--- NOTE | 2018-01-25 09:07 | PDOC DISCHARGE SUMMARY ---
General - Admit/Disc Date/PCP Admission Date/Primary Care Provider: 01/21/18 21:21 NOMAN HENDRICKSON Discharge Date: 01/25/18 - Discharge Diagnosis (1) Acute on chronic systolic congestive heart failure, NYHA class 3 Is this a current diagnosis for this admission?: Yes (2) COPD (chronic obstructive pulmonary disease) Is this a current diagnosis for this admission?: Yes (3) Uncontrolled hypertension Is this a current diagnosis for this admission?: Yes (4) Polysubstance abuse Is this a current diagnosis for this admission?: Yes (5) Tobacco dependence Is this a current diagnosis for this admission?: Yes - Additional Information Resuscitation Status: Full Code Discharge Diet: Cardiac Discharge Activity: Activity As Tolerated, Weigh Daily Prescriptions: Nicotine [Nicotine Patch] 1 each TD DAILY #30 patch.dysq Home Medications: Clopidogrel Bisulfate [Plavix 75 mg Tablet] 75 mg PO DAILY 12/04/17 Furosemide [Lasix 20 mg Tablet] 20 mg PO DAILY 12/04/17 Gabapentin [Neurontin] 600 mg PO Q12 12/04/17 Aspirin [Aspirin 81 mg Chewable Tablet] 81 mg PO DAILY 01/22/18 Benazepril/Hydrochlorothiazide [Benazepril-Hctz 20-25 mg Tab] 1 tab PO DAILY Carvedilol [Coreg 12.5 mg Tablet] 12.5 mg PO Q12 01/22/18 Cholecalciferol (Vitamin D3) [Vitamin D3] 50,000 unit PO Q7D 01/22/18 Metolazone [Zaroxolyn 5 mg Tablet] 5 mg PO DAILY 01/22/18 Omeprazole 40 mg PO DAILY 01/22/18 Simvastatin [Zocor 40 mg Tablet] 40 mg PO QHS 01/22/18 Torsemide [Demadex 20 mg Tablet] 40 mg PO DAILY 01/22/18 Nicotine [Nicotine Patch] 1 each TD DAILY #30 patch.dysq 01/25/18 History of Present Illness History of Present Illness: MAGNO WILSON is a 57 year old female with a past medical history of insulin-dependent diabetes, congestive heart failure with ejection fraction 25%, hypertension, dyslipidemia, COPD and polysubstance abuse including cocaine and heroin. She presents with 48 hours of increasing shortness of breath, edema, orthopnea and exertional dyspnea. She denies regular medication use and is unaware of dietary restrictions. In the emergency room she is found to be compensated heart failure. She receives IV Lasix, nitro and placed on BiPAP. She denies chest pain. Hospital Course Hospital Course: This is a 57 years old black female patient who presented with shortness of breath. Patient has underlying congestive heart failure which is systolic her echo shortness which was done about 4 months ago ejection fraction of 30-35%. Patient is noncompliant with her medication. She is active smoker. He is in the hospital patient has been managed with IV Lasix and continue her cardiac protective medications. Patient counseled and encouraged to quit smoking and to comply with her medication. Patient is going to be seen in 1 week with her primary care physician. And increase the dose of her home Lasix from 20 mg daily to 40 mg p.o. daily. Physical Exam Vital Signs: Temp Pulse Resp BP Pulse Ox 97.4 F 88 17 132/84 H 100 01/25/18 05:05 01/25/18 07:00 01/25/18 05:05 01/25/18 05:05 01/25/18 05:05 Intake & Output 01/24/18 01/25/18 01/26/18 06:59 06:59 06:59 Intake Total 504 1352 Output Total 1100 1450 Balance -596 -98 Weight 90.6 kg 86 kg General appearance: PRESENT: no acute distress Head exam: PRESENT: atraumatic, normocephalic Neck exam: ABSENT: carotid bruit, JVD, lymphadenopathy, thyromegaly Respiratory exam: PRESENT: decreased breath sounds Cardiovascular exam: PRESENT: RRR. ABSENT: diastolic murmur, rubs, systolic murmur GI/Abdominal exam: PRESENT: normal bowel sounds, soft. ABSENT: distended, guarding, mass, organolmegaly, rebound, tenderness Neurological exam: PRESENT: alert, awake, oriented to time, oriented to situation Psychiatric exam: PRESENT: normal mood Results Laboratory Results: 01/22/18 08:00 01/22/18 08:00 01/22/18 01/22/18 01/22/18 01:36 01:36 08:00 Creatine Kinase 50 37 CK-MB (CK-2) 0.98 Troponin I 0.048 01/22/18 01/22/18 01/22/18 08:00 14:45 14:45 Creatine Kinase 34 CK-MB (CK-2) 0.84 0.80 Troponin I 0.045 0.037 Impressions: Chest X-Ray 01/21/18 17:06 IMPRESSION: Cardiomegaly and vascular congestion. Qualifiers - * PATIENT BEING DISCHARGED WITH ANY OF THE FOLLOWING DIAGNOSIS: Heart Failure VTE patient discharged on overlapping Therapy?: No Reason(s) for not prescribing Overlap Therapy:: Not indicated Stroke Pt being discharged on Anti-thrombolytic therapy?: No Reason(s) for not prescribing Anti-thrombolytic therapy:: Not indicated Stroke Pt being discharged on Anti-coagulation therapy?: No Reason(s) for not prescribing Anti-coagulation therapy:: Not indicated Stroke Pt being discharged on Statins?: No Reason(s) for not prescribing Statins therapy:: Not indicated TX Pt being discharged on Aspirin therapy?: No Reason(s) for not prescribing Aspirin therapy:: Not indicated TX Pt being discharged on Statins?: No Reason(s) for not prescribing Statin therapy:: Not indicated TX Pt discharged ACEI/ARBS?: No Reason(s) for not prescribing ACEI/ARBS:: Not indicated HF Pt being discharged on ACEI for LVEF less than 40%?: Yes HF Pt being discharged on ARBS for LVEF less than 40%?: Yes HF Pt with Afib discharged with Warfarin?: No Reason(s) for not prescribing Warfarin:: Not indicated HF Pt discharged on evidence-based Beta Andrea:: Yes
[2018-01-25] MEDS: CARVEDILOL 12.5 MG TABLET PO SCH (10:15)
[2018-01-25] MEDS: CLOPIDOGREL BISULFATE 75 MG TABLET PO SCH (10:15)
[2018-01-25] MEDS: METOLAZONE 2.5 MG TABLET PO SCH (10:15)
[2018-01-25] MEDS: FUROSEMIDE INJ/PF 40 MG/4 ML SDV IV SCH (10:16)
[2018-01-25] MEDS: LOSARTAN POTASSIUM 50 MG TABLET PO SCH (10:16)
[2018-01-25] MEDS: ASPIRIN 81 MG TABLET, ENT COATED PO SCH (10:16)
[2018-01-25] MEDS: GABAPENTIN 300 MG CAPSULE PO SCH (10:16)
[2018-01-25] MEDS: NITROGLYCERIN 5 MG (0.2 MG/HR) PATCH.TD24 TD SCH (10:26)
[2018-01-25] MEDS: NICOTINE 14 MG/24 HR PATCH.TD24 TD SCH (10:26)
== END 2018-01-25 11:25 | disposition home or self-care (01) | DRG 293 ==
LOC: ER 16:27 → EH 21:21 → 3N 22:27
PROVIDERS: ADMIT Internal Medicine; ATTEND Internal Medicine
DX: I11.0 Hypertensive heart disease with heart failure (principal); I50.23 Acute on chronic systolic (congestive) heart failure; J44.9 Chronic obstructive pulmonary disease, unspecified; F17.200 Nicotine dependence, unspecified, uncomplicated; E78.5 Hyperlipidemia, unspecified; F11.10 Opioid abuse, uncomplicated; F14.10 Cocaine abuse, uncomplicated; Z91.14 Patient's other noncompliance with medication regimen; B19.20 Unspecified viral hepatitis C without hepatic coma; K21.9 Gastro-esophageal reflux disease without esophagitis; Z90.49 Acquired absence of other specified parts of digestive tract; I25.10 Atherosclerotic heart disease of native coronary artery without angina pectoris; Z95.5 Presence of coronary angioplasty implant and graft; Z90.710 Acquired absence of both cervix and uterus; E11.9 Type 2 diabetes mellitus without complications
CPT/HCPCS: 36415; 71045; 80048; 80053; 80061; 82550; 82553; 82962; 83036; 83880; 84443; 84484; 85025; 85379; 93005; 93010; 94660; 96374; 99291; J0360; J1644; J1815; J1940; J3490

== ENCOUNTER 2018-03-06 12:52 | Inpatient (IN) | payer MEDICARE, MEDICAID ==
[2018-03-06] MEDS ORDERED: METHYLPREDNISOLONE INJ 125 MG/2 ML SDV ONE (12:54)
[2018-03-06] MEDS ORDERED: IPRATROPIUM/ALBUTEROL 0.5-2.5 MG/3 ML AMPUL NEB ONE ×2 (12:54→12:59)
[2018-03-06] MEDS ORDERED: ALBUTEROL SULFATE 0.083% NEB 2.5 MG/3 ML AMPUL NEB ONE ×3 (12:56→13:05)
[2018-03-06] MEDS ORDERED: METHYLPREDNISOLONE INJ 125 MG/2 ML SDV IV ONE (12:59)
--- NOTE | 2018-03-06 13:01 | ER Document Report ---
ED Respiratory Problem - General Stated Complaint: RESPIRATORY DISTRESS Time Seen by Provider: 03/06/18 12:58 Notes: 57-year-old female to the emergency department chief complaint of respiratory distress. EMS arrived from patient working hard to breathe. Blood pressure was reportedly low. Patient was given a DuoNeb. 2 g of mag given. Not intubated. Patient brought immediately to trauma room to for evaluation. Patient seen immediately on arrival. TRAVEL OUTSIDE OF THE [place] IN LAST 30 DAYS: No - HPI Patient complains to provider of: Hurts to breath, Short of breath Onset: Just prior to arrival Duration: Worse/persistent - Related Data Allergies/Adverse Reactions: No Known Allergies Allergy (Verified 12/03/17 13:25) Past Medical History - General Information source: [facility] Records Cannot obtain history due to: Altered mental status - Social History Smoking Status: Current Every Day Smoker Cigarette use (# per day): Yes Frequency of alcohol use: Occasional Drug Abuse: Other - According to records polysubstance abuse. Family History: DM, Hypertension - Past Medical History Cardiac Medical History: Reports: Hx Congestive Heart Failure, Hx Coronary Artery Disease, Hx Hypercholesterolemia, Hx Hypertension Endocrine Medical History: Reports: Hx Diabetes Mellitus Type 1, Hx Diabetes Mellitus Type 2 Renal/ Medical History: Denies: Hx Peritoneal Dialysis GI Medical History: Reports: Hx Gastroesophageal Reflux Disease, Hx Hepatitis - Hepatitis C Psychiatric Medical History: Denies: Hx Depression Infectious Medical History: Reports: Hx Hepatitis - Hepatitis C Past Surgical History: Reports: Hx Appendectomy, Hx Section, Hx Coronary Stent, Hx Gynecologic Surgery, Hx Tubal Ligation, Other - salpingo- oophorectomy. Denies: Hx Hysterectomy - Immunizations Hx Diphtheria, Pertussis, Tetanus Vaccination: Yes Review of Systems - Review of Systems -: Yes ROS unobtainable due to patient's medical condition Physical Exam - Vital signs Vitals: Resp BP Pulse Ox 30 H 238/141 H 100 03/06/18 12:56 03/06/18 12:56 03/06/18 12:56 Interpretation: Hypertensive, Tachycardic, Tachypneic - General General appearance: Alert In distress: Severe - HEENT Head: Normocephalic, Atraumatic Eyes: Normal Pupils: PERRL - Respiratory Respiratory status: Respiratory distress, Labored, Tachypnea Chest status: Nontender Breath sounds: Wheezing, Other - Significant work of breathing. Decreased and diminished breath sounds bilaterally. Chest palpation: Normal - Cardiovascular Rhythm: Tachycardia Heart sounds: Normal auscultation Murmur: No - Abdominal Inspection: Normal Distension: No distension Bowel sounds: Normal Tenderness: Nontender Organomegaly: No organomegaly - Back Back: Normal, Nontender - Extremities General upper extremity: Normal inspection, Nontender, Normal color, Normal ROM , Normal temperature General lower extremity: Normal inspection, Nontender, Edema, Normal color, Normal ROM, Normal temperature. No: Isabelle's sign - Neurological Neuro grossly intact: Yes Cognition: Normal Orientation: AAOx4 Rudolph Coma Scale Eye Opening: Spontaneous Kadeem Coma Scale Verbal: Oriented Rudolph Coma Scale Motor: Obeys Commands Rudolph Coma Scale Total: 15 Sensory: Normal - Psychological Associated symptoms: Normal affect, Normal mood - Skin Skin Temperature: Warm Skin Moisture: Dry Skin Color: Normal Course - Re-evaluation Re-evalutation: 03/06/18 13:21 Patient immediately seen upon arrival. Patient with significant work of breathing. Audible wheezes bilaterally. IV was established. Solu-Medrol given. Blood pressure initially was 220/120. Patient did have some signs of edema in the bilateral lower extremities. Quick review of her records show that she has an ejection fraction of 25% with severe CHF and substance abuse as well as COPD. We have ordered multiple [id number]-[id number] breathing treatments. She is on BiPAP at this time. ABG was obtained. Initial ABG slightly acidotic at 7.32 PCO2 52. PO2 greater than 100%. Will Place Lloyd N. IV Lasix. Nitro drip. Anticipate admit to ICU at this time. We will repeat the ABG in approximately 45 minutes unless her work of breathing increases and we have to proceed with intubation. 03/06/18 14:46 Repeat ABG improving. Consulted with the hospitalist at this time for admission. 03/06/18 14:47 Laboratory 03/06/18 03/06/18 03/06/18 12:56 12:59 12:59 WBC 6.6 RBC 2.90 L Hgb 8.3 L Hct 26.3 L MCV 91 MCH 28.8 MCHC 31.7 L RDW 16.7 H Plt Count 244 Seg Neutrophils % 70.4 Lymphocytes % 19.4 Monocytes % 6.5 Eosinophils % 2.1 Basophils % 1.6 Absolute Neutrophils 4.6 Absolute Lymphocytes 1.3 Absolute Monocytes 0.4 Absolute Eosinophils 0.1 Absolute Basophils 0.1 Carbonic Acid 1.57 H HCO3/H2CO3 Ratio 16:1 ABG pH 7.32 L ABG pCO2 52.2 H ABG pO2 111.4 H ABG HCO3 26.5 H ABG Total CO2 28.1 H ABG O2 Saturation 97.7 ABG Base Excess -0.2 FiO2 40% Sodium 147.2 H Potassium 2.1 L* Chloride 123 H Carbon Dioxide 18 L Anion Gap 6 BUN 12 Creatinine 0.49 L Est GFR ( Amer) > 60 Est GFR (Non-Af Amer) > 60 Glucose 105 Lactic Acid Calcium 5.2 L* Total Bilirubin 0.7 Direct Bilirubin 0.6 H Neonat Total Bilirubin Not Reportable Neonat Direct Bilirubin Not Reportable Neonat Indirect Bili Not Reportable AST 22 ALT 16 Alkaline Phosphatase 52 Creatine Kinase 52 CK-MB (CK-2) Troponin I NT-Pro-B Natriuret Pep Total Protein 5.1 L Albumin 1.9 L 03/06/18 03/06/18 03/06/18 12:59 12:59 14:07 WBC RBC Hgb Hct MCV MCH MCHC RDW Plt Count Seg Neutrophils % Lymphocytes % Monocytes % Eosinophils % Basophils % Absolute Neutrophils Absolute Lymphocytes Absolute Monocytes Absolute Eosinophils Absolute Basophils Carbonic Acid 1.40 H HCO3/H2CO3 Ratio 19:1 ABG pH 7.39 ABG pCO2 46.6 H ABG pO2 129.3 H ABG HCO3 27.6 H ABG Total CO2 29.1 H ABG O2 Saturation 98.5 H ABG Base Excess 2.2 FiO2 30% Sodium Potassium Chloride Carbon Dioxide Anion Gap BUN Creatinine Est GFR ( Amer) Est GFR (Non-Af Amer) Glucose Lactic Acid 0.8 Calcium Total Bilirubin Direct Bilirubin Neonat Total Bilirubin Neonat Direct Bilirubin Neonat Indirect Bili AST ALT Alkaline Phosphatase Creatine Kinase CK-MB (CK-2) 0.91 Troponin I 0.034 NT-Pro-B Natriuret Pep 4780 H Total Protein Albumin Chest X-Ray 03/06/18 12:58 IMPRESSION: Mild pulmonary vascular congestion less prominent than on the previous chest x-ray 01/21/2018. No clement pulmonary edema. Chronic markings left base. - Vital Signs Vital signs: Temp Pulse Resp BP Pulse Ox 18 188/107 H 100 03/06/18 14:15 03/06/18 14:15 03/06/18 14:15 - Laboratory Result Diagrams: 03/06/18 12:59 03/06/18 12:59 Laboratory results interpreted by me: 03/06/18 03/06/18 03/06/18 12:56 12:59 12:59 RBC 2.90 L Hgb 8.3 L Hct 26.3 L MCHC 31.7 L RDW 16.7 H Carbonic Acid 1.57 H ABG pH 7.32 L ABG pCO2 52.2 H ABG pO2 111.4 H ABG HCO3 26.5 H ABG Total CO2 28.1 H ABG O2 Saturation Sodium 147.2 H Potassium 2.1 L* Chloride 123 H Carbon Dioxide 18 L Creatinine 0.49 L Calcium 5.2 L* Direct Bilirubin 0.6 H NT-Pro-B Natriuret Pep Total Protein 5.1 L Albumin 1.9 L 03/06/18 03/06/18 12:59 14:07 RBC Hgb Hct MCHC RDW Carbonic Acid 1.40 H ABG pH ABG pCO2 46.6 H ABG pO2 129.3 H ABG HCO3 27.6 H ABG Total CO2 29.1 H ABG O2 Saturation 98.5 H Sodium Potassium Chloride Carbon Dioxide Creatinine Calcium Direct Bilirubin NT-Pro-B Natriuret Pep 4780 H Total Protein Albumin - EKG Interpretation by Me EKG shows normal: Intervals, QRS Complexes, ST-T Waves. abnormal: [place]haw Rate: Tachycardia Critical Care Note - Critical Care Note Total time excluding time spent on procedures (mins): 60 Comments: Hypertensive emergency, respiratory failure, consultation with specialists. Discharge - Discharge Clinical Impression: Acute respiratory failure Qualifiers: Respiratory failure complication: unspecified whether with hypoxia or hypercapnia Qualified Code(s): J96.00 - Acute respiratory failure, unspecified whether with hypoxia or hypercapnia CHF exacerbation Qualifiers: Heart failure type: unspecified Qualified Code(s): I50.9 - Heart failure, unspecified Condition: Serious Disposition: ADMITTED INPATIENT Admitting Provider: Hospitalist - [facility] Admitted: ICU Referrals: NOMAN HENDIRCKSON MD [Primary Care Provider] - Follow up as needed
[2018-03-06 13:13] LABS: ARTERIAL BLOOD BASE EXCESS -0.2 mmol/L; ARTERIAL BLOOD H2CO3 1.57 mmol/L (1.05-1.35); ARTERIAL BLOOD HCO3 26.5 mmol/L (20-26); ARTERIAL BLOOD O2 SATURATION 97.7 % (94-98); ARTERIAL BLOOD PCO2 52.2 mmHg (35-45); ARTERIAL BLOOD PH 7.32 (7.35-7.45); ARTERIAL BLOOD PO2 111.4 mmHg (80-100); ARTERIAL BLOOD TOTAL CO2 28.1 mmol/L (21-25)
[2018-03-06 13:14] LABS: ARTERIAL BLOOD FIO2 40%
[2018-03-06] MEDS ORDERED: FUROSEMIDE INJ/PF 40 MG/4 ML SDV IV ONE (13:16)
[2018-03-06] MEDS ORDERED: NITROGLYCERIN/D5W 50 MG/250 ML RTUINJ IV PRN (13:17)
[2018-03-06 13:20] LABS: ABSOLUTE BASOPHILS # (AUTO) 0.1 10^3/uL (0.0-0.2); ABSOLUTE EOSINOPHILS # (AUTO) 0.1 10^3/uL (0.0-0.6); ABSOLUTE LYMPHOCYTES (AUTO) 1.3 10^3/uL (0.5-4.7); ABSOLUTE MONOCYTES (AUTO) 0.4 10^3/uL (0.1-1.4); ABSOLUTE NEUT (AUTO) 4.6 10^3/uL (1.7-8.2); BASOPHILS % (AUTO) 1.6 % (0-2); EOSINOPHILS % (AUTO) 2.1 % (0-6); HEMATOCRIT 26.3 % (36.0-47.0); HEMOGLOBIN 8.3 g/dL (12.0-15.5); LYMPHOCYTES % (AUTO) 19.4 % (13-45); MEAN CORPUSCULAR HEMOGLOBIN 28.8 pg (27.0-33.4); MEAN CORPUSCULAR HGB CONC 31.7 g/dL (32.0-36.0); MEAN CORPUSCULAR VOLUME 91 fl (80-97); MONOCYTES % (AUTO) 6.5 % (3-13); PLATELET COUNT 244 10^3/uL (150-450); RED CELL DISTRIBUTION WIDTH 16.7 % (11.5-14.0); SEGMENTED NEUTROPHILS % (AUTO) 70.4 % (42-78); TOTAL CELLS COUNTED % (AUTO) 100 %; WHITE BLOOD COUNT 6.6 10^3/uL (4.0-10.5)
--- NOTE | 2018-03-06 13:27 | RADIOLOGY REPORT (SQ) ---
EXAM DESCRIPTION: CHEST SINGLE VIEW COMPLETED DATE/TIME: 03/06/2018 1:11 pm REASON FOR STUDY: sob COMPARISON: 01/21/2018 EXAM PARAMETERS: NUMBER OF VIEWS: One view. TECHNIQUE: Single frontal radiographic view of the chest acquired. RADIATION DOSE: NA LIMITATIONS: None. FINDINGS: LUNGS AND PLEURA: Mild pulmonary vascular congestion - less prominent than on the previous chest x-ray. No clement pulmonary edema. No pleural effusions. Chronic markings left base. MEDIASTINUM AND HILAR STRUCTURES: No masses. Contour normal. HEART AND VASCULAR STRUCTURES: Moderate to severe cardiomegaly unchanged. BONES: No acute findings. HARDWARE: None in the chest. OTHER: No other significant finding. IMPRESSION: Mild pulmonary vascular congestion less prominent than on the previous chest x-ray 2017. No clement pulmonary edema. Chronic markings left base. TECHNICAL DOCUMENTATION: JOB ID: [id number] [employer]- All Rights Reserved Reading location - IP/workstation name: [email or web address]
[2018-03-06 13:36] LABS: ALANINE AMINOTRANSFERASE 16 U/L (9-52); ALBUMIN 1.9 g/dL (3.5-5.0); ALKALINE PHOSPHATASE 52 U/L (38-126); ANION GAP 6 (5-19); ASPARTATE AMINO TRANSFERASE 22 U/L (14-36); BILIRUBIN,DIRECT 0.6 mg/dL (0.0-0.4); BILIRUBIN,TOTAL 0.7 mg/dL (0.2-1.3); BLOOD UREA NITROGEN 12 mg/dL (7-20); CARBON DIOXIDE 18 mmol/L (22-30); CHLORIDE 123 mmol/L (98-107); CREATINE KINASE 52 U/L (30-135); GLUCOSE 105 mg/dL (75-110); SODIUM 147.2 mmol/L (137-145); TOTAL PROTEIN 5.1 g/dL (6.3-8.2)
[2018-03-06 13:41] LABS: CALCIUM 5.2 mg/dL (8.4-10.2); POTASSIUM 2.1 mmol/L (3.6-5.0)
[2018-03-06] MEDS ORDERED: ASPIRIN 300 MG SUPP, RECTAL PR ONE (13:46)
--- NOTE | 2018-03-06 13:47 | EKG REPORT ---
SEVERITY:- BORDERLINE ECG - SINUS TACHYCARDIA RIGHT AXIS DEVIATION BORDERLINE T ABNORMALITIES, DIFFUSE LEADS : Confirmed by: Sylvia Altman MD 06-Mar-2018 13:47:19
[2018-03-06 13:49] LABS: CREATINE KINASE MB 0.91 ng/mL (<4.55)
[2018-03-06] MEDS ORDERED: POTASSI CL 20 MEQ/50 ML RIDER 20 MEQ/50 ML RTUPB IV ONE (13:49)
[2018-03-06 13:52] LABS: TROPONIN I 0.034 ng/mL
[2018-03-06 14:23] LABS: ARTERIAL BLOOD BASE EXCESS 2.2 mmol/L; ARTERIAL BLOOD HCO3 27.6 mmol/L (20-26); ARTERIAL BLOOD O2 SATURATION 98.5 % (94-98); ARTERIAL BLOOD PCO2 46.6 mmHg (35-45); ARTERIAL BLOOD PH 7.39 (7.35-7.45); ARTERIAL BLOOD PO2 129.3 mmHg (80-100); ARTERIAL BLOOD TOTAL CO2 29.1 mmol/L (21-25)
[2018-03-06 14:26] LABS: ARTERIAL BLOOD FIO2 30%
[2018-03-06 14:52] LABS: APPEARANCE,URINE CLEAR; BILIRUBIN,URINE NEGATIVE (NEGATIVE); COLOR,URINE YELLOW; GLUCOSE, URINE 150 mg/dL (NEGATIVE); KETONES,URINE NEGATIVE (NEGATIVE); LEUKOCYTE ESTERASE,URINE NEGATIVE (NEGATIVE); NITRITE,URINE NEGATIVE (NEGATIVE); PROTEIN,URINE >=500 mg/dL (NEGATIVE); URINE SPECIFIC GRAVITY 1.012
[2018-03-06 15:23] LABS: URINE AMPHETAMINES SCREEN NEGATIVE; URINE BARBITURATES SCREEN NEGATIVE; URINE COCAINE SCREEN UNCONFIRMED POSITIVE; URINE MARIJUANA (THC) SCREEN NEGATIVE; URINE METHADONE SCREEN NEGATIVE; URINE PHENCYCLIDINE SCREEN NEGATIVE
[2018-03-06 15:29] LABS: URINE BENZODIAZEPINES SCREEN NEGATIVE
[2018-03-06] MEDS ORDERED: PROMETHAZINE HCL INJ 25 MG/1 ML VIAL IV PRN (16:25)
[2018-03-06] MEDS ORDERED: TEMAZEPAM 7.5 MG CAPSULE PO PRN (16:25)
[2018-03-06] MEDS ORDERED: ACETAMINOPHEN 325 MG TABLET PO PRN (16:25)
[2018-03-06] MEDS ORDERED: OXYCODONE-ACETAMINOPHEN 5-325 MG TABLET PO PRN (16:25)
[2018-03-06] MEDS ORDERED: IPRATROPIUM/ALBUTEROL 0.5-2.5 MG/3 ML AMPUL NEB PRN (16:25)
[2018-03-06] MEDS ORDERED: LABETALOL HCL INJ 20 MG/4 ML DISP.SYRIN IV PRN (16:38)
--- NOTE | 2018-03-06 18:38 | PDOC H&P ---
History of Present Illness Admission Date/PCP: 03/06/18 16:19 NOMAN HENDRICKSON Patient complains of: Difficulty breathing and shortness of breath as well as hypertension History of Present Illness: MAGNO WILSON is a 57 year old female This patient was admitted to with altered mental status and respiratory distress. She was given Solu-Medrol on initial arrival. Her blood pressure was 09/20/2019. Patient is thought to have severe CHF decompensation with ejection fraction of 25%. She received multiple bronchodilators with little effect. Initial ABG was actually not too bad with a PCO2 of 52 and pH of 7.3 and PO2 greater than 100%. She was started on nitroglycerin drip. Patient is pretty was sedated at the time of my exam and I am unable to obtain any information from her however it appears that she has a history of recurrent decompensated CHF with noncompliance. There was some confusion as she was thought to be Dr. Wheeler patient but apparently he "" fired' her due to noncompliance. Her BNP is actually not that bad compared to how it was before at 4560. She is found to be a grossly hypokalemic with potassium of 2.1 she is also more anemic compared to her baseline. patient is been admitted to the intensive care unit as she is still on IV nitroglycerin although I am going to try and place her on transdermal if tolerated Past Medical History Cardiac Medical History: Reports: Congestive Heart Failure, Coronary Artery Disease, Hyperlipidema, Hypertension Endocrine Medical History: Reports: Diabetes Mellitus Type 1, Diabetes Mellitus Type 2 GI Medical History: Reports: Gastroesophageal Reflux Disease, Hepatitis - Hepatitis C Psychiatric Medical History: Denies: Depression Hematology: Reports: Anemia Past Surgical History Past Surgical History: Reports: Appendectomy, Section, Coronary Stent, Tubal Ligation, Other - salpingo-oophorectomy Denies: Hysterectomy Social History Information Source: [facility] Records Smoking Status: Current Every Day Smoker Frequency of Alcohol Use: Social Hx Recreational Drug Use: Yes Drugs: Cocaine, Heroin Hx Prescription Drug Abuse: Yes - Advance Directive Resuscitation Status: Full Code Family History Family History: DM, Hypertension Parental Family History Reviewed: No Children Family History Reviewed: No Sibling(s) Family History Reviewed.: No Medication/Allergy Home Medications: Albuterol Sulfate [Proair HFA Inhalation Aerosol 8.5 gm MDI] 2 puff IH Q6HP PRN 03/06/18 Aspirin [Aspirin EC] 81 mg PO DAILY 03/06/18 Benazepril/Hydrochlorothiazide [Benazepril-Hctz 20-25 mg Tab] 1 tab PO DAILY 02/14 Carvedilol [Coreg 12.5 mg Tablet] 12.5 mg PO Q12 03/06/18 Clonidine HCl [Catapres 0.1 mg Tablet] 0.1 mg PO BID 03/06/18 Clopidogrel Bisulfate [Plavix 75 mg Tablet] 75 mg PO DAILY 03/06/18 Ergocalciferol (Vitamin D2) [Drisdol 50,000 unit (1.25MG) Capsule] 50,000 unit PO WAGNER@1000 03/06/18 Fenofibrate Nanocrystallized [Fenofibrate] 145 mg PO DAILY 03/06/18 Gabapentin [Neurontin] 600 mg PO BID 03/06/18 Levalbuterol HCl [Xopenex Neb 1.25 mg/3 ml Ampul] 1 vial NEB QHS 03/06/18 Metolazone [Zaroxolyn 5 mg Tablet] 5 mg PO DAILY 03/06/18 Nicotine [Nicoderm 21 mg/24 Hr Transderm Patch] 1 patch TOP DAILY 03/06/18 Omeprazole 40 mg PO DAILY 03/06/18 Simvastatin [Zocor 40 mg Tablet] 40 mg PO QHS 03/06/18 Torsemide [Demadex 20 mg Tablet] 40 mg PO DAILY 03/06/18 Allergies/Adverse Reactions: No Known Allergies Allergy (Verified 12/03/17 13:25) Review of Systems ROS unobtainable: Other - Due to respiratory distress Physical Exam Vital Signs: Temp Pulse Resp BP Pulse Ox 16 192/109 H 98 03/06/18 17:36 03/06/18 17:36 03/06/18 17:36 Intake & Output 03/05/18 03/06/18 03/07/18 06:59 06:59 06:59 Intake Total 71 Balance 71 General appearance: PRESENT: other - On BiPAP Head exam: PRESENT: atraumatic Ear exam: PRESENT: normal external ear exam Mouth exam: PRESENT: dry mucosa Neck exam: ABSENT: carotid bruit, JVD, lymphadenopathy, thyromegaly Respiratory exam: PRESENT: accessory muscle use, decreased breath sounds, rhonchi Cardiovascular exam: PRESENT: tachycardia. ABSENT: diastolic murmur, rubs, systolic murmur GI/Abdominal exam: PRESENT: normal bowel sounds, soft. ABSENT: distended, guarding, mass, organolmegaly, rebound, tenderness Extremities exam: PRESENT: full ROM. ABSENT: calf tenderness, clubbing, pedal edema Neurological exam: PRESENT: altered. ABSENT: motor sensory deficit Results Laboratory Results: 03/06/18 03/06/18 03/06/18 12:56 12:59 12:59 RBC 2.90 L Hgb 8.3 L Hct 26.3 L MCHC 31.7 L RDW 16.7 H Carbonic Acid 1.57 H ABG pH 7.32 L ABG pCO2 52.2 H ABG pO2 111.4 H ABG HCO3 26.5 H ABG Total CO2 28.1 H ABG O2 Saturation Sodium 147.2 H Potassium 2.1 L* Chloride 123 H Carbon Dioxide 18 L Creatinine 0.49 L Calcium 5.2 L* Direct Bilirubin 0.6 H NT-Pro-B Natriuret Pep Total Protein 5.1 L Albumin 1.9 L Urine Protein Urine Glucose (UA) Urine Urobilinogen 03/06/18 03/06/18 03/06/18 12:59 13:23 14:07 RBC Hgb Hct MCHC RDW Carbonic Acid 1.40 H ABG pH ABG pCO2 46.6 H ABG pO2 129.3 H ABG HCO3 27.6 H ABG Total CO2 29.1 H ABG O2 Saturation 98.5 H Sodium Potassium Chloride Carbon Dioxide Creatinine Calcium Direct Bilirubin NT-Pro-B Natriuret Pep 4780 H Total Protein Albumin Urine Protein >=500 H Urine Glucose (UA) 150 H Urine Urobilinogen 2.0 H Impressions: Chest X-Ray 03/06/18 12:58 IMPRESSION: Mild pulmonary vascular congestion less prominent than on the previous chest x-ray 01/21/2018. No clement pulmonary edema. Chronic markings left base. Assessment & Plan - Diagnosis (1) Malignant hypertension Is this a current diagnosis for this admission?: Yes Plan: Patient's blood pressure was as high as 250 systolic. She has been placed on Tridil. My plan is to hopefully switch her to transdermal nitroglycerin and supplemented with oral antihypertensives. (2) Acute respiratory failure Qualifiers: Respiratory failure complication: unspecified whether with hypoxia or hypercapnia Qualified Code(s): J96.00 - Acute respiratory failure, unspecified whether with hypoxia or hypercapnia Is this a current diagnosis for this admission?: Yes Plan: We will continue with BiPAP as needed (3) CHF exacerbation Qualifiers: Heart failure type: unspecified Qualified Code(s): I50.9 - Heart failure, unspecified Is this a current diagnosis for this admission?: Yes Plan: We will continue with Lasix and obtain cardiology consultation (4) Acute kidney injury Is this a current diagnosis for this admission?: Yes Plan: Secondary to malignant hypertension with end organ damage (5) Anemia Qualifiers: Anemia type: unspecified type Qualified Code(s): D64.9 - Anemia, unspecified Is this a current diagnosis for this admission?: Yes Plan: Hemoglobin is less than her baseline although etiology of this is not clear at this time. We will continue to monitor (6) Noncompliance with medication regimen Is this a current diagnosis for this admission?: Yes (7) Substance abuse Is this a current diagnosis for this admission?: Yes - Time Time Spent: 50 to 70 Minutes Medications reviewed and adjusted accordingly: Yes Anticipated discharge: Home Within: within 72 hours - Inpatient Certification Based on my medical assessment, after consideration of the patient's comorbidities, presenting symptoms, or acuity I expect that the services needed warrant INPATIENT care.: Yes Medical Necessity: Need Close Monitoring Due to Risk of Patient Decompensation, Risk of Complication if Not Cared For in Hospital, Risk of Diagnosis Which Will Require Inpatient Eval/Care/Monitoring
[2018-03-06] MEDS: ISOSORBIDE MONONITRATE 60 MG TAB.ER.24H PO SCH ×2 (20:35→20:40)
[2018-03-06] MEDS: NITROGLYCERIN 2% OINTMENT 1 GM PACKET TP SCH (20:36)
[2018-03-06] MEDS: AMLODIPINE BESYLATE 10 MG TABLET PO SCH ×2 (20:36→20:40)
[2018-03-06] MEDS: SACUBITRIL/VALSARTAN 24 MG/26 MG TABLET PO SCH (20:40)
[2018-03-06] MEDS ORDERED: CALCIUM CARBONATE 250 MG/VITAMIN D3 125 UNIT TABLET PO ONE (20:45)
[2018-03-06] MEDS: ALBUTEROL SULFATE 0.083% NEB 2.5 MG/3 ML AMPUL NEB SCH (21:00)
[2018-03-06] MEDS ORDERED: POTASSIUM CHLORIDE 10 MEQ CAPSULE.ER PO ONE (21:00)
[2018-03-06] MEDS ORDERED: NITROGLYCERIN 50 MG/D5W 250 ML IV PRN (21:23)
[2018-03-06] MEDS: HYDRALAZINE HCL INJ/PF 20 MG/1 ML SDV IV PRN (21:44)
[2018-03-06] MEDS: FAMOTIDINE 20 MG TABLET PO SCH (21:55)
[2018-03-06] MEDS ORDERED: POTASSIUM CHLORIDE 20 MEQ/50 ML RTU IV SCH (22:00)
[2018-03-06] MEDS ORDERED: POTASSIUM CHLORIDE 10 MEQ CAPSULE.ER PO SCH (22:30)
[2018-03-06 22:41] LABS: ANION GAP 10 (5-19); BLOOD UREA NITROGEN 18 mg/dL (7-20); CALCIUM 8.7 mg/dL (8.4-10.2); CARBON DIOXIDE 25 mmol/L (22-30); CHLORIDE 107 mmol/L (98-107); GLUCOSE 221 mg/dL (75-110); SODIUM 142.2 mmol/L (137-145)
[2018-03-06] MEDS: FUROSEMIDE INJ/PF 40 MG/4 ML SDV IV SCH (22:52)
[2018-03-06 23:02] LABS: POTASSIUM 4.1 mmol/L (3.6-5.0)
[2018-03-07] MEDS: NITROGLYCERIN 2% OINTMENT 1 GM PACKET TP SCH ×3 (00:50→13:03)
[2018-03-07] MEDS: ALBUTEROL SULFATE 0.083% NEB 2.5 MG/3 ML AMPUL NEB SCH ×4 (02:09→20:25)
[2018-03-07 03:56] LABS: HEMATOCRIT 32.3 % (36.0-47.0); HEMOGLOBIN 10.3 g/dL (12.0-15.5); MEAN CORPUSCULAR HGB CONC 31.8 g/dL (32.0-36.0); MEAN CORPUSCULAR VOLUME 88 fl (80-97); PLATELET COUNT 277 10^3/uL (150-450); RED BLOOD COUNT 3.66 10^6/uL (3.72-5.28); RED CELL DISTRIBUTION WIDTH 16.9 % (11.5-14.0)
[2018-03-07 04:15] LABS: ANION GAP 8 (5-19); BLOOD UREA NITROGEN 19 mg/dL (7-20); CALCIUM 8.6 mg/dL (8.4-10.2); CARBON DIOXIDE 27 mmol/L (22-30); CHLORIDE 108 mmol/L (98-107); GLUCOSE 199 mg/dL (75-110); POTASSIUM 4.2 mmol/L (3.6-5.0); SODIUM 143.2 mmol/L (137-145)
[2018-03-07] MEDS: SACUBITRIL/VALSARTAN 24 MG/26 MG TABLET PO SCH ×2 (05:20→17:06)
[2018-03-07] MEDS: HYDRALAZINE HCL INJ/PF 20 MG/1 ML SDV IV PRN (05:20)
[2018-03-07] MEDS: FUROSEMIDE INJ/PF 40 MG/4 ML SDV IV SCH ×3 (05:21→21:07)
[2018-03-07] MEDS: FAMOTIDINE 20 MG TABLET PO SCH ×2 (10:22→21:06)
[2018-03-07] MEDS: AMLODIPINE BESYLATE 10 MG TABLET PO SCH (10:22)
[2018-03-07] MEDS: FENOFIBRATE NANOCRYSTALLIZED 145 MG TABLET PO SCH (10:22)
[2018-03-07] MEDS: ISOSORBIDE MONONITRATE 60 MG TAB.ER.24H PO SCH (10:22)
[2018-03-07] MEDS: CALCIUM CARBONATE 250 MG/VITAMIN D3 125 UNIT TABLET PO SCH ×3 (10:22→17:06)
[2018-03-07] MEDS: CLOPIDOGREL BISULFATE 75 MG TABLET PO SCH (10:22)
[2018-03-07] MEDS: GABAPENTIN 300 MG CAPSULE PO SCH ×2 (10:22→21:06)
[2018-03-07] MEDS: HEPARIN SOD (PORCINE) 5,000 UNIT/ML 1 ML SYRINGE SUBCUT SCH ×2 (13:02→21:06)
--- NOTE | 2018-03-07 13:02 | PDOC PROGRESS REPORT ---
Subjective Progress Note for:: 03/07/18 Subjective:: Patient is awake and alert and feels better today. She denies any chest pain. She is off BiPAP and breathing comfortably. Reason For Visit: ACUTE RESPIRATORY FAILURE,MALIGNANT HYPERTENSION, Physical Exam Vital Signs: Temp Pulse Resp BP Pulse Ox 99.3 F 126 H 18 154/92 H 99 03/07/18 12:00 03/07/18 12:00 03/07/18 12:00 03/07/18 12:00 03/07/18 12:00 Intake & Output 03/06/18 03/07/18 03/08/18 06:59 06:59 06:59 Intake Total 122 0 Output Total 2195 170 Balance -2072 -170 Weight 83.3 kg General appearance: PRESENT: no acute distress, well-nourished, other - Older looking than stated age Head exam: PRESENT: atraumatic, normocephalic Eye exam: PRESENT: conjunctiva pink, EOMI, PERRLA. ABSENT: scleral icterus Ear exam: PRESENT: normal external ear exam Mouth exam: PRESENT: moist, tongue midline Neck exam: ABSENT: carotid bruit, JVD, lymphadenopathy, thyromegaly Respiratory exam: PRESENT: clear to auscultation apolinar. ABSENT: rales, rhonchi, wheezes Cardiovascular exam: PRESENT: +S1, +S2, tachycardia. ABSENT: diastolic murmur, rubs, systolic murmur Pulses: PRESENT: normal dorsalis pedis pul Vascular exam: PRESENT: normal capillary refill GI/Abdominal exam: PRESENT: normal bowel sounds, soft. ABSENT: distended, guarding, mass, organolmegaly, rebound, tenderness Rectal exam: PRESENT: deferred Extremities exam: PRESENT: full ROM, pedal edema. ABSENT: calf tenderness, clubbing Neurological exam: PRESENT: alert, awake, oriented to person, oriented to place , oriented to time, oriented to situation, CN II-XII grossly intact. ABSENT: motor sensory deficit Psychiatric exam: PRESENT: appropriate affect, normal mood. ABSENT: homicidal ideation, suicidal ideation Skin exam: PRESENT: dry, intact, warm. ABSENT: cyanosis, rash Results Laboratory Results: 03/07/18 03:40 03/07/18 03:40 03/06/18 03/07/18 03/07/18 22:00 03:40 03:40 WBC 6.0 RBC 3.66 L Hgb 10.3 L Hct 32.3 L MCV 88 MCH 28.0 MCHC 31.8 L RDW 16.9 H Plt Count 277 Sodium 142.2 143.2 Potassium 4.1 D 4.2 Chloride 107 108 H Carbon Dioxide 25 27 Anion Gap 10 8 BUN 18 19 Creatinine 0.85 0.91 Est GFR ( Amer) > 60 > 60 Est GFR (Non-Af Amer) > 60 > 60 Glucose 221 H 199 H Calcium 8.7 8.6 Magnesium 1.8 03/06/18 03/06/18 17:56 22:00 Troponin I 0.052 0.048 Impressions: Chest X-Ray 03/06/18 12:58 IMPRESSION: Mild pulmonary vascular congestion less prominent than on the previous chest x-ray 01/21/2018. No clement pulmonary edema. Chronic markings left base. Assessment & Plan - Diagnosis (1) Malignant hypertension Is this a current diagnosis for this admission?: Yes Plan: Blood pressure is improved off Tridil. She is currently on Nitropaste as well as Isordil. I will discontinue the Nitropaste (2) Acute respiratory failure Qualifiers: Respiratory failure complication: unspecified whether with hypoxia or hypercapnia Qualified Code(s): J96.00 - Acute respiratory failure, unspecified whether with hypoxia or hypercapnia Is this a current diagnosis for this admission?: Yes Plan: Secondary to malignant hypertension and pulmonary edema resolved (3) CHF exacerbation Qualifiers: Heart failure type: combined systolic and diastolic Qualified Code(s): I50.43 - Acute on chronic combined systolic (congestive) and diastolic ( congestive) heart failure Is this a current diagnosis for this admission?: Yes Plan: We will continue with Lasix Ejection fraction from echocardiogram done in October was 35% (4) Anemia Qualifiers: Anemia type: unspecified type Qualified Code(s): D64.9 - Anemia, unspecified Is this a current diagnosis for this admission?: Yes Plan: Hemoglobin seems to be back to baseline with no intervention (5) Noncompliance with medication regimen Is this a current diagnosis for this admission?: Yes Plan: Patient counseled on need to be compliant with her medications (6) Substance abuse Is this a current diagnosis for this admission?: Yes Plan: Toxicology screen positive for cocaine. Patient has a history of drug abuse. She may need referral for counseling as this is a recurrent issue. He also appears that she may be withdrawing at this time as she seems to be tachycardic with some anxiety and agitation. Will continue with clonidine and use benzodiazepines as needed - Time Time Spent with patient: 15-24 minutes Medications reviewed and adjusted accordingly: Yes Anticipated discharge: Home Within: within 72 hours - Inpatient Certification Based on my medical assessment, after consideration of the patient's comorbidities, presenting symptoms, or acuity I expect that the services needed warrant INPATIENT care.: Yes Medical Necessity: Need For Continuous Telemetry Monitoring, Risk of Complication if Not Cared For in Hospital - Plan Summary Plan Summary: Patient is stable to be transferred out of the ICU
[2018-03-07] MEDS ORDERED: CLONIDINE HCL 0.1 MG TABLET PO SCH (14:00)
[2018-03-07] MEDS: CLONIDINE HCL 0.1 MG TABLET PO SCH ×2 (14:50→21:06)
[2018-03-07] MEDS: SIMVASTATIN 40 MG TABLET PO SCH (21:06)
[2018-03-08] MEDS: ALBUTEROL SULFATE 0.083% NEB 2.5 MG/3 ML AMPUL NEB SCH ×4 (03:49→20:09)
[2018-03-08 05:03] LABS: HEMATOCRIT 32.1 % (36.0-47.0); HEMOGLOBIN 10.3 g/dL (12.0-15.5); MEAN CORPUSCULAR HEMOGLOBIN 28.6 pg (27.0-33.4); MEAN CORPUSCULAR HGB CONC 32.2 g/dL (32.0-36.0); MEAN CORPUSCULAR VOLUME 89 fl (80-97); PLATELET COUNT 268 10^3/uL (150-450); RED BLOOD COUNT 3.61 10^6/uL (3.72-5.28); RED CELL DISTRIBUTION WIDTH 17.2 % (11.5-14.0); WHITE BLOOD COUNT 7.9 10^3/uL (4.0-10.5)
[2018-03-08] MEDS: CLONIDINE HCL 0.1 MG TABLET PO SCH ×3 (06:12→22:30)
[2018-03-08] MEDS: SACUBITRIL/VALSARTAN 24 MG/26 MG TABLET PO SCH ×2 (06:12→17:06)
[2018-03-08] MEDS: HEPARIN SOD (PORCINE) 5,000 UNIT/ML 1 ML SYRINGE SUBCUT SCH ×3 (06:12→22:31)
[2018-03-08] MEDS: CLOPIDOGREL BISULFATE 75 MG TABLET PO SCH (09:11)
[2018-03-08] MEDS: FENOFIBRATE NANOCRYSTALLIZED 145 MG TABLET PO SCH (09:11)
[2018-03-08] MEDS: GABAPENTIN 300 MG CAPSULE PO SCH ×2 (09:11→22:30)
[2018-03-08] MEDS: FAMOTIDINE 20 MG TABLET PO SCH ×2 (09:11→22:30)
[2018-03-08] MEDS: CALCIUM CARBONATE 250 MG/VITAMIN D3 125 UNIT TABLET PO SCH ×3 (09:11→17:06)
[2018-03-08] MEDS: ISOSORBIDE MONONITRATE 60 MG TAB.ER.24H PO SCH (09:11)
[2018-03-08] MEDS: AMLODIPINE BESYLATE 10 MG TABLET PO SCH (09:11)
[2018-03-08] MEDS: FUROSEMIDE INJ/PF 40 MG/4 ML SDV IV SCH ×2 (09:12→22:34)
--- NOTE | 2018-03-08 18:31 | PDOC PROGRESS REPORT ---
Subjective Progress Note for:: 03/08/18 Subjective:: Patient is awake and alert and feels better today. She denies any chest pain. She is off BiPAP and breathing comfortably. He would like some information on drug abuse counseling and she says she is interested in stopping this habit. I have consulted transition social worker to help in this regard Reason For Visit: ACUTE RESPIRATORY FAILURE,MALIGNANT HYPERTENSION, Physical Exam Vital Signs: Temp Pulse Resp BP Pulse Ox 98.8 F 105 H 16 127/69 H 94 03/08/18 15:08 03/08/18 15:08 03/08/18 15:08 03/08/18 15:08 03/08/18 15:08 Intake & Output 03/07/18 03/08/18 03/09/18 06:59 06:59 06:59 Intake Total 122 250 100 Output Total 2195 1685 1300 Balance -3300 -8135 -1200 Weight 83.3 kg 80.2 kg General appearance: PRESENT: no acute distress, well-nourished, other - Older looking than stated age Head exam: PRESENT: atraumatic, normocephalic Eye exam: PRESENT: conjunctiva pink, EOMI, PERRLA. ABSENT: scleral icterus Ear exam: PRESENT: normal external ear exam Mouth exam: PRESENT: moist, tongue midline Neck exam: ABSENT: carotid bruit, JVD, lymphadenopathy, thyromegaly Respiratory exam: PRESENT: clear to auscultation apolinar. ABSENT: rales, rhonchi, wheezes Cardiovascular exam: PRESENT: RRR, +S1, +S2. ABSENT: diastolic murmur, rubs, systolic murmur Pulses: PRESENT: normal dorsalis pedis pul Vascular exam: PRESENT: normal capillary refill GI/Abdominal exam: PRESENT: normal bowel sounds, soft. ABSENT: distended, guarding, mass, organolmegaly, rebound, tenderness Rectal exam: PRESENT: deferred Extremities exam: PRESENT: full ROM. ABSENT: calf tenderness, clubbing, pedal edema Neurological exam: PRESENT: alert, awake, oriented to person, oriented to place , oriented to time, oriented to situation, CN II-XII grossly intact. ABSENT: motor sensory deficit Psychiatric exam: PRESENT: appropriate affect, normal mood. ABSENT: homicidal ideation, suicidal ideation Skin exam: PRESENT: dry, intact, warm. ABSENT: cyanosis, rash Results Laboratory Results: 03/08/18 04:53 03/07/18 03:40 03/08/18 04:53 WBC 7.9 RBC 3.61 L Hgb 10.3 L Hct 32.1 L MCV 89 MCH 28.6 MCHC 32.2 RDW 17.2 H Plt Count 268 03/06/18 03/06/18 17:56 22:00 Troponin I 0.052 0.048 Impressions: Chest X-Ray 03/06/18 12:58 IMPRESSION: Mild pulmonary vascular congestion less prominent than on the previous chest x-ray 01/21/2018. No clement pulmonary edema. Chronic markings left base. Assessment & Plan - Diagnosis (1) Malignant hypertension Is this a current diagnosis for this admission?: Yes Plan: Blood pressure is improved (2) Acute respiratory failure Qualifiers: Respiratory failure complication: unspecified whether with hypoxia or hypercapnia Qualified Code(s): J96.00 - Acute respiratory failure, unspecified whether with hypoxia or hypercapnia Is this a current diagnosis for this admission?: Yes (3) CHF exacerbation Qualifiers: Heart failure type: combined systolic and diastolic Qualified Code(s): I50.43 - Acute on chronic combined systolic (congestive) and diastolic ( congestive) heart failure Is this a current diagnosis for this admission?: Yes Plan: Continue current medications (4) Anemia Qualifiers: Anemia type: unspecified type Qualified Code(s): D64.9 - Anemia, unspecified Is this a current diagnosis for this admission?: Yes (5) Noncompliance with medication regimen Is this a current diagnosis for this admission?: Yes (6) Substance abuse Is this a current diagnosis for this admission?: Yes Plan: Counseling - Time Time Spent with patient: 15-24 minutes Medications reviewed and adjusted accordingly: Yes Anticipated discharge: Home Within: within 24 hours - Inpatient Certification Based on my medical assessment, after consideration of the patient's comorbidities, presenting symptoms, or acuity I expect that the services needed warrant INPATIENT care.: Yes Medical Necessity: Need Close Monitoring Due to Risk of Patient Decompensation, Risk of Complication if Not Cared For in Hospital
[2018-03-08] MEDS: SIMVASTATIN 40 MG TABLET PO SCH (22:30)
--- NOTE | 2018-03-08 22:41 | PDOC PROGRESS REPORT ---
Subjective Progress Note for:: 03/08/18 Subjective:: Patient admitted with severe hypertension and CHF. Much improved today. Patient has shown remarkable improvement since equipment engineer yesterday. She was able to be moved out. Patient's drug screen reviewed was positive for cocaine. Currently denying any chest pain. Reason For Visit: ACUTE RESPIRATORY FAILURE,MALIGNANT HYPERTENSION, Physical Exam Vital Signs: Temp Pulse Resp BP Pulse Ox 98.3 F 103 H 17 131/62 H 94 03/08/18 19:52 03/08/18 19:58 03/08/18 19:58 03/08/18 19:52 03/08/18 19:58 Intake & Output 03/07/18 03/08/18 03/09/18 06:59 06:59 06:59 Intake Total 122 250 100 Output Total 2195 1685 1300 Balance -2073 -1435 -1200 Weight 83.3 kg 80.2 kg Exam: GENERAL: well-nourished and in no acute distress. Alert and oriented x3 HEAD: Atraumatic, normocephalic. EYES: Pupils equal round and reactive to light, extraocular movements intact, sclera anicteric, conjunctiva are normal. ENT: TMs normal, nares patent, oropharynx clear without exudates. Moist mucous membranes. No oral ulcerations or bleeding gums noted NECK: supple without lymphadenopathy. Trachea is central. No cervical or axillary lymphadenopathy noted. Carotids are 2+, JVD WNL LUNGS: Respiration seems nonlabored, no significant accessory muscle action noted. Few bibasilar crackles are noted. No wheezes rales or rhonchi noted. No significant dullness noted on percussion. CHEST: Palpation of the chest wall shows no significant chest wall tenderness. 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 ABDOMEN: Soft, no significant tenderness appreciated, normoactive bowel sounds. No guarding, no rebound. No rigidity noted . No masses appreciated. EXTREMITIES: Pedal pulses are 1-2+, no calf tenderness noted. No clubbing or cyanosis. Trace to 1+ pedal edema noted NEUROLOGICAL: Focused neurological exam showed no significant neurologic deficit. Normal speech, no focal weakness appreciated. PSYCH: Normal mood, normal affect. Judgment and insight within normal limits. SKIN: No significant ecchymosis, skin is noted to be warm. MUSCULOSKELETAL EXAM: No significant acute joint swelling noted. Results Laboratory Results: 03/08/18 04:53 03/07/18 03:40 03/08/18 04:53 WBC 7.9 RBC 3.61 L Hgb 10.3 L Hct 32.1 L MCV 89 MCH 28.6 MCHC 32.2 RDW 17.2 H Plt Count 268 03/06/18 03/06/18 17:56 22:00 Troponin I 0.052 0.048 EKG Comments: Shows sinus rhythm without any sustained tachycardia or bradycardia arrhythmias. Impressions: Chest X-Ray 03/06/18 12:58 IMPRESSION: Mild pulmonary vascular congestion less prominent than on the previous chest x-ray 01/21/2018. No clement pulmonary edema. Chronic markings left base. Assessment & Plan - Diagnosis (1) CHF exacerbation Qualifiers: Heart failure type: combined systolic and diastolic Qualified Code(s): I50.43 - Acute on chronic combined systolic (congestive) and diastolic ( congestive) heart failure Is this a current diagnosis for this admission?: Yes (2) Malignant hypertension Is this a current diagnosis for this admission?: Yes (3) COPD (chronic obstructive pulmonary disease) Qualifiers: COPD type: unspecified COPD Qualified Code(s): J44.9 - Chronic obstructive pulmonary disease, unspecified Is this a current diagnosis for this admission?: Yes (4) Cocaine abuse Is this a current diagnosis for this admission?: Yes (5) Coronary artery disease Qualifiers: Coronary Disease-Associated Artery/Lesion type: torres martinez artery [place] vs. transplanted heart: torres martinez heart Associated angina: without angina Qualified Code(s): I25.10 - Atherosclerotic heart disease of torres martinez coronary artery without angina pectoris Is this a current diagnosis for this admission?: Yes (6) Diabetes Qualifiers: Diabetes mellitus type: type 2 Diabetes mellitus assistant terminal manager insulin use: unspecified assistant terminal manager insulin use status Diabetes mellitus complication status : with unspecified complications Qualified Code(s): E11.8 - Type 2 diabetes mellitus with unspecified complications Is this a current diagnosis for this admission?: Yes (7) Hyperlipidemia Qualifiers: Hyperlipidemia type: unspecified Qualified Code(s): E78.5 - Hyperlipidemia , unspecified Is this a current diagnosis for this admission?: Yes (8) Hypertension Qualifiers: Hypertension type: essential hypertension Qualified Code(s): I10 - Essential (primary) hypertension Is this a current diagnosis for this admission?: Yes (9) Noncompliance with medication regimen Is this a current diagnosis for this admission?: Yes - Notes Notes: BP improved. CHF Improved. Patient medical regimen is being gradually optimized. Agree with current regimen. Patient tolerating entresto therapy well. CHF: Acute on chronic systolic dysfunction with probable some diastolic dysfunction and hypertensive heart disease contributing. At this time agree with aggressive diuresis and aggressive control of blood pressure. Blood pressure goal is 135/95 or less. Discussed with patient regarding defibrillator placement and LifeVest but she is just not interested in pursuing any option at this time. Patient was advised compliance with medications. It is quite possible that patient LVEF may improve expeditiously once her blood pressure is brought under control. Malignant hypertension: Patient has very severe hypertension causing CHF. Patient also has some morning headaches. Will try to bring her blood pressure down. Currently she is on IV nitroglycerin but will institute multiple antihypertensive medications. Hydralazine nitrate, and entresto will be used. Obesity: Patient advised in weight loss. Sleep disorder: Patient does describe history of snoring, difficulty falling asleep and staying asleep. Patient will benefit from a sleep evaluation especially in view of underlying cardiomyopathy and severe hypertension. This was discussed with the patient. Coronary artery disease: Patient describes history of prior coronary stent placement. Will try obtain those records. Currently patient without any chest pain. Cardiac enzymes has been unremarkable. EKG negative for acute ST-T wave changes. Recommend statin therapy and antiplatelet therapy. Tobacco abuse: Patient has been advised to quit smoking. COPD: Patient again advised to quit smoking. Cocaine abuse: Patient counseled against it. Noncompliance with medical management, medications and diet. Patient advised importance of taking medication. Informed that her heart is weak. - Time Time with patient: 15-25 minutes - More than 50% of the time spent coordinating care, discussing management plans with involved caregivers. Management plans discussed with involved personnels. Medical decision making was of moderate to high complexity, patient's has multiple comorbidities. Medications reviewed and adjusted accordingly: Yes
[2018-03-09] MEDS: ALBUTEROL SULFATE 0.083% NEB 2.5 MG/3 ML AMPUL NEB SCH ×2 (01:49→08:45)
[2018-03-09] MEDS: SACUBITRIL/VALSARTAN 24 MG/26 MG TABLET PO SCH (05:32)
[2018-03-09] MEDS: CLONIDINE HCL 0.1 MG TABLET PO SCH (05:32)
[2018-03-09] MEDS: HEPARIN SOD (PORCINE) 5,000 UNIT/ML 1 ML SYRINGE SUBCUT SCH (05:33)
[2018-03-09] MEDS: FUROSEMIDE INJ/PF 40 MG/4 ML SDV IV SCH (10:14)
[2018-03-09] MEDS: FENOFIBRATE NANOCRYSTALLIZED 145 MG TABLET PO SCH (10:38)
[2018-03-09] MEDS: CLOPIDOGREL BISULFATE 75 MG TABLET PO SCH (10:38)
[2018-03-09] MEDS: CALCIUM CARBONATE 250 MG/VITAMIN D3 125 UNIT TABLET PO SCH (10:38)
[2018-03-09] MEDS: AMLODIPINE BESYLATE 10 MG TABLET PO SCH (10:38)
[2018-03-09] MEDS: ISOSORBIDE MONONITRATE 60 MG TAB.ER.24H PO SCH (10:38)
[2018-03-09] MEDS: FAMOTIDINE 20 MG TABLET PO SCH (10:38)
[2018-03-09] MEDS: GABAPENTIN 300 MG CAPSULE PO SCH (10:38)
--- NOTE | 2018-03-09 10:52 | PDOC DISCHARGE SUMMARY ---
General - Admit/Disc Date/PCP Admission Date/Primary Care Provider: 03/06/18 16:19 NOMAN HENDRICKSON Discharge Date: 03/09/18 - Discharge Diagnosis (1) Malignant hypertension Is this a current diagnosis for this admission?: Yes (2) Acute respiratory failure Is this a current diagnosis for this admission?: Yes (3) CHF exacerbation Is this a current diagnosis for this admission?: Yes Summary: Acute decompensated CHF on chronic combined systolic and diastolic CHF. Ejection fraction of around 35% on previous echo. (4) Anemia Is this a current diagnosis for this admission?: Yes (5) Noncompliance with medication regimen Is this a current diagnosis for this admission?: Yes (6) Substance abuse Is this a current diagnosis for this admission?: Yes - Additional Information Resuscitation Status: Full Code Discharge Diet: Cardiac Discharge Activity: Activity As Tolerated, Balance Activity w/Rest, Weigh Daily Prescriptions: Amlodipine Besylate [Norvasc 10 mg Tablet] 10 mg PO DAILY #30 tablet Isosorbide Mononitrate [Imdur 60 mg Tablet.er] 60 mg PO DAILY #30 tab.er.24h Sacubitril/Valsartan [Entresto 24 mg/26 mg Tablet] 1 tab PO Q12A #30 tablet Home Medications: Albuterol Sulfate [Proair HFA Inhalation Aerosol 8.5 gm MDI] 2 puff IH Q6HP PRN 03/06/18 Aspirin [Aspirin EC] 81 mg PO DAILY 03/06/18 Carvedilol [Coreg 12.5 mg Tablet] 12.5 mg PO Q12 03/06/18 Clonidine HCl [Catapres 0.1 mg Tablet] 0.1 mg PO BID 03/06/18 Clopidogrel Bisulfate [Plavix 75 mg Tablet] 75 mg PO DAILY 03/06/18 Ergocalciferol (Vitamin D2) [Drisdol 50,000 unit (1.25MG) Capsule] 50,000 unit PO WAGNER@1000 03/06/18 Fenofibrate Nanocrystallized [Fenofibrate] 145 mg PO DAILY 03/06/18 Gabapentin [Neurontin] 600 mg PO BID 03/06/18 Levalbuterol HCl [Xopenex Neb 1.25 mg/3 ml Ampul] 1 vial NEB QHS 03/06/18 Metolazone [Zaroxolyn 5 mg Tablet] 5 mg PO DAILY 03/06/18 Nicotine [Nicoderm 21 mg/24 Hr Transderm Patch] 1 patch TOP DAILY 03/06/18 Omeprazole 40 mg PO DAILY 03/06/18 Simvastatin [Zocor 40 mg Tablet] 40 mg PO QHS 03/06/18 Torsemide [Demadex 20 mg Tablet] 40 mg PO DAILY 03/06/18 Amlodipine Besylate [Norvasc 10 mg Tablet] 10 mg PO DAILY #30 tablet 03/08/18 Calcium Carbonate/Vitamin D3 [Os-Alvino 250 mg with Vitamin D 125 Units] 1 tab PO TID tablet 03/08/18 Isosorbide Mononitrate [Imdur 60 mg Tablet.er] 60 mg PO DAILY #30 tab.er.24h 04/17 Sacubitril/Valsartan [Entresto 24 mg/26 mg Tablet] 1 tab PO Q12A #30 tablet 04/17 History of Present Illness History of Present Illness: MAGNO WILSON is a 57 year old female This patient was admitted to with altered mental status and respiratory distress. She was given Solu-Medrol on initial arrival. Her blood pressure was 09/20/2019. Patient is thought to have severe CHF decompensation with ejection fraction of 25%. She received multiple bronchodilators with little effect. Initial ABG was actually not too bad with a PCO2 of 52 and pH of 7.3 and PO2 greater than 100%. She was started on nitroglycerin drip. Patient is pretty was sedated at the time of my exam and I am unable to obtain any information from her however it appears that she has a history of recurrent decompensated CHF with noncompliance. There was some confusion as she was thought to be Dr. Wheeler patient but apparently he "" fired' her due to noncompliance. Her BNP is actually not that bad compared to how it was before at 4560. She is found to be a grossly hypokalemic with potassium of 2.1 she is also more anemic compared to her baseline. patient is been admitted to the intensive care unit as she is still on IV nitroglycerin although I am going to try and place her on transdermal if tolerated Hospital Course Hospital Course: Patient was initially admitted into the intensive care unit which was managed with bilateral positive airway pressure ventilation. She was aggressively diuresed. She was treated with intravenous nitroglycerin which was subsequently switched to topical nitroglycerin. Patient actually did well with this regimens. She was moved out of the intensive care unit and will continue to adjust her antihypertensives. Patient was counseled again on the need to abstain from substance abuse and she was encouraged to follow-up at [facility] which she already has an appointment. Patient was seen by Dr. Pride due to her cardiomyopathy and some of her medications were adjusted. Patient has remained hemodynamically stable and with resolution of her presenting symptoms and with since been planned she has been discharged home. She has also been advised to be compliant with her medications Physical Exam Vital Signs: Temp Pulse Resp BP Pulse Ox 98.0 F 98 12 126/75 H 96 03/09/18 07:29 03/09/18 08:45 03/09/18 08:45 03/09/18 07:29 03/09/18 08:45 Intake & Output 03/08/18 03/09/18 03/10/18 06:59 06:59 06:59 Intake Total 250 100 237 Output Total 1685 1300 Balance -1435 -1200 237 Weight 80.2 kg 80.1 kg General appearance: PRESENT: no acute distress, well-developed, well-nourished Head exam: PRESENT: atraumatic, normocephalic Eye exam: PRESENT: conjunctiva pink, EOMI, PERRLA. ABSENT: scleral icterus Ear exam: PRESENT: normal external ear exam Mouth exam: PRESENT: moist, tongue midline Neck exam: ABSENT: carotid bruit, JVD, lymphadenopathy, thyromegaly Respiratory exam: PRESENT: clear to auscultation apolinar. ABSENT: rales, rhonchi, wheezes Cardiovascular exam: PRESENT: RRR. ABSENT: diastolic murmur, rubs, systolic murmur Pulses: PRESENT: normal dorsalis pedis pul Vascular exam: PRESENT: normal capillary refill GI/Abdominal exam: PRESENT: normal bowel sounds, soft. ABSENT: distended, guarding, mass, organolmegaly, rebound, tenderness Rectal exam: PRESENT: deferred Extremities exam: PRESENT: full ROM, +1 edema. ABSENT: calf tenderness, clubbing, pedal edema Neurological exam: PRESENT: alert, awake, oriented to person, oriented to place , oriented to time, oriented to situation, CN II-XII grossly intact. ABSENT: motor sensory deficit Psychiatric exam: PRESENT: appropriate affect, normal mood. ABSENT: homicidal ideation, suicidal ideation Skin exam: PRESENT: dry, intact, warm. ABSENT: cyanosis, rash Results Laboratory Results: 03/08/18 04:53 03/07/18 03:40 03/06/18 03/06/18 17:56 22:00 Troponin I 0.052 0.048 Impressions: Chest X-Ray 03/06/18 12:58 IMPRESSION: Mild pulmonary vascular congestion less prominent than on the previous chest x-ray 01/21/2018. No clement pulmonary edema. Chronic markings left base. Qualifiers - * PATIENT BEING DISCHARGED WITH ANY OF THE FOLLOWING DIAGNOSIS: Heart Failure HF Pt being discharged on ACEI for LVEF less than 40%?: Yes HF Pt being discharged on ARBS for LVEF less than 40%?: No Reason(s) for not prescribing ARBS:: Medical Contraindication HF Pt with Afib discharged with Warfarin?: No Reason(s) for not prescribing Warfarin:: Not indicated HF Pt discharged on evidence-based Beta Andrea:: Yes Plan Time Spent: Greater than 30 Minutes
[2018-03-09 10:59] VITALS: BP 133/80
--- NOTE | 2018-03-10 10:34 | PDOC CONSULTATION ---
Consultation Consult Date: 03/06/18 Attending physician:: TIARRA PHOENIX Consult reason:: CHF History of Present Illness Admission Date/PCP: 03/06/18 16:19 NOMAN HENDRICKSON Patient complains of: Dyspnea History of Present Illness: MAGNO WILSON is a 57 year old female patient was admitted to with altered mental status and respiratory distress. She was given Solu-Medrol on initial arrival. Her blood pressure was noted to be extremely high over 200 mmHg. Patient is thought to have severe CHF decompensation with ejection fraction of 25%. She received multiple bronchodilators with little effect. Initial ABG was actually not too bad with a PCO2 of 52 and pH of 7.3 and PO2 greater than 100%. She was started on nitroglycerin drip. Patient is pretty was sedated at the time of my exam and I am unable to obtain any information from her however it appears that she has a history of recurrent decompensated CHF with noncompliance. There was some confusion as she was thought to be Dr. Wheeler patient but apparently he "" fired' her due to noncompliance. Her BNP is actually not that bad compared to how it was before at 4560. She is found to be a grossly hypokalemic with potassium of 2.1 she is also more anemic compared to her baseline. patient is been admitted to the intensive care unit as she is still on IV nitroglycerin although I am going to try and place her on transdermal if tolerated. This history was reviewed and confirmed with the patient. Patient denied any chest pain, sustained palpitations, syncope, near syncope. Past Medical History Cardiac Medical History: Reports: Congestive Heart Failure, Coronary Artery Disease, Hyperlipidema, Hypertension Endocrine Medical History: Reports: Diabetes Mellitus Type 1, Diabetes Mellitus Type 2 GI Medical History: Reports: Gastroesophageal Reflux Disease, Hepatitis - Hepatitis C Psychiatric Medical History: Denies: Depression Hematology: Reports: Anemia Past Surgical History Past Surgical History: Reports: Appendectomy, Section, Coronary Stent, Tubal Ligation, Other - Salpingo-oophorectomy Denies: Hysterectomy Social History Information Source: Patient Smoking Status: Current Every Day Smoker Frequency of Alcohol Use: None Hx Recreational Drug Use: Yes Drugs: Cocaine Hx Prescription Drug Abuse: No - Advance Directive Resuscitation Status: Full Code Family History Family History: DM, Hypertension Parental Family History Reviewed: Yes Children Family History Reviewed: Yes Sibling(s) Family History Reviewed.: Yes Medication/Allergy Home Medications: Albuterol Sulfate [Proair HFA Inhalation Aerosol 8.5 gm MDI] 2 puff IH Q6HP PRN 03/06/18 Aspirin [Aspirin EC] 81 mg PO DAILY 03/06/18 Carvedilol [Coreg 12.5 mg Tablet] 12.5 mg PO Q12 03/06/18 Clonidine HCl [Catapres 0.1 mg Tablet] 0.1 mg PO BID 03/06/18 Clopidogrel Bisulfate [Plavix 75 mg Tablet] 75 mg PO DAILY 03/06/18 Ergocalciferol (Vitamin D2) [Drisdol 50,000 unit (1.25MG) Capsule] 50,000 unit PO WAGNER@1000 03/06/18 Fenofibrate Nanocrystallized [Fenofibrate] 145 mg PO DAILY 03/06/18 Gabapentin [Neurontin] 600 mg PO BID 03/06/18 Levalbuterol HCl [Xopenex Neb 1.25 mg/3 ml Ampul] 1 vial NEB QHS 03/06/18 Metolazone [Zaroxolyn 5 mg Tablet] 5 mg PO DAILY 03/06/18 Nicotine [Nicoderm 21 mg/24 Hr Transderm Patch] 1 patch TOP DAILY 03/06/18 Omeprazole 40 mg PO DAILY 03/06/18 Simvastatin [Zocor 40 mg Tablet] 40 mg PO QHS 03/06/18 Torsemide [Demadex 20 mg Tablet] 40 mg PO DAILY 03/06/18 Amlodipine Besylate [Norvasc 10 mg Tablet] 10 mg PO DAILY #30 tablet 03/08/18 Calcium Carbonate/Vitamin D3 [Os-Alvino 250 mg with Vitamin D 125 Units] 1 tab PO TID tablet 03/08/18 Isosorbide Mononitrate [Imdur 60 mg Tablet.er] 60 mg PO DAILY #30 tab.er.24h 04/17 Sacubitril/Valsartan [Entresto 24 mg/26 mg Tablet] 1 tab PO Q12A #30 tablet 04/17 Allergies/Adverse Reactions: No Known Allergies Allergy (Verified 12/03/17 13:25) Review of Systems Review of Systems: Please see history of present illness and past medical history as wall. Constitutional: No fever or chills reported. Head : Recent morning headaches but denies recent head injury. Eyes: No recent eye pain, diplopia, redness, discharge, acute visual changes. Ears: No recent chronic ear pain, acute hearing loss, ear discharge. Oral cavity: No recent ulcerations, bleeding, oral cavity discomfort. Neck: No recent acute neck pain reported. Hematologic: No recent easy bruising or bleeding. Lymphatic: No recent lymph node enlargement reported. Cardiovascular system review: See history of present illness. Respiratory system review: No hemoptysis or blood clots in the lungs reported. Mild Shortness of breath on exertion Gastrointestinal system review: Negative for any recent acute hematemesis, melena. Genitourinary system review: No recent acute or chronic hematuria, flank pain, UTI etc. reported. Skin system review: Negative for any recent abnormal bruising, no rash, no pruritus reported. Neurologic: No prior history of strokes, mini strokes, seizure disorder. Psychologic: No history of major psychosis or major depression reported. Musculoskeletal: Minor aches and pains reported. No acute joint swelling reported. Endocrine: No recent polyuria, polydipsia, recent heat or cold intolerance. Physical Exam Vital Signs: Temp Pulse Resp BP Pulse Ox 97.9 F 126 H 23 H 171/128 H 100 03/06/18 22:00 03/06/18 19:02 03/06/18 19:02 03/06/18 19:02 03/06/18 19:02 Intake & Output 03/05/18 03/06/18 03/07/18 06:59 06:59 06:59 Intake Total 71 Output Total 1825 Balance -1754 Weight 84.4 kg Exam: GENERAL: well-nourished and in no acute distress. Alert and oriented x3 HEAD: Atraumatic, normocephalic. EYES: Pupils equal round and reactive to light, extraocular movements intact, sclera anicteric, conjunctiva are normal. ENT: TMs normal, nares patent, oropharynx clear without exudates. Moist mucous membranes. No oral ulcerations or bleeding gums noted NECK: supple without lymphadenopathy. Trachea is central. No cervical or axillary lymphadenopathy noted. Carotids are 2+, JVD 10 cm LUNGS: Respiration seems nonlabored, no significant accessory muscle action noted. Bibasilar fine crackles are noted. No wheezes rales or rhonchi noted. No significant dullness noted on percussion. CHEST: Palpation of the chest wall shows no significant chest wall tenderness. 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 ABDOMEN: Soft, no significant tenderness appreciated, normoactive bowel sounds. No guarding, no rebound. No rigidity noted . No masses appreciated. EXTREMITIES: Pedal pulses are 1-2+, no calf tenderness noted. No clubbing or cyanosis. 1+ pedal edema noted NEUROLOGICAL: Focused neurological exam showed no significant neurologic deficit. Normal speech, no focal weakness appreciated. PSYCH: Normal mood, normal affect. Judgment and insight within normal limits. SKIN: No significant ecchymosis, skin is noted to be warm. MUSCULOSKELETAL EXAM: No significant acute joint swelling noted. Results Laboratory Results: 03/06/18 17:56 Troponin I 0.052 EKG Comments: Sinus tachycardia, no acute ST-T wave changes are noted Impressions: Chest X-Ray 03/06/18 12:58 IMPRESSION: Mild pulmonary vascular congestion less prominent than on the previous chest x-ray 01/21/2018. No clement pulmonary edema. Chronic markings left base. Assessment & Plan - Diagnosis (1) CHF exacerbation Qualifiers: Heart failure type: combined systolic and diastolic Qualified Code(s): I50.43 - Acute on chronic combined systolic (congestive) and diastolic ( congestive) heart failure Is this a current diagnosis for this admission?: Yes (2) Malignant hypertension Is this a current diagnosis for this admission?: Yes (3) COPD (chronic obstructive pulmonary disease) Qualifiers: COPD type: unspecified COPD Qualified Code(s): J44.9 - Chronic obstructive pulmonary disease, unspecified Is this a current diagnosis for this admission?: Yes (4) Coronary artery disease Qualifiers: Coronary Disease-Associated Artery/Lesion type: [place] artery [place] vs. transplanted heart: [place] heart Associated angina: without angina Qualified Code(s): I25.10 - Atherosclerotic heart disease of [place] coronary artery without angina pectoris Is this a current diagnosis for this admission?: Yes (5) Tobacco abuse Is this a current diagnosis for this admission?: Yes - Notes Notes: CHF: Acute on chronic systolic dysfunction with probable some diastolic dysfunction and hypertensive heart disease contributing. At this time agree with aggressive diuresis and aggressive control of blood pressure. Blood pressure goal is 135/95 or less. Discussed with patient regarding defibrillator placement and LifeVest but she is just not interested in pursuing any option at this time. Patient was advised compliance with medications. It is quite possible that patient LVEF may improve expeditiously once her blood pressure is brought under control. Malignant hypertension: Patient has very severe hypertension causing CHF. Patient also has some morning headaches. Will try to bring her blood pressure down. Currently she is on IV nitroglycerin but will institute multiple antihypertensive medications. Hydralazine nitrate, and entresto will be used. Obesity: Patient advised in weight loss. Sleep disorder: Patient does describe history of snoring, difficulty falling asleep and staying asleep. Patient will benefit from a sleep evaluation especially in view of underlying cardiomyopathy and severe hypertension. This was discussed with the patient. Coronary artery disease: Patient describes history of prior coronary stent placement. Will try obtain those records. Currently patient without any chest pain. Cardiac enzymes has been unremarkable. EKG negative for acute ST-T wave changes. Recommend statin therapy and antiplatelet therapy. Tobacco abuse: Patient has been advised to quit smoking. COPD: Patient again advised to quit smoking. - Time Time Spent: 30 to 50 Minutes - CODE STATUS was discussed, patient remains full code. Multiple medical problems were addressed. More than 50% of the time spent coordinating care, discussing management plans with involved caregivers. Management plans discussed with involved personnels. Medical decision making was of moderate to high complexity, patient's has multiple comorbidities. Medications reviewed and adjusted accordingly: Yes
--- NOTE | 2018-03-10 10:43 | PDOC PROGRESS REPORT ---
Subjective Progress Note for:: 03/07/18 Subjective:: Patient seen on morning rounds in the intensive care unit. Patient admitted with severe hypertension and CHF. I am told by the nurse that she is not able to swallow p.o. medication. There has been some deterioration in patient general status. She was noted to be very lethargic. Reason For Visit: ACUTE RESPIRATORY FAILURE,MALIGNANT HYPERTENSION, Physical Exam Vital Signs: Temp Pulse Resp BP Pulse Ox 99.7 F 118 H 23 H 116/102 H 99 03/07/18 18:00 03/07/18 18:00 03/07/18 18:14 03/07/18 18:14 03/07/18 18:14 Intake & Output 03/06/18 03/07/18 03/08/18 06:59 06:59 06:59 Intake Total 122 250 Output Total 2195 685 Balance -2073 -435 Weight 83.3 kg Exam: GENERAL: well-nourished and in no acute distress. Alert but very lethargic, orientation could not be checked. HEAD: Atraumatic, normocephalic. EYES: Pupils equal round and reactive to light, extraocular movements intact, sclera anicteric, conjunctiva are normal. ENT: TMs normal, nares patent, oropharynx clear without exudates. Moist mucous membranes. No oral ulcerations or bleeding gums noted NECK: supple without lymphadenopathy. Trachea is central. No cervical or axillary lymphadenopathy noted. Carotids are 2+, JVD 8-10 cm LUNGS: Respiration seems nonlabored, no significant accessory muscle action noted. Bibasilar fine crackles are noted. No wheezes rales or rhonchi noted. No significant dullness noted on percussion. CHEST: Palpation of the chest wall shows no significant chest wall tenderness. 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 ABDOMEN: Soft, no significant tenderness appreciated, normoactive bowel sounds. No guarding, no rebound. No rigidity noted . No masses appreciated. EXTREMITIES: Pedal pulses are 1-2+, no calf tenderness noted. No clubbing or cyanosis. 1+ pedal edema noted NEUROLOGICAL: No facial asymmetry or any focal weakness appreciated but patient did not participate in the neurological exam. PSYCH: This could not be assessed today. Patient noted to very lethargic. SKIN: No significant ecchymosis, skin is noted to be warm. MUSCULOSKELETAL EXAM: No significant acute joint swelling noted. Results Laboratory Results: 03/07/18 03:40 03/07/18 03:40 03/06/18 03/07/18 03/07/18 22:00 03:40 03:40 WBC 6.0 RBC 3.66 L Hgb 10.3 L Hct 32.3 L MCV 88 MCH 28.0 MCHC 31.8 L RDW 16.9 H Plt Count 277 Sodium 142.2 143.2 Potassium 4.1 D 4.2 Chloride 107 108 H Carbon Dioxide 25 27 Anion Gap 10 8 BUN 18 19 Creatinine 0.85 0.91 Est GFR ( Amer) > 60 > 60 Est GFR (Non-Af Amer) > 60 > 60 Glucose 221 H 199 H Calcium 8.7 8.6 Magnesium 1.8 03/06/18 03/06/18 17:56 22:00 Troponin I 0.052 0.048 EKG Comments: Shows sinus rhythm with intermittent tachycardia but other cardiac dysrhythmia noted. Impressions: Chest X-Ray 03/06/18 12:58 IMPRESSION: Mild pulmonary vascular congestion less prominent than on the previous chest x-ray 01/21/2018. No clement pulmonary edema. Chronic markings left base. Assessment & Plan - Diagnosis (1) CHF exacerbation Qualifiers: Heart failure type: combined systolic and diastolic Qualified Code(s): I50.43 - Acute on chronic combined systolic (congestive) and diastolic ( congestive) heart failure Is this a current diagnosis for this admission?: Yes (2) Malignant hypertension Is this a current diagnosis for this admission?: Yes (3) Coronary artery disease Qualifiers: Coronary Disease-Associated Artery/Lesion type: [place] artery [place] vs. transplanted heart: [place] heart Associated angina: without angina Qualified Code(s): I25.10 - Atherosclerotic heart disease of 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 May consider IV Vasotec as additional antihypertensive agent. Starting dose will be 0.625 mg every 6 intravenously. Patient's management of hypertension is being gradually optimized. CHF: Acute on chronic systolic dysfunction with probable some diastolic dysfunction and hypertensive heart disease contributing. At this time agree with aggressive diuresis and aggressive control of blood pressure. Blood pressure goal is 135/95 or less. Discussed with patient regarding defibrillator placement and LifeVest but she is just not interested in pursuing any option at this time. Patient was advised compliance with medications. It is quite possible that patient LVEF may improve expeditiously once her blood pressure is brought under control. Malignant hypertension: Patient has very severe hypertension causing CHF. Patient also has some morning headaches. Will try to bring her blood pressure down. Currently she is on IV nitroglycerin but will institute multiple antihypertensive medications. Hydralazine nitrate, and entresto will be used. Obesity: Patient advised in weight loss. Sleep disorder: Patient does describe history of snoring, difficulty falling asleep and staying asleep. Patient will benefit from a sleep evaluation especially in view of underlying cardiomyopathy and severe hypertension. This can be done as an outpatient. Coronary artery disease: Patient describes history of prior coronary stent placement. Will try obtain those records. Currently patient without any chest pain. Cardiac enzymes has been unremarkable. EKG negative for acute ST-T wave changes. Recommend statin therapy and antiplatelet therapy. Tobacco abuse: Patient has been advised to quit smoking. COPD: Patient again advised to quit smoking. Diabetes: This is being well managed by the hospitalist. Hyperlipidemia: Resume statin therapy. LDL goal is less than 70 in this lady. - Time Time with patient: Greater than 35 minutes - CODE STATUS was discussed, patient remains full code. More than 50% of the time spent coordinating care, discussing management plans with involved caregivers. Management plans discussed with involved personnels. Medical decision making was of moderate to high complexity, patient's has multiple comorbidities. Medications reviewed and adjusted accordingly: Yes
--- NOTE | 2018-03-10 10:53 | PDOC PROGRESS REPORT ---
Subjective Progress Note for:: 03/09/18 Subjective:: Patient was seen on morning rounds and was noted to be ambulating on the floor wanting to be discharged. Patient denied any chest, neck discomfort. Patient is denying any shortness of breath. She is willing to follow-up with me. Reason For Visit: ACUTE RESPIRATORY FAILURE,MALIGNANT HYPERTENSION, Physical Exam Vital Signs: Temp Pulse Resp BP Pulse Ox 98.0 F 98 12 133/80 H 96 03/09/18 10:58 03/09/18 10:58 03/09/18 10:58 03/09/18 10:58 03/09/18 10:58 Intake & Output 03/09/18 03/10/18 03/11/18 06:59 06:59 06:59 Intake Total 100 237 Output Total 1300 Balance -1200 237 Weight 80.1 kg Exam: GENERAL: well-nourished and in no acute distress. Alert and oriented x3 HEAD: Atraumatic, normocephalic. EYES: Pupils equal round and reactive to light, extraocular movements intact, sclera anicteric, conjunctiva are normal. ENT: TMs normal, nares patent, oropharynx clear without exudates. Moist mucous membranes. No oral ulcerations or bleeding gums noted NECK: supple without lymphadenopathy. Trachea is central. No cervical or axillary lymphadenopathy noted. Carotids are 2+, JVD WNL LUNGS: Respiration seems nonlabored, no significant accessory muscle action noted. Breath sounds clear to auscultation bilaterally and equal noted. No wheezes rales or rhonchi noted. No significant dullness noted on percussion. CHEST: Palpation of the chest wall shows no significant chest wall tenderness. 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 ABDOMEN: Soft, no significant tenderness appreciated, normoactive bowel sounds. No guarding, no rebound. No rigidity noted . No masses appreciated. EXTREMITIES: Pedal pulses are 1-2+, no calf tenderness noted. No clubbing or cyanosis. negative pedal edema noted NEUROLOGICAL: Focused neurological exam showed no significant neurologic deficit. Normal speech, no focal weakness appreciated. PSYCH: Normal mood, normal affect. Judgment and insight within normal limits. SKIN: No significant ecchymosis, skin is noted to be warm. MUSCULOSKELETAL EXAM: No significant acute joint swelling noted. Results Laboratory Results: 03/08/18 04:53 03/07/18 03:40 03/06/18 03/06/18 17:56 22:00 Troponin I 0.052 0.048 Impressions: Chest X-Ray 03/06/18 12:58 IMPRESSION: Mild pulmonary vascular congestion less prominent than on the previous chest x-ray 01/21/2018. No clement pulmonary edema. Chronic markings left base. Assessment & Plan - Diagnosis (1) CHF exacerbation Qualifiers: Heart failure type: combined systolic and diastolic Qualified Code(s): I50.43 - Acute on chronic combined systolic (congestive) and diastolic ( congestive) heart failure Is this a current diagnosis for this admission?: Yes (2) Malignant hypertension Is this a current diagnosis for this admission?: Yes (3) COPD (chronic obstructive pulmonary disease) Qualifiers: COPD type: unspecified COPD Qualified Code(s): J44.9 - Chronic obstructive pulmonary disease, unspecified Is this a current diagnosis for this admission?: Yes (4) Cocaine abuse Is this a current diagnosis for this admission?: Yes (5) Coronary artery disease Qualifiers: Coronary Disease-Associated Artery/Lesion type: [place] artery [place] vs. 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 Diabetes mellitus complication status : with unspecified complications Qualified Code(s): E11.8 - Type 2 diabetes mellitus with unspecified complications Is this a current diagnosis for this admission?: Yes (7) Hyperlipidemia Qualifiers: Hyperlipidemia type: unspecified Qualified Code(s): E78.5 - Hyperlipidemia , unspecified Is this a current diagnosis for this admission?: Yes (8) Hypertension Qualifiers: Hypertension type: essential hypertension Qualified Code(s): I10 - Essential (primary) hypertension Is this a current diagnosis for this admission?: Yes (9) Noncompliance with medication regimen Is this a current diagnosis for this admission?: Yes - Notes Notes: Patient has shown significant improvement and is felt ready for discharge with close cardiology follow-up. This was informed to the hospitalist. Her last EF was 35%. Patient will benefit from a repeat echocardiogram but this can be performed as an outpatient. His last echo was in October 2017. CHF: Acute on chronic systolic dysfunction with probable some diastolic dysfunction and hypertensive heart disease contributing. At this time agree with aggressive diuresis and aggressive control of blood pressure. Blood pressure goal is 135/95 or less. CHF today is clinically compensated. Malignant hypertension: Blood pressure has been under satisfactory control on current regimen for last 48 hours. Recommend discharge on current antihypertensives. Obesity: Patient advised in weight loss. Sleep disorder: This was addressed with the patient and patient is willing to consider to be scheduled for a sleep study.. Coronary artery disease: Currently without any angina or angina equivalent symptom. Discussed that periodic follow-up will be needed. Tobacco abuse: Patient has been advised to quit smoking. COPD: Patient again advised to quit smoking. Currently stable. Cocaine abuse: Patient is agreeing to quit using it. Noncompliance with medical management, medications and diet. Patient advised importance of taking medication. - Time Time with patient: 15-25 minutes - More than 50% of the time spent coordinating care, discussing management plans with involved caregivers. Management plans discussed with involved personnels. Medical decision making was of moderate to high complexity, patient's has multiple comorbidities. Medications reviewed and adjusted accordingly: Yes
[2018-03-11] MEDS ORDERED: ERGOCALCIFEROL (VITAMIN D2) 50000 UNIT (1.25 MG) CAPSULE PO SCH (10:00)
== END 2018-03-09 11:23 | disposition home or self-care (01) | DRG 291 ==
LOC: ER 12:52 → EH 16:19 → ICU 18:30 → 3W 03-08 02:59
PROVIDERS: ADMIT Internal Medicine; ATTEND Internal Medicine
PROC: 3E0F73Z Introduction of Anti-inflammatory into Respiratory Tract, Via Natural or Artificial Opening (ICD-10-PCS; principal; 2018-03-06)
PROC: 5A09457 Assistance with Respiratory Ventilation, 24-96 Consecutive Hours, Continuous Positive Airway Pressure (ICD-10-PCS; 2018-03-06)
DX: I11.0 Hypertensive heart disease with heart failure (principal); J96.00 Acute respiratory failure, unspecified whether with hypoxia or hypercapnia; N17.9 Acute kidney failure, unspecified; I50.43 Acute on chronic combined systolic (congestive) and diastolic (congestive) heart failure; D64.9 Anemia, unspecified; F19.10 Other psychoactive substance abuse, uncomplicated; E87.6 Hypokalemia; I25.10 Atherosclerotic heart disease of native coronary artery without angina pectoris; E78.00 Pure hypercholesterolemia, unspecified; E11.9 Type 2 diabetes mellitus without complications; K21.9 Gastro-esophageal reflux disease without esophagitis; F17.210 Nicotine dependence, cigarettes, uncomplicated; R00.0 Tachycardia, unspecified; J44.9 Chronic obstructive pulmonary disease, unspecified; E66.9 Obesity, unspecified; Z68.32 Body mass index [BMI] 32.0-32.9, adult; Z91.14 Patient's other noncompliance with medication regimen; Z79.82 Long term (current) use of aspirin; Z79.899 Other long term (current) drug therapy; Z86.19 Personal history of other infectious and parasitic diseases; Z95.5 Presence of coronary angioplasty implant and graft; Z90.79 Acquired absence of other genital organ(s); Z90.722 Acquired absence of ovaries, bilateral; Z82.61 Family history of arthritis; Z83.3 Family history of diabetes mellitus; Z82.49 Family history of ischemic heart disease and other diseases of the circulatory system
CPT/HCPCS: 36415; 71045; 80048; 80053; 80307; 81001; 82550; 82553; 82803; 83605; 83735; 83880; 84484; 85025; 85027; 87040; 93005; 93010; 94640; 94660; 96365; 96366; 96368; 96375; 99291; G8996-GN; G8997-GN; J0360; J1644; J1940; J2930; J3480; J3490; J7620

== ENCOUNTER 2018-06-04 16:22 | Emergency (ER) | payer MEDICARE, MEDICAID ==
[2018-06-04] MEDS ORDERED: FUROSEMIDE INJ/PF 40 MG/4 ML SDV IV ONE (17:01)
[2018-06-04] MEDS ORDERED: ASPIRIN 81 MG TABLET, CHEWABLE PO ONE (17:01)
--- NOTE | 2018-06-04 17:05 | ER Document Report ---
ED Medical Screen (RME) - General Chief Complaint: Swelling of Lower Extremity Stated Complaint: SWOLLEN LEGS/FEET Time Seen by Provider: 06/04/18 16:55 Notes: 58-year-old female presents the emergency department with complaints of congestive heart failure exacerbation. She states that it started to flareup a few days ago. Patient states that she ran out of her "water pill" a week ago. She states that she is having some mild shortness of breath but denies any chest pain. I have greeted and performed a rapid initial assessment of this patient. A comprehensive ED assessment and evaluation of the patient, analysis of test results and completion of the medical decision making process will be conducted by additional ED providers. PHYSICAL EXAMINATION: GENERAL: Well-appearing, well-nourished and in no acute distress. HEAD: Atraumatic, normocephalic. EYES: Pupils equal round extraocular movements intact, conjunctiva are normal. ENT: Nares patent NECK: Normal range of motion LUNGS: No respiratory distress Musculoskeletal: Normal range of motion NEUROLOGICAL: Normal speech PSYCH: Normal mood, normal affect. SKIN: Warm, Dry, normal turgor, no rashes or lesions noted. TRAVEL OUTSIDE OF THE [place] IN LAST 30 DAYS: No - Related Data Allergies/Adverse Reactions: No Known Allergies Allergy (Verified 12/03/17 13:25) Past Medical History - Social History Frequency of alcohol use: None Drug Abuse: Cocaine, Heroin - Past Medical History Cardiac Medical History: Reports: Hx Congestive Heart Failure, Hx Coronary Artery Disease, Hx Hypercholesterolemia, Hx Hypertension Endocrine Medical History: Reports: Hx Diabetes Mellitus Type 1, Hx Diabetes Mellitus Type 2 Renal/ Medical History: Denies: Hx Peritoneal Dialysis GI Medical History: Reports: Hx Gastroesophageal Reflux Disease, Hx Hepatitis - Hepatitis C Psychiatric Medical History: Denies: Hx Depression Infectious Medical History: Reports: Hx Hepatitis - Hepatitis C Past Surgical History: Reports: Hx Appendectomy, Hx Section, Hx Coronary Stent, Hx Gynecologic Surgery, Hx Tubal Ligation, Other - Salpingo- oophorectomy. Denies: Hx Hysterectomy - Immunizations Hx Diphtheria, Pertussis, Tetanus Vaccination: Yes History of Influenza Vaccine for 04/2017 - 09/2017 Season: No Physical Exam - Vital signs Vitals: Temp Pulse Resp BP Pulse Ox 98.4 F 101 H 20 145/76 H 100 06/04/18 16:26 06/04/18 16:26 06/04/18 16:26 06/04/18 16:26 06/04/18 16:26 Course - Vital Signs Vital signs: Temp Pulse Resp BP Pulse Ox 98.4 F 101 H 20 145/76 H 100 06/04/18 16:26 06/04/18 16:26 06/04/18 16:26 06/04/18 16:26 06/04/18 16:26 Doctor's Discharge - Discharge Referrals: NOMAN HENDRICKSON MD [Primary Care Provider] - Follow up as needed
--- NOTE | 2018-06-04 17:43 | RADIOLOGY REPORT (SQ) ---
EXAM DESCRIPTION: CHEST SINGLE VIEW COMPLETED DATE/TIME: 06/04/2018 5:35 pm REASON FOR STUDY: shortness of breath COMPARISON: 01/21/2018 NUMBER OF VIEWS: One view. TECHNIQUE: Single frontal radiographic view of the chest acquired. LIMITATIONS: None. FINDINGS: LUNGS AND PLEURA: Interval development of a right pleural effusion. Minimal compressive a telectasis at the right base. MEDIASTINUM AND HILAR STRUCTURES: No masses or contour abnormality. HEART AND VASCULATURE: Cardiac enlargement. Vascular congestion. BONES: No acute findings. HARDWARE: None in the chest. OTHER: No other significant finding. IMPRESSION: CARDIAC ENLARGEMENT. VASCULAR CONGESTION. Right pleural effusion with compressive atelectasis at the right base. TECHNICAL DOCUMENTATION: JOB ID: [id number] [employer]- All Rights Reserved Reading location - IP/workstation name: [email or web address]
[2018-06-04 18:26] LABS: ABSOLUTE BASOPHILS # (AUTO) 0.1 10^3/uL (0.0-0.2); ABSOLUTE EOSINOPHILS # (AUTO) 0.1 10^3/uL (0.0-0.6); ABSOLUTE LYMPHOCYTES (AUTO) 1.1 10^3/uL (0.5-4.7); ABSOLUTE MONOCYTES (AUTO) 0.6 10^3/uL (0.1-1.4); ABSOLUTE NEUT (AUTO) 6.2 10^3/uL (1.7-8.2); BASOPHILS % (AUTO) 1.7 % (0-2); EOSINOPHILS % (AUTO) 0.8 % (0-6); HEMATOCRIT 32.5 % (36.0-47.0); HEMOGLOBIN 10.5 g/dL (12.0-15.5); LYMPHOCYTES % (AUTO) 13.3 % (13-45); MEAN CORPUSCULAR HEMOGLOBIN 28.7 pg (27.0-33.4); MEAN CORPUSCULAR HGB CONC 32.3 g/dL (32.0-36.0); MEAN CORPUSCULAR VOLUME 89 fl (80-97); MONOCYTES % (AUTO) 7.1 % (3-13); PLATELET COUNT 302 10^3/uL (150-450); RED BLOOD COUNT 3.66 10^6/uL (3.72-5.28); RED CELL DISTRIBUTION WIDTH 19.2 % (11.5-14.0); SEGMENTED NEUTROPHILS % (AUTO) 77.1 % (42-78); TOTAL CELLS COUNTED % (AUTO) 100 %
--- NOTE | 2018-06-04 18:39 | EKG REPORT ---
SEVERITY:- BORDERLINE ECG - SINUS RHYTHM BORDERLINE R WAVE PROGRESSION, ANTERIOR LEADS BORDERLINE T WAVE ABNORMALITIES : Confirmed by: Bob Garcia MD 04-Jun-2018 18:39:07
[2018-06-04 18:44] LABS: ALANINE AMINOTRANSFERASE 11 U/L (9-52); ALBUMIN 3.6 g/dL (3.5-5.0); ALKALINE PHOSPHATASE 116 U/L (38-126); ANION GAP 10 (5-19); ASPARTATE AMINO TRANSFERASE 47 U/L (14-36); BILIRUBIN,DIRECT 1.1 mg/dL (0.0-0.4); BILIRUBIN,TOTAL 1.6 mg/dL (0.2-1.3); BLOOD UREA NITROGEN 48 mg/dL (7-20); CARBON DIOXIDE 27 mmol/L (22-30); CHLORIDE 105 mmol/L (98-107); CREATINE KINASE 122 U/L (30-135); GLUCOSE 125 mg/dL (75-110); POTASSIUM 4.9 mmol/L (3.6-5.0); SODIUM 141.7 mmol/L (137-145); TOTAL PROTEIN 8.6 g/dL (6.3-8.2)
[2018-06-04 18:54] LABS: CREATINE KINASE MB 2.54 ng/mL (<4.55)
[2018-06-04 18:57] LABS: TROPONIN I 1.19 ng/mL
[2018-06-04 19:16] LABS: PROTHROMBIN TIME 14.7 SEC (11.4-15.4)
[2018-06-04 19:17] LABS: PARTIAL THROMBOPLASTIN TIME 31.8 SEC (23.5-35.8)
[2018-06-04 19:58] LABS: URINE AMPHETAMINES SCREEN NEGATIVE; URINE BARBITURATES SCREEN NEGATIVE; URINE BENZODIAZEPINES SCREEN NEGATIVE; URINE COCAINE SCREEN UNCONFIRMED POSITIVE; URINE MARIJUANA (THC) SCREEN NEGATIVE; URINE METHADONE SCREEN NEGATIVE; URINE PHENCYCLIDINE SCREEN NEGATIVE
--- NOTE | 2018-06-04 20:46 | ER Document Report ---
ED General - General Chief Complaint: Swelling of Lower Extremity Stated Complaint: SWOLLEN LEGS/FEET Time Seen by Provider: 06/04/18 16:55 TRAVEL OUTSIDE OF THE [place] IN LAST 30 DAYS: No - HPI Patient complains to provider of: Shortness of breath swelling of the extremities Notes: Patient coming in for the above-stated conditions. Patient was seen by triage provider note is provided below 58-year-old female presents the emergency department with complaints of congestive heart failure exacerbation. She states that it started to flareup a few days ago. Patient states that she ran out of her "water pill" a week ago. She states that she is having some mild shortness of breath but denies any chest pain. Patient does admit to the above-stated story. Patient does state that she has been having some intermittent chest pains over the last 2 days however no chest pain today. Patient states she ran out of her medication approximately a week ago. Patient does have a history of cocaine abuse and states she did use cocaine 2 days ago. Patient otherwise is resting comfortably upon my evaluation. Denies any fever chills nausea vomiting diarrhea denies any abdominal pain - Related Data Allergies/Adverse Reactions: No Known Allergies Allergy (Verified 12/03/17 13:25) Past Medical History - Social History Smoking Status: Current Some Day Smoker Frequency of alcohol use: None Drug Abuse: Cocaine, Heroin Family History: DM, Hypertension Patient has suicidal ideation: No Patient has homicidal ideation: No - Past Medical History Cardiac Medical History: Reports: Hx Congestive Heart Failure, Hx Coronary Artery Disease, Hx Hypercholesterolemia, Hx Hypertension Endocrine Medical History: Reports: Hx Diabetes Mellitus Type 1, Hx Diabetes Mellitus Type 2 Renal/ Medical History: Denies: Hx Peritoneal Dialysis GI Medical History: Reports: Hx Gastroesophageal Reflux Disease, Hx Hepatitis - Hepatitis C Psychiatric Medical History: Denies: Hx Depression Infectious Medical History: Reports: Hx Hepatitis - Hepatitis C Past Surgical History: Reports: Hx Appendectomy, Hx Section, Hx Coronary Stent, Hx Gynecologic Surgery, Hx Tubal Ligation, Other - Salpingo- oophorectomy. Denies: Hx Hysterectomy - Immunizations Hx Diphtheria, Pertussis, Tetanus Vaccination: Yes Review of Systems - Review of Systems Constitutional: No symptoms reported EENT: No symptoms reported Respiratory: Short of breath Gastrointestinal: No symptoms reported Genitourinary: No symptoms reported Female Genitourinary: No symptoms reported Musculoskeletal: Leg swelling Skin: No symptoms reported Hematologic/Lymphatic: No symptoms reported Neurological/Psychological: No symptoms reported -: Yes All other systems reviewed and negative Physical Exam - Vital signs Vitals: Temp Pulse Resp BP Pulse Ox 98.4 F 101 H 20 145/76 H 100 06/04/18 16:26 06/04/18 16:26 06/04/18 16:26 06/04/18 16:26 06/04/18 16:26 Interpretation: Normal - General General appearance: Appears well, Alert - HEENT Head: Normocephalic, Atraumatic Eyes: Normal Conjunctiva: Normal Cornea: Normal Extraocular movements intact: Yes Pupils: PERRL Neck: Other - JVD - Respiratory Respiratory status: No respiratory distress Chest status: Nontender Breath sounds: Rales Chest palpation: Normal - Cardiovascular Rhythm: Regular Heart sounds: Normal auscultation Murmur: No - Abdominal Inspection: Normal Distension: No distension Bowel sounds: Normal Tenderness: Nontender Organomegaly: No organomegaly - Back Back: Normal, Nontender - Extremities General upper extremity: Normal inspection, Nontender, Normal color, Normal ROM , Normal temperature General lower extremity: Normal inspection, Nontender, Normal color, Normal ROM , Normal temperature, Normal weight bearing. No: Isabelle's sign - Neurological Neuro grossly intact: Yes Cognition: Normal Orientation: AAOx4 Kadeem Coma Scale Eye Opening: Spontaneous Kadeem Coma Scale Verbal: Oriented Ulysses Coma Scale Motor: Obeys Commands Ulysses Coma Scale Total: 15 Speech: Normal Motor strength normal: LUE, RUE, LLE, RLE Sensory: Normal - Psychological Associated symptoms: Normal affect, Normal mood - Skin Skin Temperature: Warm Skin Moisture: Dry Skin Color: Normal Course - Re-evaluation Re-evalutation: 06/05/18 00:23 EKG does not show any acute pathology at this time. Troponin did return positive with an elevated BNP. Patient is positive also for cocaine. Chest x- rays that showed diffuse vascular congestion. Patient was to be a combination of possible underlying N STEMI along with CHF exacerbation. In standing possibly due to CHF and cocaine abuse. Patient was given IV Lasix patient has never been hypoxic here vital signs are otherwise stable. Patient does have a history of CAD with stent placement she states in [place] otherwise unknown and unable to give me any other further information. Discussed with Dr. Pride her contact worker recommended transfer to tertiary care facility. Discussed with Dr. Mensah at [facility] of the patient in transfer - Vital Signs Vital signs: Temp Pulse Resp BP Pulse Ox 98.4 F 101 H 16 161/106 H 97 06/04/18 16:26 06/04/18 16:26 06/04/18 22:02 06/04/18 22:02 06/04/18 22:02 - Laboratory Result Diagrams: 06/04/18 17:48 06/04/18 17:48 Laboratory results interpreted by me: 06/04/18 06/04/18 06/04/18 17:48 17:48 17:48 RBC 3.66 L Hgb 10.5 L Hct 32.5 L RDW 19.2 H BUN 48 H Creatinine 1.49 H Est GFR ( Amer) 44 L Est GFR (Non-Af Amer) 36 L Glucose 125 H Total Bilirubin 1.6 H Direct Bilirubin 1.1 H AST 47 H NT-Pro-B Natriuret Pep 7190 H Total Protein 8.6 H Critical Care Note - Critical Care Note Total time excluding time spent on procedures (mins): 35 Comments: Patient with CHF exacerbation elevation in troponin concerning for N STEMI time spent consulting with transferring physician. Discharge - Discharge Clinical Impression: Non-STEMI (non-ST elevated myocardial infarction), CHF exacerbation, Cocaine abuse, Tobacco dependence, Diabetes mellitus type 2 in obese, Opiate dependence , Hypertension Condition: Good Disposition: Critical access hospital Referrals: NOMAN HENDRICKSON MD [ACTIVE STAFF] - Follow up as needed
[2018-06-04] MEDS ORDERED: ENOXAPARIN SODIUM INJ 100 MG/1 ML DISP.SYRIN SUBCUT SCH (22:00)
[2018-06-05] MEDS ORDERED: ALBUTEROL SULFATE HFA (90 MCG/PUFF) 200 PUFF/8.5 GM MDI IH PRN (00:53)
[2018-06-05] MEDS ORDERED: GABAPENTIN 300 MG CAPSULE PO ONE (01:15)
[2018-06-05] MEDS ORDERED: FUROSEMIDE INJ/PF 40 MG/4 ML SDV IV ONE (01:15)
[2018-06-05] MEDS ORDERED: CLONIDINE HCL 0.1 MG TABLET PO ONE (01:15)
[2018-06-05] MEDS ORDERED: LEVALBUTEROL HCL NEB 1.25 MG/3 ML AMPUL NEB ONE (01:15)
[2018-06-05] MEDS ORDERED: ENOXAPARIN SODIUM INJ 100 MG/1 ML DISP.SYRIN SUBCUT ONE (01:15)
[2018-06-05] MEDS ORDERED: CARVEDILOL 12.5 MG TABLET PO ONE (01:15)
[2018-06-05] MEDS ORDERED: SIMVASTATIN 40 MG TABLET PO ONE (01:20)
[2018-06-05] MEDS ORDERED: CARVEDILOL 6.25 MG TABLET ONE (01:46)
[2018-06-05] MEDS ORDERED: LANSOPRAZOLE 30 MG TAB.RAP.DR PO SCH (06:00)
[2018-06-05] MEDS ORDERED: SACUBITRIL/VALSARTAN 24 MG/26 MG TABLET PO SCH (06:00)
[2018-06-05 07:06] VITALS: BP 126/70
--- NOTE | 2018-06-05 08:45 | ER Document Report ---
Doctor's Note Notes: 06/05/18 08:44 [facility] is here to transport the patient to [facility]. Vital signs are stable. Patient is stable for transport.
[2018-06-05] MEDS ORDERED: GABAPENTIN 300 MG CAPSULE PO SCH (10:00)
[2018-06-05] MEDS ORDERED: CLONIDINE HCL 0.1 MG TABLET PO SCH (10:00)
[2018-06-05] MEDS ORDERED: ISOSORBIDE MONONITRATE 60 MG TAB.ER.24H PO SCH (10:00)
[2018-06-05] MEDS ORDERED: CARVEDILOL 12.5 MG TABLET PO SCH (10:00)
[2018-06-05] MEDS ORDERED: NICOTINE 21 MG/24 HR PATCH.TD24 TOP SCH (10:00)
[2018-06-05] MEDS ORDERED: TORSEMIDE 20 MG TABLET PO SCH (10:00)
[2018-06-05] MEDS ORDERED: METOLAZONE 5 MG TABLET PO SCH (10:00)
[2018-06-05] MEDS ORDERED: CLOPIDOGREL BISULFATE 75 MG TABLET PO SCH (10:00)
[2018-06-05] MEDS ORDERED: ASPIRIN 81 MG TABLET, ENT COATED PO SCH (10:00)
[2018-06-05] MEDS ORDERED: CALCIUM CARBONATE 250 MG/VITAMIN D3 125 UNIT TABLET PO SCH (10:00)
[2018-06-05] MEDS ORDERED: FUROSEMIDE INJ/PF 40 MG/4 ML SDV IV SCH (10:00)
[2018-06-05] MEDS ORDERED: FENOFIBRATE NANOCRYSTALLIZED 145 MG TABLET PO SCH (10:00)
[2018-06-05] MEDS ORDERED: AMLODIPINE BESYLATE 10 MG TABLET PO SCH (10:00)
[2018-06-05] MEDS ORDERED: SIMVASTATIN 40 MG TABLET PO SCH (22:00)
[2018-06-05] MEDS ORDERED: LEVALBUTEROL HCL NEB 1.25 MG/3 ML AMPUL NEB SCH (22:00)
[2018-06-10] MEDS ORDERED: ERGOCALCIFEROL (VITAMIN D2) 50000 UNIT (1.25 MG) CAPSULE PO SCH (10:00)
== END 2018-06-05 08:49 | disposition short-term general hospital (02) ==
LOC: ER 16:22
DX: M79.89 Other specified soft tissue disorders (principal); I21.4 Non-ST elevation (NSTEMI) myocardial infarction; F19.10 Other psychoactive substance abuse, uncomplicated; E11.9 Type 2 diabetes mellitus without complications; I10 Essential (primary) hypertension; I50.9 Heart failure, unspecified; I25.10 Atherosclerotic heart disease of native coronary artery without angina pectoris; F17.200 Nicotine dependence, unspecified, uncomplicated
CPT/HCPCS: 93005; 94640; 99291; 96372; 96374; 36415; 82553; 82550; 85025; 85610; 85730; 80053; 84484; 80307; 83880; 71045; 93010; A9270 ×4; J1940; J1650; J3490

== ENCOUNTER 2018-06-19 01:23 | Inpatient (IN) | payer MEDICARE, MEDICAID ==
[2018-06-19 02:20] LABS: ABSOLUTE BASOPHILS # (AUTO) 0.1 10^3/uL (0.0-0.2); ABSOLUTE EOSINOPHILS # (AUTO) 0.2 10^3/uL (0.0-0.6); ABSOLUTE LYMPHOCYTES (AUTO) 1.1 10^3/uL (0.5-4.7); ABSOLUTE MONOCYTES (AUTO) 0.4 10^3/uL (0.1-1.4); ABSOLUTE NEUT (AUTO) 4.2 10^3/uL (1.7-8.2); BASOPHILS % (AUTO) 2.2 % (0-2); EOSINOPHILS % (AUTO) 3.3 % (0-6); HEMATOCRIT 28.9 % (36.0-47.0); HEMOGLOBIN 9.3 g/dL (12.0-15.5); LYMPHOCYTES % (AUTO) 18.7 % (13-45); MEAN CORPUSCULAR HGB CONC 32.3 g/dL (32.0-36.0); MEAN CORPUSCULAR VOLUME 90 fl (80-97); MONOCYTES % (AUTO) 6.8 % (3-13); PLATELET COUNT 242 10^3/uL (150-450); RED BLOOD COUNT 3.22 10^6/uL (3.72-5.28); RED CELL DISTRIBUTION WIDTH 19.4 % (11.5-14.0); TOTAL CELLS COUNTED % (AUTO) 100 %; WHITE BLOOD COUNT 6.1 10^3/uL (4.0-10.5)
[2018-06-19] MEDS ORDERED: FUROSEMIDE INJ/PF 40 MG/4 ML SDV IV ONE (02:35)
--- NOTE | 2018-06-19 02:44 | RADIOLOGY REPORT (SQ) ---
CLINICAL HISTORY: short of breath COMPARISON: June 04, 2018. 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 There is right basilar vague opacity. There is a moderate right pleural effusion. There is no pneumothorax. There are no acute osseous findings. IMPRESSION: Relatively no change.
[2018-06-19 02:56] LABS: CREATINE KINASE MB 0.91 ng/mL (<4.55)
[2018-06-19 03:03] LABS: TROPONIN I 0.124 ng/mL
[2018-06-19 03:15] LABS: ALANINE AMINOTRANSFERASE 6 U/L (9-52); ALBUMIN 3.6 g/dL (3.5-5.0); ALKALINE PHOSPHATASE 177 U/L (38-126); ANION GAP 10 (5-19); ASPARTATE AMINO TRANSFERASE 47 U/L (14-36); BILIRUBIN,TOTAL 1.4 mg/dL (0.2-1.3); BLOOD UREA NITROGEN 35 mg/dL (7-20); CALCIUM 9.2 mg/dL (8.4-10.2); CARBON DIOXIDE 28 mmol/L (22-30); CHLORIDE 108 mmol/L (98-107); GLUCOSE 119 mg/dL (75-110); LIPASE 85.6 U/L (23-300); POTASSIUM 5.1 mmol/L (3.6-5.0); SODIUM 146.3 mmol/L (137-145); TOTAL PROTEIN 8.4 g/dL (6.3-8.2)
--- NOTE | 2018-06-19 03:31 | ER Document Report ---
ED Cardiac - General Chief Complaint: Chest Pain Stated Complaint: CHEST PAIN Time Seen by Provider: 06/19/18 01:40 Mode of Arrival: Medic Information source: Patient TRAVEL OUTSIDE OF THE [place] IN LAST 30 DAYS: No - HPI Patient complains to provider of: Chest pain, Shortness of breath, Other - Here is a 58-year-old female with a history of multiple medical complaints including heart failure as well as COPD occur as well as diabetes mellitus that presents for evaluation of chest tightness and shortness of breath similar to a previous episode 2 weeks prior which felt like a heart attack to her. She was seen at that time and admitted to the hospital. She denies fevers or chills does have a cough does have some shortness of breath she is not taking anything to try and help with this nothing seems to make it any better or worse. - Related Data Allergies/Adverse Reactions: No Known Allergies Allergy (Verified 12/03/17 13:25) Past Medical History - General Information source: Patient - Social History Smoking Status: Unknown if Ever Smoked Family History: DM, Hypertension Patient has suicidal ideation: No Patient has homicidal ideation: No - Past Medical History Cardiac Medical History: Reports: Hx Congestive Heart Failure, Hx Coronary Artery Disease, Hx Hypercholesterolemia, Hx Hypertension Endocrine Medical History: Reports: Hx Diabetes Mellitus Type 1, Hx Diabetes Mellitus Type 2 Renal/ Medical History: Denies: Hx Peritoneal Dialysis GI Medical History: Reports: Hx Gastroesophageal Reflux Disease, Hx Hepatitis - Hepatitis C Psychiatric Medical History: Denies: Hx Depression Infectious Medical History: Reports: Hx Hepatitis - Hepatitis C Past Surgical History: Reports: Hx Appendectomy, Hx Section, Hx Coronary Stent, Hx Gynecologic Surgery, Hx Tubal Ligation, Other - Salpingo- oophorectomy. Denies: Hx Hysterectomy - Immunizations Hx Diphtheria, Pertussis, Tetanus Vaccination: Yes Review of Systems - Review of Systems -: Yes All other systems reviewed and negative Physical Exam - Vital signs Vitals: BP 154/91 H 06/19/18 01:38 - General General appearance: Anxious In distress: Moderate - HEENT Head: Normocephalic Eyes: Normal Conjunctiva: Normal Cornea: Normal Extraocular movements intact: Yes Eyelashes: Normal Pupils: PERRL - Respiratory Respiratory status: Tachypnea Chest status: Nontender Breath sounds: Other - crackles in the inferior lung easley bilaterally Chest palpation: Normal - Cardiovascular Rhythm: Tachycardia Heart sounds: Normal auscultation Murmur: No - Abdominal Inspection: Normal Distension: No distension Tenderness: Nontender - Back Back: Normal - Extremities General upper extremity: Normal inspection, Nontender, Normal strength, Normal temperature General lower extremity: Edema - 2+ pitting edema bilaterally, Other - Neurological Neuro grossly intact: Yes Cognition: Normal Orientation: AAOx4 Kadeem Coma Scale Eye Opening: Spontaneous Kadeem Coma Scale Verbal: Oriented [place] Coma Scale Motor: Obeys Commands [place] Coma Scale Total: 15 Speech: Normal Cranial nerves: Normal Motor strength normal: LUE, RUE, LLE, RLE - Psychological Associated symptoms: Normal affect, Anxious Course - Re-evaluation Re-evalutation: 06/19/18 04:42 58-year-old female with a history of COPD diabetes and heart failure that presents for evaluation of chest tightness as well as shortness of breath that feels similar to previous N STEMI which she suffered in the past. She denies recent fevers chills or other symptoms. She is fluid overloaded clinically as she does have pitting edema in the bilateral lower extremities she does note that she had a large salt load 2 days prior on Monday which may be contributing to her symptoms. She not try anything to try and help with this pain since it began. We will initiate broad cardiac workup. We will administer diuretic for this patient. We will plan for cardiac monitoring. EKG is relatively unchanged from previous , troponin is positive though downtrending from her previous. Her proBNP is elevated in comparison, in line with her clinical fluid overload. On reinvestigation of this patient she is having some discomfort in the chest, will administer nitroglycerin and assess response. Administration of nitroglycerin did not change patient's chest tightness. She does endorse at this time she is concerned that she may actually be withdrawing from heroin, she notes that she is approximately 2 days out from her most recent use of snorting heroin. Because she has a history of heart failure COPD diabetes with chest tightness and a previous N STEMI recently with gross fluid overload heroin withdrawal with spiking blood pressures could potentially represent a danger for this patient will administer clonidine for her blood pressure and secondary symptoms of withdrawal. Have contacted the on-call hospitalist for evaluation at admission of this patient to a monitored bed. We will continue to monitor in the emergency department and reassess as necessary. - Vital Signs Vital signs: Temp Pulse Resp BP Pulse Ox 22 H 161/92 H 93 06/19/18 04:01 06/19/18 04:01 06/19/18 03:05 - Laboratory Result Diagrams: 06/19/18 02:10 06/19/18 02:10 Laboratory results interpreted by me: 06/19/18 06/19/18 06/19/18 02:10 02:10 02:10 RBC 3.22 L Hgb 9.3 L Hct 28.9 L RDW 19.4 H Basophils % 2.2 H Sodium 146.3 H Potassium 5.1 H Chloride 108 H BUN 35 H Est GFR ( Amer) 57 L Est GFR (Non-Af Amer) 47 L Glucose 119 H Total Bilirubin 1.4 H Direct Bilirubin 1.0 H AST 47 H ALT 6 L Alkaline Phosphatase 177 H NT-Pro-B Natriuret Pep 10835 H Total Protein 8.4 H Discharge - Discharge Clinical Impression: Tobacco abuse, Heroin withdrawal CHF exacerbation Qualifiers: Heart failure type: unspecified Qualified Code(s): I50.9 - Heart failure, unspecified Pulmonary edema Qualifiers: Chronicity: acute Qualified Code(s): J81.0 - Acute pulmonary edema Chest pain Qualifiers: Chest pain type: unspecified Qualified Code(s): R07.9 - Chest pain, unspecified COPD (chronic obstructive pulmonary disease) Qualifiers: COPD type: unspecified COPD Qualified Code(s): J44.9 - Chronic obstructive pulmonary disease, unspecified Condition: Stable Disposition: ADMITTED INPATIENT Admitting Provider: Hospitalist Unit Admitted: Telemetry
[2018-06-19] MEDS ORDERED: NITROGLYCERIN 0.4 MG/TAB 25 TAB/BOTTLE SL ONE (04:14)
[2018-06-19] MEDS ORDERED: NITROGLYCERIN 2% OINTMENT 1 GM PACKET TP ONE (04:14)
[2018-06-19] MEDS ORDERED: CLONIDINE HCL 0.1 MG TABLET PO ONE (04:34)
[2018-06-19] MEDS ORDERED: PROMETHAZINE HCL INJ 25 MG/1 ML VIAL IV PRN (05:20)
[2018-06-19] MEDS ORDERED: NITROGLYCERIN 0.4 MG/TAB 25 TAB/BOTTLE SL PRN (05:20)
[2018-06-19] MEDS ORDERED: METOPROLOL TARTRATE PF/INJ 5 MG/5 ML SDV IV PRN (05:20)
[2018-06-19] MEDS ORDERED: ACETAMINOPHEN 325 MG TABLET PO PRN (05:20)
[2018-06-19] MEDS ORDERED: PROMETHAZINE HCL 25 MG TABLET PO PRN (05:20)
[2018-06-19] MEDS ORDERED: MAG HYDROX/AL HYDROX/SIMETH SUSP 30 ML UDCUP PO PRN (05:20)
[2018-06-19] MEDS ORDERED: CLONIDINE HCL 0.1 MG TABLET PO PRN (05:33)
[2018-06-19] MEDS ORDERED: ALBUTEROL SULFATE HFA (90 MCG/PUFF) 200 PUFF/8.5 GM MDI IH PRN ×2 (05:34→06:00)
[2018-06-19] MEDS ORDERED: SACUBITRIL/VALSARTAN 24 MG/26 MG TABLET PO SCH (06:00)
[2018-06-19] MEDS: HEPARIN SOD (PORCINE) 5,000 UNIT/ML 1 ML SYRINGE SUBCUT SCH ×3 (06:06→21:13)
[2018-06-19] MEDS: LANSOPRAZOLE 30 MG TAB.RAP.DR PO SCH (06:06)
[2018-06-19] MEDS ORDERED: DEXTROSE 50%-WATER 25 GM/50 ML DISP.SYRIN IV PRN ×2 (06:24)
[2018-06-19] MEDS ORDERED: DEXTROSE 40% GEL 15 GM TUBE PO PRN ×2 (06:24)
[2018-06-19] MEDS ORDERED: INSULIN LISPRO 100 UNIT/ML 3 ML VIAL SUBCUT PRN (06:24)
[2018-06-19] MEDS ORDERED: GLUCAGON,HUMAN RECOMB 1 MG INJ IM PRN (06:24)
--- NOTE | 2018-06-19 06:34 | PDOC H&P ---
History of Present Illness Admission Date/PCP: 06/19/18 04:46 None Patient complains of: Chest pain History of Present Illness: MAGNO WILSON is a 58 year old female with medical history remarkable for chronic diastolic heart failure, coronary artery disease, hypertension, polysubstance abuse, noncompliance with medication, comes to the emergency department complaining of shortness of breath and chest pain, tightness, 5/10 in intensity, no radiation, of note that the patient is a very poor historian. Denies any recent fever, chills. States he feels are similar to prior RI. patient does admit that she has been feeling nauseous with abdominal pain and she feels she is going into withdrawal while all of her snortin heroin use, last was a day ago. Patient was in our emergency department on June 04, at that time she was using cocaine and her troponins came back positive, patient was referred to [facility] with a diagnosis of an STEMI, the patient does not tell me what diagnosis was given there and what treatment was done. In the emergency department her troponins were elevated at 0.124, similar to her prior admission, her BNP was elevated from 7192 10,100 EKG with sinus tachycardia and Q waves V1V3, similar to prior. Nitroglycerin ointment was given in the ED. Past Medical History Cardiac Medical History: Reports: Congestive Heart Failure, Coronary Artery Disease, Hyperlipidema, Hypertension Endocrine Medical History: Reports: Diabetes Mellitus Type 2 GI Medical History: Reports: Gastroesophageal Reflux Disease, Hepatitis - Hepatitis C Psychiatric Medical History: Denies: Depression Hematology: Reports: Anemia Past Surgical History Past Surgical History: Reports: Appendectomy, Section, Coronary Stent, Tubal Ligation, Other - Salpingo-oophorectomy Social History Smoking Status: Current Every Day Smoker Frequency of Alcohol Use: Social Hx Recreational Drug Use: Yes Drugs: Cocaine, Heroin Hx Prescription Drug Abuse: No Family History Family History: DM, Hypertension Parental Family History Reviewed: Yes - As above Children Family History Reviewed: NA Sibling(s) Family History Reviewed.: NA Medication/Allergy Home Medications: Albuterol Sulfate [Proair HFA Inhalation Aerosol 8.5 gm MDI] 2 puff IH Q6HP PRN 03/06/18 Aspirin [Aspirin EC] 81 mg PO DAILY 03/06/18 Carvedilol [Coreg 12.5 mg Tablet] 12.5 mg PO Q12 03/06/18 Clonidine HCl [Catapres 0.1 mg Tablet] 0.1 mg PO BID 03/06/18 Clopidogrel Bisulfate [Plavix 75 mg Tablet] 75 mg PO DAILY 03/06/18 Ergocalciferol (Vitamin D2) [Drisdol 50,000 unit (1.25MG) Capsule] 50,000 unit PO WAGNER@1000 03/06/18 Fenofibrate Nanocrystallized [Fenofibrate] 145 mg PO DAILY 03/06/18 Gabapentin [Neurontin] 600 mg PO BID 03/06/18 Levalbuterol HCl [Xopenex Neb 1.25 mg/3 ml Ampul] 1 vial NEB QHS 03/06/18 Metolazone [Zaroxolyn 5 mg Tablet] 5 mg PO DAILY 03/06/18 Nicotine [Nicoderm 21 mg/24 Hr Transderm Patch] 1 patch TOP DAILY 03/06/18 Omeprazole 40 mg PO DAILY 03/06/18 Simvastatin [Zocor 40 mg Tablet] 40 mg PO QHS 03/06/18 Torsemide [Demadex 20 mg Tablet] 40 mg PO DAILY 03/06/18 Amlodipine Besylate [Norvasc 10 mg Tablet] 10 mg PO DAILY #30 tablet 03/08/18 Calcium Carbonate/Vitamin D3 [Os-Alvino 250 mg with Vitamin D 125 Units] 1 tab PO TID tablet 03/08/18 Isosorbide Mononitrate [Imdur 60 mg Tablet.er] 60 mg PO DAILY #30 tab.er.24h 04/17 Sacubitril/Valsartan [Entresto 24 mg/26 mg Tablet] 1 tab PO Q12A #30 tablet 04/17 Allergies/Adverse Reactions: No Known Allergies Allergy (Verified 12/03/17 13:25) Review of Systems Review of Systems: As outline in the HPI, all others negative Physical Exam Vital Signs: Temp Pulse Resp BP Pulse Ox 97.9 F 21 H 155/100 H 98 06/19/18 04:46 06/19/18 05:46 06/19/18 05:46 06/19/18 05:46 Additional comments: General appearance: Disheveled, alert and poor cooperative, and appears to be in no acute distress Head: Normocephalic Eyes: PEERL, EOMI, vision is grossly intact. Ears: External auditory canal and tympanic membranes clear, hearing grossly intact. Nose: No nasal discharge. Throat: Oral cavity and pharynx normal. No inflammation, swelling, exudate or lesions. Neck: Neck supple, nontender without lymphadenopathy, masses or thyromegaly. Cardiac: Normal S1 and S2. No S3, S4 or murmurs. Rhythm is regular. There is no cyanosis or pallor. Extremities are warm and well perfused. Capillary refill is less than 2 seconds. No carotid bruits. Lungs: Clear to auscultation and percussion without rales, rhonchi, wheezing or diminished breath sounds. Not using accessory muscles. Abdomen: Positive bowel sounds. Soft. Mild distended, nontender. No guarding or rebound. No masses. Erythematous Extremities: No significant deformity or joint abnormality. 3+ severe pitting edema. Peripheral pulses intact. No varicosities. Neurological: Cranial nerves II through XII grossly intact. Strength and sensation symmetric and intact throughout. Reflexes 2+ throughout. Skin: Skin normal color, texture and turgor with no lesions or eruptions, warm and dry. Psychiatric: The mental examination revealed the patient was oriented to person , place, and time. The patient was able to demonstrate good judgment on recent , without hallucinations, abnormal affect or abnormal behaviors. Results Laboratory Results: 06/19/18 06/19/18 06/19/18 02:10 02:10 02:10 WBC 6.1 RBC 3.22 L Hgb 9.3 L Hct 28.9 L MCV 90 MCH 29.0 MCHC 32.3 RDW 19.4 H Plt Count 242 Seg Neutrophils % 69.0 Lymphocytes % 18.7 Monocytes % 6.8 Eosinophils % 3.3 Basophils % 2.2 H Absolute Neutrophils 4.2 Absolute Lymphocytes 1.1 Absolute Monocytes 0.4 Absolute Eosinophils 0.2 Absolute Basophils 0.1 Sodium 146.3 H Potassium 5.1 H Chloride 108 H Carbon Dioxide 28 Anion Gap 10 BUN 35 H Creatinine 1.18 Est GFR ( Amer) 57 L Est GFR (Non-Af Amer) 47 L Glucose 119 H Lactic Acid Calcium 9.2 Magnesium Total Bilirubin 1.4 H Direct Bilirubin 1.0 H AST 47 H ALT 6 L Alkaline Phosphatase 177 H CK-MB (CK-2) 0.91 Troponin I 0.124 Total Protein 8.4 H Albumin 3.6 Lipase 85.6 06/19/18 06/19/18 06/19/18 02:10 02:38 04:32 WBC RBC Hgb Hct MCV MCH MCHC RDW Plt Count Seg Neutrophils % Lymphocytes % Monocytes % Eosinophils % Basophils % Absolute Neutrophils Absolute Lymphocytes Absolute Monocytes Absolute Eosinophils Absolute Basophils Sodium Potassium Chloride Carbon Dioxide Anion Gap BUN Creatinine Est GFR ( Amer) Est GFR (Non-Af Amer) Glucose Lactic Acid 1.0 Calcium Magnesium 1.9 Total Bilirubin Direct Bilirubin AST ALT Alkaline Phosphatase CK-MB (CK-2) Troponin I 0.118 Total Protein Albumin Lipase Impressions: Chest X-Ray 06/19/18 01:59 IMPRESSION: Relatively no change. Assessment & Plan - Diagnosis (1) Acute on chronic combined systolic and diastolic CHF (congestive heart failure) Is this a current diagnosis for this admission?: Yes Plan: Patient comes with cardiac symptoms and mild respiratory symptoms, she has a clear anasarca and most likely has not been taking her medications at home as she should. Her BNP has increased from 7198-10,100. We will keep her under telemetry monitoring, I will continue with IV Lasix every 12 hours. Daily weights, strict urinary input and output. Cardiology consultations. Her troponins are elevated at 0.124, similar to her last admission and I am suspecting that this is secondary to cardiac strain more than real in a STEMI however we do not have documentation from [facility] to see which was her discharge diagnosis, probably type II RI. Will follow cardiac markers. I placed on hold her Demadex and metolazone but feel free to resume this medication if appropriate. EKG similar to prior, unremarkable. Chest x-ray negative. Place an order for echocardiogram. (2) COPD (chronic obstructive pulmonary disease) Qualifiers: COPD type: unspecified COPD Qualified Code(s): J44.9 - Chronic obstructive pulmonary disease, unspecified Is this a current diagnosis for this admission?: Yes Plan: Patient does not seems to be an acute exacerbation, will they are going to resume her home bronchodilators and will place her on nebulizer treatments as needed, continue with oxygen via nasal cannula. (3) Heroin withdrawal Is this a current diagnosis for this admission?: Yes Plan: Patient tells me she knows that she is going into heroin withdrawal, 1 dose of clonidine given in the ED. She is on clonidine twice a day at home and I will place with as needed until psychiatric evaluation, consult placed. (4) Cocaine abuse Is this a current diagnosis for this admission?: Yes Plan: Tells me her last use once 1 week ago (5) Coronary artery disease Qualifiers: Coronary Disease-Associated Artery/Lesion type: [place] artery [place] vs. transplanted heart: [place] heart Associated angina: without angina Qualified Code(s): I25.10 - Atherosclerotic heart disease of [place] coronary artery without angina pectoris Is this a current diagnosis for this admission?: Yes Plan: Patient has history of myocardial infarction with multiple medications that she probably is not taking. Will resume them. Patient complaining of chest pain deemed probably to her CHF exacerbation. We will cycle cardiac enzymes x3. (6) Uncontrolled hypertension Is this a current diagnosis for this admission?: Yes Plan: This is likely secondary to her noncompliance with medications and drug abuse. We will resume her home antihypertensive medications. (7) DVT prophylaxis Is this a current diagnosis for this admission?: Yes Plan: Heparin - Time Time Spent: 50 to 70 Minutes - Inpatient Certification Based on my medical assessment, after consideration of the patient's comorbidities, presenting symptoms, or acuity I expect that the services needed warrant INPATIENT care.: Yes I certify that my determination is in accordance with my understanding of Medicare's requirements for reasonable and necessary INPATIENT services [42 CFR 412.3e].: Yes Medical Necessity: Risk of Complication if Not Cared For in Hospital - Worsening condition with cardiac failure and respiratory failure - Plan Summary Plan Summary: Case discussed with patient, agrees with plan.
[2018-06-19 06:49] LABS: INTERNATIONAL RATION (INR) 1.15; PROTHROMBIN TIME 15.3 SEC (11.4-15.4)
[2018-06-19 06:50] LABS: PARTIAL THROMBOPLASTIN TIME 34.1 SEC (23.5-35.8)
[2018-06-19] MEDS: LEVALBUTEROL HCL NEB 1.25 MG/3 ML AMPUL NEB SCH (08:08)
[2018-06-19] MEDS: ASPIRIN 81 MG TABLET, ENT COATED PO SCH (09:11)
[2018-06-19] MEDS: SACUBITRIL/VALSARTAN 24 MG/26 MG TABLET PO SCH ×2 (09:11→17:08)
[2018-06-19] MEDS: ISOSORBIDE MONONITRATE 60 MG TAB.ER.24H PO SCH (09:11)
[2018-06-19] MEDS: CLONIDINE HCL 0.1 MG TABLET PO SCH ×2 (09:11→17:08)
[2018-06-19] MEDS: AMLODIPINE BESYLATE 10 MG TABLET PO SCH (09:12)
[2018-06-19] MEDS: FUROSEMIDE INJ/PF 40 MG/4 ML SDV IV SCH ×2 (09:12→21:13)
[2018-06-19] MEDS: CLOPIDOGREL BISULFATE 75 MG TABLET PO SCH (09:12)
[2018-06-19] MEDS: CALCIUM CARBONATE 250 MG/VITAMIN D3 125 UNIT TABLET PO SCH ×3 (09:12→17:08)
[2018-06-19] MEDS: POTASSIUM CHLORIDE 10 MEQ CAPSULE.ER PO SCH (09:12)
[2018-06-19] MEDS: NICOTINE 21 MG/24 HR PATCH.TD24 TOP SCH (09:12)
[2018-06-19] MEDS: FENOFIBRATE NANOCRYSTALLIZED 145 MG TABLET PO SCH (09:12)
[2018-06-19] MEDS: GABAPENTIN 300 MG CAPSULE PO SCH ×2 (09:12→17:08)
[2018-06-19] MEDS ORDERED: CARVEDILOL 12.5 MG TABLET PO SCH (10:00)
--- NOTE | 2018-06-19 15:49 | EKG REPORT ---
SEVERITY:- ABNORMAL ECG - SINUS TACHYCARDIA LOW VOLTAGE THROUGHOUT CONSIDER ANTERIOR INFARCT BORDERLINE T ABNORMALITIES, INFERIOR LEADS : Confirmed by: Sylvia Altman MD 19-Jun-2018 15:49:33
--- NOTE | 2018-06-19 21:15 | Progress Note ---
Provider Note Provider Note: CARDIOLOGY PROGRESS NOTES by Dr. Sylvia Altman on 06/19/2018. REASON FOR CONSULTATION: Patient with chest pain and elevated troponin I and hence cardiology consultation requested. Unable to get any degree of cooperation in the form of a history from the patient she appears to be a little grouchy. We will try again tomorrow. We will try to reinterrogate the patient tomorrow. In view of the fact that the patient has a history of cocaine abuse, I have already stopped the patient's beta-linh, and also discussed with attending physician not to place the patient on beta-blockers for at least a little while. Can continue clonidine. Thank you end of dictation
[2018-06-19] MEDS ORDERED: SIMVASTATIN 40 MG TABLET PO SCH (22:00)
[2018-06-20] MEDS: LANSOPRAZOLE 30 MG TAB.RAP.DR PO SCH (05:07)
[2018-06-20] MEDS: HEPARIN SOD (PORCINE) 5,000 UNIT/ML 1 ML SYRINGE SUBCUT SCH (05:07)
[2018-06-20] MEDS: SACUBITRIL/VALSARTAN 24 MG/26 MG TABLET PO SCH (05:08)
[2018-06-20] MEDS: LEVALBUTEROL HCL NEB 1.25 MG/3 ML AMPUL NEB SCH (08:06)
[2018-06-20 09:22] LABS: ABSOLUTE BASOPHILS # (AUTO) 0.1 10^3/uL (0.0-0.2); ABSOLUTE EOSINOPHILS # (AUTO) 0.2 10^3/uL (0.0-0.6); ABSOLUTE LYMPHOCYTES (AUTO) 1.5 10^3/uL (0.5-4.7); ABSOLUTE MONOCYTES (AUTO) 0.4 10^3/uL (0.1-1.4); ABSOLUTE NEUT (AUTO) 3.5 10^3/uL (1.7-8.2); BASOPHILS % (AUTO) 2.4 % (0-2); EOSINOPHILS % (AUTO) 2.9 % (0-6); HEMATOCRIT 28.2 % (36.0-47.0); HEMOGLOBIN 9.1 g/dL (12.0-15.5); LYMPHOCYTES % (AUTO) 25.9 % (13-45); MEAN CORPUSCULAR HEMOGLOBIN 28.7 pg (27.0-33.4); MEAN CORPUSCULAR HGB CONC 32.2 g/dL (32.0-36.0); MEAN CORPUSCULAR VOLUME 89 fl (80-97); MONOCYTES % (AUTO) 6.8 % (3-13); PLATELET COUNT 235 10^3/uL (150-450); RED BLOOD COUNT 3.17 10^6/uL (3.72-5.28); RED CELL DISTRIBUTION WIDTH 19.1 % (11.5-14.0); TOTAL CELLS COUNTED % (AUTO) 100 %; WHITE BLOOD COUNT 5.7 10^3/uL (4.0-10.5)
[2018-06-20 09:43] LABS: ANION GAP 11 (5-19); BLOOD UREA NITROGEN 29 mg/dL (7-20); CALCIUM 9.3 mg/dL (8.4-10.2); CARBON DIOXIDE 29 mmol/L (22-30); CHLORIDE 103 mmol/L (98-107); GLUCOSE 112 mg/dL (75-110); POTASSIUM 4.7 mmol/L (3.6-5.0); SODIUM 142.7 mmol/L (137-145)
[2018-06-20] MEDS: FUROSEMIDE INJ/PF 40 MG/4 ML SDV IV SCH (09:54)
[2018-06-20] MEDS: NICOTINE 21 MG/24 HR PATCH.TD24 TOP SCH (09:55)
[2018-06-20] MEDS: GABAPENTIN 300 MG CAPSULE PO SCH (09:56)
[2018-06-20] MEDS: AMLODIPINE BESYLATE 10 MG TABLET PO SCH (09:56)
[2018-06-20] MEDS: CLOPIDOGREL BISULFATE 75 MG TABLET PO SCH (09:56)
[2018-06-20] MEDS: FENOFIBRATE NANOCRYSTALLIZED 145 MG TABLET PO SCH (09:56)
[2018-06-20] MEDS: ASPIRIN 81 MG TABLET, ENT COATED PO SCH (09:56)
[2018-06-20] MEDS: CALCIUM CARBONATE 250 MG/VITAMIN D3 125 UNIT TABLET PO SCH (09:56)
[2018-06-20] MEDS: CLONIDINE HCL 0.1 MG TABLET PO SCH (09:56)
[2018-06-20] MEDS: POTASSIUM CHLORIDE 10 MEQ CAPSULE.ER PO SCH (09:56)
[2018-06-20] MEDS: ISOSORBIDE MONONITRATE 60 MG TAB.ER.24H PO SCH (09:56)
--- NOTE | 2018-06-20 12:56 | PDOC DISCHARGE SUMMARY ---
General - Admit/Disc Date/PCP Admission Date/Primary Care Provider: 06/19/18 04:46 Discharge Date: 06/20/18 - Discharge Diagnosis (1) Acute on chronic combined systolic and diastolic CHF (congestive heart failure) Is this a current diagnosis for this admission?: Yes (2) COPD (chronic obstructive pulmonary disease) Is this a current diagnosis for this admission?: No (3) Cocaine abuse Is this a current diagnosis for this admission?: Yes (4) Coronary artery disease Is this a current diagnosis for this admission?: Yes (5) Heroin withdrawal Is this a current diagnosis for this admission?: Yes - Additional Information Resuscitation Status: Full Code Discharge Diet: Cardiac, Diabetic Discharge Activity: Activity As Tolerated, Balance Activity w/Rest, Weigh Daily Home Medications: Amlodipine Besylate [Norvasc 10 mg Tablet] 10 mg PO DAILY 06/19/18 Aspirin [Aspirin 81 mg Chewable Tablet] 81 mg PO DAILY 06/19/18 Atorvastatin Calcium [Lipitor 20 mg Tablet] 20 mg PO QHS 06/19/18 Carvedilol [Coreg 12.5 mg Tablet] 12.5 mg PO Q12 06/19/18 Clopidogrel Bisulfate [Plavix 75 mg Tablet] 75 mg PO DAILY 06/19/18 Gabapentin [Neurontin] 600 mg PO BID 06/19/18 Insulin Aspart [Novolog Flexpen] 0 units SQ .PERSLIDINGSCALE 06/19/18 Isosorbide Mononitrate [Imdur 60 mg Tablet.er] 60 mg PO QAM 06/19/18 Lisinopril [Zestril] 5 mg PO DAILY 06/19/18 Magnesium Oxide [Mag-Ox 400 mg Tablet] 400 mg PO BID 06/19/18 Metolazone [Zaroxolyn 5 mg Tablet] 5 mg PO DAILY 06/19/18 Omeprazole 40 mg PO DAILY 06/19/18 Simvastatin [Zocor 40 mg Tablet] 40 mg PO QPM 06/19/18 Torsemide [Demadex 20 mg Tablet] 40 mg PO DAILY 06/19/18 History of Present Illness History of Present Illness: MAGNO WILSON is a 58 year old female with medical history CAD status post PCI with 3 stents placed in 2012 in [place], chronic CHF, hypertension, polysubstance abuse and medication noncompliance who presented to ED on 2017 complaining of shortness of breath, chest pain associated with nausea and abdominal pain. Last ED visit here at [facility] was 06/04/2018 she presented with chest pain after cocaine abuse her troponins were elevated she was diagnosed with an STEMI and transferred to [facility]. In ED her troponins were mildly elevated but similar to prior admission and BNP was elevated to more than 7000. EKG showed sinus tach with Q waves in V1 and V3 unchanged from prior EKG. Was admitted for workup of chest pain. Hospital Course Hospital Course: (1) Acute on chronic combined systolic and diastolic CHF (congestive heart failure) came in with with cardiac symptoms and mild respiratory symptoms, as well as clear anasarca and most likely due to noncompliance. BNP 08200. Was admitted to telemetry monitoring and started on Lasix, daily weights, strict urinary input and output and cardiology was consulted. 2D Echo showed EF < 20%, toponins were elevated at 0.124-0.10, similar to her last admission likely secondary to cardiac strain. No acute changes in EKG, CXR Negative. As per Cardiology pt was clear to be discharged to follow up with Dr Nuñze on 07/03/2018 at 1:00 PM for evaluation of possible AICD placement. (2) COPD (chronic obstructive pulmonary disease) Did not seem to be an acute exacerbation, and was started on home bronchodilators, nebulizer treatments as needed, and supplemental oxygen. (3) Heroin withdrawal Stated that she knew that she was going through heroin withdrawal. Got 1 dose of clonidine in the ED. She is on clonidine twice a day at home and I will place with as needed until psychiatric evaluation, consult placed. (4) Cocaine abuse Last cocaine intake was one week [employer] (5) Coronary artery disease History of [place] with PCI and stents placement. Was restarted on Home Meds. (6) Uncontrolled hypertension Likely due to noncompliance. Was restarted on home meds. Physical Exam Vital Signs: Temp Pulse Resp BP Pulse Ox 98.6 F 98 16 135/76 H 97 06/20/18 11:37 06/20/18 11:37 06/20/18 11:37 06/20/18 11:37 06/20/18 11:37 Intake & Output 06/19/18 06/20/18 06/21/18 06:59 06:59 06:59 Intake Total 970 450 Balance 970 450 Weight 80.4 kg 80.9 kg Results Laboratory Results: 06/20/18 08:50 06/20/18 08:50 06/20/18 06/20/18 08:50 08:50 WBC 5.7 RBC 3.17 L Hgb 9.1 L Hct 28.2 L MCV 89 MCH 28.7 MCHC 32.2 RDW 19.1 H Plt Count 235 Seg Neutrophils % 62.0 Lymphocytes % 25.9 Monocytes % 6.8 Eosinophils % 2.9 Basophils % 2.4 H Absolute Neutrophils 3.5 Absolute Lymphocytes 1.5 Absolute Monocytes 0.4 Absolute Eosinophils 0.2 Absolute Basophils 0.1 Sodium 142.7 Potassium 4.7 Chloride 103 Carbon Dioxide 29 Anion Gap 11 BUN 29 H Creatinine 1.27 H Est GFR ( Amer) 53 L Est GFR (Non-Af Amer) 44 L Glucose 112 H Calcium 9.3 Magnesium 1.7 06/19/18 06/19/18 06/20/18 12:11 18:10 00:11 Troponin I 0.114 0.117 0.107 Impressions: Chest X-Ray 06/19/18 01:59 IMPRESSION: Relatively no change. Qualifiers - * PATIENT BEING DISCHARGED WITH ANY OF THE FOLLOWING DIAGNOSIS: No
[2018-06-20 13:28] VITALS: BP 156/89
--- NOTE | 2018-06-20 13:59 | XCELERA REPORT ---
[address] [address] Transthoracic Echocardiogram Report Name: MAGNO WILSON Age: 58 yrs Gender: Female : 1960 Patient Status: Inpatient Patient Location: [address] [place], [place] [address] Study Date: 06/19/2018 10:27 AM Height: 62 in Weight: 180 lb BSA: 1.8 m2 Procedure: A two-dimensional transthoracic echocardiogram with color flow and Doppler was performed. Study Quality: Fair. Reason For Study: CHF exacerbation History: CHF. Ordering Physician: BIANKA GORMAN Performed By: Fern Lee Interpretation Summary CHF The left ventricle is moderately dilated. There is normal left ventricular wall thickness. LV EF is 20% Left ventricular systolic function is severely reduced. LV diastolic function not assessed. There is severe global hypokinesis of the left ventricle. There is no thrombus. The right ventricle is mild to moderately dilated. The right atrium is mild to moderately dilated. The left atrium is moderately dilated. There is no evidence of mitral valve prolapse. There is no vegetation seen on the mitral valve. Non Specific thickening of mitral valve leaflets. There is no mitral valve stenosis. There is a moderate amount of mitral regurgitation There is no aortic valve stenosis There is no LVOT obstruction. There is a mild amount of aortic regurgitation There is no tricuspid stenosis. There is a severe amount of tricuspid regurgitation There is moderate pulmonary hypertension by echo RVSP is 50 to 55 mm of Hg , with RA mean of 15 to 20. There is no pulmonic valvular stenosis. There is a mild to moderate amount of pulmonic regurgitation The inferior vena cava appeared dilated and decreased < 50% with respiration (RAP 15-20 mmHg) There is a small pericardial effusion that is circumferential There are no echocardiographic or Doppler indications for cardiac tamponade MMode/2D Measurements & Calculations RVDd: 3.6 cm LVIDd: 5.6 cm FS: 11.6 % EPSS: 1.3 cm IVSd: 0.92 cm LVIDs: 5.0 cm EDV(Teich): 154.9 ml LVPWd: 0.63 cm ESV(Teich): 116.6 ml EF(Teich): 24.7 % Ao root diam: 2.6 cm LVLd ap4: 6.8 cm SV(MOD-sp4): 35.0 ml EDV(MOD-sp4): 96.0 ml Ao root area: 5.4 cm2 LVLs ap4: 6.2 cm LA dimension: 4.4 cm ESV(MOD-sp4): 61.0 ml EF(MOD-sp4): 36.5 % Doppler Measurements & Calculations MV E max iglesia: MV P1/2t max iglesia: Ao V2 max: AI max iglesia: 126.4 cm/sec 125.4 cm/sec 116.7 cm/sec 339.3 cm/sec MV P1/2t: 46.6 msec Ao max PG: AI max PG: MVA(P1/2t): 4.7 cm2 5.5 mmHg 46.1 mmHg MV dec slope: AI dec slope: 788.1 cm/sec2 202.4 cm/sec2 MV dec time: AI P1/2t: 0.14 sec 491.1 msec LV V1 max PG: PA V2 max: PI end-d iglesia: TR max iglesia: 3.9 mmHg 81.4 cm/sec 177.8 cm/sec 295.9 cm/sec LV V1 max: PA max P.7 mmHg TR max P.2 cm/sec 35.0 mmHg AV P1/2t-pr_phl: MV P1/2t-pr_phl: 491.1 msec 46.6 msec Left Ventricle The left ventricle is moderately dilated. There is normal left ventricular wall thickness. LV EF is 20%. Left ventricular systolic function is severely reduced. LV diastolic function not assessed. There is severe global hypokinesis of the left ventricle. There is no thrombus. There is no ventricular septal defect visualized. Right Ventricle The right ventricle is mild to moderately dilated. The right ventricular systolic function is mild to moderately reduced. Atria The right atrium is mild to moderately dilated. The left atrium is moderately dilated. The interatrial septum is intact with no evidence for an atrial septal defect. Mitral Valve There is no evidence of mitral valve prolapse. There is no vegetation seen on the mitral valve. Non Specific thickening of mitral valve leaflets. There is no mitral valve stenosis. There is a moderate amount of mitral regurgitation. Aortic Valve There is no aortic valvular vegetation. There is no aortic valve stenosis. There is no LVOT obstruction. There is a mild amount of aortic regurgitation. Tricuspid Valve There is no tricuspid stenosis. There is a severe amount of tricuspid regurgitation. There is moderate pulmonary hypertension by echo. RVSP is 50 to 55 mm of Hg , with RA mean of 15 to 20. Pulmonic Valve There is no pulmonic valvular stenosis. There is a mild to moderate amount of pulmonic regurgitation. Great Vessels The aortic root is normal size. The inferior vena cava appeared dilated and decreased < 50% with respiration (RAP 15-20 mmHg). Effusions There is a small pericardial effusion that is circumferential. There are no echocardiographic or Doppler indications for cardiac tamponade. : BIANKA GORMAN > Sylvia Altman
[2018-06-24] MEDS ORDERED: ERGOCALCIFEROL (VITAMIN D2) 50000 UNIT (1.25 MG) CAPSULE PO SCH (10:00)
== END 2018-06-20 13:55 | disposition home or self-care (01) | DRG 292 ==
LOC: ER 01:23 → EH 04:46 → 3W 06:45
PROVIDERS: ADMIT Internal Medicine; ATTEND Internal Medicine
DX: I11.0 Hypertensive heart disease with heart failure (principal); F11.23 Opioid dependence with withdrawal; I50.43 Acute on chronic combined systolic (congestive) and diastolic (congestive) heart failure; E11.9 Type 2 diabetes mellitus without complications; J44.9 Chronic obstructive pulmonary disease, unspecified; F14.10 Cocaine abuse, uncomplicated; I25.10 Atherosclerotic heart disease of native coronary artery without angina pectoris; K21.9 Gastro-esophageal reflux disease without esophagitis; B19.20 Unspecified viral hepatitis C without hepatic coma; Z90.49 Acquired absence of other specified parts of digestive tract; Z95.5 Presence of coronary angioplasty implant and graft; Z98.51 Tubal ligation status; Z83.3 Family history of diabetes mellitus; Z82.49 Family history of ischemic heart disease and other diseases of the circulatory system; Z79.899 Other long term (current) drug therapy; Z91.14 Patient's other noncompliance with medication regimen; I25.2 Old myocardial infarction
CPT/HCPCS: 36415; 71045; 80048; 80053; 82553; 82962; 83605; 83690; 83735; 83880; 84443; 84484; 85025; 85610; 85730; 93005; 93010; 93306; 94640; 96374; 99285; J1644; J1815; J1940; J3490

== ENCOUNTER 2018-07-22 18:11 | Emergency (ER) | payer MEDICARE, MEDICAID ==
--- NOTE | 2018-07-22 18:39 | ER Document Report ---
ED Medical Screen (RME) - General Chief Complaint: Facial Swelling Stated Complaint: FACE, NECK, THROAT SWELLING Time Seen by Provider: 07/22/18 18:37 Mode of Arrival: Ambulatory Information source: Patient TRAVEL OUTSIDE OF THE [place] IN LAST 30 DAYS: No - HPI Patient complains to provider of: ST; possible K+ elevation Onset: Other - Pt. was told she had strep throat recently but test never told. Also had K+ drawn by PCP 2 days ago and told to come to ED as level was "high." - Related Data Allergies/Adverse Reactions: No Known Allergies Allergy (Verified 12/03/17 13:25) Past Medical History - Past Medical History Cardiac Medical History: Reports: Hx Congestive Heart Failure, Hx Coronary Artery Disease, Hx Hypercholesterolemia, Hx Hypertension Endocrine Medical History: Reports: Hx Diabetes Mellitus Type 1, Hx Diabetes Mellitus Type 2 Renal/ Medical History: Denies: Hx Peritoneal Dialysis GI Medical History: Reports: Hx Gastroesophageal Reflux Disease, Hx Hepatitis - Hepatitis C Psychiatric Medical History: Reports: Hx Depression Infectious Medical History: Reports: Hx Hepatitis - Hepatitis C Past Surgical History: Reports: Hx Appendectomy, Hx Section, Hx Coronary Stent, Hx Gynecologic Surgery, Hx Tubal Ligation, Other - Salpingo-oophorectomy. Denies: Hx Hysterectomy - Immunizations Hx Diphtheria, Pertussis, Tetanus Vaccination: Yes History of Influenza Vaccine for 04/2017 - 09/2017 Season: No Physical Exam - Vital signs Vitals: Temp Pulse Resp BP Pulse Ox 98.6 F 113 H 16 116/63 93 07/22/18 18:17 07/22/18 18:17 07/22/18 18:17 07/22/18 18:17 07/22/18 18:17 Course - Vital Signs Vital signs: Temp Pulse Resp BP Pulse Ox 98.6 F 113 H 16 116/63 93 07/22/18 18:17 07/22/18 18:17 07/22/18 18:17 07/22/18 18:17 07/22/18 18:17
[2018-07-22 19:05] LABS: ABSOLUTE BASOPHILS # (AUTO) 0.1 10^3/uL (0.0-0.2); ABSOLUTE EOSINOPHILS # (AUTO) 0.1 10^3/uL (0.0-0.6); ABSOLUTE MONOCYTES (AUTO) 0.4 10^3/uL (0.1-1.4); ABSOLUTE NEUT (AUTO) 3.1 10^3/uL (1.7-8.2); BASOPHILS % (AUTO) 1.4 % (0-2); EOSINOPHILS % (AUTO) 2.9 % (0-6); HEMATOCRIT 29.1 % (36.0-47.0); HEMOGLOBIN 9.3 g/dL (12.0-15.5); LYMPHOCYTES % (AUTO) 21.8 % (13-45); MEAN CORPUSCULAR HEMOGLOBIN 29.1 pg (27.0-33.4); MEAN CORPUSCULAR HGB CONC 32.1 g/dL (32.0-36.0); MEAN CORPUSCULAR VOLUME 91 fl (80-97); MONOCYTES % (AUTO) 8.9 % (3-13); PLATELET COUNT 196 10^3/uL (150-450); RED BLOOD COUNT 3.21 10^6/uL (3.72-5.28); TOTAL CELLS COUNTED % (AUTO) 100 %; WHITE BLOOD COUNT 4.7 10^3/uL (4.0-10.5)
[2018-07-22 19:17] LABS: ALANINE AMINOTRANSFERASE 28 U/L (9-52); ALBUMIN 3.5 g/dL (3.5-5.0); ALKALINE PHOSPHATASE 119 U/L (38-126); ANION GAP 6 (5-19); ASPARTATE AMINO TRANSFERASE 57 U/L (14-36); BILIRUBIN,DIRECT 0.8 mg/dL (0.0-0.4); BILIRUBIN,TOTAL 0.9 mg/dL (0.2-1.3); BLOOD UREA NITROGEN 55 mg/dL (7-20); CALCIUM 8.9 mg/dL (8.4-10.2); CARBON DIOXIDE 27 mmol/L (22-30); CHLORIDE 107 mmol/L (98-107); GLUCOSE 133 mg/dL (75-110); POTASSIUM 5.8 mmol/L (3.6-5.0); TOTAL PROTEIN 7.8 g/dL (6.3-8.2)
[2018-07-22] MEDS ORDERED: NORMAL SALINE 1000 ML 500 ML IV ONE (20:28)
--- NOTE | 2018-07-22 20:35 | ER Document Report ---
ED General - General Chief Complaint: Facial Swelling Stated Complaint: FACE, NECK, THROAT SWELLING Time Seen by Provider: 07/22/18 18:37 Mode of Arrival: Ambulatory Notes: Patient is a 58-year-old female with a past medical history of congestive heart failure, polysubstance abuse, hypertension, chronic tachycardia, presents with complaints of facial swelling. The patient states that she feels that her face has been intermittently swollen although denies that it currently feels swollen at this time. She states that she has a history of similar symptoms in the past but is uncertain of what the cause has been. She states that she has been taking her medications as directed. He denies any difficulty breathing or swallowing but does state that she has a mild, throbbing, aching sore throat that has been ongoing for the past 1 week. Nothing improves or worsens her symptoms. She denies fever or constitutional symptoms. She has not seen her general physician regarding today's concerns. TRAVEL OUTSIDE OF THE [place] IN LAST 30 DAYS: No - Related Data Allergies/Adverse Reactions: No Known Allergies Allergy (Verified 12/03/17 13:25) Past Medical History - General Information source: Patient - Social History Smoking Status: Current Every Day Smoker Frequency of alcohol use: None Drug Abuse: None Lives with: Family Family History: DM, Hypertension Patient has suicidal ideation: No Patient has homicidal ideation: No - Past Medical History Cardiac Medical History: Reports: Hx Congestive Heart Failure, Hx Coronary Artery Disease, Hx Hypercholesterolemia, Hx Hypertension Pulmonary Medical History: Reports: Hx COPD Endocrine Medical History: Reports: Hx Diabetes Mellitus Type 1, Hx Diabetes Mellitus Type 2 Renal/ Medical History: Denies: Hx Peritoneal Dialysis GI Medical History: Reports: Hx Gastroesophageal Reflux Disease, Hx Hepatitis - Hepatitis C Psychiatric Medical History: Reports: Hx Depression Infectious Medical History: Reports: Hx Hepatitis - Hepatitis C Past Surgical History: Reports: Hx Appendectomy, Hx Section, Hx Coronary Stent, Hx Gynecologic Surgery, Hx Tubal Ligation, Other - Salpingo- oophorectomy. Denies: Hx Hysterectomy - Immunizations Hx Diphtheria, Pertussis, Tetanus Vaccination: Yes Review of Systems - Review of Systems Notes: Constitutional: Negative for fever. HENT: Negative for sore throat. Positive for sensation of facial swelling Eyes: Negative for visual changes. Cardiovascular: Negative for chest pain. Respiratory: Negative for shortness of breath. Gastrointestinal: Negative for abdominal pain, vomiting or diarrhea. Genitourinary: Negative for dysuria. Musculoskeletal: Negative for back pain. Skin: Negative for rash. Neurological: Negative for headaches, weakness or numbness. 10 point ROS negative except as marked above and in HPI. Physical Exam - Vital signs Vitals: Temp Pulse Resp BP Pulse Ox 98.6 F 113 H 16 116/63 93 07/22/18 18:17 07/22/18 18:17 07/22/18 18:17 07/22/18 18:17 07/22/18 18:17 Interpretation: Tachycardic Notes: PHYSICAL EXAMINATION: GENERAL: Well-appearing, well-nourished and in no acute distress. HEAD: Atraumatic, normocephalic. EYES: Pupils equal round and reactive to light, extraocular movements intact, sclera anicteric, conjunctiva are normal. ENT: nares patent, oropharynx clear without exudates. Moist mucous membranes. NECK: Normal range of motion, supple without lymphadenopathy LUNGS: Breath sounds clear to auscultation bilaterally and equal. No wheezes rales or rhonchi. HEART: Regular rate and rhythm without murmurs ABDOMEN: Soft, nontender, normoactive bowel sounds. No guarding, no rebound. No masses appreciated. EXTREMITIES: Normal range of motion, no pitting or edema. No cyanosis. NEUROLOGICAL: No focal neurological deficits. Moves all extremities spontaneously and on command. PSYCH: Normal mood, normal affect. SKIN: Warm, Dry, normal turgor, no rashes or lesions noted. Course - Re-evaluation Re-evalutation: 07/22/18 20:35 Patient presents with concerns of facial swelling which is not appreciable on exam. There is no visible facial or neck swelling on examination. No lymphadenopathy. Oropharynx is clear without any evidence of airway edema. No stridor. No wheezing on exam. The patient is without tachypnea or hypoxia. She is able to swallow without any difficulty. No evidence of thyroid enlargement. Patient's laboratories do reveal mild hyperkalemia at 5.8. The patient has been given a dose of Lasix 40 mg IV in conjunction with 500 cc of normal saline to reduce the potassium level has been advised to have this level rechecked within the next 48-72 hours. She is also been advised to take her Lasix as prescribed as she does have a long-standing history of noncompliance. The patient was noted to be moderately tachycardic at time of presentation. Review of previous visits to the emergency department as well as hospitalizations reveals that the patient's baseline heart rate rests anywhere between the upper 90s and low 110s. I do not believe that this is indicative of any acute pathology at this point. Patient strep test is likewise negative as she was concerned that this could be causing her sensation of facial swelling. At this time will discharge with return precautions and follow-up recommendations. Verbal discharge instructions given a the bedside and opportunity for questions given. Medication warnings reviewed. Patient is in agreement with this plan and has verbalized understanding of return precautions and the need for primary care follow-up in the next 24-72 hours. - Vital Signs Vital signs: Temp Pulse Resp BP Pulse Ox 98.4 F 113 H 7 L 156/107 H 94 07/22/18 21:37 07/22/18 18:17 07/22/18 21:45 07/22/18 21:46 07/22/18 21:46 - Laboratory Result Diagrams: 07/22/18 18:45 07/22/18 18:45 Laboratory results interpreted by me: 07/22/18 07/22/18 18:45 18:45 RBC 3.21 L Hgb 9.3 L Hct 29.1 L RDW 19.0 H Potassium 5.8 H BUN 55 H Creatinine 1.50 H Est GFR ( Amer) 43 L Est GFR (Non-Af Amer) 36 L Glucose 133 H Direct Bilirubin 0.8 H AST 57 H Discharge - Discharge Clinical Impression: Hyperkalemia, Facial swelling Condition: Good Disposition: HOME, SELF-CARE Additional Instructions: Your potassium was mildly elevated at 5.8 today. You have been given an extra dose of Lasix to help reduce this level and should have your potassium level rechecked within the next 48 hours to ensure that it is coming back into normal ranges. Please continue to take your Lasix as prescribed at home. The remainder of your labs show chronic anemia but are otherwise unremarkable. The exact cause of your sensation of facial swelling is uncertain which her face does not appears to be significantly swollen on examination today. Please r eturn if you develop difficulty breathing, difficulty swallowing, pass out, develop chest pain, develop fever greater than 101 F, or have any other symptoms that are concerning to you. Referrals: KVNG VILLANUEVA MD [Primary Care Provider] - Follow up in 3-5 days
[2018-07-22] MEDS ORDERED: FUROSEMIDE INJ/PF 40 MG/4 ML SDV IV ONE (21:18)
[2018-07-22 22:02] VITALS: BP 156/107
== END 2018-07-22 22:02 | disposition home or self-care (01) ==
LOC: ER 18:11
DX: E87.5 Hyperkalemia (principal); R22.0 Localized swelling, mass and lump, head; R22.1 Localized swelling, mass and lump, neck; F17.200 Nicotine dependence, unspecified, uncomplicated; I50.9 Heart failure, unspecified; I25.10 Atherosclerotic heart disease of native coronary artery without angina pectoris; E78.00 Pure hypercholesterolemia, unspecified; I11.0 Hypertensive heart disease with heart failure; J44.9 Chronic obstructive pulmonary disease, unspecified; E11.9 Type 2 diabetes mellitus without complications; Z86.19 Personal history of other infectious and parasitic diseases; Z98.51 Tubal ligation status
CPT/HCPCS: 99283; 96374; 36415; 87070; 87880; 85025; 80053; J1940; J7030